=== PATIENT | male | born 1955 | race Caucasian/White ===

== ENCOUNTER 2017-11-01 09:32 | Observation (INO) | payer MEDICARE, MEDICAID, SELFPAY ==
[2017-11-01] VITALS (11 sets, daily range): BP systolic 112–143; BP diastolic 64–89; PULSE 58–68; RESP 14–24; TEMP 36.3–36.8; O2SAT 96–98; BMI 34.5; BMI 34.6; BMI 33.6
--- NOTE | 2017-11-01 09:45 | EKG12_ITS ---
Test Reason : ABD PAIN Blood Pressure : / mmHG Vent. Rate : 061 BPM Atrial Rate : 061 BPM P-R Int : 150 ms QRS Dur : 082 ms QT Int : 450 ms P-R-T Axes : 047 -11 126 degrees QTc Int : 453 ms Normal sinus rhythm with sinus arrhythmia Anterior infarct , age undetermined, cannot be excluded ST & T wave abnormality, consider lateral ischemia Abnormal ECG Confirmed by DELILAH ANAYA, BRITTNI ([id number]), editorial specialist RAQUEL LERMA ([id number] on 11/02/2017 9:53:27 AM Referred By: YAMILE Confirmed By:BRITTNI MAZARIEGOS MD
--- NOTE | 2017-11-01 09:45 | CT_ITS ---
STUDY: CT ABDOMEN AND PELVIS WITHOUT CONTRAST REASON FOR EXAM: Male, 62 years old. Mid and lower back pain and left lower quadrant pain with rebound tenderness. RADIATION DOSAGE (If Supplied By Facility): CTDIvol = ( 16.14 ) mGy, DLP = ( 862.88 ) mGycm TECHNIQUE: Transaxial images were obtained from the dome of the diaphragm to the symphysis pubis with oral contrast, and without intravenous contrast. Sagittal and coronal images were reconstructed. Individualized dose optimization techniques were used for this CT. COMPARISON: None. FINDINGS: Small right pleural effusion. Bibasilar atelectasis and/or infiltrate slightly worse on the right side. Coronary artery calcification. Normal liver. Normal gallbladder and extrahepatic biliary system. Normal spleen. Normal pancreas. Normal bilateral adrenal glands. Normal right kidney. Normal left kidney. Mild degree of nonspecific perinephric stranding. There is a small hiatal hernia. Normal small intestine. There are multiple colonic diverticula consistent with diverticulosis. The appendix is visualized and appears normal. There is diffuse atherosclerotic calcification of the abdominal aorta and its major visceral branches, without a demonstrated aneurysm. Normal inferior vena cava. There is borderline retroperitoneal lymphadenopathy with enlarged nodes no greater than 10mm in the short axis diameter. Normal urinary bladder. There is a small umbilical hernia containing fat. Small bilateral inguinal hernias containing fat. Small benign-appearing bilateral inguinal lymph nodes. There are degenerative changes of the visualized lumbar spine. CT/Abdomen/Pel W ORAL Cont Only IMPRESSION: Extensive atherosclerosis. Nonspecific bilateral perinephric stranding. Small right pleural effusion with underlying bibasilar atelectasis worse on the right side. Electronically Signed: Alli Dias MD at 12:39 EST Tel [phone], Service support ,
[2017-11-01] MEDS: Ondansetron 4 MG/2 ML Vial IV (10:18)
[2017-11-01 10:19] LABS: Absolute Lymphocyte Count 1.43 X10^3/ul (0.83-4.51); Absolute Neutrophil Count 5.8 X10^3/uL (2.0-7.7); Basophil# 0.02 X10^3/uL; Basophil% 0.2 % (0-1); Eosinophil# 0.13 X10^3/uL; Eosinophils% 1.6 % (0-5); Hematocrit 27.8 % (40-54); Lymphocyte # 1.43 X10^3/ul (4.0); Lymphocyte % 17.8 % (19-41); Mean Corp Hgb Conc 32.4 g/gl (32-36); Mean Corpuscular Hgb 25.8 pg (27.0-32.0); Mean Corpuscular Volume 79.7 fL (80-94); Mean Platelet Vol. 9.6 fl (6.2-12.0); Monocyte# 0.62 X10^3/uL; Monocyte% 7.7 % (0-10); Neutrophil # 5.83 X10^3/uL (2.7-7.7); Neutrophil % 72.5 % (47-70); Platelet Count 201 K/mm3 (150-450); RBC Distribution Width CV 14.1 % (11.6-14.6); RBC Distribution Width SD 40.4 fl (35.1-43.9); Red Blood Count 3.49 M/mm3 (4.6-6.2); White Blood Count 8.1 K/mm3 (4.4-11.0)
[2017-11-01 10:21] LABS: POSITIVE COUNT NO; POSITIVE DIFFERENTIAL NO; POSITIVE MORPHOLOGY NO
[2017-11-01] MEDS: 0.9% Normal Saline 1,000 ML 250 ML IV (10:22)
--- NOTE | 2017-11-01 10:26 | ED.VISSUMM ---
- ER Visit Summary Date of Service: 11/01/17 Chief Complaint: Left flank pain that started 1 week ago now complains of left lower quadrant abdominal pain History of Present Illness: The patient is a 62 M who is not a good informant presents because of increasing left lower quadrant abdominal pain. He states he initially had left lower back pain that he thought was secondary to activity. He denies history of renal ureterolithiasis. He denies dysuria, frequency, urgency or hematuria. He is uncertain whether he has history of diverticulosis. He states he has been scoped by Dr. Eliel Renteria and had 5 polyps removed. He was admitted in August for anasarca. He denies any fever, chills night sweats. He does report increased shortness of breath and increased swelling of his lower extremities. He denies cough. He denies increased orthopnea and denies PND. There is no history of CHF. He does have history obstructive sleep apnea and has a BMI greater than 40. He is on Xarelto for PE/DVT. Past medical history COPD, hypertension, hypercholesterolemia, obstructive sleep apnea, PE/DVT. PCP is Dr. Lorenzo and tread cutter Dr. Martinez. Physical Examination: Does not appear well. Question of central cyanosis. He is tachypnic. HEENT exam is remarkable for discoloration of lips concerning for central cyanosis. Lungs revealed decreased breath sounds with end inspiratory rales. Heart is regular without murmur, gallop or rub abdomen is distended firm peritoneal findings and maximal tenderness left lower quadrant. He does have left lower back/flank pain to palpation as well. There is no rash to suggest herpes varicella-zoster. There is 1-2+ pitting edema lower extremity. Neuro exam is nonfocal. Test Results: EG sinus rhythm rate of 61 with decreased anterior force and ischemic ST-T wave changes laterally. Need old for comparison. These EKG changes are new since August 2017. CT of the abdomen and pelvis reveals significant atherosclerotic disease with a right pleural effusion and bilateral perinephric stranding. H&H 9.0 27.8. MCV is 79.7. BMP is marked for glucose 168, BUN and creatinine are 39 and 3.07 respectively. Urine reveals proteinuria and hematuria consistent with end-stage renal disease. Troponins less than 0.02. Lactate is 1.0. Emergency Department Course and Treatment: IV was established and he received a fluid bolus. He was treated with 4.5 g of Zosyn IV piggyback since concern for diverticulitis with peritonitis. Appropriate blood work was obtained. EKG was obtained because he appeared ill and reveals a sinus rhythm rate of 61 with decreased anterior force and ST-T wave changes in the lateral leads. Will need old EKG for comparison. Treatment Plan: Was medicated with Zofran 4 mg IV push, morphine sulfate 4 mg IV push. He states his back pain is resolved. In light of the fact that he was dyspneic tachypnic and concern for central cyanosis when he walked and this may represent his anginal equivalent since these EKG changes are new since September 22, 2017. He states he has not had a cardiac cath rotation stress test in greater than 3 years. Disposition: 23 observation versus full admission PCU Impression: 1. Dyspnea on exertion suspect anginal equivalent 2. Abnormal EKG with ischemic lateral changes, new 3. Anemia 4. End-stage renal disease, stage IV chronic 5. Hyperglycemia and type II diabetic 6. Pleural effusion, history of CHF This note was generated with [employer] dictation software. It may contain incorrect words, spelling, and punctuation that were not noted in review of the chart prior to signing ED Disposition - Plan for ED Patient: Chief Complaint: Abd Pain Referrals: Chris Woodward MD [Primary Care Provider] -
[2017-11-01 10:28] LABS: Anion Gap 9 (5-15); BUN 39 mg/dL (7-18); BUN/Creat Ratio 12.7 RATIO (10-20); Calcium,Total 8.1 mg/dL (8.5-10.1); Chloride 110 mmol/L (98-107); Creatinine, Serum 3.07 mg/dL (0.70-1.30); EST Glomerular Filtration Rate 22 mL/min (>60); Est Glom Filt Rate - Afr Amer 27 mL/min (>60); Estimated Creatinine Clearance 23.33 ml/min; Glucose 168 mg/dL (74-106); Potassium 5.1 mmol/L (3.5-5.1); Sodium Level 140 mmol/L (136-145)
--- NOTE | 2017-11-01 10:30 | ED.DCSUM_ITS ---
- ER Visit Summary Date of Service: 11/01/17 Chief Complaint: Left flank pain that started 1 week ago now complains of left lower quadrant abdominal pain History of Present Illness: The patient is a 62 M who is not a good informant presents because of increasing left lower quadrant abdominal pain. He states he initially had left lower back pain that he thought was secondary to activity. He denies history of renal ureterolithiasis. He denies dysuria, frequency, urgency or hematuria. He is uncertain whether he has history of diverticulosis. He states he has been scoped by Dr. Eliel Renteria and had 5 polyps removed. He was admitted in August for anasarca. He denies any fever , chills night sweats. He does report increased shortness of breath and increased swelling of his lower extremities. He denies cough. He denies increased orthopnea and denies PND. There is no history of CHF. He does have history obstructive sleep apnea and has a BMI greater than 40. He is on Xarelto for PE/DVT. Past medical history COPD, hypertension, hypercholesterolemia, obstructive sleep apnea, PE/DVT. PCP is Dr. Lorenzo and counselor supervisor Dr. Martinez. Physical Examination: Does not appear well. Question of central cyanosis. He is tachypnic. HEENT exam is remarkable for discoloration of lips concerning for central cyanosis. Lungs revealed decreased breath sounds with end inspiratory rales. Heart is regular without murmur, gallop or rub abdomen is distended firm peritoneal findings and maximal tenderness left lower quadrant. He does have left lower back/flank pain to palpation as well. There is no rash to suggest herpes varicella-zoster. There is 1-2+ pitting edema lower extremity. Neuro exam is nonfocal. Test Results: EG sinus rhythm rate of 61 with decreased anterior force and ischemic ST-T wave changes laterally. Need old for comparison. These EKG changes are new since August 2017. CT of the abdomen and pelvis reveals significant atherosclerotic disease with a right pleural effusion and bilateral perinephric stranding. H&H 9.0 27.8. MCV is 79.7. BMP is marked for glucose 168, BUN and creatinine are 39 and 3.07 respectively. Urine reveals proteinuria and hematuria consistent with end-stage renal disease. Troponins less than 0.02. Lactate is 1.0. Emergency Department Course and Treatment: IV was established and he received a fluid bolus. He was treated with 4.5 g of Zosyn IV piggyback since concern for diverticulitis with peritonitis. Appropriate blood work was obtained. EKG was obtained because he appeared ill and reveals a sinus rhythm rate of 61 with decreased anterior force and ST-T wave changes in the lateral leads. Will need old EKG for comparison. Treatment Plan: Was medicated with Zofran 4 mg IV push, morphine sulfate 4 mg IV push. He states his back pain is resolved. In light of the fact that he was dyspneic tachypnic and concern for central cyanosis when he walked and this may represent his anginal equivalent since these EKG changes are new since September 22, 2017. He states he has not had a cardiac cath rotation stress test in greater than 3 years. Disposition: 23 observation versus full admission PCU Impression: 1. Dyspnea on exertion suspect anginal equivalent 2. Abnormal EKG with ischemic lateral changes, new 3. Anemia 4. End-stage renal disease, stage IV chronic 5. Hyperglycemia and type II diabetic 6. Pleural effusion, history of CHF This note was generated with [employer] dictation software. It may contain incorrect words, spelling, and punctuation that were not noted in review of the chart prior to signing ED Disposition - Plan for ED Patient: Chief Complaint: Abd Pain Referrals: Chris Woodward MD [Primary Care Provider] -
[2017-11-01 10:41] LABS: Bacteria 0 SEEN /hpf (None Seen); Mucous, Urine 0 SEEN /hpf (<or=2+); White Blood Cells 0 SEEN /hpf (0-5)
[2017-11-01 10:44] LABS: Color, Urine Yellow (Yellow); Glucose, Dipstick 100 mg/dl (Normal); Ketone-Dipstick Negative (Negative); Leukocyte Esterase-Dipstick Negative /ul (Negative); Nitrite-Dipstick Negative (Negative); Occult Blood-Urine 25 /ul (Negative); Protein-Dipstick 500 mg/dl (Negative); Specific Gravity, Urine 1.015 (1.002-1.030); Urine Bilirubin Dipstick Negative (Negative); Urine Clarity Sl. Cloudy (Clear); Urine Urobilinogen Normal (Normal)
[2017-11-01 11:04] LABS: Hyaline Cast 0-5 SEEN /lpf (0-5); Red Blood Cells-Urine 0-5 SEEN /hpf (0-5); Squamous Epithelial Cells - UA 0-5 SEEN /hpf (0-5)
[2017-11-01] MEDS: Aspirin 81 MG TAB.CHEW 324 MG PO (16:12)
--- NOTE | 2017-11-01 17:27 | CON.PCM_ITS ---
Reason for Consult Date of Consultation: 11/01/17 Reason for Consultation: Abnormal EKG History of Present Illness: The patient is a 62 year old M with a previous cardiac history significant for hypertension diabetes mellitus as well as coronary artery bypass surgery. He was previously been followed through the [facility] system. He had presented to the hospital in August 2017 with shortness of breath was noted to have an elevated natruretic peptide level and underwent an echocardiographic evaluation which demonstrated preserved ejection fraction. His EKG at that time did not demonstrate any significant changes. This time he presented with lower abdominal discomfort as well as lower back discomfort. He specifically denies any chest pain he does have mild chronic shortness of breath no palpitations no paroxysmal nocturnal dyspnea and minimal pedal edema. He has had no dizziness or diaphoresis no near syncope or syncope. Vision to his blood work being done an electrocardiogram was done which demonstrated changes noted in the beats and one in aVL and V5 and V6 consistent with lateral ischemia compared to the electrocardiogram done in August 2017. Cardiology was called to see him due to the EKG abnormalities. [] Past Medical History Allergies/Adverse Reactions: Allergies No Known Allergies Allergy (Verified 11/01/17 09:34) Home Medications: Ambulatory Orders Medication Instructions Recorded Amlodipine [Norvasc] 10 mg PO QHS 08/10/17 Aspirin 325 mg PO DAILY@0800 08/10/17 Atorvastatin Calcium 10 mg PO QHS 08/10/17 Carvedilol 25 mg PO BID 08/10/17 Folic Acid 800 mcg PO DAILY@0800 08/10/17 Doxazosin Mesylate [Cardura] 4 mg PO BID 08/30/17 Omeprazole 40 mg PO DAILY 08/30/17 Calcitriol [Rocaltrol] 0.25 mcg PO DAILY 11/01/17 Ergocalciferol [Vitamin D] 50,000 unit PO QMONTH 11/01/17 Furosemide [Lasix] 40 mg PO QHS 11/01/17 Furosemide [Lasix] 80 mg PO DAILY 11/01/17 Glimepiride [Amaryl] 0.5 mg PO DAILY 11/01/17 Vitamin E (Dl,Tocopheryl Acet) 400 unit PO DAILY 11/01/17 [Vitamin E] Past Medical History (Chronic Problems): Chronic Problems CKD (chronic kidney disease) (Chronic) DM2 (diabetes mellitus, type 2) (Chronic) Essential (primary) hypertension (Chronic) Surgical History: coronary bypass surgery - 10/2014 - *Family History Maternal History Items: Heart Disease, Hypertension Paternal History Items: Diabetes, Heart Disease, Hypertension Sibling History Items: Diabetes, Heart Disease, Hypertension Lives: Spouse/ Significant Other Smoking Status: Former smoker Alcohol: None Drugs: None Review of Systems - Review of Systems General: Denies: Fever, Night Sweats, Fatigue Cardiovascular: Reports: Peripheral Edema. Denies: Chest Discomfort, Shortness of Breath, Orthopnea, PND, Palpitations, Lightheadedness, Dizziness, Near Syncope, Syncope Respiratory: Denies: Cough, Sputum Production, Hemoptysis Gastrointestinal: Reports: Abdominal Discomfort. Denies: Hematemesis, Hematochezia, Melena Genitourinary: Denies: Dysuria, Hematuria Skin: Denies: Rash Neurological: Denies: Dizziness Subjectve: Pleasant gentleman in no apparent distress at this time Objective: Vital Signs Temp Pulse Resp BP Pulse Ox 98.3 F 65 17 112/72 98 11/01/17 17:10 11/01/17 17:10 11/01/17 17:10 11/01/17 17:10 11/01/17 17:10 Oxygen Delivery Method Room Air Weight: 215 lb Body Mass Index (BMI) 33.6 General: Awake, Alert, Oriented x 3 HEENT: PERRL, EOMI, Sclera Non Icteric Neck: Supple, Good ROM, No Lymph Node Enlargement Lungs: Diminished Ben Bases Cardiovascular: Regular Rhythm, Normal S1, Normal S2, No Murmurs, No Rubs, No Gallops Vascular: No Carotid Bruits, Normal Femoral Pulses, Normal Radial Pulses, Normal Dorsalis Pedal Pulse, Normal Posterior Tibial Pulses Abdomen: Bowel Sounds Present, Soft, Non Tender, No HSM, No Organomegaly Extremities: No Cyanosis, No Clubbing, Trace RLE Edema, Trace LLE Edema Skin: No Rashes Neurological: No Focal Motor or Sensory Deficit Psych/Mental Status: Appropriate Rhythm: EKG: Normal sinus rhythm rate of 61 bpm and lateral EKG changes. Assessment/Plan 1. EKG changes The patient presents with asymptomatic EKG changes. The above could be suggestive of ischemia pressure in comparison to his EKG from August 2017. Since of chest discomfort, even though he may be a diabetic I may suggest that we proceed with a noninvasive assessment especially as he has other concomitant issues such as anemia and significant renal insufficiency with a baseline creatinine of 2.8-3.3. If a significant amount of ischemia is detected then we may consider invasive therapy for the above. In addition he does not have any troponin elevation at this particular time. I would recommend a pharmacologic myocardial perfusion stress test in the morning as well as an echocardiogram to reassess his left ventricular function and compared with his preserved ejection fraction of 65% which was noted in August 2017. 2. Hypertension His blood pressure is under good control on the current medical therapy and I would not necessarily suggest any changes. 3. Chronic renal insufficiency with anemia He does have evidence of chronic renal insufficiency and will be followed up with the medical service regarding the above. 4. Status post coronary bypass surgery Patient is status post remote coronary bypass surgery placement. He has not had a recent noninvasive workup of the above, and therefore with the present EKG changes I would recommend that he undergo a workup and further recommendations made based on those results. 5. Diastolic heart failure He does have a history of diastolic heart failure and his diuretics should be tapered and adjusted as appropriate. Thank you for allowing me to participate in the care of your patient. Please don't hesitate to call if any issues arise
--- NOTE | 2017-11-01 17:32 | ECHOD_ITS ---
Reason For Study: S/P CABG, EKG changes Procedure This was a 2D Doppler, Color Flow transthoracic echocardiogram. Exam performed portable in patient room. Left Ventricle Normal LV size. Left ventricular systolic function is normal. The estimated ejection fraction is 65 %. No regional wall motion abnormalities noted. Right Ventricle Normal size and thickness. Normal systolic function. Atria The left atrium is mildly enlarged. Normal right atrium. Mitral Valve Normal mitral valve. Mild (1+) eccentric mitral valve insufficiency. Tricuspid Valve Normal tricuspid valve. Mild to moderate (1-2+) tricuspid valve insufficiency. Pulmonary artery systolic pressure is 45 mmHg. Mild pulmonary hypertension. Aortic Valve Normal aortic valve. Trisinus/trileaflet aortic valve. Pulmonic Valve Normal pulmonic valve. Great Vessels Normal aortic root. The pulmonary artery is normal size. Normal inferior vena cava. Pericardium/Pleural No pericardial effusion. MMode/2D Measurements & Calculations LVIDd: 5.3 cm IVSd: 1.1 cm Ao root diam: 3.0 cm LVIDs: 3.6 cm LVPWd: 1.2 cm LA dimension: 4.8 cm RVDd: 3.4 cm FS: 30.8 % LAV(MOD-bp): 92.3 ml LA A4 area: 25.3 cm2 RA A4 area: 17.2 cm2 LAV(MOD-bp) Indexed: 44.2 ml/m2 LAV(MOD-sp2): 85.5 ml LAV(MOD-sp4): 88.6 ml Doppler Measurements & Calculations MV E max jose manuel: 154.3 cm/sec Lat Peak E' Jose Manuel: 13.0 cm/sec Med Peak E' Jose Manuel: 8.3 cm/sec MV A max jose manuel: 129.4 cm/sec E/E' lat: 11.8 E/E' med: 18.5 MV E/A: 1.2 Ao V2 max: 158.5 cm/sec LV V1 max: 116.0 cm/sec PA V2 max: 133.7 cm/sec Ao max P.1 mmHg LV V1 max P.4 mmHg TR max jose manuel: 316.7 cm/sec TR max P.8 mmHg Interpretation Summary Normal LV size. Left ventricular systolic function is normal. The estimated ejection fraction is 65 %. Mild (1+) eccentric mitral valve insufficiency. Pulmonary artery systolic pressure is 45 mmHg. Mild pulmonary hypertension. Ordering Physician: Travon Fox Referring Physician: Chris Woodward M.D. Performed By: Ila Stuart RDCS, RVT
[2017-11-01] MEDS: Furosemide 40 MG Tablet PO (21:35)
[2017-11-01] MEDS: Carvedilol 25 MG Tablet PO (21:35)
[2017-11-01] MEDS: Atorvastatin Calcium 10 MG Tablet PO (21:35)
[2017-11-01] MEDS: Heparin Injection 5,000 UNITS/ML Syringe 5000 UNITS SC (21:35)
[2017-11-01] MEDS: amLODIPine 10 MG Tablet PO (21:35)
[2017-11-01] MEDS: Doxazosin 4 MG Tablet PO (21:35)
[2017-11-01 21:46] LABS: Bedside Glucose 130 mg/dL (70-110)
--- NOTE | 2017-11-01 21:52 | PCM.HP.STD ---
Problem List (1) Abnormal EKG Status: Acute (2) Lower abdominal pain Status: Acute History of Present Illness Date of Admission: 11/01/17 Chief Complaint: Abnormal EKG, lower abdominal pain The patient is a 62 year old M seen in the emergency room it was [facility] with chief complaint of lower abdominal pain and lower back pain ?1 week, patient denied any radiation of pain into his legs. Patient denied any diarrhea, hematochezia, nausea, or vomiting. Workup in the emergency room included labs which showed a white blood cell count of 8.1, hemoglobin was 9, BUN was 39, creatinine was 3.7. Glucose was 165. Patient had a chest x-ray performed which showed small right pleural effusion and possible atelectasis, patient has CT of the abdomen and pelvis which showed perinephric stranding but no acute process. EKG was performed which showed normal sinus rhythm, it was noted that there were ST depressions in the lateral wall leads on EKG which was change from previous EKG done in 2017. In talking with the patient further, he complained of shortness of breath at times but stated that his Lasix dosage had been decreased recently and then increased a few days ago. Patient states that he also had an episode of chest pain which was stabbing in nature across the top of his chest, this episode was approximately 6 months ago. Patient has a history of coronary artery disease with two-vessel bypass in the past, he states his last stress test was in 2014 before he had his bypass surgery. Patient has chronic kidney disease and is being seen by nephrology, patient does not know the exact etiology of his chronic kidney disease but feels it may be due to his diabetes. Patient will be placed in observation status for abnormal EKG, his left lower quadrant abdominal pain has all but disappeared at the time of my examination, not sure the etiology of this abdominal pain. Patient will be seen in consultation by cardiology, he will have an echocardiogram performed, most likely he will undergo stress test due to his elevated creatinine. Cardiac enzymes will be cycled Past Medical History Past Medical History (Chronic Problems): Chronic Problems CKD (chronic kidney disease) (Chronic) DM2 (diabetes mellitus, type 2) (Chronic) Essential (primary) hypertension (Chronic) Allergies No Known Allergies Allergy (Verified 11/01/17 09:34) Home Medications: Ambulatory Orders Medication Instructions Recorded Amlodipine [Norvasc] 10 mg PO QHS 08/10/17 Aspirin 325 mg PO DAILY@0800 08/10/17 Atorvastatin Calcium 10 mg PO QHS 08/10/17 Carvedilol 25 mg PO BID 08/10/17 Folic Acid 800 mcg PO DAILY@0800 08/10/17 Doxazosin Mesylate [Cardura] 4 mg PO BID 08/30/17 Omeprazole 40 mg PO DAILY 08/30/17 Calcitriol [Rocaltrol] 0.25 mcg PO DAILY 11/01/17 Ergocalciferol [Vitamin D] 50,000 unit PO QMONTH 11/01/17 Furosemide [Lasix] 40 mg PO QHS 11/01/17 Furosemide [Lasix] 80 mg PO DAILY 11/01/17 Glimepiride [Amaryl] 0.5 mg PO DAILY 11/01/17 Vitamin E (Dl,Tocopheryl Acet) 400 unit PO DAILY 11/01/17 [Vitamin E] Surgical History: appendectomy, coronary bypass surgery - 10/2014 Psychiatric History: No pertinent psych hx Lives: Spouse/ Significant Other Smoking Status: Former smoker Tobacco Use: Non-smoker Alcohol: None Drugs: None - *Family History Maternal History Items: Heart Disease, Hypertension Paternal History Items: Diabetes, Heart Disease, Hypertension Sibling History Items: Diabetes, Heart Disease, Hypertension Review of Systems Constitutional: Denies: Anorexia, Chills, Fever, Night Sweats, Malaise, Weakness, Weight Change, Fatigue Eyes: Denies: Blurred vision, Cataracts, Conjunctivae Inflammation, Double vision, Drainage HEENT: Denies: Difficulty Hearing, Difficulty Swallowing, Dysphasia, Ear Pain, Eye Pain, Hearing Changes, Nasal bleeding, Nasal Congestion, Post Nasal Drip Cardiovascular: Reports: Chest Pain - 6 months ago patient states he had an episode of stabbing chest pain across his upper chest. Denies: Claudication, Chest Pressure, Chest Tightness, Edema, Heaviness, Orthopnea, Palpitations, Paroxysmal Noc. Dyspnea, Syncope Respiratory: Reports: Shortness of Breath, Shortness of breath upon exertion. Denies: Cough, Hemoptysis, Pleuritic Pain, Shortness of breath at rest, Sputum production, Wheezing Gastrointestinal: Reports: Abdominal Pain - Left lower quadrant abdominal pain ?1 week. Denies: Constipation, Diarrhea, Hematemesis, Hematochezia, Nausea, Melena, Vomiting Genitourinary: Denies: Dysuria, Frequency, Hematuria, Hesitancy, Urgency Musculoskeletal: Denies: Joint Pain, Joint stiffness, Joint swelling Skin: Denies: Dryness, Pruritis, Rash Neurological: Denies: Blurred vision, Double vision, Slurred speech, Difficulty swallowing, Focal weakness, Headaches, Incoordination, Numbness, Tingling Psychiatric: Denies: Anxiety, Depression, Homicidal Ideations, Suicidal Ideations Endocrine: Denies: Change in Body Habitus, Heat/ Cold Intolerance, Polydipsia, Polyuria Hematologic/ Lymphatic: Denies: Adenopathy, Anemia, Easy Bruising, Easy Bleeding, Petechiae, Purpura VTE Information - Inpt Only VTE Present on Admission: No VTE Mechan Device Prophylaxis: None VTE Pharm Prophylaxis ordered?: Yes Patient Problems: Active and Suspected Problems Abnormal EKG (Acute) Lower abdominal pain (Acute) - Physical Exam General: Alert, Oriented x3, Cooperative, No apparent distress, Well developed, Well nourished HEENT: Atraumatic, PERRLA, EOMI, Normocephalic Oral: Moist Mucosa Neck: Supple, No JVD, Negative Carotid Bruits, No Nuchal Rigidity, Trachea Midline, Thyroid Normal Size and Texture Lungs: Clear to auscultation, Normal air movement, No rhonchi, No wheeze, No rales Cardiovascular: Regular rate, Regular Rhythm, Normal S1, Normal S2, No murmurs, No Ectopic Activity, PMI Normal, No rub noted, No Gallop Abdomen: Bowel Sounds Present, Soft, Non Tender, Non-Distended, No hernias noted Extremities: No clubbing, No cyanosis, No edema, Capillary Refill Less than 3 Seconds Skin: No rashes, No breakdown Musculoskeletal: No Tenderness to Palpation of Joints or Extremities Neurological: Cranial nerves II-XII grossly intact, Neuro grossly intact, Muscle tone normal, Sensory exam intact to light touch and pain, Coordination normal Psych/Mental Status: Normal Affect, Appropriate, Alert and oriented to time, place, person, mood and affect Vital Signs Temp Pulse Resp BP Pulse Ox 98.0 F 62 18 124/64 H 96 11/01/17 21:24 11/01/17 21:24 11/01/17 21:24 11/01/17 21:24 11/01/17 21:24 Oxygen Delivery Method Room Air Weight: 97.522 kg Body Mass Index (BMI) 33.6 Intake and Output for Last 24 Hours 10/30/17 10/31/17 11/01/17 23:59 23:59 23:59 Intake Total 120 / 120 Output Total 350 / 350 Balance -230 / -230 Laboratory Tests Past 24 Hrs 11/01/17 18:42 Troponin I < 0.02 POC Glucose 11/01/17 21:31 POC Glucose 130 H Assessment/Plan Active and Suspected Problems Abnormal EKG (Acute) Lower abdominal pain (Acute) #1 abnormal EKG showing T-wave depressions in the lateral wall leads-patient will be placed in observation status on PCU, cardiac enzymes will be cycled, echocardiogram will be obtained, patient will be seen in consultation by cardiology, patient most probably will have a stress test performed if his enzymes remain negative. #2 left lower quadrant abdominal pain-etiology unclear, continue to observe for return of the abdominal pain #3 chronic kidney disease stage IV secondary to type 2 diabetes #4 type 2 diabetes #5 coronary artery disease #6 anemia-probably secondary to chronic kidney disease, I will order serum iron Code Visit OBSV E&M: 35747 Initial observation care L3
[2017-11-01] MEDS: Acetaminophen 325 MG Tablet 650 MG PO (23:25)
[2017-11-02] VITALS (7 sets, daily range): BP systolic 103–112; BP diastolic 51–71; PULSE 60–74; RESP 16–18; TEMP 36.4–36.9; O2SAT 95–98
[2017-11-02 00:06] LABS: Iron 40 ug/dL (65-175); Iron Binding Capacity,Total 194 ug/dL (250-450); PERCENT IRON SATURATION 20.6 % (15.0-55.0)
[2017-11-02 05:12] LABS: Anion Gap 10 (5-15); BUN 36 mg/dL (7-18); BUN/Creat Ratio 12.6 RATIO (10-20); Calcium,Total 7.4 mg/dL (8.5-10.1); Chloride 109 mmol/L (98-107); Creatinine, Serum 2.85 mg/dL (0.70-1.30); EST Glomerular Filtration Rate 24 mL/min (>60); Est Glom Filt Rate - Afr Amer 29 mL/min (>60); Estimated Creatinine Clearance 25.13 ml/min; Glucose 118 mg/dL (74-106); Potassium 4.6 mmol/L (3.5-5.1); Sodium Level 138 mmol/L (136-145)
[2017-11-02] MEDS: Aspirin 325 MG Tablet PO (05:16)
--- NOTE | 2017-11-02 05:55 | EKG12_ITS ---
Test Reason : AM EKG Blood Pressure : / mmHG Vent. Rate : 065 BPM Atrial Rate : 065 BPM P-R Int : 156 ms QRS Dur : 086 ms QT Int : 418 ms P-R-T Axes : 058 -07 121 degrees QTc Int : 434 ms Normal sinus rhythm Septal infarct , age undetermined T wave abnormality, consider lateral ischemia Abnormal ECG Confirmed by DELILAH ANAYA, BRITTNI ([id number]), photography editor RAQUEL LERMA ([id number]) on 11/03/2017 2:57:16 PM Referred By: ANJANA Confirmed By:BRITTNI MAZARIEGOS MD
[2017-11-02 06:51] LABS: Bedside Glucose 112 mg/dL (70-110)
[2017-11-02] MEDS: Acetaminophen 325 MG Tablet 650 MG PO (08:51)
[2017-11-02] MEDS: Carvedilol 25 MG Tablet PO (08:57)
[2017-11-02] MEDS: Doxazosin 4 MG Tablet PO (08:57)
--- NOTE | 2017-11-02 11:11 | PN.CARD_ITS ---
Subjectve: Patient seen and evaluated complaining of abdominal pain but no chest pain Objective: Vital Signs Temp Pulse Resp BP Pulse Ox 98.4 F 74 16 103/71 98 11/02/17 08:12 11/02/17 08:12 11/02/17 08:12 11/02/17 08:12 11/02/17 08:12 Oxygen Delivery Method Room Air Weight: 215 lb Body Mass Index (BMI) 33.6 Intake and Output for Last 24 Hours 10/31/17 11/01/17 11/02/17 23:59 23:59 23:59 Intake Total 360 / 360 100 / 100 Output Total 600 / 600 375 / 375 Balance -240 / -240 -275 / -275 General: Awake, Alert, Oriented x 3 HEENT: PERRL, EOMI, Sclera Non Icteric Neck: Supple, Good ROM, No Lymph Node Enlargement Lungs: Clear to auscultation Cardiovascular: Regular Rhythm, Normal S1, Normal S2, No Murmurs, No Rubs, No Gallops Vascular: No Carotid Bruits, Normal Femoral Pulses, Normal Radial Pulses, Normal Dorsalis Pedal Pulse, Normal Posterior Tibial Pulses Abdomen: Bowel Sounds Present, Soft, Non Tender, No HSM, No Organomegaly Extremities: No Cyanosis, No Clubbing, No edema Neurological: No Focal Motor or Sensory Deficit 11/01/17 18:42: Troponin I < 0.02 11/01/17 23:03: Troponin I < 0.02 11/01/17 23:03: Iron 40 L, TIBC 194 L, Iron Saturation 20.6 11/02/17 04:20: Sodium 138, Potassium 4.6, Chloride 109 H, Carbon Dioxide 19.0 L , Anion Gap 10, BUN 36 H, Creatinine 2.85 H, Est GFR (MDRD) Af Amer 29 L, Est GFR (MDRD) Non-Af 24 L, BUN/Creatinine Ratio 12.6, Glucose 118 H, Calcium 7.4 L 11/02/17 04:20: Troponin I < 0.02 Assessment/Plan 1. EKG changes The patient presents with asymptomatic EKG changes. The above could be suggestive of ischemia pressure in comparison to his EKG from August 2017. Since of chest discomfort, even though he may be a diabetic I may suggest that we proceed with a noninvasive assessment especially as he has other concomitant issues such as anemia and significant renal insufficiency with a baseline creatinine of 2.8-3.3. If a significant amount of ischemia is detected then we may consider invasive therapy for the above. In addition he does not have any troponin elevation at this particular time. I would recommend a pharmacologic myocardial perfusion stress test in the morning . His echocardiogram continues to demonstrate preserved left ventricular ejection fraction estimated at 60-65% with no wall motion abnormalities present. 2. Hypertension His blood pressure is under good control on the current medical therapy and I would not necessarily suggest any changes. 3. Chronic renal insufficiency with anemia He does have evidence of chronic renal insufficiency and will be followed up with the medical service regarding the above. 4. Status post coronary bypass surgery Patient is status post remote coronary bypass surgery placement. He has not had a recent noninvasive workup of the above, and therefore with the present EKG changes I would recommend that he undergo a workup and further recommendations made based on those results. 5. Diastolic heart failure He does have a history of diastolic heart failure and his diuretics should be tapered and adjusted as appropriate. Thank you for allowing me to participate in the care of your patient. Please don't hesitate to call if any issues arise
[2017-11-02 11:55] LABS: Bedside Glucose 179 mg/dL (70-110)
[2017-11-02] MEDS: Glimepiride 1 MG Tablet 0.5 MG PO (12:31)
--- NOTE | 2017-11-02 12:31 | DCINST_ITS ---
- Discharge Diagnoses Current Active Problems: Current Active and Chronic Problems Abnormal EKG (Acute) Lower abdominal pain (Acute) You will use the following diet at home:: Calorie/Carbohydrate Controlled ( specify 1200, 1400, etc), Cardiac Discharge Activity: Return to Normal Activity Call your doctor if you observe: Fever of 101 or Higher, Dizziness, Fainting spells, Swelling in the ankles, Chest pain, Increased palpitations (irregular heartbeat) Allergies/Adverse Reactions: Allergies No Known Allergies Allergy (Verified 11/01/17 09:34) Medications to take at Discharge Amlodipine [Norvasc] 10 mg PO QHS 08/10/17 Aspirin 325 mg PO DAILY@0800 08/10/17 Atorvastatin Calcium 10 mg PO QHS 08/10/17 Carvedilol 25 mg PO BID 08/10/17 Folic Acid 800 mcg PO DAILY@0800 08/10/17 Doxazosin Mesylate [Cardura] 4 mg PO BID 08/30/17 Omeprazole 40 mg PO DAILY 08/30/17 Calcitriol [Rocaltrol] 0.25 mcg PO DAILY 11/01/17 Ergocalciferol [Vitamin D] 50,000 unit PO QMONTH 11/01/17 Furosemide [Lasix] 40 mg PO QHS 11/01/17 Furosemide [Lasix] 80 mg PO DAILY 11/01/17 Glimepiride [Amaryl] 0.5 mg PO DAILY 11/01/17 Vitamin E (Dl,Tocopheryl Acet) [Vitamin E] 400 unit PO DAILY 11/01/17 Oxycodone [Oxyir] 5 mg PO Q8H PRN PRN #10 tablet 11/02/17 The following prescriptions were given: Oxycodone [Oxyir] 5 mg PO Q8H PRN PRN #10 tablet PRN Reason: Pain Primary Care Physician: Chris Woodward MD [Primary Care Provider] - Please follow up with your Primary Care Physician in: 1 Week Please Follow Up With: Mana Granados DO When: As scheduled Proposed Discharge Date: 11/02/17
[2017-11-02] MEDS: Furosemide 80 MG Tablet PO (12:32)
[2017-11-02] MEDS: Pantoprazole Sodium 40 MG Tablet PO (12:32)
--- NOTE | 2017-11-02 12:37 | DS.PCM_ITS ---
<Lora Velázquez - Last Filed: 11/02/17 14:56> Discharge Date and Diagnosis Date of Admission: 11/01/17 Date of Discharge: 11/02/17 - Primary Discharge Diagnosis Active and Suspected Problems Abnormal EKG (Acute)- ACS ruled out Lower abdominal pain (Acute) - Secondary Discharge Diagnosis Chronic Problems CKD (chronic kidney disease) (Chronic) DM2 (diabetes mellitus, type 2) (Chronic) Essential (primary) hypertension (Chronic) Hospital Course and Treatment Imaging Results: Diagnostic Data Abdomen CT 11/01/17 09:45 IMPRESSION: Extensive atherosclerosis. Nonspecific bilateral perinephric stranding. Small right pleural effusion with underlying bibasilar atelectasis worse on the right side. Electronically Signed: Alli Dias MD at 12:39 EST Tel [phone], Service support , Dr. Fox- Cardiology Operations: None Procedures: 2-D Echocardiogram, Stress test Summary of Care Provided: Patient is a 62-year-old male admitted 11/01/17 due to abnormal EKG, left lower abdominal pain/left lower back pain ?1 week. Chest x-ray showed small right pleural effusion and possible atelectasis. CT of the abdomen showed perinephric stranding but no acute process. EKG showed sinus rhythm, possible ST depressions. He has a past medical history of chronic diastolic CHF, chronic kidney disease stage IV, type 2 diabetes mellitus, hypertension, history of CAD status post CABG, anemia of chronic disease. Patient follows with Dr. Granados for kidney disease. Cardiology was consulted. Troponin negative. Stress test negative for ischemia. Echocardiogram with preserved ejection fraction of 60-65% with no wall motion abnormalities. Patient's chronic medical conditions are stable at this time. Suspect pain is musculoskeletal in nature. Patient will be discharged with a short-term pain medication. He can follow-up with primary care physician and nephrology as outpatient. Patient was seen and examined prior to discharge. Heart rate regular rate and rhythm, no murmur. Lungs clear. Abdomen soft, nontender. Neuro grossly intact. Vital signs stable. Patient denies significant pain at discharge. Patient is stable for discharge home with recommendations as noted above. This patient was seen by LAVON Diaz under the supervision of Dr. Flores. Discharge Diet: Low fat/ Low Cholesterol, Carb Control Diet Discharge Activity: Return to Normal Activity Call your doctor if you observe: Fever of 101 or Higher, Dizziness, Fainting spells, Swelling in the ankles, Chest pain, Increased palpitations (irregular heartbeat) Home Medications: Medications to take at Discharge Amlodipine [Norvasc] 10 mg PO QHS 08/10/17 Aspirin 325 mg PO DAILY@0800 08/10/17 Atorvastatin Calcium 10 mg PO QHS 08/10/17 Carvedilol 25 mg PO BID 08/10/17 Folic Acid 800 mcg PO DAILY@0800 08/10/17 Doxazosin Mesylate [Cardura] 4 mg PO BID 08/30/17 Omeprazole 40 mg PO DAILY 08/30/17 Calcitriol [Rocaltrol] 0.25 mcg PO DAILY 11/01/17 Ergocalciferol [Vitamin D] 50,000 unit PO QMONTH 11/01/17 Furosemide [Lasix] 40 mg PO QHS 11/01/17 Furosemide [Lasix] 80 mg PO DAILY 11/01/17 Glimepiride [Amaryl] 0.5 mg PO DAILY 11/01/17 Vitamin E (Dl,Tocopheryl Acet) [Vitamin E] 400 unit PO DAILY 11/01/17 Oxycodone [Oxyir] 5 mg PO Q8H PRN PRN #10 tablet 11/02/17 Following Prescrptions Were Given to Patient: Oxycodone [Oxyir] 5 mg PO Q8H PRN PRN #10 tablet PRN Reason: Pain Primary Care Physician: Chris Woodward MD [Primary Care Provider] - Please follow up with your Primary Care Physician in: 1 Week Please Follow Up With: Mana Granados DO When: As scheduled Disposition: Home Minutes spent on discharge:: 35 Patient Condition:: Stable Meaningful Use Info Meaningful Use Diagnoses (Choose all that apply): None applicable <Ester Flores E - Last Filed: 11/03/17 11:37> Discharge Date and Diagnosis - Secondary Discharge Diagnosis Chronic Problems CKD (chronic kidney disease) (Chronic) DM2 (diabetes mellitus, type 2) (Chronic) Essential (primary) hypertension (Chronic) Hospital Course and Treatment Summary of Care Provided: Hospitalist note: Discharge summary above reviewed as well as physical examination and I agree with above discharge plan. Patient was admitted because of left lower quadrant abdominal pain, found to have abnormal EKG. Regarding the abnormal EKG, EKG revealed normal sinus rhythm with ST segment depression. His cardiac enzymes were negative ?3. He underwent nuclear stress test that revealed no evidence of acute stress-induced myocardial ischemia, ACS ruled out. 2D echocardiogram revealed ejection fraction of 65% and mild pulmonary hypertension. Patient complained of left lower quadrant abdominal pain of unclear etiology. CT scan abdomen revealed nonspecific bilateral perinephric stranding but there was no evidence of acute pyelonephritis. His urinalysis revealed no evidence of acute cystitis. Patient was afebrile and he has no leukocytosis. Patient denied any symptoms of dysuria, frequency or hematuria. Blood work was remarkable for chronic anemia and chronically elevated creatinine because of chronic kidney disease. - Physical Exam General: Alert, Oriented x3, Cooperative, No apparent distress. HEENT: Atraumatic, PERRLA, EOMI. Neck: Supple, No JVD, Negative Carotid Bruits, Trachea Midline, Thyroid Normal. Lungs: Sounds bilateral, otherwise clear , No rhonchi, No wheeze, No rales. Cardiovascular: Regular rate, Regular Rhythm, Normal S1, Normal S2, PMI Normal. Abdomen: Bowel Sounds Present, Soft, Non Tender, no CVA tenderness, Non- Distended, No Hepato-splenomegaly. Extremities: No clubbing, No cyanosis, No edema Skin: No rashes, No breakdown Neurological: Neuro grossly intact Vital Signs are stable. Patient discharged home in a stable medical condition, discharged on oxycodone as needed for pain, continued on his other chronic home medication without any changes, ACS ruled out, acute pyelonephritis ruled out recommended follow-up with PCP in 1 week., Minutes spent on discharge:: 26 Code Visit OBSV E&M: 29642 Observation care discharge
--- NOTE | 2017-11-02 13:00 | STRESSREP ---
Stress Test Report Date: 11/02/2017 Procedure: Pharmacologic stress nuclear imaging study Indications: Chest pain; CAD: Status post CABG Consent: Per the patient Procedure: The patient underwent pharmacologic (Regadenoson) evaluation with a peak heart rate of 70 bpm (44% predicted maximal heart rate) with a peak blood pressure 130/82 mmHg. The baseline ECG demonstrated underlying normal sinus rhythm with anterior PA pattern of indeterminate age and nonspecific T-wave abnormality. The peak pharmacologic ECG demonstrated no obvious ECG changes. There were no cardiac dysrhythmias pretest, during pharmacologic infusion, or recovery. There was no report of chest discomfort during pharmacologic infusion or recovery. The examination was discontinued secondary to completion of protocol. Impression: 1. Pharmacologic (Regadenoson) evaluation 2. Peak pharmacologic ECG with no obvious ECG changes 3. Nuclear images pending Myocardial perfusion imaging study: Technique: The patient was injected with 11.2 mCi of technetium 99m Cardiolite and subsequently rest SPECT Cardiolite nuclear imaging was obtained in the horizontal long, vertical long, and short axis views. The patient underwent pharmacologic (Regadenoson) evaluation with a peak heart rate of 70 bpm (44% predicted maximal heart rate) with a peak blood pressure 130/82 mmHg the patient was injected with 33.6 mCi of technetium 99m Cardiolite and subsequently stress SPECT Cardiolite nuclear imaging was obtained in the horizontal long, vertical long, and short axis views. A gated Cardiolite study at peak stress was obtained. Interpretation: Rest and stress SPECT cardiac nuclear imaging status post realignment, normalization, and attenuation correction, demonstrates the appearance of diminished tracer uptake in the apical regions without significant change between rest and stress. There are similar type findings on the resting and stress polar map images. There is notation of diminished end systolic thickening and brightening in the aforementioned areas and diminished myocardial thickening and inward wall motion in the aforementioned areas. The reported LVEF is 56%. Impression: 1. Rest and stress SPECT Cardiolite nuclear imaging demonstrate myocardial perfusion changes appearing compatible with an area of previous apical myocardial injury/infarction with no myocardial perfusion changes consider diagnostic for associated stress-induced myocardial ischemia. 2. The gated Cardiolite study reports an LVEF of 56%. This note was generated with [employer] software. It may contain incorrect words, spelling, and punctuation that were not noted in checking the note before signing.
--- NOTE | 2017-11-02 13:08 | STRESSREP_ITS ---
Stress Test Report Date: 11/02/2017 Procedure: Pharmacologic stress nuclear imaging study Indications: Chest pain; CAD: Status post CABG Consent: Per the patient Procedure: The patient underwent pharmacologic (Regadenoson) evaluation with a peak heart rate of 70 bpm (44% predicted maximal heart rate) with a peak blood pressure 130 /82 mmHg. The baseline ECG demonstrated underlying normal sinus rhythm with anterior SD pattern of indeterminate age and nonspecific T-wave abnormality. The peak pharmacologic ECG demonstrated no obvious ECG changes. There were no cardiac dysrhythmias pretest, during pharmacologic infusion, or recovery. There was no report of chest discomfort during pharmacologic infusion or recovery. The examination was discontinued secondary to completion of protocol. Impression: 1. Pharmacologic (Regadenoson) evaluation 2. Peak pharmacologic ECG with no obvious ECG changes 3. Nuclear images pending Myocardial perfusion imaging study: Technique: The patient was injected with 11.2 mCi of technetium 99m Cardiolite and subsequently rest SPECT Cardiolite nuclear imaging was obtained in the horizontal long, vertical long, and short axis views. The patient underwent pharmacologic (Regadenoson) evaluation with a peak heart rate of 70 bpm (44% predicted maximal heart rate) with a peak blood pressure 130/82 mmHg the patient was injected with 33.6 mCi of technetium 99m Cardiolite and subsequently stress SPECT Cardiolite nuclear imaging was obtained in the horizontal long, vertical long, and short axis views. A gated Cardiolite study at peak stress was obtained. Interpretation: Rest and stress SPECT cardiac nuclear imaging status post realignment, normalization, and attenuation correction, demonstrates the appearance of diminished tracer uptake in the apical regions without significant change between rest and stress. There are similar type findings on the resting and stress polar map images. There is notation of diminished end systolic thickening and brightening in the aforementioned areas and diminished myocardial thickening and inward wall motion in the aforementioned areas. The reported LVEF is 56%. Impression: 1. Rest and stress SPECT Cardiolite nuclear imaging demonstrate myocardial perfusion changes appearing compatible with an area of previous apical myocardial injury/infarction with no myocardial perfusion changes consider diagnostic for associated stress-induced myocardial ischemia. 2. The gated Cardiolite study reports an LVEF of 56%. This note was generated with [employer] software. It may contain incorrect words, spelling, and punctuation that were not noted in checking the note before signing.
[2017-11-02] MEDS: Calcitriol 0.25 MCG Capsule PO (13:53)
== END 2017-11-02 15:20 | disposition home or self-care (01) ==
LOC: ED 09:56 → PCU 16:51
PROVIDERS: Admitting Provider Internal Medicine; Emergency Provider Emergency Medicine; Family Provider Internal Medicine; PCP Internal Medicine; Visit Provider Hospitalist
DX: R10.32 Left lower quadrant pain (principal); R94.31 Abnormal electrocardiogram [ECG] [EKG]; E11.22 Type 2 diabetes mellitus with diabetic chronic kidney disease; I13.0 Hypertensive heart and chronic kidney disease with heart failure and stage 1 through stage 4 chronic kidney disease, or unspecified chronic kidney disease; N18.4 Chronic kidney disease, stage 4 (severe); I50.32 Chronic diastolic (congestive) heart failure; M54.5 Low back pain; I25.10 Atherosclerotic heart disease of native coronary artery without angina pectoris; D63.8 Anemia in other chronic diseases classified elsewhere; G47.33 Obstructive sleep apnea (adult) (pediatric); J44.9 Chronic obstructive pulmonary disease, unspecified; E11.65 Type 2 diabetes mellitus with hyperglycemia; Z95.1 Presence of aortocoronary bypass graft; Z79.899 Other long term (current) drug therapy; Z79.82 Long term (current) use of aspirin; Z87.891 Personal history of nicotine dependence
CPT/HCPCS: 36415; 74176; 78452; 80048; 81001; 82962; 83540; 83550; 83605; 84484; 85025; 87040; 93005; 93017; 93306; 96361; 96365; 96372; 96375; 99218; 99285; A9500; J7030; A4216; G0378; J2405; J2785

== ENCOUNTER → 2017-11-15 10:29 | Outpatient (CLI) | payer MEDICARE, MEDICAID, SELFPAY ==
[2017-11-15 11:53] LABS: Hematocrit 29.5 % (40-54); Hemoglobin 9.6 g/dl (13.0-16.5); Mean Corp Hgb Conc 32.5 g/gl (32-36); Mean Corpuscular Hgb 26.4 pg (27.0-32.0); Mean Platelet Vol. 9.6 fl (6.2-12.0); Platelet Count 229 K/mm3 (150-450); RBC Distribution Width CV 14.6 % (11.6-14.6); RBC Distribution Width SD 41.6 fl (35.1-43.9); Red Blood Count 3.64 M/mm3 (4.6-6.2); Scan Indicated on CBC? Y/N NO; White Blood Count 6.3 K/mm3 (4.4-11.0)
[2017-11-15 12:25] LABS: Albumin, Serum 2.5 g/dL (3.2-5.0); BUN 43 mg/dL (7-18); BUN/Creat Ratio 12.6 RATIO (10-20); Calcium,Total 8.1 mg/dL (8.5-10.1); Chloride 109 mmol/L (98-107); Creatinine, Serum 3.42 mg/dL (0.70-1.30); EST Glomerular Filtration Rate 19 mL/min (>60); Est Glom Filt Rate - Afr Amer 24 mL/min (>60); Glucose 68 mg/dL (74-106); Phosphorus 4.7 mg/dL (2.5-4.9); Potassium 4.6 mmol/L (3.5-5.1); Sodium Level 141 mmol/L (136-145)
[2017-11-15 12:46] LABS: PTHIN 239.4 pg/mL (18.4-80.1); Vitamin D,25 Hydroxy 14.4 ng/mL (19.95-100.01)
== END ==
PROVIDERS: Family Provider Internal Medicine; PCP Internal Medicine; Visit Provider Internal Medicine Nephrology
DX: N17.9 Acute kidney failure, unspecified (principal); N25.81 Secondary hyperparathyroidism of renal origin; D63.8 Anemia in other chronic diseases classified elsewhere; E55.9 Vitamin D deficiency, unspecified
CPT/HCPCS: 36415; 80069; 82306; 83970; 85027

== ENCOUNTER → 2018-01-17 10:18 | Outpatient (CLI) | payer MEDICARE, MEDICAID, SELFPAY ==
[2018-01-17 11:11] LABS: Hematocrit 27.3 % (40-54); Hemoglobin 8.7 g/dl (13.0-16.5); Mean Corp Hgb Conc 31.9 g/gl (32-36); Mean Corpuscular Hgb 26.4 pg (27.0-32.0); Mean Platelet Vol. 9.7 fl (6.2-12.0); Platelet Count 196 K/mm3 (150-450); RBC Distribution Width CV 16.1 % (11.6-14.6); RBC Distribution Width SD 47.5 fl (35.1-43.9); Red Blood Count 3.29 M/mm3 (4.6-6.2); White Blood Count 5.7 K/mm3 (4.4-11.0)
[2018-01-17 11:12] LABS: Scan Indicated on CBC? Y/N NO
[2018-01-17 11:31] LABS: Albumin, Serum 2.6 g/dL (3.2-5.0); BUN 49 mg/dL (7-18); BUN/Creat Ratio 14.7 RATIO (10-20); Calcium,Total 8.3 mg/dL (8.5-10.1); Chloride 111 mmol/L (98-107); Creatinine, Serum 3.33 mg/dL (0.70-1.30); EST Glomerular Filtration Rate 20 mL/min (>60); Est Glom Filt Rate - Afr Amer 24 mL/min (>60); Glucose 80 mg/dL (74-106); Phosphorus 5.3 mg/dL (2.5-4.9); Potassium 4.7 mmol/L (3.5-5.1); Sodium Level 141 mmol/L (136-145)
[2018-01-17 11:38] LABS: PTHIN 126.8 pg/mL (18.4-80.1)
== END ==
PROVIDERS: Family Provider Internal Medicine; PCP Internal Medicine; Visit Provider Internal Medicine Nephrology
DX: N18.4 Chronic kidney disease, stage 4 (severe) (principal); N25.81 Secondary hyperparathyroidism of renal origin
CPT/HCPCS: 36415; 80069; 83970; 85027

== ENCOUNTER → 2018-03-16 10:14 | Outpatient (CLI) | payer MEDICARE, MEDICAID, SELFPAY ==
[2018-03-16 11:49] LABS: Hematocrit 30.5 % (40-54); Hemoglobin 9.9 g/dl (13.0-16.5); Mean Corp Hgb Conc 32.5 g/gl (32-36); Mean Corpuscular Hgb 26.1 pg (27.0-32.0); Mean Corpuscular Volume 80.3 fL (80-94); Mean Platelet Vol. 9.1 fl (6.2-12.0); Platelet Count 238 K/mm3 (150-450); RBC Distribution Width CV 14.4 % (11.6-14.6); RBC Distribution Width SD 42.1 fl (35.1-43.9); White Blood Count 7.5 K/mm3 (4.4-11.0)
[2018-03-16 11:50] LABS: Scan Indicated on CBC? Y/N NO
[2018-03-16 12:04] LABS: Protein, Urine (Random) 1218.1 mg/dL (<11.9); Protein:Creat Ratio 8230 mg/g CRE (0-200)
[2018-03-16 12:25] LABS: Albumin, Serum 2.5 g/dL (3.2-5.0); BUN 40 mg/dL (7-18); BUN/Creat Ratio 10.6 RATIO (10-20); Calcium,Total 9.3 mg/dL (8.5-10.1); Chloride 109 mmol/L (98-107); Creatinine, Serum 3.76 mg/dL (0.70-1.30); EST Glomerular Filtration Rate 17 mL/min (>60); Est Glom Filt Rate - Afr Amer 21 mL/min (>60); Glucose 110 mg/dL (74-106); Phosphorus 4.4 mg/dL (2.5-4.9); Potassium 4.1 mmol/L (3.5-5.1); Sodium Level 143 mmol/L (136-145)
== END ==
PROVIDERS: Family Provider Internal Medicine; PCP Internal Medicine; Visit Provider Internal Medicine Nephrology
DX: E11.21 Type 2 diabetes mellitus with diabetic nephropathy (principal); E11.22 Type 2 diabetes mellitus with diabetic chronic kidney disease; N18.4 Chronic kidney disease, stage 4 (severe); D63.1 Anemia in chronic kidney disease; N25.81 Secondary hyperparathyroidism of renal origin
CPT/HCPCS: 36415; 80069; 82570; 83970; 84156; 85027

== ENCOUNTER 2018-05-12 01:52 | Inpatient (IN) | payer MEDICARE, MEDICAID, SELFPAY ==
[2018-05-12] VITALS (16 sets, daily range): BP systolic 97–126; BP diastolic 45–74; PULSE 63–83; RESP 16–40; TEMP 36.6–37.1; O2SAT 97–99; BMI 34.2; BMI 33.3
--- NOTE | 2018-05-12 02:19 | ED.VISSUMM ---
- ER Visit Summary Date of Service: 05/12/18 Chief Complaint: [] Patient presents with shortness of breath History of Present Illness: The patient is a 63 M [] shortness of breath for last 2 days worse today. It was intermittent yesterday but is more continuous tonight. He is also had some upper chest tightness intermittently throughout that time. Current severity is mild. He thinks is up 10 pounds. He does have history of CHF. He has had some fluid retention in his legs. He is on Lasix 80 mg in the morning and 40 at night. He has had a two-vessel bypass 3 years ago. He had a negative workup in October here. He had negative stress test and enzymes. He had echo that showed EF of 60-65%. At that time his EKG shows some ST depressions 1 aVL and laterally. These are unchanged today. Physical Examination: [] Vital signs reviewed General: Well-nourished well-developed Head: Normocephalic atraumatic Eyes: Pupils equal round and reactive to light extraocular movements intact ENT: TMs clear no hemotympanum no trauma Neck: Nontender full range of motion Cardiovascular: Regular rate rhythm no murmurs normal S1-S2 Respiratory: No distress with mild tachypnea clear to auscultation bilaterally chest nontender Abdomen: Soft nontender nondistended normal bowel sounds no masses Back: Nontender no CVA tenderness Extremities: Nontender active range of motion ?4 extremities no trauma Skin: Normal color no trauma Neuro alert oriented cranial nerves II through XII intact normal strength sensation reflexes Test Results: [] Emergency Department Course and Treatment: [] EKG shows sinus rhythm at a rate 84. Mild ST depression 1 aVL V5 V6 with T-wave inversion noted. This is unchanged from prior EKG in October of this year. No STEMI pattern noted. Chest x-ray and lab work obtained. Patient given IV Lasix. Given aspirin. Lab work shows a hemoglobin 8.8 which is chronically low for the patient. Creatinine is 4.3 up from 3.7. BUN 49. Calcium 7.5. Troponin I 0.08. BNP is 657. Discuss results with cardiology. Chest x-ray shows small bilateral pleural effusions. Discussed the hospitalist and Dr. Foster. . At this time the patient is having a non-STEMI. Started on a heparin bolus and drip. Will be admitted for further evaluation and treatment. Reevaluation at 3 AM shows the patient is pain-free. Resting comfortably without any significant shortness of breath on nasal cannula oxygen. Treatment Plan: [] Disposition: [] Impression: [] Non-STEMI Chronic anemia Chronic kidney disease Acute on chronic CHF Critical care time 74 minutes This note was generated with [employer] dictation software. It may contain incorrect words, spelling, and punctuation that were not noted in review of the chart prior to signing ED Disposition - Plan for ED Patient: Chief Complaint: Chest Pain Referrals: Chris Woodward MD [Primary Care Provider] -
[2018-05-12] MEDS: Furosemide 40 MG/4 ML Vial IV ×3 (02:28→18:51)
[2018-05-12 02:33] LABS: Absolute Lymphocyte Count 1.13 X10^3/ul (0.83-4.51); Absolute Neutrophil Count 8.3 X10^3/uL (2.0-7.7); Basophil# 0.02 X10^3/uL; Basophil% 0.2 % (0-1); Differential Indicated SCAN CRITERIA MET; Eosinophil# 0.09 X10^3/uL; Eosinophils% 0.8 % (0-5); Hematocrit 27.2 % (40-54); Hemoglobin 8.8 g/dl (13.0-16.5); Lymphocyte # 1.13 X10^3/ul (4.0); Lymphocyte % 10.5 % (19-41); Mean Corp Hgb Conc 32.4 g/gl (32-36); Mean Corpuscular Hgb 26.5 pg (27.0-32.0); Mean Corpuscular Volume 81.9 fL (80-94); Mean Platelet Vol. 9.7 fl (6.2-12.0); Monocyte# 1.17 X10^3/uL; Monocyte% 10.9 % (0-10); Neutrophil % 77.4 % (47-70); POSITIVE COUNT NO; POSITIVE DIFFERENTIAL NO; POSITIVE MORPHOLOGY YES; Platelet Count 201 K/mm3 (150-450); RBC Distribution Width CV 15.5 % (11.6-14.6); RBC Distribution Width SD 46.6 fl (35.1-43.9); Red Blood Count 3.32 M/mm3 (4.6-6.2); White Blood Count 10.7 K/mm3 (4.4-11.0)
[2018-05-12 02:57] LABS: Anion Gap 12 (5-15); BNP,B-Type NATRIURETIC PEPTIDE 657.3 pg/mL (0-100); BUN 49 mg/dL (7-18); BUN/Creat Ratio 11.3 RATIO (10-20); Calcium,Total 7.5 mg/dL (8.5-10.1); Chloride 107 mmol/L (98-107); Creatinine, Serum 4.33 mg/dL (0.70-1.30); EST Glomerular Filtration Rate 15 mL/min (>60); Est Glom Filt Rate - Afr Amer 18 mL/min (>60); Estimated Creatinine Clearance 16.89 ml/min; Glucose 199 mg/dL (74-106); Potassium 4.4 mmol/L (3.5-5.1); Sodium Level 139 mmol/L (136-145)
--- NOTE | 2018-05-12 03:14 | ED.RN ---
lab called with critical lab results. troponin level 1.080. Dr. Solis made aware. paged cardiology at this time
[2018-05-12] MEDS: Aspirin 325 MG Tablet PO ×2 (03:35→10:41)
[2018-05-12] MEDS: Heparin Injection (Vial) 5,000 UNIT/ML VIAL 7500 UNIT IV (03:50)
[2018-05-12 03:51] LABS: Partial Thromboplast Time 40.8 Seconds (24.1-36.2)
[2018-05-12] MEDS: HEPARIN/D5w 25,000 UNITS 25,000 UNITS/250 ML IV.SOLN. 14 UNITS IV ×2 (03:51→22:23)
--- NOTE | 2018-05-12 03:56 | PCM.HP.STD ---
Problem List (1) Non-ST elevation IN (NSTEMI) Status: Acute (2) CHF (congestive heart failure) Status: Acute (3) CKD (chronic kidney disease) Status: Chronic Qualifiers: Chronic kidney disease stage: stage 3 (moderate) Qualified Code(s): N18.3 - Chronic kidney disease, stage 3 (moderate) (4) DM2 (diabetes mellitus, type 2) Status: Chronic Qualifiers: Diabetes mellitus senior living insulin use: without senior living use Diabetes mellitus complication status: with kidney complications Chronic kidney disease stage: stage 3 (moderate) (5) Essential (primary) hypertension Status: Chronic (6) Hx of CABG Status: Acute History of Present Illness Date of Admission: 05/12/18 Chief Complaint: Chest pain ?3 days. The patient is a 63 year old M with a significant history of polycythemia vera, CAD status post double vessel CABG 3 years ago; PAD; venous insufficiency of both lower extremities; hypertension; pulmonary hypertension; history of dyslipidemia; CKD stage IV; anemia of chronic renal failure; bilateral carotid artery disease; obesity; chronic diastolic congestive heart failure and GERD who presents with a progressively worsening chest pain ?3 days. His chest pain improves with rest and it is aggravated with exertion. Her chest pain is nonradiating. He denies any nausea vomiting or abdirashid diaphoresis. He has been clammy. Associated with this chest pain is shortness of breath; and increased orthopnea. He denies paroxysmal nocturnal dyspnea. He reports a weight gain of about 10-12 pounds in the last 1 week. He follows up with a retail solar advisor Dr. Raheem Foster; and grain oilseed or pasture farm manager Dr. Granados. At emergency department patient's troponin was elevated at 1.08. His BNP was 6657.3. And his chest x-ray showed ST depressions and T-wave inversions in leads I, aVL, V5 and V6. At emergency department his retail solar advisor was called and a heparin bolus and drip was started. Past Medical History Past Medical History (Chronic Problems): Chronic Problems CKD (chronic kidney disease) (Chronic) DM2 (diabetes mellitus, type 2) (Chronic) Essential (primary) hypertension (Chronic) Allergies No Known Allergies Allergy (Verified 05/12/18 01:54) Home Medications: Ambulatory Orders Medication Instructions Recorded Amlodipine [Norvasc] 10 mg PO QHS 08/10/17 Aspirin 325 mg PO DAILY@0800 08/10/17 Atorvastatin Calcium 20 mg PO QHS 08/10/17 Carvedilol 25 mg PO BID 08/10/17 Folic Acid 1 mg PO DAILY@0800 08/10/17 Doxazosin Mesylate [Cardura] 4 mg PO DAILY 08/30/17 Omeprazole 40 mg PO DAILY 08/30/17 Calcitriol [Rocaltrol] 0.25 mcg PO DAILY 11/01/17 Ergocalciferol [Vitamin D] 50,000 unit PO QMONTH 11/01/17 Furosemide [Lasix] 40 mg PO QHS 11/01/17 Furosemide [Lasix] 80 mg PO DAILY 11/01/17 Glimepiride [Amaryl] 0.5 mg PO DAILY 11/01/17 Vitamin E (Dl,Tocopheryl Acet) 400 unit PO DAILY 11/01/17 [Vitamin E] Doxazosin Mesylate [Cardura] 8 mg PO QHS 05/12/18 Surgical History: appendectomy, coronary bypass surgery - 10/2014 Psychiatric History: No pertinent psych hx Lives: Spouse/ Significant Other Smoking Status: Former smoker Tobacco Use: Non-smoker Alcohol: Rare Drugs: None - *Family History Maternal History Items: Heart Disease, Hypertension Paternal History Items: Diabetes, Heart Disease, Hypertension Sibling History Items: Diabetes, Heart Disease, Hypertension Review of Systems Constitutional: Denies: Chills, Fever, Weight Change HEENT: Denies: Head Aches, Sinus Congestion, Sinus Drainage Cardiovascular: Reports: Chest Pain Respiratory: Reports: Shortness of Breath, - - Noisy breathing Gastrointestinal: Denies: Abdominal Pain, Nausea, Vomiting Genitourinary: Reports: Dysuria Musculoskeletal: Denies: Joint Pain, Joint Tenderness Skin: Denies: Rash, Wounds Neurological: Denies: Numbness, Tingling, Focal weakness Psychiatric: Denies: Anxiety, Depression, Homicidal Ideations, Suicidal Ideations Hematologic/ Lymphatic: Denies: Easy Bruising, Easy Bleeding VTE Information - Inpt Only VTE Present on Admission: No VTE Mechan Device Prophylaxis: None VTE Pharm Prophylaxis ordered?: No Reason prophylaxis not ordered:: Treatment Not Indicated - On therapeutic anticoagulation with heparin. Patient Problems: Active and Suspected Problems Non-ST elevation IN (NSTEMI) (Acute) - Physical Exam General: Alert, Oriented x3, Cooperative HEENT: Atraumatic, PERRLA, EOMI, Normocephalic Neck: Supple, No JVD, Negative Carotid Bruits Lungs: Diminished, - - Noisy breathing. Cardiovascular: Regular rate, No murmurs Abdomen: Bowel Sounds Present, Soft, Non Tender Extremities: No edema, Capillary Refill Less than 3 Seconds Skin: No rashes, No breakdown Musculoskeletal: No Tenderness to Palpation of Joints or Extremities Neurological: Cranial nerves II-XII grossly intact Psych/Mental Status: Anxious Vital Signs Temp Pulse Resp BP Pulse Ox 97.8 F 74 33 H 100/45 L 98 05/12/18 01:53 05/12/18 03:15 05/12/18 03:15 05/12/18 03:15 05/12/18 03:15 Assessment/Plan All Active Problems Non-ST elevation IN (NSTEMI) (Acute) Abnormal EKG (Acute) Lower abdominal pain (Acute) Diastolic CHF, acute (Acute) CKD (chronic kidney disease), stage IV (Acute) Nephrotic syndrome (Acute) CHF (congestive heart failure) (Acute) Anasarca (Acute) Hx of CABG (Acute) The patient is a 63 year old M with a significant history of polycythemia vera, CAD status post double vessel CABG 3 years ago; PAD; venous insufficiency of both lower extremities; hypertension; pulmonary hypertension; dyslipidemia; CKD stage IV; anemia of chronic renal failure; bilateral carotid artery disease; obesity; chronic diastolic congestive heart failure and GERD who presents with a progressively worsening chest pain and found to have non-ST elevation IN which likely is causing exacerbation of his underlying diastolic heart failure. Non-ST elevation IN Patient has chest pain and elevated troponin. Abnormal EKG as stated in HPI. Received heparin bolus. Heparin drip is ongoing. Received aspirin 325 mg the emergency department. Home aspirin 325 mg continued. Patient took his Lipitor 20 mg night before admission. An additional Lipitor 20 mg ?1 ordered. Patient to continue on Lipitor 40 mg nightly Nitroglycerin sublingual and morphine IV as needed for chest pain. N.p.o. except meds. Serial troponin ordered Carvedilol continued Cardiology consult. Exacerbation of diastolic heart failure. At Home he takes Lasix 80 mg po in a.m. and 40 mg po p.m. Patient received 40 mg IV Lasix at emergency department. Likely patient has been thrown in to heart failure because of the ST elevation IN. Lasix 40 mg IV twice daily ordered. Hypertension Amlodipine and Coreg continued Cardura continued Diabetes mellitus We will hold Amaryl falls n.p.o. and institute every 6 hours Accu-Cheks with correction scale insulin. Hyperlipidemia Lipitor as above CKD Calcitrol and ergocalciferol continued. DVT prophylaxis Not indicated Received heparin bolus; heparin drip ongoing. Code Visit Inpatient E&M: 85852 Init Hosp L3
[2018-05-12 04:48] LABS: International Normalized Ratio 1.1; Prothrombin Time (Protime)PT. 13.9 SECONDS (11.7-14.9)
--- NOTE | 2018-05-12 04:56 | NURSING ---
Patient refused all teaching material. Refused new CP booklet despite explaining the helpful uses.
[2018-05-12] MEDS: Atorvastatin Calcium 20 MG Tablet PO (05:34)
[2018-05-12 05:41] LABS: Bedside Glucose 148 mg/dL (70-110)
--- NOTE | 2018-05-12 08:19 | PCM.CONS.C ---
Reason for Consult Date of Consultation: 05/12/18 Reason for Consultation: Chest discomfort and abnormal cardiac troponin History of Present Illness: The patient is a 63 year old M a previous cardiac history significant for hypertension, diabetes mellitus as well as coronary artery bypass surgery. He was previously been followed through the [facility]. He had presented to the hospital in August 2017 with shortness of breath was noted to have an elevated natruretic peptide level and underwent an echocardiographic evaluation which demonstrated preserved ejection fraction. His EKG at that time did not demonstrate any significant changes. He presented in October of this year with abdominal and lower back discomfort and had EKG changes with T-wave inversions noted in lead I, aVL, V5 and V6 consistent with lateral ischemia. He was evaluated by cardiology at that time an echocardiogram demonstrated preserved ejection fraction and he underwent stress testing which did not demonstrate any obvious ischemia. His creatinine at that time was noted to be approximately 3. Medical therapy was recommended. He presents once again with chest discomfort now which appears to be sharp as well as abnormal cardiac enzyme patent consistent with a non-ST elevation myocardial infarction. His EKG is unchanged. His renal function appears to be much worse at this time and he has a fistula placed in his left arm. Past Medical History Allergies/Adverse Reactions: Allergies No Known Allergies Allergy (Verified 05/12/18 01:54) Home Medications: Ambulatory Orders Medication Instructions Recorded Amlodipine [Norvasc] 10 mg PO QHS 08/10/17 Aspirin 325 mg PO DAILY@0800 08/10/17 Atorvastatin Calcium 20 mg PO QHS 08/10/17 Carvedilol 25 mg PO BID 08/10/17 Folic Acid 1 mg PO DAILY@0800 08/10/17 Doxazosin Mesylate [Cardura] 4 mg PO DAILY 08/30/17 Omeprazole 40 mg PO DAILY 08/30/17 Calcitriol [Rocaltrol] 0.25 mcg PO DAILY 11/01/17 Ergocalciferol [Vitamin D] 50,000 unit PO QWEEK 11/01/17 Furosemide [Lasix] 40 mg PO QHS 11/01/17 Furosemide [Lasix] 80 mg PO DAILY 11/01/17 Glimepiride [Amaryl] 0.5 mg PO DAILY 11/01/17 Vitamin E (Dl,Tocopheryl Acet) 400 unit PO DAILY 11/01/17 [Vitamin E] Doxazosin Mesylate [Cardura] 8 mg PO QHS 05/12/18 Past Medical History (Chronic Problems): Chronic Problems CKD (chronic kidney disease) (Chronic) DM2 (diabetes mellitus, type 2) (Chronic) Essential (primary) hypertension (Chronic) Surgical History: appendectomy, coronary bypass surgery - 10/2014 Psychiatric History: No pertinent psych hx - *Family History Maternal History Items: Heart Disease, Hypertension Paternal History Items: Diabetes, Heart Disease, Hypertension Sibling History Items: Diabetes, Heart Disease, Hypertension Lives: Spouse/ Significant Other Smoking Status: Former smoker Tobacco Use: Non-smoker Alcohol: Rare Drugs: None Review of Systems - Review of Systems General: Reports: Fatigue. Denies: Fever, Night Sweats Cardiovascular: Reports: Chest Discomfort at Rest. Denies: Chest Discomfort, Shortness of Breath, Orthopnea, PND, Peripheral Edema, Palpitations, Lightheadedness, Dizziness, Near Syncope, Syncope Respiratory: Denies: Cough, Sputum Production, Hemoptysis Gastrointestinal: Denies: Hematemesis, Hematochezia, Melena Genitourinary: Denies: Dysuria, Hematuria Skin: Denies: Rash Subjectve: Pleasant gentleman in no apparent distress Objective: Vital Signs Temp Pulse Resp BP Pulse Ox 98.7 F 77 16 103/48 L 98 05/12/18 04:22 05/12/18 04:22 05/12/18 04:22 05/12/18 04:22 05/12/18 04:22 Oxygen Flow Rate (L/min) 2 Oxygen Delivery Method Nasal Cannula Weight: 218 lb 14.704 oz Body Mass Index (BMI) 33.3 Intake and Output for Last 24 Hours 05/10/18 05/11/18 05/12/18 23:59 23:59 23:59 Intake Total 63 / 63 Output Total 200 / 200 Balance -137 / -137 General: Awake, Alert, Oriented x 3 HEENT: PERRL, EOMI, Sclera Non Icteric Neck: Supple, Good ROM, No Lymph Node Enlargement Lungs: Clear to auscultation Cardiovascular: Regular Rhythm, Normal S1, Normal S2, No Murmurs, No Rubs, No Gallops Vascular: No Carotid Bruits, Normal Femoral Pulses, Normal Radial Pulses, Normal Dorsalis Pedal Pulse, Normal Posterior Tibial Pulses Abdomen: Bowel Sounds Present, Soft, Non Tender, No HSM, No Organomegaly Extremities: No Cyanosis, No Clubbing, No edema Neurological: No Focal Motor or Sensory Deficit 05/12/18 04:55: Troponin I 1.100 H* Rhythm: EKG: ECHO: Stress Test: Cardiac Cath: PCI: CT Surgery: Holter monitor: EPS: PPM: CXR: Chest CT Scan: Assessment/Plan 1. NSTEMI Patient presents with chest discomfort and has a non-ST elevation myocardial infarction. There is a set no no significant rise and fall of the troponin and therefore it is not clear to me whether this is demand ischemia or whether this is active plaque rupture. He does have significant renal dysfunction and would almost most certainly need dialysis after a dye related procedure. We will therefore need to talk further about the risk benefits before proceeding if need be. His most recent stress test was reassuring. It may be helpful to repeat his echocardiogram and if there are no wall motion abnormalities then we continue with medical therapy only. Will discuss further with the patient's primary balance wheel arm burnisher. 2. Hypertension Patient has a known history of hypertension. The plan will be to continue with her current medical therapy without making any major changes. 3. Diastolic heart failure Patient has a history of diastolic heart failure. Will continue with current diuretics but may need to increase to 80 mg twice a day. 4. Severe renal dysfunction Patient is being followed with a head mechanic as well regarding the above. Will coordinate care with them. Thank you for allowing me to participate in the care of your patient. Please don't hesitate to call if any issues arise
--- NOTE | 2018-05-12 08:22 | CON.PCM_ITS ---
Reason for Consult Date of Consultation: 05/12/18 Reason for Consultation: Chest discomfort and abnormal cardiac troponin History of Present Illness: The patient is a 63 year old M a previous cardiac history significant for hypertension, diabetes mellitus as well as coronary artery bypass surgery. He was previously been followed through the [facility] system. He had presented to the hospital in August 2017 with shortness of breath was noted to have an elevated natruretic peptide level and underwent an echocardiographic evaluation which demonstrated preserved ejection fraction. His EKG at that time did not demonstrate any significant changes. He presented in October of this year with abdominal and lower back discomfort and had EKG changes with T-wave inversions noted in lead I, aVL, V5 and V6 consistent with lateral ischemia. He was evaluated by cardiology at that time an echocardiogram demonstrated preserved ejection fraction and he underwent stress testing which did not demonstrate any obvious ischemia. His creatinine at that time was noted to be approximately 3. Medical therapy was recommended. He presents once again with chest discomfort now which appears to be sharp as well as abnormal cardiac enzyme patent consistent with a non-ST elevation myocardial infarction. His EKG is unchanged. His renal function appears to be much worse at this time and he has a fistula placed in his left arm. Past Medical History Allergies/Adverse Reactions: Allergies No Known Allergies Allergy (Verified 05/12/18 01:54) Home Medications: Ambulatory Orders Medication Instructions Recorded Amlodipine [Norvasc] 10 mg PO QHS 08/10/17 Aspirin 325 mg PO DAILY@0800 08/10/17 Atorvastatin Calcium 20 mg PO QHS 08/10/17 Carvedilol 25 mg PO BID 08/10/17 Folic Acid 1 mg PO DAILY@0800 08/10/17 Doxazosin Mesylate [Cardura] 4 mg PO DAILY 08/30/17 Omeprazole 40 mg PO DAILY 08/30/17 Calcitriol [Rocaltrol] 0.25 mcg PO DAILY 11/01/17 Ergocalciferol [Vitamin D] 50,000 unit PO QWEEK 11/01/17 Furosemide [Lasix] 40 mg PO QHS 11/01/17 Furosemide [Lasix] 80 mg PO DAILY 11/01/17 Glimepiride [Amaryl] 0.5 mg PO DAILY 11/01/17 Vitamin E (Dl,Tocopheryl Acet) 400 unit PO DAILY 11/01/17 [Vitamin E] Doxazosin Mesylate [Cardura] 8 mg PO QHS 05/12/18 Past Medical History (Chronic Problems): Chronic Problems CKD (chronic kidney disease) (Chronic) DM2 (diabetes mellitus, type 2) (Chronic) Essential (primary) hypertension (Chronic) Surgical History: appendectomy, coronary bypass surgery - 10/2014 Psychiatric History: No pertinent psych hx - *Family History Maternal History Items: Heart Disease, Hypertension Paternal History Items: Diabetes, Heart Disease, Hypertension Sibling History Items: Diabetes, Heart Disease, Hypertension Lives: Spouse/ Significant Other Smoking Status: Former smoker Tobacco Use: Non-smoker Alcohol: Rare Drugs: None Review of Systems - Review of Systems General: Reports: Fatigue. Denies: Fever, Night Sweats Cardiovascular: Reports: Chest Discomfort at Rest. Denies: Chest Discomfort, Shortness of Breath, Orthopnea, PND, Peripheral Edema, Palpitations, Lightheadedness, Dizziness, Near Syncope, Syncope Respiratory: Denies: Cough, Sputum Production, Hemoptysis Gastrointestinal: Denies: Hematemesis, Hematochezia, Melena Genitourinary: Denies: Dysuria, Hematuria Skin: Denies: Rash Subjectve: Pleasant gentleman in no apparent distress Objective: Vital Signs Temp Pulse Resp BP Pulse Ox 98.7 F 77 16 103/48 L 98 05/12/18 04:22 05/12/18 04:22 05/12/18 04:22 05/12/18 04:22 05/12/18 04:22 Oxygen Flow Rate (L/min) 2 Oxygen Delivery Method Nasal Cannula Weight: 218 lb 14.704 oz Body Mass Index (BMI) 33.3 Intake and Output for Last 24 Hours 05/10/18 05/11/18 05/12/18 23:59 23:59 23:59 Intake Total 63 / 63 Output Total 200 / 200 Balance -137 / -137 General: Awake, Alert, Oriented x 3 HEENT: PERRL, EOMI, Sclera Non Icteric Neck: Supple, Good ROM, No Lymph Node Enlargement Lungs: Clear to auscultation Cardiovascular: Regular Rhythm, Normal S1, Normal S2, No Murmurs, No Rubs, No Gallops Vascular: No Carotid Bruits, Normal Femoral Pulses, Normal Radial Pulses, Normal Dorsalis Pedal Pulse, Normal Posterior Tibial Pulses Abdomen: Bowel Sounds Present, Soft, Non Tender, No HSM, No Organomegaly Extremities: No Cyanosis, No Clubbing, No edema Neurological: No Focal Motor or Sensory Deficit 05/12/18 04:55: Troponin I 1.100 H* Rhythm: EKG: ECHO: Stress Test: Cardiac Cath: PCI: CT Surgery: Holter monitor: EPS: PPM: CXR: Chest CT Scan: Assessment/Plan 1. NSTEMI Patient presents with chest discomfort and has a non-ST elevation myocardial infarction. There is a set no no significant rise and fall of the troponin and therefore it is not clear to me whether this is demand ischemia or whether this is active plaque rupture. He does have significant renal dysfunction and would almost most certainly need dialysis after a dye related procedure. We will therefore need to talk further about the risk benefits before proceeding if need be. His most recent stress test was reassuring. It may be helpful to repeat his echocardiogram and if there are no wall motion abnormalities then we continue with medical therapy only. * Will discuss further with the patient's primary kaiawhina koh[place] reo. * 2. Hypertension * Patient has a known history of hypertension. The plan will be to continue with her current medical therapy without making any major changes. * 3. Diastolic heart failure * Patient has a history of diastolic heart failure. * Will continue with current diuretics but may need to increase to 80 mg twice a day. * 4. Severe renal dysfunction * Patient is being followed with a supervisor spinning as well regarding the above. * Will coordinate care with them. * Thank you for allowing me to participate in the care of your patient. Please don't hesitate to call if any issues arise
[2018-05-12] MEDS: Pantoprazole Sodium 40 MG Tablet PO (10:41)
[2018-05-12] MEDS: Folic Acid 1 MG Tablet PO (10:41)
[2018-05-12] MEDS: Doxazosin 4 MG Tablet PO (10:41)
[2018-05-12] MEDS: Carvedilol 25 MG Tablet PO ×2 (10:41→22:23)
[2018-05-12] MEDS: Vitamin E 400 UNITS Capsule PO (10:42)
[2018-05-12] MEDS: Calcitriol 0.25 MCG Capsule PO (10:42)
[2018-05-12 11:07] LABS: Partial Thromboplast Time 203.1 Seconds (24.1-36.2)
[2018-05-12 11:40] LABS: Bedside Glucose 106 mg/dL (70-110)
--- NOTE | 2018-05-12 12:27 | PCM.PROGNOTE ---
<Lora Velázquez - Last Filed: 05/12/18 14:09> Patient Problems: Active and Suspected Problems Non-ST elevation AR (NSTEMI) (Acute) Subjective: Patient seen and examined. Denies further chest pain overnight. Denies shortness of breath, dizziness, lightheadedness. No other current complaints. - Physical Exam General: Alert, Oriented x3, Cooperative, No apparent distress HEENT: Atraumatic, PERRLA, EOMI, Normocephalic Neck: Supple, No JVD, Negative Carotid Bruits Lungs: Clear to auscultation, Normal air movement Cardiovascular: Regular rate, Regular Rhythm, Normal S1, Normal S2, No murmurs Abdomen: Bowel Sounds Present, Soft, Non Tender, Non-Distended, Obese Extremities: No clubbing, No cyanosis, No edema, Capillary Refill Less than 3 Seconds Skin: No rashes, No breakdown Musculoskeletal: No Tenderness to Palpation of Joints or Extremities Neurological: Cranial nerves II-XII grossly intact, Neuro grossly intact Psych/Mental Status: Normal Affect, Appropriate Vital Signs Temp Pulse Resp BP Pulse Ox 98.7 F 74 18 106/59 L 98 05/12/18 10:22 05/12/18 11:10 05/12/18 10:22 05/12/18 10:22 05/12/18 12:04 Oxygen Flow Rate (L/min) 1 Oxygen Delivery Method Nasal Cannula Weight: 218 lb 14.704 oz Body Mass Index (BMI) 33.3 Intake and Output for Last 24 Hours 05/10/18 05/11/18 05/12/18 23:59 23:59 23:59 Intake Total 113 / 113 Output Total 650 / 650 Balance -537 / -537 Laboratory Tests Past 24 Hrs 05/12/18 05/12/18 05/12/18 04:55 08:10 10:30 APTT 203.1 H* Troponin I 1.100 H* 1.310 H* POC Glucose 05/12/18 05/12/18 11:19 05:35 POC Glucose 106 148 H Medical Necessity - Tobacco Use Smoking Status: Former smoker Tobacco Use: Non-smoker Assessment/Plan All Active Problems Non-ST elevation AR (NSTEMI) (Acute) Abnormal EKG (Acute) Lower abdominal pain (Acute) Diastolic CHF, acute (Acute) CKD (chronic kidney disease), stage IV (Acute) Nephrotic syndrome (Acute) CHF (congestive heart failure) (Acute) Anasarca (Acute) Hx of CABG (Acute) 1. NSTEMI-unclear etiology. Cardiology following. Hesitant to proceed with cardiac catheterization given severe renal dysfunction. Dr. Fox to discuss with patient's primary management trainee program stores. Repeat echocardiogram demonstrates EF of 50%, mild segmental systolic dysfunction, moderate pulmonary hypertension, pulmonary artery systolic pressure 50 mmHg. No changes noted compared to prior study. Patient had a normal stress test in October 2017. Continue aspirin, statin, carvedilol. Continue heparin drip. Repeat stress test ordered for a.m. 2. Acute on chronic diastolic CHF with associated acute hypoxia-chest x-ray on admission with small bilateral pleural effusion. BNP 657. Continue IV Lasix. Strict I&O. Daily weight. Wean supplemental oxygen as tolerated to maintain O2 at or above 90%. 3. CAD status post two-vessel bypass approximately 3 years ago-continue aspirin, statin, carvedilol. 4. Hypertension- stable, continue home regimen. 5. Type 2 Diabetes [id number] before meals at bedtime with sliding scale insulin. Hemoglobin A1c 7.1%. Recommend increasing home oral regimen at discharge. 6. Hyperlipidemia-continue statin. 7. Acute kidney injury on chronic kidney disease stage IV-baseline creatinine 3.3-3.7. Creatinine admission 4.3. Trend BMP. Consult Dr. Granados. 8. Anemia of chronic disease-stable, trend CBC. DVT prophylaxis-heparin drip This patient was seen by LAVON Diaz under the supervision of Dr. Verde. <Louie Verde - Last Filed: 05/12/18 14:41> - Physical Exam Vital Signs Temp Pulse Resp BP Pulse Ox 98.7 F 74 18 106/59 L 98 05/12/18 10:22 05/12/18 11:10 05/12/18 10:22 05/12/18 10:22 05/12/18 12:04 Oxygen Flow Rate (L/min) 1 Oxygen Delivery Method Nasal Cannula Weight: 99.3 kg Body Mass Index (BMI) 33.3 Intake and Output for Last 24 Hours 05/10/18 05/11/18 05/12/18 23:59 23:59 23:59 Intake Total 113 / 113 Output Total 650 / 650 Balance -537 / -537 Laboratory Tests Past 24 Hrs 05/12/18 05/12/18 05/12/18 04:55 04:55 08:10 APTT Hemoglobin A1c 7.1 H Troponin I 1.100 H* 1.310 H* 05/12/18 10:30 APTT 203.1 H* Hemoglobin A1c Troponin I POC Glucose 05/12/18 05/12/18 11:19 05:35 POC Glucose 106 148 H Assessment/Plan This patient was seen in conjunction with LAVON Diaz. I have independently interviewed and examined the patient and reviewed pertinent historical, laboratory, and other data. Please refer to LAVON Diaz note for details of this patient's presentation, findings, and recommendations. I have reviewed LAVON Diaz note and concur with documented findings. In brief, patient 63-year-old with multiple comorbidities admitted with chest pain cardiac enzymes came back consistent with acute non-ST AR admitted to a monitored bed and managed per protocol Physical Examination: GENERAL: cooperative HEENT: Clear conjunctiva, NECK; supple, normal thyroid, CHEST: Diminished to auscultation HEART: Regular S1 S2, ABDOMEN: soft, normoactive bowel sounds, RECTAL: deferred EXTREMITIES: No , no cyanosis. DEVELOPMENTAL BEHAVIORAL PHYSICIAN: Awake; no lateralizing signs. Assessment: 1. Acute Non-STEMI 2. Aute on chronic systolic heart failure 3. CAD with previous bypass 4. Diabetes mellitus type 2 5. Dyslipidemia 6. Chronic kidney disease stage IV 7. Acute kidney injury 8. Essential hypertension 9. Anemia secondary to anemia of chronic disorder Recommendations: 1. I have discussed the results of my overview and impressions with the patient 2. Options for management were reviewed Code Visit Inpatient E&M: 25190 Subs Hosp L3
[2018-05-12 13:10] LABS: Hemoglobin A1c 7.1 % (4.2-6.3)
--- NOTE | 2018-05-12 13:53 | CASEMGMT ---
RNCM Note- attempted to complete RN CM Assessment. Pt unavailable, will try again later or [place] am. Lorenzo BSN RN ACM
--- NOTE | 2018-05-12 15:12 | CASEMGMT ---
See RN CM assessment Link. DC PLAN: HOME -pt states he was independent prior to admission. No DME use. Plan is to return home on dc. Lorenzo ULLOA RN ACM
[2018-05-12 16:26] LABS: Bedside Glucose 127 mg/dL (70-110)
[2018-05-12 18:32] LABS: Partial Thromboplast Time 53.1 Seconds (24.1-36.2)
[2018-05-12] MEDS: Heparin Injection (Vial) 5,000 UNIT/ML VIAL IV (18:51)
[2018-05-12] MEDS: amLODIPine 10 MG Tablet PO (22:23)
[2018-05-12] MEDS: Doxazosin 4 MG Tablet 8 MG PO (22:23)
[2018-05-12] MEDS: Atorvastatin Calcium 40 MG Tablet PO (22:23)
[2018-05-12] MEDS: Insulin Lispro 100 UNIT/ML INSULN.PEN SQ (22:27)
[2018-05-12 22:40] LABS: Bedside Glucose 155 mg/dL (70-110)
[2018-05-13] VITALS (16 sets, daily range): BP systolic 104–128; BP diastolic 47–71; PULSE 61–84; RESP 16–20; TEMP 36.2–36.7; O2SAT 93–100
[2018-05-13 01:27] LABS: Partial Thromboplast Time 65.3 Seconds (24.1-36.2)
[2018-05-13 05:35] LABS: Hemoglobin 8.2 g/dl (13.0-16.5); Mean Corp Hgb Conc 32.8 g/gl (32-36); Mean Corpuscular Hgb 27.4 pg (27.0-32.0); Mean Corpuscular Volume 83.6 fL (80-94); Mean Platelet Vol. 9.9 fl (6.2-12.0); Platelet Count 197 K/mm3 (150-450); RBC Distribution Width SD 44.9 fl (35.1-43.9); Red Blood Count 2.99 M/mm3 (4.6-6.2); White Blood Count 8.9 K/mm3 (4.4-11.0)
[2018-05-13 05:36] LABS: Scan Indicated on CBC? Y/N NO
[2018-05-13 05:38] LABS: International Normalized Ratio 1.2; Prothrombin Time (Protime)PT. 14.7 SECONDS (11.7-14.9)
[2018-05-13 05:40] LABS: Partial Thromboplast Time 77.8 Seconds (24.1-36.2)
[2018-05-13] MEDS: Aspirin 325 MG Tablet PO (05:46)
[2018-05-13] MEDS: Doxazosin 4 MG Tablet PO (05:56)
[2018-05-13] MEDS: Carvedilol 25 MG Tablet PO ×2 (05:56→22:12)
[2018-05-13 06:01] LABS: Anion Gap 11 (5-15); BUN 54 mg/dL (7-18); BUN/Creat Ratio 11.9 RATIO (10-20); Calcium,Total 7.6 mg/dL (8.5-10.1); Chloride 107 mmol/L (98-107); Creatinine, Serum 4.52 mg/dL (0.70-1.30); EST Glomerular Filtration Rate 14 mL/min (>60); Est Glom Filt Rate - Afr Amer 17 mL/min (>60); Estimated Creatinine Clearance 16.18 ml/min; Glucose 160 mg/dL (74-106); Potassium 4.2 mmol/L (3.5-5.1); Sodium Level 140 mmol/L (136-145)
[2018-05-13 06:06] LABS: Bedside Glucose 153 mg/dL (70-110)
[2018-05-13] MEDS: Albuterol 2.5 MG/3 ML VIAL.NEB. INHALATION (07:25)
--- NOTE | 2018-05-13 10:38 | PCM.CONS.R ---
Consultation - Renal 05/13/18 PCP/ Referring MD: Requesting physician: [] Primary care physician: Chris Woodward Reason for Consultation:: acute on CKD stage 4 - History of Present Illness History of Present Illness: The patient is a 63 year old M well known to me with CKD stage 4 due to diabetes, arterionephrosclerosis with nephrotic proteinuria, CAD s/p CABG 3, PAD; venous insufficiency of both lower extremities; hypertension; pulmonary hypertension, dyslipidemia, bilateral carotid artery disease, obesity, chronic diastolic congestive heart failure, tobacco use quit 3 years ago, alcohoil use, admitted for NSTEMI with abnormal troponin levels. He developed chest tightness while mulching Wednesday. His chest pain improved with rest and it is aggravated with exertion. He denied radiation. He admitted to wheezing, cough with SOB. He refused to come in earlier this week until his forced him to for persistent SOB. He denied pain with walking the halls. His leg edema improved with iv lasix. He takes lasix 80mg in am, 40mg in pm at home. He denies any nausea or vomiting or abdirashid diaphoresis. He reports a weight gain of about 10-12 pounds in the last 1 week. Creatinine on admit was 4.3 to 4.5 on iv lasix. Baseline Cr mid 3's with GFR 20-24cc/min. 24h urine from 08/2017 showed CRCL 39cc/min, TP 8.7g likley overcollection. He has a history of hyperkalemia. He has a poorly maturing AVF left forearm placed by Dr Hollins at [facility] in Oct 2017, requiring multiple angioplasty by Dr Jackson in [place] who scheduled another angioplasty and ligation procedure on 05/23/18. In ER, roponin was elevated at 1.08, BNP was 657.3. Chest x-ray showed ST depressions and T-wave inversions in leads I, aVL, V5 and V6. Cardiology consulted. Stress test pending. - Allergies Allergies: Allergies No Known Allergies Allergy (Verified 05/12/18 01:54) - Current Medications Current Medications: Current Medications Amlodipine Besylate (Norvasc) 10 mg PO QHS [facility] Last Admin: 05/12/18 22:23 Dose: 10 mg Aspirin (Aspirin) 325 mg PO DAILY@0800 [facility] Last Admin: 08/17/18 05:46 Dose: 325 mg Atorvastatin Calcium (Lipitor) 40 mg PO QHS [facility] Last Admin: 05/12/18 22:23 Dose: 40 mg Bisacodyl (Dulcolax) 5 mg PO DAILY PRN PRN PRN Reason: Constipation Calcitriol (Rocaltrol) 0.25 mcg PO DAILY [facility] Last Admin: 05/12/18 10:42 Dose: 0.25 mcg Carvedilol (Coreg) 25 mg PO BID [facility] Last Admin: 05/13/18 05:56 Dose: 25 mg Dextrose (D50w Syringe) 0 gm IV X1 PRN; Protocol PRN Reason: Hypoglycemia Doxazosin Mesylate (Cardura) 8 mg PO QHS [facility] Last Admin: 05/12/18 22:23 Dose: 8 mg Doxazosin Mesylate (Cardura) 4 mg PO DAILY [facility] Last Admin: 05/13/18 05:56 Dose: 4 mg Ergocalciferol (Vitamin D) 50,000 unit PO [facility] Folic Acid (Folic Acid) 1 mg PO DAILY@0800 [facility] Last Admin: 05/12/18 10:41 Dose: 1 mg Furosemide (Lasix) 40 mg IV BIDLX [facility] Last Admin: 05/12/18 18:51 Dose: 40 mg Glucagon () 1 mg IM .X1 PRN PRN Reason: Hypoglycemia Heparin Sodium (Porcine) (Heparin Na) 0 unit IV UD PRN PRN Reason: Protocol Last Admin: 05/12/18 18:51 Dose: 1,000 unit Heparin Sodium/Dextrose () 25,000 units in 250 mls @ 14 mls/hr IV .[id number] [facility]; As Directed PRN Reason: Protocol Last Admin: 05/12/18 22:23 Dose: 14 mls/hr Insulin Human Lispro (Humalog Kwikpen (Bkc)) 0 unit SQ ACHS [facility] PRN Reason: Protocol Last Admin: 05/12/18 22:27 Dose: 2 units Magnesium Hydroxide (Milk Of Magnesia) 30 ml PO DAILY PRN PRN Reason: Constipation Morphine Sulfate () 1 - 2 mg IV Q3H PRN PRN PRN Reason: SEVERE PAIN (6-10/10) Nitroglycerin (Nitrostat) 0.4 mg SUBLINGUAL Q5M PRN PRN Reason: CHEST PAIN Ondansetron HCl (Zofran) 4 mg IV Q8H PRN PRN PRN Reason: NAUSEA Pantoprazole Sodium (Protonix) 40 mg PO DAILY [facility] Last Admin: 05/12/18 10:41 Dose: 40 mg Sodium Chloride () 5 - 30 ml IV UD PRN PRN Reason: SALINE FLUSH Vitamin E (Vitamin E) 400 units PO DAILY [facility] Last Admin: 05/12/18 10:42 Dose: 400 units - Past Medical History Past Medical History (Chronic Problems): Chronic Problems CKD (chronic kidney disease) (Chronic) DM2 (diabetes mellitus, type 2) (Chronic) Essential (primary) hypertension (Chronic) - Past Surgical History Surgical History: appendectomy, coronary bypass surgery - 10/2014 - Social History Marital Status: Smoking Status: Former smoker Alcohol: Rare Drugs: None - Family History Maternal History Items: Heart Disease, Hypertension Paternal History Items: Diabetes, Heart Disease, Hypertension Sibling History Items: Diabetes, Heart Disease, Hypertension Review of Systems Constitutional: Reports: Fatigue. Denies: Anorexia, Chills, Fever Eyes: Denies: Vision Change HEENT: Denies: Head Aches Cardiovascular: Reports: Chest Pain, Chest Tightness - with exertion, mulching over weekend, Edema. Denies: Syncope Respiratory: Reports: Cough, Shortness of breath upon exertion, Wheezing Gastrointestinal: Denies: Abdominal Pain, Nausea, Vomiting Genitourinary: Reports: - - no change in urine volume. Denies: Dysuria Musculoskeletal: Reports: - - edema Skin: Denies: Rash Neurological: Denies: Balance problems, Tremor Psychiatric: Denies: Anxiety Hematologic/ Lymphatic: Reports: Anemia Patient Problems: Active and Suspected Problems Non-ST elevation VT (NSTEMI) (Acute) - Physical Exam General: Alert, Oriented x3, Cooperative, No apparent distress, Well developed, Well nourished, - - fatigue HEENT: Atraumatic, PERRLA, EOMI Neck: Supple, No JVD Lungs: Clear to auscultation, No wheeze, Diminished Cardiovascular: Regular rate, Murmur Abdomen: Bowel Sounds Present, Non Tender, Distended, Obese Extremities: Edema - mild Skin: No rashes Musculoskeletal: No Muscle Wasting, Arthritic Changes Lymphatic: Cervical Adenopathy Neurological: Cranial nerves II-XII grossly intact Psych/Mental Status: Normal Affect, Appropriate, Alert and oriented to time, place, person, mood and affect Vital Signs Temp Pulse Resp BP Pulse Ox 98.1 F 67 18 104/47 L 100 05/13/18 08:47 05/13/18 08:53 05/13/18 08:49 05/13/18 08:47 05/13/18 08:49 Oxygen Flow Rate (L/min) 4 Oxygen Delivery Method Nasal Cannula Weight: 100.6 kg Body Mass Index (BMI) 33.3 Intake and Output for Last 24 Hours 05/11/18 05/12/18 05/13/18 23:59 23:59 23:59 Intake Total 353 / 353 247.6 / 247.6 Output Total 1100 / 1100 295 / 295 Balance -747 / -747 -47.4 / -47.4 Laboratory Tests Past 24 Hrs 05/12/18 05/12/18 05/12/18 04:55 10:30 17:15 WBC RBC Hgb Hct MCV MCH MCHC RDW RDW Differential Plt Count MPV PT INR APTT 203.1 H* 53.1 H Sodium Potassium Chloride Carbon Dioxide Anion Gap BUN Creatinine Estim Creat Clear Calc Est GFR (MDRD) Af Amer Est GFR (MDRD) Non-Af BUN/Creatinine Ratio Glucose Hemoglobin A1c 7.1 H Calcium 05/13/18 05/13/18 05/13/18 01:03 05:15 05:15 WBC 8.9 RBC 2.99 L Hgb 8.2 L Hct 25.0 L MCV 83.6 MCH 27.4 MCHC 32.8 RDW 15.0 H RDW Differential 44.9 H Plt Count 197 MPV 9.9 PT INR APTT 65.3 H Sodium 140 Potassium 4.2 Chloride 107 Carbon Dioxide 22.0 Anion Gap 11 BUN 54 H Creatinine 4.52 H Estim Creat Clear Calc 16.18 Est GFR (MDRD) Af Amer 17 L Est GFR (MDRD) Non-Af 14 L BUN/Creatinine Ratio 11.9 Glucose 160 H Hemoglobin A1c Calcium 7.6 L 05/13/18 05:15 WBC RBC Hgb Hct MCV MCH MCHC RDW RDW Differential Plt Count MPV PT 14.7 INR 1.2 APTT 77.8 H Sodium Potassium Chloride Carbon Dioxide Anion Gap BUN Creatinine Estim Creat Clear Calc Est GFR (MDRD) Af Amer Est GFR (MDRD) Non-Af BUN/Creatinine Ratio Glucose Hemoglobin A1c Calcium POC Glucose 05/13/18 05/12/18 05/12/18 05:49 22:26 16:04 POC Glucose 153 H 155 H 127 H 05/12/18 11:19 POC Glucose 106 Assessment/Plan All Active Problems Non-ST elevation VT (NSTEMI) (Acute) Abnormal EKG (Acute) Lower abdominal pain (Acute) Diastolic CHF, acute (Acute) CKD (chronic kidney disease), stage IV (Acute) Nephrotic syndrome (Acute) CHF (congestive heart failure) (Acute) Anasarca (Acute) Hx of CABG (Acute) 1. Acute on CKD stage 4 likely due to hemodynaamic shifts from diuretics, NSTEMI. Cr 4.5 with baseline mid 3's from Underlying diabetic nephropathy, arterionephrosclerosis. Has poorly maturing AVF placed Oct 2017 requiring multiple intervention. Check 24h urine CRCL. Currently without uremic symptoms. No urgency to initiate dialysis. Sugeest to change lasix to oral due to rise in creatinine. BNP 657 2. acute myocardial ischemia, NSTEMI cardio following 3. DM2 stable 4. HTN BP low. Adjust meds as needed 5. SHPT stop calcitriol for PTH 18 in February. Recheck
--- NOTE | 2018-05-13 13:37 | PCM.PROGNOTE ---
<Lora Velázquez - Last Filed: 05/13/18 13:46> Patient Problems: Active and Suspected Problems Non-ST elevation PR (NSTEMI) (Acute) Subjective: Patient seen and examined. Continues to have mild shortness of breath, worse with exertion. Denies chest pain overnight. Denies other current complaints. - Physical Exam General: Alert, Oriented x3, Cooperative HEENT: Atraumatic, PERRLA, EOMI, Normocephalic Neck: Supple, No JVD, Negative Carotid Bruits Lungs: Diminished, Wheezes Cardiovascular: Regular rate, Regular Rhythm, Normal S1, Normal S2, No murmurs Abdomen: Bowel Sounds Present, Soft, Non Tender, Non-Distended, Obese Extremities: No clubbing, No cyanosis, No edema, Capillary Refill Less than 3 Seconds Skin: No rashes, No breakdown Musculoskeletal: No Tenderness to Palpation of Joints or Extremities Neurological: Cranial nerves II-XII grossly intact, Neuro grossly intact Psych/Mental Status: Normal Affect, Appropriate Vital Signs Temp Pulse Resp BP Pulse Ox 98.1 F 67 18 104/47 L 100 05/13/18 08:47 05/13/18 08:53 05/13/18 08:49 05/13/18 08:47 05/13/18 08:49 Oxygen Flow Rate (L/min) 4 Oxygen Delivery Method Nasal Cannula Weight: 221 lb 12.56 oz Body Mass Index (BMI) 33.3 Intake and Output for Last 24 Hours 05/11/18 05/12/18 05/13/18 23:59 23:59 23:59 Intake Total 353 / 353 247.6 / 247.6 Output Total 1100 / 1100 295 / 295 Balance -747 / -747 -47.4 / -47.4 Laboratory Tests Past 24 Hrs 05/12/18 05/13/18 05/13/18 17:15 01:03 05:15 WBC 8.9 RBC 2.99 L Hgb 8.2 L Hct 25.0 L MCV 83.6 MCH 27.4 MCHC 32.8 RDW 15.0 H RDW Differential 44.9 H Plt Count 197 MPV 9.9 PT INR APTT 53.1 H 65.3 H Sodium Potassium Chloride Carbon Dioxide Anion Gap BUN Creatinine Estim Creat Clear Calc Est GFR (MDRD) Af Amer Est GFR (MDRD) Non-Af BUN/Creatinine Ratio Glucose Calcium 08/17/18 08/17/18 05:15 05:15 WBC RBC Hgb Hct MCV MCH MCHC RDW RDW Differential Plt Count MPV PT 14.7 INR 1.2 APTT 77.8 H Sodium 140 Potassium 4.2 Chloride 107 Carbon Dioxide 22.0 Anion Gap 11 BUN 54 H Creatinine 4.52 H Estim Creat Clear Calc 16.18 Est GFR (MDRD) Af Amer 17 L Est GFR (MDRD) Non-Af 14 L BUN/Creatinine Ratio 11.9 Glucose 160 H Calcium 7.6 L POC Glucose 05/13/18 05/12/18 05/12/18 05:49 22:26 16:04 POC Glucose 153 H 155 H 127 H Medical Necessity - Tobacco Use Smoking Status: Former smoker Tobacco Use: Non-smoker Assessment/Plan All Active Problems Non-ST elevation PR (NSTEMI) (Acute) Abnormal EKG (Acute) Lower abdominal pain (Acute) Diastolic CHF, acute (Acute) CKD (chronic kidney disease), stage IV (Acute) Nephrotic syndrome (Acute) CHF (congestive heart failure) (Acute) Anasarca (Acute) Hx of CABG (Acute) 1. NSTEMI-unclear etiology. Cardiology following. Hesitant to proceed with cardiac catheterization given severe renal dysfunction. Dr. Fox to discuss with patient's primary senior cisco network engineer. Repeat echocardiogram demonstrates EF of 50%, mild segmental systolic dysfunction, moderate pulmonary hypertension, pulmonary artery systolic pressure 50 mmHg. No changes noted compared to prior study. Patient had a normal stress test in October 2017. Continue aspirin, statin, carvedilol. Continue heparin drip. Stress test completed this morning, results pending. 2. Acute on chronic diastolic CHF with associated acute hypoxia-chest x-ray on admission with small bilateral pleural effusion. BNP 657. Transition to oral Lasix. Strict I&O. Daily weight. Wean supplemental oxygen as tolerated to maintain O2 at or above 90%. 3. Suspected exacerbation of COPD-patient with extensive smoking history. Has never had workup for COPD. Patient with wheezing on assessment. Continues to require supplemental oxygen. Begin IV Solu-Medrol, albuterol, DuoNeb aerosols. Recommend follow-up with pulmonary medicine as outpatient for pulmonary function testing. 4. CAD status post two-vessel bypass approximately 3 years ago-continue aspirin, statin, carvedilol. 5. Hypertension- stable, continue home regimen. 6. Type 2 Diabetes [place]-Lq[place]-Yhk[place] before meals at bedtime with sliding scale insulin. Hemoglobin A1c 7.1%. Recommend increasing home oral regimen at discharge. 7. Hyperlipidemia-continue statin. 8. Acute kidney injury on chronic kidney disease stage IV-baseline creatinine 3.3-3.7. Creatinine admission 4.3. Trend BMP. Dr. Granados consulted. 24-hour urine creatinine clearance pending. Patient has poorly maturing AV fistula which was placed in October 2017, not ready for dialysis. No dialysis needed at this time. Transition Lasix to oral regimen. 9. Anemia of chronic disease-stable, trend CBC. DVT prophylaxis-heparin drip This patient was seen by LAVON Diaz under the supervision of Dr. Verde. <Louie Verde - Last Filed: 05/13/18 16:16> - Physical Exam Vital Signs Temp Pulse Resp BP Pulse Ox 98.1 F 67 18 104/47 L 100 05/13/18 08:47 05/13/18 08:53 05/13/18 08:49 05/13/18 08:47 05/13/18 08:49 Oxygen Flow Rate (L/min) 4 Oxygen Delivery Method Nasal Cannula Weight: 100.6 kg Body Mass Index (BMI) 33.3 Intake and Output for Last 24 Hours 05/11/18 05/12/18 05/13/18 23:59 23:59 23:59 Intake Total 353 / 353 247.6 / 247.6 Output Total 1100 / 1100 295 / 295 Balance -747 / -747 -47.4 / -47.4 Laboratory Tests Past 24 Hrs 05/12/18 05/13/18 05/13/18 17:15 01:03 05:15 WBC 8.9 RBC 2.99 L Hgb 8.2 L Hct 25.0 L MCV 83.6 MCH 27.4 MCHC 32.8 RDW 15.0 H RDW Differential 44.9 H Plt Count 197 MPV 9.9 PT INR APTT 53.1 H 65.3 H Sodium Potassium Chloride Carbon Dioxide Anion Gap BUN Creatinine Estim Creat Clear Calc Est GFR (MDRD) Af Amer Est GFR (MDRD) Non-Af BUN/Creatinine Ratio Glucose Calcium 05/13/18 05/13/18 05:15 05:15 WBC RBC Hgb Hct MCV MCH MCHC RDW RDW Differential Plt Count MPV PT 14.7 INR 1.2 APTT 77.8 H Sodium 140 Potassium 4.2 Chloride 107 Carbon Dioxide 22.0 Anion Gap 11 BUN 54 H Creatinine 4.52 H Estim Creat Clear Calc 16.18 Est GFR (MDRD) Af Amer 17 L Est GFR (MDRD) Non-Af 14 L BUN/Creatinine Ratio 11.9 Glucose 160 H Calcium 7.6 L POC Glucose 05/13/18 05/13/18 05/12/18 14:32 05:49 22:26 POC Glucose 102 153 H 155 H 05/12/18 16:04 POC Glucose 127 H Assessment/Plan This patient was seen in conjunction with LAVON Diaz. I have independently interviewed and examined the patient and reviewed pertinent historical, laboratory, and other data. Please refer to LAVON Diaz note for details of this patient's presentation, findings, and recommendations. I have reviewed LAVON Diaz note and concur with documented findings. In brief, patient 63-year-old with multiple comorbidities admitted with chest pain cardiac enzymes came back consistent with acute non-ST PR admitted to a monitored bed and managed per protocol 05/13/2018: Patient still complains of shortness of breath no improvement in kidney function consult was placed to cardiology Physical Examination: GENERAL: cooperative HEENT: Clear conjunctiva, NECK; supple, normal thyroid, CHEST: Diminished to auscultation HEART: Regular S1 S2, ABDOMEN: soft, normoactive bowel sounds, RECTAL: deferred EXTREMITIES: No , no cyanosis. GRAVEL HAULER: Awake; no lateralizing signs. Assessment: 1. Acute Non-STEMI 2. Aute on chronic systolic heart failure 3. CAD with previous bypass 4. Diabetes mellitus type 2 5. Dyslipidemia 6. Chronic kidney disease stage IV 7. Acute kidney injury 8. Essential hypertension 9. Anemia secondary to anemia of chronic disorder Recommendations: 1. I have discussed the results of my overview and impressions with the patient 2. Options for management were reviewed Code Visit Inpatient E&M: 70302 Subs Hosp L3
[2018-05-13] MEDS: Folic Acid 1 MG Tablet PO (14:40)
[2018-05-13] MEDS: Pantoprazole Sodium 40 MG Tablet PO (14:41)
[2018-05-13] MEDS: Vitamin E 400 UNITS Capsule PO (14:42)
[2018-05-13 15:06] LABS: Bedside Glucose 102 mg/dL (70-110)
[2018-05-13] MEDS: HEPARIN/D5w 25,000 UNITS 25,000 UNITS/250 ML IV.SOLN. 14 UNITS IV (16:27)
[2018-05-13] MEDS: Furosemide 40 MG Tablet PO (16:31)
[2018-05-13 17:15] LABS: Bedside Glucose 73 mg/dL (70-110)
--- NOTE | 2018-05-13 17:54 | STRESSREP ---
Stress Test Report Pharmacologic myocardial perfusion stress test. 63-year-old man with a history of coronary artery disease non-ST elevation myocardial infarction. Stress protocol: Resting EKG demonstrates normal sinus rhythm with a rate of 71 bpm. T-wave inversions noted in leads II and aVL. 0.4 mg of regadenoson was infused per usual protocol followed by rapid intravenous saline flush injection continuous EKG monitoring was performed. The patient maintained sinus rhythm throughout the recording with nonspecific ST-T wave changes noted. The maximum heart rate was 90 bpm which was 57% of the maximum predicted heart rate. The maximum workload was 1 metabolic equivalent. The patient was noted to experienced wheezing during the infusion. Post infusion the patient needed albuterol nebulizer for treatment. Resting blood pressure is 110/52 and remained the same post test. Myocardial perfusion protocol. 14.8 mCi of technetium 99m sestamibi was injected at rest. 0.4 mg of regadenoson was infused per usual protocol peak infusion 44.7 mCi of technetium 99m sestamibi was injected stress images were obtained stress and rest images were reconstructed and compared in the short axis vertical long and horizontal long axis. Gated images were also obtained. Perfusion SPECT analysis: Review of the stress images demonstrate a normal cardiac silhouette size. The inferior apical wall the septum anterior wall and the anterolateral wall appear to be well perfused. There is a large perfusion defect noted involving the basal and mid inferior wall extending to the inferolateral segment. The stress and resting images appear to demonstrate a similar patent with no significant improvement to suggest reversible ischemia. Gated SPECT analysis: The gated ejection fraction is noted to be 42% with severe hypokinesis of the basal inferior wall posterior wall and inferolateral wall. Conclusion: Pharmacologic myocardial perfusion stress test with extensive basal and mid inferior and inferolateral infarct. No ischemia noted. Cardiomyopathy present.
--- NOTE | 2018-05-13 17:59 | PCM.PN.CARD ---
Subjectve: Patient seen and evaluated Objective: Vital Signs Temp Pulse Resp BP Pulse Ox 97.2 F L 61 16 105/58 L 100 05/13/18 16:43 05/13/18 16:43 05/13/18 16:43 05/13/18 16:43 05/13/18 16:43 Oxygen Flow Rate (L/min) 2 Oxygen Delivery Method Nasal Cannula Weight: 221 lb 12.56 oz Body Mass Index (BMI) 33.3 Intake and Output for Last 24 Hours 05/11/18 05/12/18 05/13/18 23:59 23:59 23:59 Intake Total 353 / 353 555.6 / 555.6 Output Total 1100 / 1100 595 / 595 Balance -747 / -747 -39.4 / -39.4 General: Awake, Alert, Oriented x 3 HEENT: PERRL, EOMI, Sclera Non Icteric Neck: Supple, Good ROM, No Lymph Node Enlargement Lungs: Clear to auscultation Cardiovascular: Regular Rhythm, Normal S1, Normal S2, No Murmurs, No Rubs, No Gallops Vascular: No Carotid Bruits, Normal Femoral Pulses, Normal Radial Pulses, Normal Dorsalis Pedal Pulse, Normal Posterior Tibial Pulses Abdomen: Bowel Sounds Present, Soft, Non Tender, No HSM, No Organomegaly Extremities: No Cyanosis, No Clubbing, No edema Neurological: No Focal Motor or Sensory Deficit 05/12/18 17:15: APTT 53.1 H 05/13/18 01:03: APTT 65.3 H 05/13/18 05:15: WBC 8.9, RBC 2.99 L, Hgb 8.2 L, Hct 25.0 L, MCV 83.6, MCH 27.4, MCHC 32.8, RDW 15.0 H, RDW Differential 44.9 H, Plt Count 197, MPV 9.9 05/13/18 05:15: Sodium 140, Potassium 4.2, Chloride 107, Carbon Dioxide 22.0, Anion Gap 11, BUN 54 H, Creatinine 4.52 H, Est GFR (MDRD) Af Amer 17 L, Est GFR (MDRD) Non-Af 14 L, BUN/Creatinine Ratio 11.9, Glucose 160 H, Calcium 7.6 L 05/13/18 05:15: PT 14.7, INR 1.2, APTT 77.8 H Rhythm: EKG: ECHO: Stress Test: Cardiac Cath: PCI: CT Surgery: Holter monitor: EPS: PPM: CXR: Chest CT Scan: Medical Necessity - Tobacco Use Smoking Status: Former smoker Tobacco Use: Non-smoker Assessment/Plan 1. NSTEMI Patient presents with chest discomfort and has a non-ST elevation myocardial infarction. Stress test today demonstrates large perfusion defect in the basal inferolateral wall and mid inferior wall with no ischemia. In the absence of any ischemia I would recommend that we continue to treat him medically especially with his underlying renal dysfunction. Is estimated ejection fraction is noted to be approximately 40%. 2. Hypertension Patient has a known history of hypertension. The plan will be to continue with her current medical therapy without making any major changes. 3. Diastolic heart failure Patient has a history of diastolic heart failure. Will continue with current diuretics but may need to increase to 80 mg twice a day. 4. Severe renal dysfunction Patient is being followed with a hydrology professor as well regarding the above. Will coordinate care with them. Thank you for allowing me to participate in the care of your patient. Please don't hesitate to call if any issues arise
[2018-05-13] MEDS: Ipratropium/Albuterol Sulfate 3 ML AMPUL.NEB INHALATION ×2 (19:36→23:34)
[2018-05-13] MEDS: Insulin Lispro 100 UNIT/ML INSULN.PEN SQ (22:11)
[2018-05-13] MEDS: amLODIPine 10 MG Tablet PO (22:12)
[2018-05-13] MEDS: Atorvastatin Calcium 40 MG Tablet PO (22:12)
[2018-05-13] MEDS: Enoxaparin 30 MG/0.3 ML Syringe SC (22:19)
[2018-05-13] MEDS: 0.9% NaCl Peripheral Flush Adult/Peds IV (22:40)
[2018-05-13] MEDS: Doxazosin 4 MG Tablet 8 MG PO (22:54)
[2018-05-13 22:55] LABS: Bedside Glucose 202 mg/dL (70-110)
[2018-05-14] VITALS (7 sets, daily range): BP systolic 116–120; BP diastolic 63–68; PULSE 63–71; RESP 14–20; TEMP 36.4–36.7; O2SAT 94–98
[2018-05-14] MEDS: Ipratropium/Albuterol Sulfate 3 ML AMPUL.NEB INHALATION ×2 (03:34→07:10)
[2018-05-14 05:57] LABS: Hematocrit 26.3 % (40-54); Hemoglobin 8.8 g/dl (13.0-16.5); Mean Corp Hgb Conc 33.5 g/gl (32-36); Mean Corpuscular Hgb 27.6 pg (27.0-32.0); Mean Corpuscular Volume 82.4 fL (80-94); Mean Platelet Vol. 9.7 fl (6.2-12.0); Platelet Count 228 K/mm3 (150-450); RBC Distribution Width CV 14.9 % (11.6-14.6); RBC Distribution Width SD 43.2 fl (35.1-43.9); Red Blood Count 3.19 M/mm3 (4.6-6.2); White Blood Count 8.4 K/mm3 (4.4-11.0)
[2018-05-14 06:05] LABS: Partial Thromboplast Time 45.4 Seconds (24.1-36.2)
[2018-05-14 06:07] LABS: Scan Indicated on CBC? Y/N NO
[2018-05-14 06:27] LABS: Albumin, Serum 2.2 g/dL (3.2-5.0); BUN 61 mg/dL (7-18); BUN/Creat Ratio 13.5 RATIO (10-20); Calcium,Total 8.1 mg/dL (8.5-10.1); Chloride 105 mmol/L (98-107); Creatinine, Serum 4.52 mg/dL (0.70-1.30); EST Glomerular Filtration Rate 14 mL/min (>60); Est Glom Filt Rate - Afr Amer 17 mL/min (>60); Estimated Creatinine Clearance 16.18 ml/min; Glucose 227 mg/dL (74-106); Phosphorus 4.9 mg/dL (2.5-4.9); Potassium 4.5 mmol/L (3.5-5.1); Sodium Level 138 mmol/L (136-145)
[2018-05-14] MEDS: 0.9% NaCl Peripheral Flush Adult/Peds IV (06:32)
[2018-05-14 07:11] LABS: Bedside Glucose 215 mg/dL (70-110)
--- NOTE | 2018-05-14 08:39 | PCM.PN.CARD ---
Subjectve: Patient seen and evaluated. Appears to be doing much better this morning. Objective: Vital Signs Temp Pulse Resp BP Pulse Ox 97.5 F L 66 18 120/68 95 05/14/18 02:30 05/14/18 07:10 05/14/18 07:10 05/14/18 02:30 05/14/18 07:10 Oxygen Flow Rate (L/min) 2 Oxygen Delivery Method Room Air Weight: 218 lb 4.122 oz Body Mass Index (BMI) 33.3 Intake and Output for Last 24 Hours 05/12/18 05/13/18 05/14/18 23:59 23:59 23:59 Intake Total 353 / 353 1113.6 / 1113.6 100 / 100 Output Total 1100 / 1100 895 / 895 Balance -747 / -747 218.6 / 218.6 100 / 100 General: Awake, Alert, Oriented x 3 HEENT: PERRL, EOMI, Sclera Non Icteric Neck: Supple, Good ROM, No Lymph Node Enlargement Lungs: Clear to auscultation Cardiovascular: Regular Rhythm, Normal S1, Normal S2, No Murmurs, No Rubs, No Gallops Vascular: No Carotid Bruits, Normal Femoral Pulses, Normal Radial Pulses, Normal Dorsalis Pedal Pulse, Normal Posterior Tibial Pulses Abdomen: Bowel Sounds Present, Soft, Non Tender, No HSM, No Organomegaly Extremities: No Cyanosis, No Clubbing, No edema Neurological: No Focal Motor or Sensory Deficit 05/14/18 05:40: Sodium 138, Potassium 4.5, Chloride 105, Carbon Dioxide 20.0 L, BUN 61 H, Creatinine 4.52 H, Est GFR (MDRD) Af Amer 17 L, Est GFR (MDRD) Non-Af 14 L, BUN/Creatinine Ratio 13.5, Glucose 227 H, Calcium 8.1 L, Phosphorus 4.9 05/14/18 05:40: APTT 45.4 H 05/14/18 05:40: WBC 8.4, RBC 3.19 L, Hgb 8.8 L, Hct 26.3 L, MCV 82.4, MCH 27.6, MCHC 33.5, RDW 14.9 H, RDW Differential 43.2, Plt Count 228, MPV 9.7 Rhythm: EKG: ECHO: Stress Test: Cardiac Cath: PCI: CT Surgery: Holter monitor: EPS: PPM: CXR: Chest CT Scan: Medical Necessity - Tobacco Use Smoking Status: Former smoker Tobacco Use: Non-smoker Assessment/Plan 1. NSTEMI Patient presents with chest discomfort and has a non-ST elevation myocardial infarction. Stress test demonstrates large perfusion defect in the basal inferolateral wall and mid inferior wall with no ischemia. In the absence of any ischemia I would recommend that we continue to treat him medically especially with his underlying renal dysfunction. Is estimated ejection fraction is noted to be approximately 40%. 2. Hypertension Patient has a known history of hypertension. The plan will be to continue with her current medical therapy without making any major changes. 3. Diastolic heart failure Patient has a history of diastolic heart failure. Will continue with current diuretics but may need to increase to 80 mg twice a day. 4. Severe renal dysfunction Patient is being followed with a bradley linebacker crewmember as well regarding the above. Will coordinate care with them. Did discuss with the patient that in view of the fact that there is no ischemia as well as his symptoms have resolved to the plan will be to continue aggressive medical therapy. This has also been discussed with his primary tractor trailer driver Dr. Soy Loya with whom he will follow in the next 1-2 weeks. Thank you for allowing me to participate in the care of your patient. Please don't hesitate to call if any issues arise
[2018-05-14] MEDS: Insulin Lispro 100 UNIT/ML INSULN.PEN SQ (08:42)
[2018-05-14] MEDS: Folic Acid 1 MG Tablet PO (08:43)
[2018-05-14] MEDS: Pantoprazole Sodium 40 MG Tablet PO (08:43)
[2018-05-14] MEDS: Furosemide 40 MG Tablet PO (08:43)
[2018-05-14] MEDS: Clopidogrel Bisulfate 75 MG Tablet PO (08:43)
[2018-05-14] MEDS: Carvedilol 25 MG Tablet PO (08:43)
[2018-05-14] MEDS: Aspirin 325 MG Tablet PO (08:43)
[2018-05-14] MEDS: Enoxaparin 30 MG/0.3 ML Syringe SC (08:44)
[2018-05-14] MEDS: Vitamin E 400 UNITS Capsule PO (08:44)
--- NOTE | 2018-05-14 10:28 | PCM.DC ---
- Discharge Diagnoses Current Active Problems: Current Active and Chronic Problems Non-ST elevation HI (NSTEMI) (Acute) You will use the following diet at home:: Cardiac Discharge Activity: Return to Normal Activity Call your doctor if you observe: Shortness of breath, Dizziness, Fainting spells, Chest pain Allergies/Adverse Reactions: Allergies No Known Allergies Allergy (Verified 05/12/18 01:54) Medications to take at Discharge Amlodipine [Norvasc] 10 mg PO QHS 08/10/17 Aspirin 325 mg PO DAILY@0800 08/10/17 Atorvastatin Calcium 20 mg PO QHS 08/10/17 Carvedilol 25 mg PO BID 08/10/17 Folic Acid 1 mg PO DAILY@0808/10/17 Doxazosin Mesylate [Cardura] 4 mg PO DAILY 08/30/17 Omeprazole 40 mg PO DAILY 08/30/17 Calcitriol [Rocaltrol] 0.25 mcg PO DAILY 11/01/17 Ergocalciferol [Vitamin D] 50,000 unit PO QWEEK 11/01/17 Furosemide [Lasix] 40 mg PO QHS 11/01/17 Furosemide [Lasix] 80 mg PO DAILY 11/01/17 Glimepiride [Amaryl] 0.5 mg PO DAILY 11/01/17 Vitamin E (Dl,Tocopheryl Acet) [Vitamin E] 400 unit PO DAILY 11/01/17 Doxazosin Mesylate [Cardura] 8 mg PO QHS 05/12/18 Albuterol Aerosols [Ventolin Aerosols] 2.5 mg INHALATION Q2H PRN PRN #90 vial.neb. 05/14/18 Clopidogrel Bisulfate [Plavix] 75 mg PO DAILY #30 tab 05/14/18 Prednisone See Taper PO DAILY #30 tab 05/14/18 The following prescriptions were given: Albuterol Aerosols [Ventolin Aerosols] 2.5 mg INHALATION Q2H PRN PRN #90 vial.neb. PRN Reason: SHORTNESS OF BREATH Clopidogrel Bisulfate [Plavix] 75 mg PO DAILY #30 tab Prednisone See Taper PO DAILY #30 tab Primary Care Physician: Chris Woodward MD [Primary Care Provider] - Please follow up with your Primary Care Physician in: 1 Week Test Results: Test results from this visit will be discussed in further detail at your follow-up appointment, if applicable. Please Follow Up With: Mana Granados DO When: Next week, call for appt. Please Follow Up With: Raheem Foster MD When: As scheduled, 05/20/18 Please Follow Up With: Rene Queen DO - Pulmonary Medicine [facility] When: Call to schedule appointment for evaluation of COPD, Proposed Discharge Date: 05/14/18
--- NOTE | 2018-05-14 10:33 | PCM.DC.SUM ---
<Lora Velázquez - Last Filed: 05/14/18 10:49> Discharge Date and Diagnosis Date of Admission: 05/12/18 Date of Discharge: 05/14/18 - Primary Discharge Diagnosis Active and Suspected Problems 1. NSTEMI 2. Acute on chronic diastolic CHF with associated acute hypoxia 3. Suspected exacerbation of COPD 4. Acute kidney injury on chronic kidney disease stage IV - Secondary Discharge Diagnosis Chronic Problems CKD (chronic kidney disease) (Chronic) DM2 (diabetes mellitus, type 2) (Chronic) Essential (primary) hypertension (Chronic) Anemia of chronic disease Hyperlipidemia Hypertension CAD status post two-vessel bypass Chronic diastolic CHF Hospital Course and Treatment Imaging Results: Diagnostic Data Chest X-Ray 05/12/18 02:18 IMPRESSION: Small bilateral pleural effusions. Electronically Signed: Alejandra Arevalo MD at 3:00 EDT Tel , Service support , Dr. Fox- Cardiology Dr. Granados- Nephrology Operations: None Procedures: 2-D Echocardiogram, Stress test Summary of Care Provided: The patient is a 63 year old M admitted 05/12/2018 due to chest pain. 1. NSTEMI-Echocardiogram demonstrates EF of 50%, mild segmental systolic dysfunction, moderate pulmonary hypertension, pulmonary artery systolic pressure 50 mmHg. No changes noted compared to prior study. Patient had a normal stress test in October 2017. Repeat stress test this admission demonstrated large perfusion defect in the basal inferolateral wall and mid inferior wall with no ischemia. Patient will continue medical management. Continue aspirin, statin, Plavix, carvedilol. Patient will follow up with primary spectacle truer, Dr. Vincenzo TERESA cardiology. He has an appointment 05/16/2014. He denies further chest pain. 2. Acute on chronic diastolic CHF with associated acute hypoxia-chest x-ray on admission with small bilateral pleural effusion. BNP 657. Patient was treated with IV Lasix during admission. Continue home Lasix regimen given kidney function. Patient may require increase of Lasix regimen to 80 mg twice daily. Patient will continue to follow with primary spectacle truer, Dr. Vincenzo TERESA. 3. Suspected exacerbation of COPD-patient with extensive smoking history. Has never had workup for COPD. Patient with wheezing during admission. Required supplemental oxygen. Improved with IV Solu-Medrol. Discharge on prednisone taper. Albuterol aerosol as needed for shortness of breath. Referred to pulmonary medicine for evaluation for COPD. Oxygen stable on room air at discharge. Walking pulse oximeter completed prior to discharge and patient did not require supplemental home oxygen. 4. CAD status post two-vessel bypass approximately 3 years ago-continue aspirin, statin, Plavix, carvedilol. 5. Hypertension- stable, continue home regimen. 6. Type 2 Diabetes Sbnpbdue-Enmg-Swhbt before meals at bedtime with sliding scale insulin. Hemoglobin A1c 7.1%. Recommend increasing home oral regimen per primary care physician. 7. Hyperlipidemia-continue statin. 8. Acute kidney injury on chronic kidney disease stage IV-baseline creatinine 3.3-3.7. Creatinine admission 4.3. Follows with Dr. Granados, consulted. 24-hour urine creatinine clearance pending. Patient has poorly maturing AV fistula which was placed in October 2017, not ready for dialysis. No dialysis needed at this time. Continue outpatient follow-up with nephrology as scheduled. 9. Anemia of chronic disease-stable. General: Alert, Oriented x3, Cooperative HEENT: Atraumatic, PERRLA, EOMI, Normocephalic Neck: Supple, No JVD, Negative Carotid Bruits Lungs: Diminished, Wheezes Cardiovascular: Regular rate, Regular Rhythm, Normal S1, Normal S2, No murmurs Abdomen: Bowel Sounds Present, Soft, Non Tender, Non-Distended, Obese Extremities: No clubbing, No cyanosis, No edema, Capillary Refill Less than 3 Seconds Skin: No rashes, No breakdown Musculoskeletal: No Tenderness to Palpation of Joints or Extremities Neurological: Cranial nerves II-XII grossly intact, Neuro grossly intact Psych/Mental Status: Normal Affect, Appropriate Patient seen exam prior to discharge. Physical assessment as noted above. Patient stable for discharge home with the follow-up her conditions as noted above. This patient was seen by LAVON Diaz under the supervision of Dr. Verde. Discharge Diet: Low fat/ Low Cholesterol, Carb Control Diet Discharge Activity: Return to Normal Activity Call your doctor if you observe: Shortness of breath, Dizziness, Fainting spells, Chest pain Home Medications: Medications to take at Discharge Amlodipine [Norvasc] 10 mg PO QHS 08/10/17 Aspirin 325 mg PO DAILY@0800 08/10/17 Atorvastatin Calcium 20 mg PO QHS 08/10/17 Carvedilol 25 mg PO BID 08/10/17 Folic Acid 1 mg PO DAILY@0800 08/10/17 Doxazosin Mesylate [Cardura] 4 mg PO DAILY 08/30/17 Omeprazole 40 mg PO DAILY 08/30/17 Calcitriol [Rocaltrol] 0.25 mcg PO DAILY 11/01/17 Ergocalciferol [Vitamin D] 50,000 unit PO QWEEK 11/01/17 Furosemide [Lasix] 40 mg PO QHS 11/01/17 Furosemide [Lasix] 80 mg PO DAILY 11/01/17 Glimepiride [Amaryl] 0.5 mg PO DAILY 11/01/17 Vitamin E (Dl,Tocopheryl Acet) [Vitamin E] 400 unit PO DAILY 11/01/17 Doxazosin Mesylate [Cardura] 8 mg PO QHS 05/12/18 Albuterol Aerosols [Ventolin Aerosols] 2.5 mg INHALATION Q2H PRN PRN #90 vial.neb. 05/14/18 Clopidogrel Bisulfate [Plavix] 75 mg PO DAILY #30 tab 05/14/18 Prednisone See Taper PO DAILY #30 tab 05/14/18 Following Prescrptions Were Given to Patient: Albuterol Aerosols [Ventolin Aerosols] 2.5 mg INHALATION Q2H PRN PRN #90 vial.neb. PRN Reason: SHORTNESS OF BREATH Clopidogrel Bisulfate [Plavix] 75 mg PO DAILY #30 tab Prednisone See Taper PO DAILY #30 tab Primary Care Physician: Chris Woodward MD [Primary Care Provider] - Please follow up with your Primary Care Physician in: 1 Week Please Follow Up With: Mana Granados DO When: Next week, call for appt. Please Follow Up With: Raheem Foster MD When: As scheduled, 05/20/18 Please Follow Up With: Rene Queen DO - Pulmonary Medicine [facility] When: Call to schedule appointment for evaluation of COPD, Disposition: Home Minutes spent on discharge:: 35 Patient Condition:: Stable Medical Necessity - Tobacco Use Smoking Status: Former smoker Tobacco Use: Non-smoker Meaningful Use Info Meaningful Use Diagnoses (Choose all that apply): AMI - AMI Aspirin given w/in 24hrs of arrival?: Yes ASA at discharge?: Yes Statins at discharge?: Yes Jeff/ARB at discharge?: Yes Beta Ro at discharge?: Yes Done w/ Acute [place] measure.: Yes <Louie Verde - Last Filed: 05/14/18 12:02> Discharge Date and Diagnosis - Secondary Discharge Diagnosis Chronic Problems CKD (chronic kidney disease) (Chronic) DM2 (diabetes mellitus, type 2) (Chronic) Essential (primary) hypertension (Chronic) Hospital Course and Treatment Summary of Care Provided: This patient was seen in conjunction with LAVON Diaz. I have independently interviewed and examined the patient and reviewed pertinent historical, laboratory, and other data. Please refer to LAVON Diaz note for details of this patient's presentation, findings, and recommendations. I have reviewed LAVON Diaz note and concur with documented findings. In brief, patient 63-year-old with multiple comorbidities admitted with chest pain cardiac enzymes came back consistent with acute non-ST [place] admitted to a monitored bed and managed per protocol. Patient was seen in consultation by Dr. Fox with cardiology who recommended for patient to undergo a nuclear stress test. Patient stress test showed large area of previous infarct but no ischemia. Patient was therefore discharged home with optimization of medical therapy Protocols: As elicited by Lora Baker Total time spent on discharge process 35 minutes Code Visit Inpatient E&M: 77099 Disch Hosp
[2018-05-14 11:31] LABS: 24HR. UA Prot. Total Volume 1250 mL
[2018-05-14 11:33] LABS: Creat.Clear Total Volume 1250 mL; Creatinine Clearance 23 ml/min (100-200); Creatinine Serum Creat 4.5 mg/dL (0.8-1.3); EST Glomerular Filtration Rate 14 mL/min (>60); Est Glom Filt Rate - Afr Amer 17 mL/min (>60)
[2018-05-14 13:19] LABS: 24 Hour Urine Protein 5916.3 mg/24HR (<150 MG/24HR)
[2018-05-14 13:20] LABS: Urine Protein (24 Hour) 473.3 mg/dL (<11.9)
--- NOTE | 2018-05-16 14:20 | CASEMGMT ---
RN NICOLA SKINNER phone call. DC Date: 05/14/18 ANGELA 3 Intro role of CM to patient's . Pt was not available to speak. states pt does not have any questions re: prescriptions, dc instructions/fu. No further questions per . Lorenzo JOHNSONN RN ACM
== END 2018-05-14 11:06 | disposition home or self-care (01) | DRG 280 ==
LOC: ED 02:19 → PCU 03:55
PROVIDERS: Internal Medicine Nephrology; Nurse Practitioner Family; Admitting Provider Hospitalist; Emergency Provider Emergency Medicine; Family Provider Internal Medicine; PCP Internal Medicine; Visit Provider Internal Medicine
DX: I21.4 Non-ST elevation (NSTEMI) myocardial infarction (principal); I50.33 Acute on chronic diastolic (congestive) heart failure; I13.0 Hypertensive heart and chronic kidney disease with heart failure and stage 1 through stage 4 chronic kidney disease, or unspecified chronic kidney disease; N17.9 Acute kidney failure, unspecified; N18.4 Chronic kidney disease, stage 4 (severe); J44.1 Chronic obstructive pulmonary disease with (acute) exacerbation; I25.10 Atherosclerotic heart disease of native coronary artery without angina pectoris; D63.1 Anemia in chronic kidney disease; E11.22 Type 2 diabetes mellitus with diabetic chronic kidney disease; Z79.84 Long term (current) use of oral hypoglycemic drugs; Z87.891 Personal history of nicotine dependence; Z95.1 Presence of aortocoronary bypass graft; E78.5 Hyperlipidemia, unspecified; R09.02 Hypoxemia
CPT/HCPCS: 36415; 71046; 78452; 80048; 80069; 82575; 82962; 83036; 83880; 84156; 84484; 85025; 85027; 85610; 85730; 93005; 93017; 93308; 94640; 97110; 97116; 97162; 97166; 99251; 99285; A9500; A4216; G0463; J1940; J2785

== ENCOUNTER 2018-06-01 05:56 | Inpatient (IN) | payer MEDICARE, MEDICAID, SELFPAY ==
[2018-06-01] VITALS (40 sets, daily range): BP systolic 92–144; BP diastolic 44–129; PULSE 63–81; RESP 12–38; TEMP 36.9–37.2; O2SAT 87–100; BMI 34.1; BMI 33.4; BMI 33.3
--- NOTE | 2018-06-01 05:58 | ED.RN ---
PT PLACED ON O2 4L/MIN VIA NC
--- NOTE | 2018-06-01 06:03 | EKG12_ITS ---
Test Reason : SOB Blood Pressure : / mmHG Vent. Rate : 079 BPM Atrial Rate : 079 BPM P-R Int : 126 ms QRS Dur : 080 ms QT Int : 394 ms P-R-T Axes : 061 042 187 degrees QTc Int : 451 ms Normal sinus rhythm Possible Inferior infarct , age undetermined ST & T wave abnormality, consider lateral ischemia Abnormal ECG Confirmed by JENNA MADRID ([id number]), film editor RAQUEL LERMA ([id number] on 06/07/2018 2:01:10 PM Referred By: RACHELLE Confirmed By:JENNA MADRID
--- NOTE | 2018-06-01 06:09 | ED.VISSUMM ---
- ER Visit Summary Date of Service: 06/01/18 Chief Complaint: Dyspnea History of Present Illness: The patient is a 63 M who presents for severe shortness of breath. Symptoms began a few hours prior to presentation while at rest. Patient denies any associated symptoms. He recently had a fistula placed in the left upper extremity and anticipation of dialysis. Patient has history of coronary artery disease status post stents, CHF, COPD, new diagnosis, end-stage renal disease, diabetes, hypertension. He is on multiple medications for these conditions, including albuterol, Plavix, and diuretics. Physical Examination: Vital signs: afebrile, hemodynamically stable, hypoxic on room air, 96% on nasal cannula General: well nourished, well developed, in moderate distress Skin: warm, dry, ashen, no pallor HEENT: normocephalic and atraumatic; PERRL, EOMI, dry mucous membranes Cardiovascular: regular rate and rhythm without murmurs, no peripheral edema, 2+ pulses all distal extremities Respiratory: Tachypnea with increased work of breathing, lungs are globally diminished with poor air exchange, wheezes noted all robbins, using abdominal muscles for breathing, speaking in short sentences Abdominal: Abdomen is soft, nontender with normoactive bowel sounds, no guarding or rebound, no masses MSK: Moves all extremities, no deformities, normal strength Neuro: Awake and alert, oriented ?4. No facial droop, sensation and motor function intact and symmetric Test Results: Abnormal Lab Results 06/01/18 06/01/18 06/01/18 06:05 06:05 06:05 WBC 9.8 RBC 2.83 L Hgb 7.8 L Hct 24.3 L MCV 85.9 MCH 27.6 MCHC 32.1 RDW 16.4 H RDW Differential 50.8 H Plt Count 149 L MPV 10.5 Immature Gran % (Auto) 0.100 Neut % (Auto) 86.9 H Lymph % (Auto) 5.8 L Fountain % (Auto) 4.1 Eos % (Auto) 3.0 Baso % (Auto) 0.1 Absolute Neuts (auto) 8.5 H Absolute Lymphs (auto) 0.57 L Total Counted Not Reportable Differential Comment SCANNED PT 15.3 H INR 1.2 APTT 37.6 H Sodium 140 Potassium 4.2 Chloride 106 Carbon Dioxide 19.0 L Anion Gap 15 BUN 75 H Creatinine 4.87 H Estim Creat Clear Calc 15.02 Est GFR (MDRD) Af Amer 16 L Est GFR (MDRD) Non-Af 13 L BUN/Creatinine Ratio 15.4 Glucose 166 H Calcium 8.0 L Troponin I 0.046 H Clinical Impression(s) from Imaging Studies Chest X-Ray 06/01/18 06:15 IMPRESSION: No acute pulmonary findings. Electronically Signed: Jose Oconnor MD at 7:11 EDT Tel , Service support , Medications Given Discontinued Medications Albuterol Sulfate (Ventolin Aerosols) 2.5 mg INHALATION Q20M BUFFY Stop: 06/01/18 06:56 Last Admin: 06/01/18 06:15 Dose: 2.5 mg Admin: 06/01/18 06:15 Dose: 2.5 mg Admin: 06/01/18 06:15 Dose: 2.5 mg Albuterol/Ipratropium (Duoneb) 3 ml INHALATION X1 ONE Stop: 06/01/18 06:04 Last Admin: 06/01/18 06:15 Dose: 3 ml Aspirin (Aspirin, Baby) 324 mg PO X1 ONE Stop: 06/01/18 07:09 Nitroglycerin (Nitrobid) 1 inch TRANSDERM. X1 ONE Stop: 06/01/18 06:40 Last Admin: 06/01/18 06:50 Dose: 1 inch Emergency Department Course and Treatment: Patient presents in respiratory distress, with multiple possibilities on the differential including COPD exacerbation, volume overload secondary to end-stage renal disease, acute CHF exacerbation, acute PR and pneumonia, PE among the possibilities. EKG showed ST depressions in the anterolateral leads, which are unchanged from patient's prior EKG of May 13. Patient received oxygen therapy and was given breathing treatments out any improvement in his respiratory effort. He did have improvement in his O2 saturation on the oxygen. Because patient was still tachypneic, with increased respiratory effort, he was placed on noninvasive. Topical Nitropaste was placed. Patient had great improvement in his subjective respiratory effort with the noninvasive. Chest x-ray showed no signs of pulmonary edema, infiltrates, or other acute process to explain his shortness of breath. Labs showed anemia with hemoglobin of 7.8, with patient's last being 8.8. Troponin was elevated at 0.046. Comparison to patient's labs from 3 weeks ago shows his troponin to be greater than 1. Patient had elevated creatinine of 4.8 consistent with his end-stage renal disease. No definitive doses for patient's acute respiratory failure was made at this time. ABG was attempted but unsuccessful after multiple sticks. Patient was discussed with Dr. Agudelo for admission to the ICU for further management of acute respiratory failure in a patient with multiple comorbidities. Patient will be admitted for further management. Critical care time of 36 minutes for acute assessment and management of patient's severe respiratory distress, coordination of care, consultation with specialists and hospitalist, frequent re-evaluations. Treatment Plan: [] Disposition: [] Impression: Acute respiratory failure, chronic EKG changes, chronic anemia, history of PR, COPD, CHF and end-stage renal disease This note was generated with [employer] dictation software. It may contain incorrect words, spelling, and punctuation that were not noted in review of the chart prior to signing ED Disposition - Plan for ED Patient: Chief Complaint: Shortness of Breath Referrals: Chris Woodward MD [Primary Care Provider] -
[2018-06-01] MEDS: Albuterol 2.5 MG/3 ML VIAL.NEB. INHALATION ×3 (06:15)
[2018-06-01] MEDS: Ipratropium/Albuterol Sulfate 3 ML AMPUL.NEB INHALATION ×4 (06:15→20:05)
[2018-06-01 06:16] LABS: Absolute Lymphocyte Count 0.57 X10^3/ul (0.83-4.51); Absolute Neutrophil Count 8.5 X10^3/uL (2.0-7.7); Basophil# 0.01 X10^3/uL; Basophil% 0.1 % (0-1); Eosinophil# 0.29 X10^3/uL; Hematocrit 24.3 % (40-54); Hemoglobin 7.8 g/dl (13.0-16.5); Lymphocyte # 0.57 X10^3/ul (4.0); Lymphocyte % 5.8 % (19-41); Mean Corp Hgb Conc 32.1 g/gl (32-36); Mean Corpuscular Hgb 27.6 pg (27.0-32.0); Mean Corpuscular Volume 85.9 fL (80-94); Mean Platelet Vol. 10.5 fl (6.2-12.0); Monocyte% 4.1 % (0-10); Neutrophil # 8.49 X10^3/uL (2.7-7.7); Neutrophil % 86.9 % (47-70); Platelet Count 149 K/mm3 (150-450); RBC Distribution Width CV 16.4 % (11.6-14.6); RBC Distribution Width SD 50.8 fl (35.1-43.9); Red Blood Count 2.83 M/mm3 (4.6-6.2); White Blood Count 9.8 K/mm3 (4.4-11.0)
--- NOTE | 2018-06-01 06:17 | ED.DCSUM_ITS ---
- ER Visit Summary Date of Service: 06/01/18 Chief Complaint: Dyspnea History of Present Illness: The patient is a 63 M who presents for severe shortness of breath. Symptoms began a few hours prior to presentation while at rest. Patient denies any associated symptoms. He recently had a fistula placed in the left upper extremity and anticipation of dialysis. Patient has history of coronary artery disease status post stents, CHF, COPD, new diagnosis , end-stage renal disease, diabetes, hypertension. He is on multiple medications for these conditions, including albuterol, Plavix, and diuretics. Physical Examination: Vital signs: afebrile, hemodynamically stable, hypoxic on room air, 96% on nasal cannula General: well nourished, well developed, in moderate distress Skin: warm, dry, ashen, no pallor HEENT: normocephalic and atraumatic; PERRL, EOMI, dry mucous membranes Cardiovascular: regular rate and rhythm without murmurs, no peripheral edema, 2 + pulses all distal extremities Respiratory: Tachypnea with increased work of breathing, lungs are globally diminished with poor air exchange, wheezes noted all robbins, using abdominal muscles for breathing, speaking in short sentences Abdominal: Abdomen is soft, nontender with normoactive bowel sounds, no guarding or rebound, no masses MSK: Moves all extremities, no deformities, normal strength Neuro: Awake and alert, oriented ?4. No facial droop, sensation and motor function intact and symmetric Test Results: Abnormal Lab Results 06/01/18 06/01/18 06/01/18 06:05 06:05 06:05 WBC 9.8 RBC 2.83 L Hgb 7.8 L Hct 24.3 L MCV 85.9 MCH 27.6 MCHC 32.1 RDW 16.4 H RDW Differential 50.8 H Plt Count 149 L MPV 10.5 Immature Gran % (Auto) 0.100 Neut % (Auto) 86.9 H Lymph % (Auto) 5.8 L Robertson % (Auto) 4.1 Eos % (Auto) 3.0 Baso % (Auto) 0.1 Absolute Neuts (auto) 8.5 H Absolute Lymphs (auto) 0.57 L Total Counted Not Reportable Differential Comment SCANNED PT 15.3 H INR 1.2 APTT 37.6 H Sodium 140 Potassium 4.2 Chloride 106 Carbon Dioxide 19.0 L Anion Gap 15 BUN 75 H Creatinine 4.87 H Estim Creat Clear Calc 15.02 Est GFR (MDRD) Af Amer 16 L Est GFR (MDRD) Non-Af 13 L BUN/Creatinine Ratio 15.4 Glucose 166 H Calcium 8.0 L Troponin I 0.046 H Clinical Impression(s) from Imaging Studies Chest X-Ray 06/01/18 06:15 IMPRESSION: No acute pulmonary findings. Electronically Signed: Jose Oconnor MD at 7:11 EDT Tel , Service support , Medications Given Discontinued Medications Albuterol Sulfate (Ventolin Aerosols) 2.5 mg INHALATION Q20M BUFFY Stop: 06/01/18 06:56 Last Admin: 06/01/18 06:15 Dose: 2.5 mg Admin: 06/01/18 06:15 Dose: 2.5 mg Admin: 06/01/18 06:15 Dose: 2.5 mg Albuterol/Ipratropium (Duoneb) 3 ml INHALATION X1 ONE Stop: 06/01/18 06:04 Last Admin: 06/01/18 06:15 Dose: 3 ml Aspirin (Aspirin, Baby) 324 mg PO X1 ONE Stop: 06/01/18 07:09 Nitroglycerin (Nitrobid) 1 inch TRANSDERM. X1 ONE Stop: 06/01/18 06:40 Last Admin: 06/01/18 06:50 Dose: 1 inch Emergency Department Course and Treatment: Patient presents in respiratory distress, with multiple possibilities on the differential including COPD exacerbation, volume overload secondary to end-stage renal disease, acute CHF exacerbation, acute RI and pneumonia, PE among the possibilities. EKG showed ST depressions in the anterolateral leads, which are unchanged from patient's prior EKG of May 13. Patient received oxygen therapy and was given breathing treatments out any improvement in his respiratory effort. He did have improvement in his O2 saturation on the oxygen. Because patient was still tachypneic, with increased respiratory effort, he was placed on noninvasive. Topical Nitropaste was placed. Patient had great improvement in his subjective respiratory effort with the noninvasive. Chest x-ray showed no signs of pulmonary edema, infiltrates, or other acute process to explain his shortness of breath. Labs showed anemia with hemoglobin of 7.8, with patient's last being 8.8. Troponin was elevated at 0.046. Comparison to patient's labs from 3 weeks ago shows his troponin to be greater than 1. Patient had elevated creatinine of 4.8 consistent with his end-stage renal disease. No definitive doses for patient's acute respiratory failure was made at this time. ABG was attempted but unsuccessful after multiple sticks. Patient was discussed with Dr. Agudelo for admission to the ICU for further management of acute respiratory failure in a patient with multiple comorbidities. Patient will be admitted for further management. Critical care time of 36 minutes for acute assessment and management of patient' s severe respiratory distress, coordination of care, consultation with specialists and hospitalist, frequent re-evaluations. Treatment Plan: [] Disposition: [] Impression: Acute respiratory failure, chronic EKG changes, chronic anemia, history of RI, COPD, CHF and end-stage renal disease This note was generated with [employer] dictation software. It may contain incorrect words, spelling, and punctuation that were not noted in review of the chart prior to signing ED Disposition - Plan for ED Patient: Chief Complaint: Shortness of Breath Referrals: Chris Woodward MD [Primary Care Provider] -
[2018-06-01 06:20] LABS: Differential Indicated SCAN CRITERIA MET; POSITIVE COUNT NO; POSITIVE DIFFERENTIAL YES; POSITIVE MORPHOLOGY NO
[2018-06-01 06:32] LABS: Anion Gap 15 (5-15); BUN 75 mg/dL (7-18); BUN/Creat Ratio 15.4 RATIO (10-20); Chloride 106 mmol/L (98-107); Creatinine, Serum 4.87 mg/dL (0.70-1.30); EST Glomerular Filtration Rate 13 mL/min (>60); Est Glom Filt Rate - Afr Amer 16 mL/min (>60); Estimated Creatinine Clearance 15.02 ml/min; Glucose 166 mg/dL (74-106); Potassium 4.2 mmol/L (3.5-5.1); Sodium Level 140 mmol/L (136-145)
[2018-06-01 06:35] LABS: Differential Comment SCANNED
[2018-06-01 06:43] LABS: International Normalized Ratio 1.2; Prothrombin Time (Protime)PT. 15.3 SECONDS (11.7-14.9)
[2018-06-01 06:44] LABS: Partial Thromboplast Time 37.6 Seconds (24.1-36.2)
[2018-06-01] MEDS: Nitroglycerin Oint 1 INCH PACKET TRANSDERM. (06:50)
--- NOTE | 2018-06-01 07:24 | NURSING ---
PCU ACUTE DIARRHEA, PNA, HYPOKALEMIA, HYPONATREMIA PAINTSIL
--- NOTE | 2018-06-01 07:25 | NURSING ---
DR BONILLA FOR DR BUSH
--- NOTE | 2018-06-01 07:30 | EKG12_ITS ---
Test Reason : SOB Blood Pressure : / mmHG Vent. Rate : 074 BPM Atrial Rate : 074 BPM P-R Int : 128 ms QRS Dur : 076 ms QT Int : 386 ms P-R-T Axes : 065 042 206 degrees QTc Int : 428 ms Sinus rhythm with occasional Premature ventricular complexes Possible Left atrial enlargement ST & T wave abnormality, consider lateral ischemia Abnormal ECG Confirmed by JENNA MADRID ([id number]), editor in chief newspaper RAQUEL LERMA ([id number] on 06/07/2018 2:01:37 PM Referred By: RACHELLE Confirmed By:JENNA MADRID
--- NOTE | 2018-06-01 07:32 | NURSING ---
ICU ACUTE ON CHR RESP FAILURE IRENE
--- NOTE | 2018-06-01 07:37 | NURSING ---
ICU 4
[2018-06-01 07:40] LABS: BNP,B-Type NATRIURETIC PEPTIDE 1356.1 pg/mL (0-100)
--- NOTE | 2018-06-01 07:45 | NURSING ---
DR BONILLA IN WITH PATIENT
[2018-06-01] MEDS: Aspirin 81 MG TAB.CHEW 324 MG PO (07:55)
--- NOTE | 2018-06-01 07:56 | ED.RN ---
NOTIFIED THIS NURSE THAT SHE REMOVED THE NITRO PASTE FROM THE PATIENT D/T BP OF 85/62. SHE ALSO STATES THAT SHE CHANGED THE BIPAP SETTINGS TO EPAP OF 8 AND RATE OF 14.
--- NOTE | 2018-06-01 08:02 | PCM.HP.STD ---
Problem List (1) Acute and chronic respiratory failure with hypoxia Status: Acute (2) Non-ST elevation [place] (NSTEMI) Status: Acute (3) Abnormal EKG Status: Acute (4) Lower abdominal pain Status: Acute (5) Diastolic CHF, acute Status: Acute (6) CKD (chronic kidney disease), stage IV Status: Acute (7) Nephrotic syndrome Status: Acute (8) CHF (congestive heart failure) Status: Acute (9) Anasarca Status: Acute (10) CKD (chronic kidney disease) Status: Chronic Qualifiers: Chronic kidney disease stage: stage 3 (moderate) Qualified Code(s): N18.3 - Chronic kidney disease, stage 3 (moderate) (11) DM2 (diabetes mellitus, type 2) Status: Chronic Qualifiers: 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 use: without long-term use Diabetes mellitus complication status: with kidney complications Chronic kidney disease stage: stage 3 (moderate) (12) Essential (primary) hypertension Status: Chronic (13) Hx of CABG Status: Acute (14) 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 Patient denies chest heaviness, chest pain/pressure. He denies fever, chills but has chronic cough secondary to COPD. He also had AV fistula surgery done in left forearm but it is not functioning. He went to [facility] for angioplasty of fistula but got upset and wasn't done. Chest x-ray shows chronic changes but no acute pulmonary finding. Both lower extremities are edematous but has been like that since his previous admission even though he is on high-dose of Lasix 80 mg twice daily. In ED, patient was put on BiPAP. Initially, his blood pressure was 144/129 but dropped while he was on nitro ointment that ER physician ordered for shortness of breath in anticipation of possible angina equivalent. EKG shows T inversion in lateral leads but it is chronic since last admission. The patient is further admitted in ICU. [] Past Medical History Past Medical History (Chronic Problems): Chronic Problems CKD (chronic kidney disease) (Chronic) DM2 (diabetes mellitus, type 2) (Chronic) Essential (primary) hypertension (Chronic) Allergies No Known Allergies Allergy (Verified 05/12/18 01:54) Home Medications: Ambulatory Orders Medication Instructions Recorded Amlodipine [Norvasc] 10 mg PO QHS 08/10/17 Aspirin 325 mg PO DAILY@0800 08/10/17 Atorvastatin Calcium 20 mg PO QHS 08/10/17 Carvedilol 25 mg PO BID 08/10/17 Folic Acid 1 mg PO DAILY@0800 08/10/17 Doxazosin Mesylate [Cardura] 4 mg PO DAILY 08/30/17 Omeprazole 40 mg PO DAILY 08/30/17 Calcitriol [Rocaltrol] 0.25 mcg PO DAILY 11/01/17 Ergocalciferol [Vitamin D] 50,000 unit PO QWEEK 11/01/17 Furosemide [Lasix] 80 mg PO BID 11/01/17 Glimepiride [Amaryl] 0.5 mg PO DAILY 11/01/17 Vitamin E (Dl,Tocopheryl Acet) 400 unit PO DAILY 11/01/17 [Vitamin E] Doxazosin Mesylate [Cardura] 8 mg PO QHS 05/12/18 Albuterol Aerosols [Ventolin 2.5 mg INHALATION Q2H PRN PRN #90 05/14/18 Aerosols] vial.neb. Albuterol Inhaler [Ventolin Hfa] 1 - 2 puff INHALATION Q4H PRN PRN 05/14/18 #1 inhaler Clopidogrel Bisulfate [Plavix] 75 mg PO DAILY #30 tab 05/14/18 Isosorbide Mononitrate [Isosorbide 30 mg PO DAILY 06/01/18 Mononitrate ER] Umeclidinium Brm/Vilanterol Tr 1 puff IH DAILY 06/01/18 [Anoro Ellipta 62.5-25 Mcg INH] Surgical History: appendectomy, coronary bypass surgery - 10/2014 Smoking Status: Former smoker - *Family History Maternal History Items: Heart Disease, Hypertension Paternal History Items: Diabetes, Heart Disease, Hypertension Sibling History Items: Diabetes, Heart Disease, Hypertension Review of Systems Constitutional: Reports: Chills, Weakness, Fatigue HEENT: Denies: Head Aches, Sinus Congestion, Sinus Drainage Cardiovascular: Reports: Edema. Denies: Chest Pain, Chest Pressure, Palpitations Respiratory: Reports: Cough, Shortness of breath at rest, Shortness of breath upon exertion. Denies: Hemoptysis, Sputum production Gastrointestinal: Denies: Abdominal Pain, Hematemesis, Hematochezia, Nausea, Vomiting Genitourinary: Reports: - - Decreased urine output. Denies: Dysuria, Frequency Musculoskeletal: Reports: Joint Pain. 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) (Acute) - Physical Exam General: Alert, Oriented x3, Cooperative HEENT: Atraumatic, PERRLA, EOMI, Normocephalic Oral: - - On BiPAP Neck: Supple, No JVD, Negative Carotid Bruits Lungs: Diminished, Rhonchi, Short of Breath, Tachypneic, Using Accessory Muscles, Wheezes Cardiovascular: Regular rate, Regular Rhythm, Normal S1, Normal S2, No murmurs Abdomen: Bowel Sounds Present, Soft, Non Tender, Non-Distended Extremities: Capillary Refill Less than 3 Seconds, Edema Skin: No rashes, No breakdown Musculoskeletal: No Tenderness to Palpation of Joints or Extremities, Arthritic Changes Neurological: Cranial nerves II-XII grossly intact, Neuro grossly intact Psych/Mental Status: Normal Affect, Appropriate Vital Signs Temp Pulse Resp BP Pulse Ox 98.5 F 81 30 H 92/64 97 06/01/18 05:57 06/01/18 08:00 06/01/18 08:00 06/01/18 08:00 06/01/18 08:00 Oxygen Delivery Method Bi-pap Assessment/Plan All Active Problems Acute and chronic respiratory failure with hypoxia (Acute) 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 Patient denies chest heaviness, chest pain/pressure. He denies fever, chills but has chronic cough secondary to COPD. He also had AV fistula surgery done in left forearm but it is not functioning. He went to [facility] for angioplasty of fistula but got upset and wasn't done. Chest x-ray shows chronic changes but no acute pulmonary finding. Both lower extremities are edematous but has been like that since his previous admission even though he is on high-dose of Lasix 80 mg twice daily. In ED, patient was put on BiPAP. Initially, his blood pressure was 144/129 but dropped while he was on nitro ointment that ER physician ordered for shortness of breath in anticipation of possible angina equivalent. EKG shows T inversion in lateral leads but it is chronic since last admission. 1. Acute on chronic hypoxic respiratory failure; multiple etiologies but most probably heart failure exacerbation, COPD exacerbation: Patient is being admitted in ICU. Patient is on BiPAP, to keep pulse ox about 90%. [employer] consult. 2. Acute on chronic combined heart failure: Patient had echo last month and reported as EF 50% with segmental systolic dysfunction; hypokinetic septal and posterior wall. Normal RV size, systolic function. 1-2+ TR with RVSP 50 mmHg consistent with moderate pulmonary hypertension. Currently blood pressure dropped on nitro ointment. Patient needs diuresis, Lasix 40 mg IV twice daily when blood pressure permits. Cycle cardiac enzymes. On Imdur, aspirin, statin and beta-olivia. 3. Acute on chronic CKD stage IV: His creatinine was 3.5 in February 2018 and about 4.5 in April [address] Granados consulted. Probably needs dialysis and is not able to diurese in view of worsening kidney function. Left forearm AV fistula not functioning. 4. COPD exacerbation: On IV Solu-Medrol, bronchodilator, BiPAP support incentive spirometry.. Sputum culture, MRSA nasal screen and influenza test ordered. 5. Recent discharge non-STEMI, coronary artery disease status post two-vessel bypass, hypertension: Continue his home medications including aspirin, Plavix, statin and carvedilol. He had a stress test in April 2015 which did not show acute ischemia but large previous infarct in basal inferolateral wall. He follows Dr. Loya. 6. Diabetes mellitus type 2: Hemoglobin A1c 7.1%. On Accu-Chek before meals and at bedtime and cover with NovoLog sliding scale. Other chronic comorbidities include dyslipidemia, hypertension, anemia of chronic disease: Multiple comorbidities complicates the present care and expect difficult and delay recovery DVT prophylaxis: On heparin 5000 units subcutaneous twice daily and bilateral SCDs. Advanced directive: Discussed with the patient and his about the different options including full code, DNR CC arrest and DNR CC. I explained meaning of different options. Patient chose full code including intubation, ventilator, vasopressors and CPR. Total time spent in [id number] encounter discussion with advanced directive: 17 minutes Clinical Impression(s) from Imaging Studies Chest X-Ray 06/01/18 06:15 IMPRESSION: No acute pulmonary findings. Electronically Signed: Jose Oconnor MD at 7:11 EDT Tel , Service support , Laboratory Results 06/01/18 06:05: WBC 9.8, RBC 2.83 L, Hgb 7.8 L, Hct 24.3 L, MCV 85.9, MCH 27.6, MCHC 32.1, RDW 16.4 H, RDW Differential 50.8 H, Plt Count 149 L, MPV 10.5, Immature Gran % (Auto) 0.100, Neut % (Auto) 86.9 H, Lymph % (Auto) 5.8 L, Curry % (Auto) 4.1, Eos % (Auto) 3.0, Baso % (Auto) 0.1, Absolute Neuts (auto) 8.5 H, Absolute Lymphs (auto) 0.57 L, Total Counted Not Reportable, Differential Comment SCANNED 06/01/18 06:05: Sodium 140, Potassium 4.2, Chloride 106, Carbon Dioxide 19.0 L, Anion Gap 15, BUN 75 H, Creatinine 4.87 H, Estim Creat Clear Calc 15.02, Est GFR (MDRD) Af Amer 16 L, Est GFR (MDRD) Non-Af 13 L, BUN/Creatinine Ratio 15.4, Glucose 166 H, Calcium 8.0 L, Troponin I 0.046 H 06/01/18 06:05: B-Natriuretic Peptide 1356.1 H 06/01/18 06:05: PT 15.3 H, INR 1.2, APTT 37.6 H Code Visit Inpatient E&M: 63409 Init Hosp L3
[2018-06-01] MEDS: Ondansetron 4 MG/2 ML Vial IV (08:16)
[2018-06-01 09:40] LABS: Magnesium 1.6 mg/dL (1.6-2.6)
--- NOTE | 2018-06-01 10:07 | PCM.CON.CC ---
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) Status: Acute (3) CKD (chronic kidney disease), stage IV Status: Chronic (4) Hx of CABG Status: Chronic (5) Nephrotic syndrome Status: Chronic (6) Non-ST elevation RI (NSTEMI) Status: Resolved (7) DM2 (diabetes mellitus, type 2) Status: Chronic Qualifiers: Diabetes mellitus half-way insulin use: without half-way use Diabetes mellitus complication status: with kidney complications Diabetes mellitus complication detail: with chronic kidney disease Chronic kidney disease stage: stage 4 (severe) Qualified Code(s): E11.22 - Type 2 diabetes mellitus with diabetic chronic kidney disease; N18.4 - Chronic kidney disease, stage 4 (severe) (8) Essential (primary) hypertension Status: Chronic Reason for Consult Date of Consultation: 06/01/18 Reason for Consultation: Acute hypoxic respiratory failure History of Present Illness: The patient is a 63 year old M, with past medical history listed below, who presented to [facility] on 06/01/2018 secondary to acute onset of shortness of breath. Patient reports waking up at approximately 2 AM with acute shortness of breath. Patient states that he was of his usual health yesterday. On presentation to the emergency room, patient was noted to be hypoxic on room air. Patient did have some dry mucous membranes in tachypnea with wheezing noted in all robbins. Initial laboratory workup showed no significant leukocytosis, anemia (hemoglobin 7.8) and elevated creatinine of 4.87 and a BUN of 75. Reports a very similar presentation 2 weeks ago when he came in for a non-ST elevation RI, but without the chest pain. Patient denies any recent fever, chills, nausea or vomiting. Patient does have a chronic cough at baseline and states his sputum is unchanged. Patient was initiated on BiPAP therapy and then admitted to the intensive care unit for further monitoring. Upon arriving to the intensive care unit, patient's respiratory effort was much improved. Patient reported subjective improvement in overall condition. Patient did require AVAPS support and denies any chest pain at this time. Patient did have transient hypotension after the addition of Nitropaste, but this has resolved. Patient has noted some lower extremity edema over the last 2-3 weeks. Patient reports he has been compliant with his home medications. Patient has noted some increased shortness of breath associated with high humidity. Patient does have advanced kidney disease and sees Dr. Granados at baseline. Patient reportedly went for intervention of his fistula that was not successful at [facility] recently. Patient has been seen by Dr. Colon and recently had pulmonary function test. Patient is unaware of the results, but does use Anoro and albuterol on a regular basis. Review of systems otherwise negative ?10 systems. Past Medical History Past Medical History (Chronic Problems): Chronic Problems CKD (chronic kidney disease), stage IV (Chronic) Nephrotic syndrome (Chronic) CKD (chronic kidney disease) (Chronic) DM2 (diabetes mellitus, type 2) (Chronic) Essential (primary) hypertension (Chronic) Hx of CABG (Chronic) Allergies No Known Allergies Allergy (Verified 05/12/18 01:54) Home Medications: Ambulatory Orders Medication Instructions Recorded Amlodipine [Norvasc] 10 mg PO QHS 08/10/17 Aspirin 325 mg PO DAILY@0800 08/10/17 Atorvastatin Calcium 20 mg PO QHS 08/10/17 Carvedilol 25 mg PO BID 08/10/17 Folic Acid 1 mg PO DAILY@0800 08/10/17 Doxazosin Mesylate [Cardura] 4 mg PO DAILY 08/30/17 Omeprazole 40 mg PO DAILY 08/30/17 Ergocalciferol [Vitamin D] 50,000 unit PO QWEEK 11/01/17 Furosemide [Lasix] 80 mg PO BID 11/01/17 Glimepiride [Amaryl] 0.5 mg PO DAILY 11/01/17 Vitamin E (Dl,Tocopheryl Acet) 400 unit PO DAILY 11/01/17 [Vitamin E] Doxazosin Mesylate [Cardura] 8 mg PO QHS 05/12/18 Albuterol Inhaler [Ventolin Hfa] 1 - 2 puff INHALATION Q4H PRN PRN 05/14/18 #1 inhaler Clopidogrel Bisulfate [Plavix] 75 mg PO DAILY #30 tab 05/14/18 Isosorbide Mononitrate [Isosorbide 30 mg PO DAILY 06/01/18 Mononitrate ER] Umeclidinium Brm/Vilanterol Tr 1 puff IH DAILY 06/01/18 [Anoro Ellipta 62.5-25 Mcg INH] Surgical History: appendectomy, coronary bypass surgery - 10/2014 Smoking Status: Former smoker - *Family History Maternal History Items: Heart Disease, Hypertension Paternal History Items: Diabetes, Heart Disease, Hypertension Sibling History Items: Diabetes, Heart Disease, Hypertension Review of Systems Comment: See HPI 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 There is some cephalization and pronounced vince noted. - Physical Exam General: Alert, Oriented x3, Cooperative, No apparent distress, - - Good BiPAP synchrony. Obese. HEENT: Atraumatic, PERRLA, EOMI, Normocephalic, - - Has henry, but leak is well controlled. Fair dentition. Oral: Moist Mucosa, No Gingival or Mucosal Lesions/ Ulcerations Neck: Supple, No JVD, No Nodes, Trachea Midline Lungs: No rhonchi, Diminished, Rales - Bilateral bases, Wheezes Cardiovascular: Regular rate, Regular Rhythm, Normal S1, Normal S2, No murmurs, No rub noted, No Gallop Abdomen: Bowel Sounds Present, Soft, Non Tender, Non-Distended, Obese Extremities: No clubbing, No cyanosis, Capillary Refill Less than 3 Seconds, Edema Skin: No rashes, No breakdown Musculoskeletal: No Tenderness to Palpation of Joints or Extremities Lymphatic: No Cervical, Supraclavicular, or Inguinal Adenopathy Neurological: Cranial nerves II-XII grossly intact, Neuro grossly intact, Motor Exam 5/5 strength throughout Psych/Mental Status: Alert and oriented to time, place, person, mood and affect Vital Signs Temp Pulse Resp BP Pulse Ox 37.2 C 74 26 H 99/45 L 98 06/01/18 08:45 06/01/18 09:34 06/01/18 09:34 06/01/18 09:15 06/01/18 09:34 Oxygen Delivery Method Bi-pap Weight: 99.5 kg Body Mass Index (BMI) 33.3 Laboratory Tests 06/01/18 06/01/18 06/01/18 06:05 06:05 06:05 WBC 9.8 RBC 2.83 L Hgb 7.8 L Hct 24.3 L MCV 85.9 MCH 27.6 MCHC 32.1 RDW 16.4 H RDW Differential 50.8 H Plt Count 149 L MPV 10.5 Immature Gran % (Auto) 0.100 Neut % (Auto) 86.9 H Lymph % (Auto) 5.8 L Bailey % (Auto) 4.1 Eos % (Auto) 3.0 Baso % (Auto) 0.1 Absolute Neuts (auto) 8.5 H Absolute Lymphs (auto) 0.57 L Total Counted Not Reportable Differential Comment SCANNED PT INR APTT Sodium 140 Potassium 4.2 Chloride 106 Carbon Dioxide 19.0 L Anion Gap 15 BUN 75 H Creatinine 4.87 H Estim Creat Clear Calc 15.02 Est GFR (MDRD) Af Amer 16 L Est GFR (MDRD) Non-Af 13 L BUN/Creatinine Ratio 15.4 Glucose 166 H Calcium 8.0 L Magnesium Troponin I 0.046 H B-Natriuretic Peptide 1356.1 H 06/01/18 06/01/18 06:05 06:05 WBC RBC Hgb Hct MCV MCH MCHC RDW RDW Differential Plt Count MPV Immature Gran % (Auto) Neut % (Auto) Lymph % (Auto) Bailey % (Auto) Eos % (Auto) Baso % (Auto) Absolute Neuts (auto) Absolute Lymphs (auto) Total Counted Differential Comment PT 15.3 H INR 1.2 APTT 37.6 H Sodium Potassium Chloride Carbon Dioxide Anion Gap BUN Creatinine Estim Creat Clear Calc Est GFR (MDRD) Af Amer Est GFR (MDRD) Non-Af BUN/Creatinine Ratio Glucose Calcium Magnesium 1.6 Troponin I B-Natriuretic Peptide Clinical Impression(s) from Imaging Studies Chest X-Ray 06/01/18 06:15 IMPRESSION: No acute pulmonary findings. Electronically Signed: Jose Oconnor MD at 7:11 EDT Tel , Service support , Assessment/Plan Active and Suspected Problems Acute and chronic respiratory failure with hypoxia (Acute) Acute on chronic combined systolic and diastolic HF (heart failure) (Acute) RECOMMENDATIONS: 1. Continue with AVAPS at current settings 2. Consider consultation to general surgery for tunneled hemodialysis line placement 3. Consider consultation for end-stage renal disease with Dr. Granados 4. BiPAP breaks as tolerated 5. Likely discontinue antibiotics after 48 hours if culture negative 6. If patient improves following hemodialysis, steroids can be discontinued IMPRESSIONS: 1. Acute on chronic hypoxic respiratory failure Likely multiple possible contributing etiologies at this time. Patient does have probable advanced COPD, but clinical suspicion is for acute congestive heart failure secondary to uncontrolled sleep apnea. Patient should have an outpatient polysomnogram for confirmation. Patient currently is responding well to AVAPS. Will hold off on ABG for now. Can attempt breaks off of noninvasive therapy as tolerated. Clinical suspicion that this will need to be continued until hemodialysis is completed or patient has diuresis with Lasix therapy. 2. Acute on chronic combined congestive heart failure/recent NSTEMI Patient with a significantly elevated BNP and creatinine. Clinical suspicion for complications secondary to end-stage renal disease. Patient has reported compliance with medical management. Reasonable to cycle troponin, but mild increase is likely secondary to supply demand mismatch with hypoxemia on presentation. 3. Acute on chronic CKD stage IV Patient recently attempted opening of the fistula without success. Patient likely would benefit from hemodialysis. Recommend consultation with Dr. Granados. Will not place a temporary hemodialysis line as patient will likely require long-term bridging and a tunneled hemodialysis line may be more appropriate. This would require a surgical consultation. Hospitalist has been notified. 4. Probable advanced COPD/diabetes mellitus/hypertension Complicates care, management, recovery and prognosis. Low clinical suspicion for COPD exacerbation given acute onset. Patient is on IV steroids right now, but may be switched to DuoNeb therapy alone if improved following hemodialysis. TIME: 34 minutes critical care time spent addressing patient's acute on chronic hypoxic respiratory failure, congestive heart failure, kidney disease, COPD, review of all data and collaboration with care team (9 AM to 10:20 AM) Code Visit 9xxxx: [id number] Critical care first hour
--- NOTE | 2018-06-01 10:13 | CON.PCM_ITS ---
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) Status: Acute (3) CKD (chronic kidney disease), stage IV Status: Chronic (4) Hx of CABG Status: Chronic (5) Nephrotic syndrome Status: Chronic (6) Non-ST elevation [place] (NSTEMI) Status: Resolved (7) DM2 (diabetes mellitus, type 2) Status: Chronic Qualifiers: Diabetes mellitus jail insulin use: without jail use Diabetes mellitus complication status: with kidney complications Diabetes mellitus complication detail: with chronic kidney disease Chronic kidney disease stage : stage 4 (severe) Qualified Code(s): E11.22 - Type 2 diabetes mellitus with diabetic chronic kidney disease; N18.4 - Chronic kidney disease, stage 4 (severe ) (8) Essential (primary) hypertension Status: Chronic Reason for Consult Date of Consultation: 06/01/18 Reason for Consultation: Acute hypoxic respiratory failure History of Present Illness: The patient is a 63 year old M, with past medical history listed below, who presented to [facility] on 06/01/2018 secondary to acute onset of shortness of breath. Patient reports waking up at approximately 2 AM with acute shortness of breath. Patient states that he was of his usual health yesterday. On presentation to the emergency room, patient was noted to be hypoxic on room air. Patient did have some dry mucous membranes in tachypnea with wheezing noted in all robbins. Initial laboratory workup showed no significant leukocytosis, anemia (hemoglobin 7.8) and elevated creatinine of 4.87 and a BUN of 75. Reports a very similar presentation 2 weeks ago when he came in for a non-ST elevation IL, but without the chest pain. Patient denies any recent fever, chills, nausea or vomiting. Patient does have a chronic cough at baseline and states his sputum is unchanged. Patient was initiated on BiPAP therapy and then admitted to the intensive care unit for further monitoring. Upon arriving to the intensive care unit, patient's respiratory effort was much improved. Patient reported subjective improvement in overall condition. Patient did require AVAPS support and denies any chest pain at this time. Patient did have transient hypotension after the addition of Nitropaste, but this has resolved. Patient has noted some lower extremity edema over the last 2 -3 weeks. Patient reports he has been compliant with his home medications. Patient has noted some increased shortness of breath associated with high humidity. Patient does have advanced kidney disease and sees Dr. Granados at baseline. Patient reportedly went for intervention of his fistula that was not successful at [facility] recently. Patient has been seen by Dr. Colon and recently had pulmonary function test. Patient is unaware of the results, but does use Anoro and albuterol on a regular basis. Review of systems otherwise negative ?10 systems. Past Medical History Past Medical History (Chronic Problems): Chronic Problems CKD (chronic kidney disease), stage IV (Chronic) Nephrotic syndrome (Chronic) CKD (chronic kidney disease) (Chronic) DM2 (diabetes mellitus, type 2) (Chronic) Essential (primary) hypertension (Chronic) Hx of CABG (Chronic) Allergies No Known Allergies Allergy (Verified 05/12/18 01:54) Home Medications: Ambulatory Orders Medication Instructions Recorded Amlodipine [Norvasc] 10 mg PO QHS 08/10/17 Aspirin 325 mg PO DAILY@0800 08/10/17 Atorvastatin Calcium 20 mg PO QHS 08/10/17 Carvedilol 25 mg PO BID 08/10/17 Folic Acid 1 mg PO DAILY@0800 08/10/17 Doxazosin Mesylate [Cardura] 4 mg PO DAILY 08/30/17 Omeprazole 40 mg PO DAILY 08/30/17 Ergocalciferol [Vitamin D] 50,000 unit PO QWEEK 11/01/17 Furosemide [Lasix] 80 mg PO BID 11/01/17 Glimepiride [Amaryl] 0.5 mg PO DAILY 11/01/17 Vitamin E (Dl,Tocopheryl Acet) 400 unit PO DAILY 11/01/17 [Vitamin E] Doxazosin Mesylate [Cardura] 8 mg PO QHS 05/12/18 Albuterol Inhaler [Ventolin Hfa] 1 - 2 puff INHALATION Q4H PRN PRN 05/14/18 #1 inhaler Clopidogrel Bisulfate [Plavix] 75 mg PO DAILY #30 tab 05/14/18 Isosorbide Mononitrate [Isosorbide 30 mg PO DAILY 06/01/18 Mononitrate ER] Umeclidinium Brm/Vilanterol Tr 1 puff IH DAILY 06/01/18 [Anoro Ellipta 62.5-25 Mcg INH] Surgical History: appendectomy, coronary bypass surgery - 10/2014 Smoking Status: Former smoker - *Family History Maternal History Items: Heart Disease, Hypertension Paternal History Items: Diabetes, Heart Disease, Hypertension Sibling History Items: Diabetes, Heart Disease, Hypertension Review of Systems Comment: See HPI 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 There is some cephalization and pronounced vince noted. - Physical Exam General: Alert, Oriented x3, Cooperative, No apparent distress, - - Good BiPAP synchrony. Obese. HEENT: Atraumatic, PERRLA, EOMI, Normocephalic, - - Has henry, but leak is well controlled. Fair dentition. Oral: Moist Mucosa, No Gingival or Mucosal Lesions/ Ulcerations Neck: Supple, No JVD, No Nodes, Trachea Midline Lungs: No rhonchi, Diminished, Rales - Bilateral bases, Wheezes Cardiovascular: Regular rate, Regular Rhythm, Normal S1, Normal S2, No murmurs, No rub noted, No Gallop Abdomen: Bowel Sounds Present, Soft, Non Tender, Non-Distended, Obese Extremities: No clubbing, No cyanosis, Capillary Refill Less than 3 Seconds, Edema Skin: No rashes, No breakdown Musculoskeletal: No Tenderness to Palpation of Joints or Extremities Lymphatic: No Cervical, Supraclavicular, or Inguinal Adenopathy Neurological: Cranial nerves II-XII grossly intact, Neuro grossly intact, Motor Exam 5/5 strength throughout Psych/Mental Status: Alert and oriented to time, place, person, mood and affect Vital Signs Temp Pulse Resp BP Pulse Ox 37.2 C 74 26 H 99/45 L 98 06/01/18 08:45 06/01/18 09:34 06/01/18 09:34 06/01/18 09:15 06/01/18 09:34 Oxygen Delivery Method Bi-pap Weight: 99.5 kg Body Mass Index (BMI) 33.3 Laboratory Tests 06/01/18 06/01/18 06/01/18 06:05 06:05 06:05 WBC 9.8 RBC 2.83 L Hgb 7.8 L Hct 24.3 L MCV 85.9 MCH 27.6 MCHC 32.1 RDW 16.4 H RDW Differential 50.8 H Plt Count 149 L MPV 10.5 Immature Gran % (Auto) 0.100 Neut % (Auto) 86.9 H Lymph % (Auto) 5.8 L [place] % (Auto) 4.1 Eos % (Auto) 3.0 Baso % (Auto) 0.1 Absolute Neuts (auto) 8.5 H Absolute Lymphs (auto) 0.57 L Total Counted Not Reportable Differential Comment SCANNED PT INR APTT Sodium 140 Potassium 4.2 Chloride 106 Carbon Dioxide 19.0 L Anion Gap 15 BUN 75 H Creatinine 4.87 H Estim Creat Clear Calc 15.02 Est GFR (MDRD) Af Amer 16 L Est GFR (MDRD) Non-Af 13 L BUN/Creatinine Ratio 15.4 Glucose 166 H Calcium 8.0 L Magnesium Troponin I 0.046 H B-Natriuretic Peptide 1356.1 H 06/01/18 06/01/18 06:05 06:05 WBC RBC Hgb Hct MCV MCH MCHC RDW RDW Differential Plt Count MPV Immature Gran % (Auto) Neut % (Auto) Lymph % (Auto) [place] % (Auto) Eos % (Auto) Baso % (Auto) Absolute Neuts (auto) Absolute Lymphs (auto) Total Counted Differential Comment PT 15.3 H INR 1.2 APTT 37.6 H Sodium Potassium Chloride Carbon Dioxide Anion Gap BUN Creatinine Estim Creat Clear Calc Est GFR (MDRD) Af Amer Est GFR (MDRD) Non-Af BUN/Creatinine Ratio Glucose Calcium Magnesium 1.6 Troponin I B-Natriuretic Peptide Clinical Impression(s) from Imaging Studies Chest X-Ray 06/01/18 06:15 IMPRESSION: No acute pulmonary findings. Electronically Signed: Jose Oconnor MD at 7:11 EDT Tel , Service support , Assessment/Plan Active and Suspected Problems Acute and chronic respiratory failure with hypoxia (Acute) Acute on chronic combined systolic and diastolic HF (heart failure) (Acute) RECOMMENDATIONS: 1. Continue with AVAPS at current settings 2. Consider consultation to general surgery for tunneled hemodialysis line placement 3. Consider consultation for end-stage renal disease with Dr. Granados 4. BiPAP breaks as tolerated 5. Likely discontinue antibiotics after 48 hours if culture negative 6. If patient improves following hemodialysis, steroids can be discontinued IMPRESSIONS: 1. Acute on chronic hypoxic respiratory failure Likely multiple possible contributing etiologies at this time. Patient does have probable advanced COPD, but clinical suspicion is for acute congestive heart failure secondary to uncontrolled sleep apnea. Patient should have an outpatient polysomnogram for confirmation. Patient currently is responding well to AVAPS. Will hold off on ABG for now. Can attempt breaks off of noninvasive therapy as tolerated. Clinical suspicion that this will need to be continued until hemodialysis is completed or patient has diuresis with Lasix therapy. 2. Acute on chronic combined congestive heart failure/recent NSTEMI Patient with a significantly elevated BNP and creatinine. Clinical suspicion for complications secondary to end-stage renal disease. Patient has reported compliance with medical management. Reasonable to cycle troponin, but mild increase is likely secondary to supply demand mismatch with hypoxemia on presentation. 3. Acute on chronic CKD stage IV Patient recently attempted opening of the fistula without success. Patient likely would benefit from hemodialysis. Recommend consultation with Dr. Granados. Will not place a temporary hemodialysis line as patient will likely require long-term bridging and a tunneled hemodialysis line may be more appropriate. This would require a surgical consultation. Hospitalist has been notified. 4. Probable advanced COPD/diabetes mellitus/hypertension Complicates care, management, recovery and prognosis. Low clinical suspicion for COPD exacerbation given acute onset. Patient is on IV steroids right now, but may be switched to DuoNeb therapy alone if improved following hemodialysis. TIME: 34 minutes critical care time spent addressing patient's acute on chronic hypoxic respiratory failure, congestive heart failure, kidney disease, COPD, review of all data and collaboration with care team (9 AM to 10:20 AM) Code Visit 9xxxx: [id number] Critical care first hour
--- NOTE | 2018-06-01 10:15 | EKG12_ITS ---
Test Reason : REPEAT Blood Pressure : / mmHG Vent. Rate : 074 BPM Atrial Rate : 074 BPM P-R Int : 146 ms QRS Dur : 082 ms QT Int : 422 ms P-R-T Axes : 036 046 224 degrees QTc Int : 468 ms Normal sinus rhythm ST & T wave abnormality, consider inferolateral ischemia Prolonged QT Abnormal ECG When compared with ECG of 13-MAY-2018 04:23, T wave inversion now evident in Inferior leads Confirmed by JENNA MADRID ([id number]), editor in chief RAQUEL LERMA ([id number]) on 06/07/2018 3:11:53 PM Referred By: IRENE Confirmed By:JENNA MADRID
--- NOTE | 2018-06-01 11:42 | CASEMGMT ---
See assessment. SW reviewed chart, pt was here in April. SW spoke w/pt briefly, the information has not changed since April. Pt lives home w/, independent, uses no DME. Pt is NOT on home O2. Pt sees Dr. Darwin mccullough/nephrology. Pt is being assessed for fistula placement while here in the hospital. It is too soon to know what pt's discharge needs may be as pt was just admitted today, SW/CM will follow for discharge needs. RAISA Hawley, PLASTIC DESIGN APPLIER
[2018-06-01 11:48] LABS: M R Staph aureus DNA By PCR Negative (Negative); Probe Check PASS; Specimen Processing Control PASS
[2018-06-01] MEDS: guaiFENesin 1,200 MG Tablet 1200 MG PO ×2 (12:28→21:20)
[2018-06-01] MEDS: Furosemide 40 MG/4 ML Vial IV ×2 (12:28→18:45)
[2018-06-01] MEDS: Doxazosin 4 MG Tablet PO (12:29)
[2018-06-01] MEDS: Clopidogrel Bisulfate 75 MG Tablet PO (12:29)
[2018-06-01] MEDS: Pantoprazole Sodium 40 MG Tablet PO (12:29)
[2018-06-01] MEDS: Calcitriol 0.25 MCG Capsule PO (12:29)
--- NOTE | 2018-06-01 12:30 | CON.PCM_ITS ---
Problem List (1) CKD (chronic kidney disease), stage IV Status: Chronic Reason for Consult Date of Consultation: 06/01/18 Reason for Consultation: Acute on chronic renal failure. In need of dialysis. History of Present Illness: The patient is a 63 year old M who presents with worsening shortness of breath.Patient was recently hospitalized for NSTEMI in April. Patient denies current chest pain. 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 Foster. He is maintained on Plavix and aspirin at home. He has previously had bypass surgery x 2 in 2014. He has a history of CHF, renal failure. He notes being hospitalized multiple times for CHF. Patient follows with Dr. Granados for nephrology. Patient had a right forearm arteriovenous fistula creation in January [address] Hollins. Patient had two fistulograms without success. Patient notes he was to follow-up with Dr. Hollins to discuss further intervention or new fistula creation. Patient denies having dialysis previously. He denies having previous dialysis catheters placed. Past Medical History Past Medical History (Chronic Problems): Chronic Problems CKD (chronic kidney disease), stage IV (Chronic) Nephrotic syndrome (Chronic) CKD (chronic kidney disease) (Chronic) DM2 (diabetes mellitus, type 2) (Chronic) Essential (primary) hypertension (Chronic) Hx of CABG (Chronic) Allergies No Known Allergies Allergy (Verified 05/12/18 01:54) Home Medications: Ambulatory Orders Medication Instructions Recorded Amlodipine [Norvasc] 10 mg PO QHS 08/10/17 Aspirin 325 mg PO DAILY@0800 08/10/17 Atorvastatin Calcium 20 mg PO QHS 08/10/17 Carvedilol 25 mg PO BID 08/10/17 Folic Acid 1 mg PO DAILY@0800 08/10/17 Doxazosin Mesylate [Cardura] 4 mg PO DAILY 08/30/17 Omeprazole 40 mg PO DAILY 08/30/17 Ergocalciferol [Vitamin D] 50,000 unit PO QWEEK 11/01/17 Furosemide [Lasix] 80 mg PO BID 11/01/17 Glimepiride [Amaryl] 0.5 mg PO DAILY 11/01/17 Vitamin E (Dl,Tocopheryl Acet) 400 unit PO DAILY 11/01/17 [Vitamin E] Doxazosin Mesylate [Cardura] 8 mg PO QHS 05/12/18 Albuterol Inhaler [Ventolin Hfa] 1 - 2 puff INHALATION Q4H PRN PRN 05/14/18 #1 inhaler Clopidogrel Bisulfate [Plavix] 75 mg PO DAILY #30 tab 05/14/18 Isosorbide Mononitrate [Isosorbide 30 mg PO DAILY 06/01/18 Mononitrate ER] Umeclidinium Brm/Vilanterol Tr 1 puff IH DAILY 06/01/18 [Anoro Ellipta 62.5-25 Mcg INH] Surgical History: appendectomy, coronary bypass surgery - 10/2014, - - Right forearm AV fistula creation January 2018 Smoking Status: Former smoker - *Family History Maternal History Items: Heart Disease, Hypertension Paternal History Items: Diabetes, Heart Disease, Hypertension Sibling History Items: Diabetes, Heart Disease, Hypertension Review of Systems Constitutional: Denies: Chills, Fever, Weight Change HEENT: Denies: Head Aches, Sinus Congestion, Sinus Drainage Cardiovascular: Denies: Chest Pain, Palpitations Respiratory: Reports: Shortness of Breath, Shortness of breath at rest Gastrointestinal: Denies: Abdominal Pain, Nausea, Vomiting Genitourinary: Reports: Dysuria, Retention Musculoskeletal: Denies: Joint Pain, Joint Tenderness Skin: Denies: Rash, Wounds Neurological: Denies: Numbness, Tingling, Focal weakness Psychiatric: Denies: Anxiety, Depression, Homicidal Ideations, Suicidal Ideations Hematologic/ Lymphatic: Reports: Anemia, Easy Bruising, Easy Bleeding 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) (Acute) Chronic kidney disease, stage V (Acute) - Physical Exam General: Alert, Oriented x3, Cooperative HEENT: Atraumatic, PERRLA, EOMI, Normocephalic Neck: Supple, No JVD, Negative Carotid Bruits Lungs: Clear to auscultation, Normal air movement, Tachypneic Cardiovascular: Regular rate, No murmurs Abdomen: Bowel Sounds Present, Non Tender, Distended, Obese Extremities: Capillary Refill Less than 3 Seconds, Edema - 3+ Skin: No rashes, No breakdown Musculoskeletal: No Tenderness to Palpation of Joints or Extremities Neurological: Neuro grossly intact Psych/Mental Status: Normal Affect, Appropriate Vital Signs Temp Pulse Resp BP Pulse Ox 98.9 F 73 28 H 99/45 L 100 06/01/18 08:45 06/01/18 10:58 06/01/18 10:58 06/01/18 09:15 06/01/18 10:58 Oxygen Delivery Method Bi-pap Weight: 219 lb 5.759 oz Body Mass Index (BMI) 33.3 Microbiology Past 72 Hours 06/01/18 09:30 Influenza Types A,B Direct FA (TAMAR) - Final Mucosa - Nose Laboratory Tests Past 24 Hrs 06/01/18 06/01/18 09:30 10:15 Troponin I 0.078 H MRSA (PCR) Negative Assessment/Plan All Active Problems Acute and chronic respiratory failure with hypoxia (Acute) Acute on chronic combined systolic and diastolic HF (heart failure) (Acute) Chronic kidney disease, stage V (Acute) Non-ST elevation [place] (NSTEMI) (Resolved) Abnormal EKG (Acute) Lower abdominal pain (Acute) Diastolic CHF, acute (Acute) CHF (congestive heart failure) (Acute) Anasarca (Acute) I have been consulted in conjunction with Dr. Aparicio Impression: Acute on chronic renal failure. Congestive heart failure. Recent NSTEMI. Plan: Dr. Aparicio will also evaluate this patient. Dr. Aparicio will plan to perform a right chest tunneled dialysis catheter placement. Procedure details, risks and benefits have been explained to the patient. Patient has had the opportunity to ask and have questions answered. Patient verbally understands and agrees with the plan. We will hold his blood thinners today. NPO after midnight. Thanks you for allowing us to participate in this patient's care. Code Visit Office Visits / Consults: [id number] IP Consult L3
[2018-06-01 12:45] LABS: Bedside Glucose 236 mg/dL (70-110)
[2018-06-01] MEDS: Insulin Lispro 100 UNIT/ML INSULN.PEN SQ ×3 (12:53→21:19)
[2018-06-01] MEDS: Isosorbide Mononitrate 30 MG Tablet PO (13:09)
[2018-06-01] MEDS: Cefazolin 2 GM in 0.9% Normal Saline 100 ML IV (17:03)
[2018-06-01 17:11] LABS: Bedside Glucose 210 mg/dL (70-110)
--- NOTE | 2018-06-01 19:33 | NURSING ---
Pt requested the BiPap to be placed due to increased SOB at shift change. Pt has visual signs of distress, using accessory muscles. AVAP setting 30%. Pt comfortable at this time.
[2018-06-01] MEDS: Atorvastatin Calcium 20 MG Tablet PO (21:20)
[2018-06-01 21:26] LABS: Bedside Glucose 266 mg/dL (70-110)
[2018-06-01] MEDS: CHLORHEXIDINE GLUC 2% CLOTH 1 EACH TOWELETTE TOPICAL (23:30)
[2018-06-02] VITALS (43 sets, daily range): BP systolic 82–111; BP diastolic 46–75; PULSE 61–80; RESP 14–29; TEMP 35.9–37.1; O2SAT 92–100; BMI 33.3
[2018-06-02] MEDS: Ipratropium/Albuterol Sulfate 3 ML AMPUL.NEB INHALATION ×6 (00:27→20:52)
[2018-06-02] MEDS: 0.9% NaCl Peripheral Flush Adult/Peds IV ×3 (04:02→21:46)
[2018-06-02 04:17] LABS: Hematocrit 22.7 % (40-54); Hemoglobin 7.3 g/dl (13.0-16.5); Mean Corp Hgb Conc 32.2 g/gl (32-36); Mean Corpuscular Hgb 27.3 pg (27.0-32.0); Mean Platelet Vol. 10.4 fl (6.2-12.0); Platelet Count 142 K/mm3 (150-450); RBC Distribution Width CV 16.2 % (11.6-14.6); RBC Distribution Width SD 49.1 fl (35.1-43.9); Red Blood Count 2.67 M/mm3 (4.6-6.2); White Blood Count 7.2 K/mm3 (4.4-11.0)
[2018-06-02 04:20] LABS: Scan Indicated on CBC? Y/N NO
[2018-06-02 04:35] LABS: Anion Gap 14 (5-15); BUN 85 mg/dL (7-18); BUN/Creat Ratio 15.7 RATIO (10-20); Calcium,Total 7.9 mg/dL (8.5-10.1); Chloride 104 mmol/L (98-107); Cholesterol 102 mg/dL (200); Creatinine, Serum 5.41 mg/dL (0.70-1.30); EST Glomerular Filtration Rate 11 mL/min (>60); Est Glom Filt Rate - Afr Amer 14 mL/min (>60); Estimated Creatinine Clearance 13.52 ml/min; Glucose 286 mg/dL (74-106); High Density Lipoprotein 27 mg/dL; Potassium 4.5 mmol/L (3.5-5.1); Sodium Level 138 mmol/L (136-145); Triglycerides 131 mg/dL; Very Low Density Lipoprotein 26 mg/dL (5-40)
[2018-06-02] MEDS: CHLORHEXIDINE GLUC 2% CLOTH 1 EACH TOWELETTE TOPICAL (05:28)
[2018-06-02 07:15] LABS: Bedside Glucose 285 mg/dL (70-110)
[2018-06-02] MEDS: Insulin Lispro 100 UNIT/ML INSULN.PEN SQ ×4 (07:55→21:25)
--- NOTE | 2018-06-02 09:13 | NURSING ---
Leaving floor for surgery w/ OR staff. present
[2018-06-02] MEDS: Bupivacaine Mpf 0.5% 30 ML VIAL (09:40)
[2018-06-02] MEDS: Heparin 10,000 UNITS/10 ML Vial 10000 UNITS (09:50)
--- NOTE | 2018-06-02 10:02 | PCM.OPRPT ---
Problem List (1) CKD (chronic kidney disease), stage IV Status: Chronic Report of Operation Date of Procedure: 06/02/18 Pre-Operative Diagnosis: Chronic kidney disease stage IV Post-Operative Diagnosis: Same Surgery/Procedure Performed:: Right IJ tunneled hemodialysis catheter Type of Anesthesia:: MAC Anesthesiologist: Tristin Hall Description of Procedure: Patient was brought into the operating room. Placed in the supine position. Neck was ultrasound internal jugular vein was identified. The neck and chest were then sterilely prepped and draped in usual fashion. Local was injected into the neck Seldinger's technique was used to gain access to the internal jugular vein and a guidewire was placed over the needle the needle was removed fluoroscopy was used to confirm proper placement of the wire. I injected local in the chest made a skin incision injected local up to the neck area I tunneled the palindrome dialysis catheter from the chest up into the neck. I sequentially dilated the internal jugular vein finally placing the dilator and sheath over the guidewire into the neck I remove the guidewire and dilator and then placed the dialysis catheter into the sheath removing the sheath. Fluoroscopy was used to identify a nice natural curve to the catheter. It flushed and irrigated well. Neck incision was closed with an interrupted suture of 4-0 Vicryl. Catheter insertion site was closed with a deep dermal stitch of 4-0 Vicryl and a 3-0 nylon on the skin the catheter and was then sutured to the skin with 3-0 nylon. Sterile dressings were applied and the patient tolerated the procedure well. - Admit VTE Documentation VTE Present on Admission: No VTE Mechan Device Prophylaxis: SCD's VTE Pharm Prophylaxis ordered?: No Reason prophylaxis not ordered:: Treatment Not Indicated
--- NOTE | 2018-06-02 11:03 | PN_ITS ---
Subjective: Patient did okay overnight. Patient was able to come off of noninvasive therapy yesterday afternoon, but used it overnight. Patient did have his tunneled hemodialysis line placed without complication this morning. Patient denies any current issues outside of some mild discomfort at the surgical site. General: Alert, Oriented x3, Cooperative, No apparent distress, - - Speaking in full sentences off of noninvasive therapy at this time HEENT: Atraumatic, PERRLA, EOMI, Normocephalic Oral: Moist Mucosa, No Gingival or Mucosal Lesions/ Ulcerations Neck: Supple, No JVD, No Nodes, Trachea Midline Lungs: No rhonchi, No wheeze, Diminished, Rales Cardiovascular: Regular rate, Regular Rhythm, Normal S1, Normal S2, No murmurs, No rub noted, No Gallop Abdomen: Bowel Sounds Present, Soft, Non Tender, Non-Distended, Obese Extremities: No clubbing, No cyanosis, Capillary Refill Less than 3 Seconds, Edema Skin: - - No change from previous Musculoskeletal: No Tenderness to Palpation of Joints or Extremities Lymphatic: No Cervical, Supraclavicular, or Inguinal Adenopathy Neurological: Cranial nerves II-XII grossly intact, Neuro grossly intact, Motor Exam 5/5 strength throughout Psych/Mental Status: Alert and oriented to time, place, person, mood and affect Vital Signs Temp Pulse Resp BP Pulse Ox 36.0 C L 65 15 85/54 L 97 06/02/18 10:46 06/02/18 10:46 06/02/18 10:46 06/02/18 10:46 06/02/18 10:46 Oxygen Flow Rate (L/min) 4 Oxygen Delivery Method Nasal Cannula Weight: 99.5 kg Body Mass Index (BMI) 33.3 Intake and Output for Last 24 Hours 05/31/18 06/01/18 06/02/18 23:59 23:59 23:59 Intake Total 1232 / 1232 77.6 / 77.6 Output Total 350 / 350 200 / 200 Balance 882 / 882 -122.4 / -122.4 Labs (Last 48 Hours) 06/01/18 06/01/18 06/01/18 09:30 10:15 12:41 WBC RBC Hgb Hct MCV MCH MCHC RDW RDW Differential Plt Count MPV Sodium Potassium Chloride Carbon Dioxide Anion Gap BUN Creatinine Estim Creat Clear Calc Est GFR (MDRD) Af Amer Est GFR (MDRD) Non-Af BUN/Creatinine Ratio Glucose Calcium Troponin I 0.078 H Triglycerides Cholesterol LDL Cholesterol VLDL Cholesterol HDL Cholesterol TSH MRSA (PCR) Negative POC Glucose 236 H 06/01/18 06/01/18 06/01/18 15:43 17:01 21:17 WBC RBC Hgb Hct MCV MCH MCHC RDW RDW Differential Plt Count MPV Sodium Potassium Chloride Carbon Dioxide Anion Gap BUN Creatinine Estim Creat Clear Calc Est GFR (MDRD) Af Amer Est GFR (MDRD) Non-Af BUN/Creatinine Ratio Glucose Calcium Troponin I 0.365 H Triglycerides Cholesterol LDL Cholesterol VLDL Cholesterol HDL Cholesterol TSH MRSA (PCR) POC Glucose 210 H 266 H 06/02/18 06/02/18 06/02/18 04:00 04:00 07:11 WBC 7.2 RBC 2.67 L Hgb 7.3 L Hct 22.7 L MCV 85.0 MCH 27.3 MCHC 32.2 RDW 16.2 H RDW Differential 49.1 H Plt Count 142 L MPV 10.4 Sodium 138 Potassium 4.5 Chloride 104 Carbon Dioxide 20.0 L Anion Gap 14 BUN 85 H Creatinine 5.41 H Estim Creat Clear Calc 13.52 Est GFR (MDRD) Af Amer 14 L Est GFR (MDRD) Non-Af 11 L BUN/Creatinine Ratio 15.7 Glucose 286 H Calcium 7.9 L Troponin I Triglycerides 131 Cholesterol 102 LDL Cholesterol 49 VLDL Cholesterol 26 HDL Cholesterol 27 L TSH 0.50 MRSA (PCR) POC Glucose 285 H Microbiology 06/01/18 09:30 Mucosa - Nose Influenza Types A,B Direct FA (TAMAR) - Final Medical Necessity - Tobacco Use Smoking Status: Former smoker Assessment/Plan All Active Problems Acute and chronic respiratory failure with hypoxia (Acute) 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 Continue with AVAPS at current settings with breaks as tolerated 2. Patient should continue with noninvasive therapy with sleep until volume is removed 3. Consider consultation for end-stage renal disease with Dr. Granados 4. BiPAP breaks as tolerated 5. Likely discontinue antibiotics after 48 hours if culture negative 6. If patient improves following hemodialysis, steroids can be discontinued IMPRESSIONS: 1. Acute on chronic hypoxic respiratory failure Likely multiple possible contributing etiologies at this time. Patient does have probable advanced COPD, but clinical suspicion is for acute congestive heart failure secondary to uncontrolled sleep apnea. Patient should have an outpatient polysomnogram for confirmation. Patient currently is responding well to AVAPS. Patient can have breaks as tolerated. Wound cultures negative at 48 hours, antibiotics can be discontinued. Defer to renal on volume removal using diuretics versus hemodialysis. 2. Acute on chronic combined congestive heart failure/recent NSTEMI Patient with a significantly elevated BNP and creatinine. Clinical suspicion for complications secondary to end-stage renal disease. Patient has reported compliance with medical management. Mild increase is likely secondary to supply demand mismatch with hypoxemia on presentation. Defer to renal on plan for volume removal. 3. Acute on chronic CKD stage IV Patient recently attempted opening of the fistula without success. Patient likely would benefit from hemodialysis. Dr. Granados consulted. Will not place a temporary hemodialysis line as patient will likely require long-term bridging and a tunneled hemodialysis line may be more appropriate. This would require a surgical consultation. Hospitalist has been notified. 4. Probable advanced COPD/diabetes mellitus/hypertension Complicates care, management, recovery and prognosis. Low clinical suspicion for COPD exacerbation given acute onset. Patient is on IV steroids right now, but may be switched to DuoNeb therapy alone if improved following volume removal. Code Visit Inpatient E&M: [id number] [place] [id number]
[2018-06-02] MEDS: Calcitriol 0.25 MCG Capsule PO (11:07)
[2018-06-02] MEDS: Pantoprazole Sodium 40 MG Tablet PO (11:07)
[2018-06-02] MEDS: guaiFENesin 1,200 MG Tablet 1200 MG PO ×2 (11:07→21:26)
[2018-06-02 11:16] LABS: Bedside Glucose 269 mg/dL (70-110)
[2018-06-02 12:40] LABS: Ferritin 341 ng/mL (26-388); Iron 21 ug/dL (65-175)
--- NOTE | 2018-06-02 13:53 | CASEMGMT ---
SW spoke w/pt in room in regard to POA/LW forms. Pt states he started the forms and they are at home. He plans to follow up and complete the forms at home. SW also asked about discharge plan. Pt plans to return home, he anticipates he will be able to manage at home when discharged. SW remains available should any SW needs arise. RAISA Hawley, [employer]
--- NOTE | 2018-06-02 14:51 | PCM.CONS.R ---
Consultation - Renal 06/02/18 PCP/ Referring MD: Requesting physician: [] Primary care physician: Chris Woodward Reason for Consultation:: CKD stage V - History of Present Illness History of Present Illness: The patient is a 63 year old M well known to me with CKD stage IV due to diabetic nephropathy nephrotic range proteinuria last seen in the office in April. He he has a baseline creatinine of 4.5 with a 24 urine creatinine clearance of 23 cc/min total protein 6 g on May 13, 2018. He presents with increased shortness of breath for the past 4 days with lower extremity edema decreased urinary output. He denies any cough but have some chills without fever. He denied wheezing. He has a history of COPD diastolic heart failure with preserved LVEF. He was recently hospitalized in April for a non-STEMI. Currently has progressive weakness, fatigue with decreased appetite. His creatinine is elevated at 5.4. He denied any chest pain. He was placed on BiPAP for his shortness of breath in the ER. He was admitted to intensive care unit for further management. He underwent right IJ tunneled dialysis catheter placement this morning ordered by hospitalist and intensive care team in preparation for urgent hemodialysis for CHF symptoms. He had an AV fistula placed in October 2017 with poor maturation. He recently underwent fistulogram with Dr. Eben rodriguez in [place]. This did not help with maturation of his AV fistula. We discussed pursuing hemodialysis with his first treatment this afternoon. He is aware that he will end up on dialysis permanently due to his advanced kidney disease. He lives in [place] and is considering placement for outpatient dialysis at [place]. He is referred to [facility] for transplant evaluation. He has diffuse vascular disease and is a poor candidate for transplant. - Allergies Allergies: Allergies No Known Allergies Allergy (Verified 05/12/18 01:54) - Current Medications Current Medications: Current Medications Acetaminophen (Tylenol) 650 mg PO Q6H PRN PRN PRN Reason: Mild Pain (scale 0-3)/T>100.7 Al Hydroxide/Mg Hydroxide (Mylanta Ii) 30 ml PO Q6H PRN PRN PRN Reason: Gastric burning Albuterol Sulfate (Ventolin Aerosols) 2.5 mg INHALATION Q2H PRN PRN PRN Reason: SHORTNESS OF BREATH Albuterol/Ipratropium (Duoneb) 3 ml INHALATION Q4H.RT BUFFY Last Admin: 06/02/18 11:38 Dose: 3 ml Aspirin (Aspirin) 325 mg PO DAILY@0800 [facility] Atorvastatin Calcium (Lipitor) 20 mg PO QHS [facility] Last Admin: 06/01/18 21:20 Dose: 20 mg Calcitriol (Rocaltrol) 0.25 mcg PO DAILY [facility] Last Admin: 06/02/18 11:07 Dose: 0.25 mcg Carvedilol (Coreg) 25 mg PO BID [facility] Last Admin: 06/02/18 12:23 Dose: Not Given Chlorhexidine Gluconate () 1 each TOPICAL DAILY [facility] Last Admin: 06/02/18 05:28 Dose: 1 each Clopidogrel Bisulfate (Plavix) 75 mg PO DAILY [facility] Last Admin: 06/01/18 12:29 Dose: 75 mg Dextrose (D50w Syringe) 0 gm IV X1 PRN; Protocol PRN Reason: Hypoglycemia Doxazosin Mesylate (Cardura) 8 mg PO QHS [facility] Last Admin: 06/01/18 21:10 Dose: Not Given Doxazosin Mesylate (Cardura) 4 mg PO DAILY [facility] Last Admin: 06/02/18 12:23 Dose: Not Given Ergocalciferol (Vitamin D) 50,000 unit PO Gannon@1000 [facility] Folic Acid (Folic Acid) 1 mg PO DAILY@0800 [facility] Last Admin: 06/02/18 07:41 Dose: Not Given Furosemide (Lasix) 40 mg IV BIDLX [facility] Last Admin: 06/02/18 11:19 Dose: Not Given Glucagon () 1 mg IM .X1 PRN PRN Reason: Hypoglycemia Guaifenesin (Mucinex) 1,200 mg PO BID [facility] Last Admin: 06/02/18 11:07 Dose: 1,200 mg Heparin Sodium (Porcine) (Heparin Na) 5,000 unit SC Q12 [facility] Azithromycin 500 mg/ Dextrose 255 mls @ 250 mls/hr IV Q24 [facility] Stop: 06/03/18 11:02 Last Admin: 06/02/18 11:07 Dose: 250 mls/hr Sodium Chloride () 250 mls @ 15 mls/hr IV .[id number] PRN PRN Reason: SALINE FLUSH Sodium Chloride () 250 mls @ 15 mls/hr IV .[id number] PRN PRN Reason: SALINE FLUSH Insulin Human Lispro (Humalog Kwikpen (Bkc)) 0 unit SQ ACHS [facility] PRN Reason: Protocol Last Admin: 06/02/18 11:07 Dose: 6 units Isosorbide Mononitrate (Imdur) 30 mg PO DAILY [facility] Last Admin: 06/02/18 12:24 Dose: Not Given Magnesium Hydroxide (Milk Of Magnesia) 30 ml PO DAILY PRN PRN PRN Reason: Constipation Methylprednisolone (Solu-Medrol) 40 mg IV Q8 [facility] Last Admin: 06/02/18 14:11 Dose: 40 mg Morphine Sulfate () 1 - 2 mg IV Q4H PRN PRN PRN Reason: SEVERE PAIN (6-10/10) Ondansetron HCl (Zofran) 4 mg IV Q6H PRN PRN PRN Reason: NAUSEA Oxycodone HCl (Oxyir) 5 mg PO Q4H PRN PRN PRN Reason: Moderate Pain (pain scale 4-5) Pantoprazole Sodium (Protonix) 40 mg PO DAILY [facility] Last Admin: 06/02/18 11:07 Dose: 40 mg Polyethylene Glycol (Miralax) 17 gm PO DAILY [facility] Last Admin: 06/02/18 11:03 Dose: Not Given Promethazine HCl (Phenergan) 12.5 mg IV Q6H PRN PRN PRN Reason: NAUSEA/VOMITING Sodium Chloride () 5 - 30 ml IV UD PRN PRN Reason: SALINE FLUSH Last Admin: 06/02/18 14:11 Dose: 10 ml - Past Medical History Past Medical History (Chronic Problems): Chronic Problems CKD (chronic kidney disease), stage IV (Chronic) Nephrotic syndrome (Chronic) CKD (chronic kidney disease) (Chronic) DM2 (diabetes mellitus, type 2) (Chronic) Essential (primary) hypertension (Chronic) Hx of CABG (Chronic) - Past Surgical History Surgical History: appendectomy, coronary bypass surgery - 10/2014, - - Right forearm AV fistula creation January 2018 - Social History Smoking Status: Former smoker - Family History Maternal History Items: Heart Disease, Hypertension Paternal History Items: Diabetes, Heart Disease, Hypertension Sibling History Items: Diabetes, Heart Disease, Hypertension Review of Systems Constitutional: Reports: Anorexia, Weakness, Fatigue. Denies: Chills, Fever Eyes: Denies: Vision Change HEENT: Denies: Head Aches Cardiovascular: Reports: Edema. Denies: Chest Pain, Syncope Respiratory: Reports: Shortness of Breath, Shortness of breath at rest. Denies: Cough, Wheezing Gastrointestinal: Denies: Abdominal Pain, Constipation, Diarrhea, Nausea, Vomiting Genitourinary: Reports: - - Decreased urinary output. Denies: Dysuria Musculoskeletal: Reports: Joint Tenderness Skin: Denies: Rash Neurological: Reports: Balance problems, - - Weakness denies falls. 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) (Acute) Chronic kidney disease, stage V (Acute) - Physical Exam General: Alert, Oriented x3, Cooperative, - - Generalized weakness, mild shortness of breath Oral: Dry Mucosa Neck: Supple Lungs: Clear to auscultation, Diminished Cardiovascular: Regular rate Abdomen: Bowel Sounds Present, Soft, Non Tender, Non-Distended, Obese Extremities: Edema - Mild pretibial edema Musculoskeletal: No Muscle Wasting Neurological: - - Generalized weakness Psych/Mental Status: Normal Affect, Appropriate, Alert and oriented to time, place, person, mood and affect Vital Signs Temp Pulse Resp BP Pulse Ox 97.0 F L 64 19 H 102/62 95 06/02/18 12:00 06/02/18 12:00 06/02/18 12:00 06/02/18 12:00 06/02/18 12:00 Oxygen Flow Rate (L/min) 2 Oxygen Delivery Method Nasal Cannula Weight: 99.5 kg Body Mass Index (BMI) 33.3 Intake and Output for Last 24 Hours 05/31/18 06/01/18 06/02/18 23:59 23:59 23:59 Intake Total 1232 / 1232 301.6 / 301.6 Output Total 350 / 350 500 / 500 Balance 882 / 882 -198.4 / -198.4 Microbiology Past 72 Hours 06/01/18 09:30 Influenza Types A,B Direct FA (TAMAR) - Final Mucosa - Nose Laboratory Tests Past 24 Hrs 06/01/18 06/02/18 06/02/18 15:43 04:00 04:00 WBC 7.2 RBC 2.67 L Hgb 7.3 L Hct 22.7 L MCV 85.0 MCH 27.3 MCHC 32.2 RDW 16.2 H RDW Differential 49.1 H Plt Count 142 L MPV 10.4 Sodium 138 Potassium 4.5 Chloride 104 Carbon Dioxide 20.0 L Anion Gap 14 BUN 85 H Creatinine 5.41 H Estim Creat Clear Calc 13.52 Est GFR (MDRD) Af Amer 14 L Est GFR (MDRD) Non-Af 11 L BUN/Creatinine Ratio 15.7 Glucose 286 H Calcium 7.9 L Iron Ferritin Troponin I 0.365 H Triglycerides 131 Cholesterol 102 LDL Cholesterol 49 VLDL Cholesterol 26 HDL Cholesterol 27 L TSH 0.50 06/02/18 12:17 WBC RBC Hgb Hct MCV MCH MCHC RDW RDW Differential Plt Count MPV Sodium Potassium Chloride Carbon Dioxide Anion Gap BUN Creatinine Estim Creat Clear Calc Est GFR (MDRD) Af Amer Est GFR (MDRD) Non-Af BUN/Creatinine Ratio Glucose Calcium Iron 21 L Ferritin 341 Troponin I Triglycerides Cholesterol LDL Cholesterol VLDL Cholesterol HDL Cholesterol TSH POC Glucose 06/02/18 06/02/18 06/01/18 11:06 07:11 21:17 POC Glucose 269 H 285 H 266 H 06/01/18 17:01 POC Glucose 210 H Clinical Impression(s) from Imaging Studies Chest X-Ray 06/01/18 06:15 IMPRESSION: No acute pulmonary findings. Electronically Signed: Jose Oconnor MD at 7:11 EDT Tel , Service support , Chest X-Ray 06/02/18 10:05 IMPRESSION: The tip of the malleolus catheter is at the junction of the superior vena cava and right atrium. Cardiomegaly and CHF. 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 CKD stage V due to diabetic nephropathy with progressive renal failure. Will initiate hemodialysis today with right IJ tunneled dialysis catheter. Poor maturation of his left upper arm AV fistula. He likely has end-stage kidney disease will need outpatient dialysis arranged prior to discharge. 2. Shortness of breath fluid removal as tolerated on dialysis. Currently oliguric. 3. Diabetes mellitus type 2 primary care management 4. Hypertension currently blood pressure low stop amlodipine 5. Anemia start erythropoietin therapy and iron on dialysis. 6. Generalized weakness. 7. Secondary hyperparathyroidism due to renal failure. Hold calcitriol check PTH 8. Vitamin D deficiency on supplements. addendum seen on dialysis
--- NOTE | 2018-06-02 14:52 | PCM.PN.HOSP ---
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) (Acute) Chronic kidney disease, stage V (Acute) Subjective: Patient is on BiPAP and intermittent oxygen through nasal cannula. Patient has permacath placed the morning today. Discussed with Dr. Aparicio and Dr. Granados. No fever. Vitals/I&O's: Vital Signs Temp Pulse Resp BP Pulse Ox 97.0 F L 64 19 H 102/62 95 06/02/18 12:00 06/02/18 12:00 06/02/18 12:00 06/02/18 12:00 06/02/18 12:00 Oxygen Flow Rate (L/min) 2 Oxygen Delivery Method Nasal Cannula Weight: 219 lb 5.759 oz Body Mass Index (BMI) 33.3 Intake and Output for Last 24 Hours 05/31/18 06/01/18 06/02/18 23:59 23:59 23:59 Intake Total 1232 / 1232 301.6 / 301.6 Output Total 350 / 350 500 / 500 Balance 882 / 882 -198.4 / -198.4 General: Alert, Oriented x3, Cooperative HEENT: Atraumatic, PERRLA, EOMI, Normocephalic Neck: Supple, No JVD, Negative Carotid Bruits Lungs: Diminished, Rhonchi, Short of Breath Cardiovascular: Regular rate, Regular Rhythm, Normal S1, Normal S2, No murmurs Abdomen: Bowel Sounds Present, Soft, Non Tender Extremities: Capillary Refill Less than 3 Seconds, Edema Skin: No rashes, No breakdown Musculoskeletal: No Tenderness to Palpation of Joints or Extremities, Arthritic Changes Neurological: Cranial nerves II-XII grossly intact Psych/Mental Status: Normal Affect, Appropriate Microbiology Past 72 Hours 06/01/18 09:30 Mucosa - Nose Influenza Types A,B Direct FA (TAMAR) - Final Laboratory Results 06/01/18 15:43: Troponin I 0.365 H 06/01/18 17:01: POC Glucose 210 H 06/01/18 21:17: POC Glucose 266 H 06/02/18 04:00: WBC 7.2, RBC 2.67 L, Hgb 7.3 L, Hct 22.7 L, MCV 85.0, MCH 27.3, MCHC 32.2, RDW 16.2 H, RDW Differential 49.1 H, Plt Count 142 L, MPV 10.4 06/02/18 04:00: Sodium 138, Potassium 4.5, Chloride 104, Carbon Dioxide 20.0 L, Anion Gap 14, BUN 85 H, Creatinine 5.41 H, Estim Creat Clear Calc 13.52, Est GFR (MDRD) Af Amer 14 L, Est GFR (MDRD) Non-Af 11 L, BUN/Creatinine Ratio 15.7, Glucose 286 H, Calcium 7.9 L, Triglycerides 131, Cholesterol 102, LDL Cholesterol 49, VLDL Cholesterol 26, HDL Cholesterol 27 L, TSH 0.50 06/02/18 07:11: POC Glucose 285 H 06/02/18 11:06: POC Glucose 269 H 06/02/18 12:17: Iron 21 L, Ferritin 341 Current Medications Acetaminophen (Tylenol) 650 mg PO Q6H PRN PRN PRN Reason: Mild Pain (scale 0-3)/T>100.7 Al Hydroxide/Mg Hydroxide (Mylanta Ii) 30 ml PO Q6H PRN PRN PRN Reason: Gastric burning Albuterol Sulfate (Ventolin Aerosols) 2.5 mg INHALATION Q2H PRN PRN PRN Reason: SHORTNESS OF BREATH Albuterol/Ipratropium (Duoneb) 3 ml INHALATION Q4H.RT [facility] Last Admin: 06/02/18 11:38 Dose: 3 ml Aspirin (Aspirin) 325 mg PO DAILY@0800 [facility] Atorvastatin Calcium (Lipitor) 20 mg PO QHS [facility] Last Admin: 06/01/18 21:20 Dose: 20 mg Calcitriol (Rocaltrol) 0.25 mcg PO DAILY [facility] Last Admin: 06/02/18 11:07 Dose: 0.25 mcg Carvedilol (Coreg) 25 mg PO BID [facility] Last Admin: 06/02/18 12:23 Dose: Not Given Chlorhexidine Gluconate () 1 each TOPICAL DAILY [facility] Last Admin: 06/02/18 05:28 Dose: 1 each Clopidogrel Bisulfate (Plavix) 75 mg PO DAILY [facility] Last Admin: 06/01/18 12:29 Dose: 75 mg Dextrose (D50w Syringe) 0 gm IV X1 PRN; Protocol PRN Reason: Hypoglycemia Doxazosin Mesylate (Cardura) 8 mg PO QHS [facility] Last Admin: 06/01/18 21:10 Dose: Not Given Doxazosin Mesylate (Cardura) 4 mg PO DAILY [facility] Last Admin: 06/02/18 12:23 Dose: Not Given Ergocalciferol (Vitamin D) 50,000 unit PO Gannon@1000 [facility] Folic Acid (Folic Acid) 1 mg PO DAILY@0800 [facility] Last Admin: 06/02/18 07:41 Dose: Not Given Furosemide (Lasix) 40 mg IV BIDLX [facility] Last Admin: 06/02/18 11:19 Dose: Not Given Glucagon () 1 mg IM .X1 PRN PRN Reason: Hypoglycemia Guaifenesin (Mucinex) 1,200 mg PO BID [facility] Last Admin: 06/02/18 11:07 Dose: 1,200 mg Heparin Sodium (Porcine) (Heparin Na) 5,000 unit SC Q12 [facility] Azithromycin 500 mg/ Dextrose 255 mls @ 250 mls/hr IV Q24 [facility] Stop: 06/03/18 11:02 Last Admin: 06/02/18 11:07 Dose: 250 mls/hr Sodium Chloride () 250 mls @ 15 mls/hr IV .[id number] PRN PRN Reason: SALINE FLUSH Sodium Chloride () 250 mls @ 15 mls/hr IV .[id number] PRN PRN Reason: SALINE FLUSH Insulin Human Lispro (Humalog Kwikpen (Bkc)) 0 unit SQ ACHS [facility] PRN Reason: Protocol Last Admin: 06/02/18 11:07 Dose: 6 units Isosorbide Mononitrate (Imdur) 30 mg PO DAILY [facility] Last Admin: 06/02/18 12:24 Dose: Not Given Magnesium Hydroxide (Milk Of Magnesia) 30 ml PO DAILY PRN PRN PRN Reason: Constipation Methylprednisolone (Solu-Medrol) 40 mg IV Q8 [facility] Last Admin: 06/02/18 14:11 Dose: 40 mg Morphine Sulfate () 1 - 2 mg IV Q4H PRN PRN PRN Reason: SEVERE PAIN (6-10/10) Ondansetron HCl (Zofran) 4 mg IV Q6H PRN PRN PRN Reason: NAUSEA Oxycodone HCl (Oxyir) 5 mg PO Q4H PRN PRN PRN Reason: Moderate Pain (pain scale 4-5) Pantoprazole Sodium (Protonix) 40 mg PO DAILY [facility] Last Admin: 06/02/18 11:07 Dose: 40 mg Polyethylene Glycol (Miralax) 17 gm PO DAILY [facility] Last Admin: 06/02/18 11:03 Dose: Not Given Promethazine HCl (Phenergan) 12.5 mg IV Q6H PRN PRN PRN Reason: NAUSEA/VOMITING Sodium Chloride () 5 - 30 ml IV UD PRN PRN Reason: SALINE FLUSH Last Admin: 06/02/18 14:11 Dose: 10 ml Medical Necessity - Tobacco Use Smoking Status: Former smoker Assessment/Plan All Active Problems Acute and chronic respiratory failure with hypoxia (Acute) 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 Patient denies chest heaviness, chest pain/pressure. He denies fever, chills but has chronic cough secondary to COPD. He also had AV fistula surgery done in left forearm but it is not functioning. He went to [facility] for angioplasty of fistula but got upset and wasn't done. Chest x-ray shows chronic changes but no acute pulmonary finding. Both lower extremities are edematous but has been like that since his previous admission even though he is on high-dose of Lasix 80 mg twice daily. In ED, patient was put on BiPAP. Initially, his blood pressure was 144/129 but dropped while he was on nitro ointment that ER physician ordered for shortness of breath in anticipation of possible angina equivalent. EKG shows T inversion in lateral leads but it is chronic since last admission. 1. Acute on chronic hypoxic respiratory failure; multiple etiologies but most probably heart failure exacerbation, COPD exacerbation: Patient is being admitted in ICU. Patient is on BiPAP, to keep pulse ox about 90%. Discussed with Dr. Reagan. He needs urgent dialysis for improved ventilation. 2. Acute on chronic combined heart failure: Patient had echo last month and reported as EF 50% with segmental systolic dysfunction; hypokinetic septal and posterior wall. Normal RV size, systolic function. 1-2+ TR with RVSP 50 mmHg consistent with moderate pulmonary hypertension. Currently blood pressure dropped on nitro ointment. Patient has end-stage kidney failure and diuretics are resistant. Need dialysis for hypovolemia. On Imdur, aspirin, statin and beta-olivia. Troponins are mildly elevated at 0.078, 0.365 most probably secondary to increased left ventricular volume overload. BNP elevated 3. Acute on chronic CKD stage IV: His creatinine was 3.5 in February 2018 and about 4.5 in April [address] Granados consulted. Left forearm AV fistula not functioning. Discussed with Dr. Granados 4. COPD exacerbation: On IV Solu-Medrol, bronchodilator, BiPAP support incentive spirometry.. MRSA nasal and influenza test are negative. 5. Recent discharge non-STEMI, coronary artery disease status post two-vessel bypass, hypertension: Continue his home medications including aspirin, Plavix, statin and carvedilol. He had a stress test in April 2015 which did not show acute ischemia but large previous infarct in basal inferolateral wall. He follows Dr. Loya. 6. Diabetes mellitus type 2: Hemoglobin A1c 7.1%. On Accu-Chek before meals and at bedtime and cover with NovoLog sliding scale. Blood sugar is elevated. Lantus 10 mg subcu twice daily added Other chronic comorbidities include dyslipidemia, hypertension, anemia of chronic disease: Multiple comorbidities complicates the present care and expect difficult and delay recovery DVT prophylaxis: On heparin 5000 units subcutaneous twice daily and bilateral SCDs. Advanced directive: Discussed with the patient and his about the different options including full code, DNR CC arrest and DNR CC. I explained meaning of different options. Patient chose full code including intubation, ventilator, vasopressors and CPR. Total time spent in [id number] encounter discussion with advanced directive: 17 minutes Clinical Impression(s) from Imaging Studies Chest X-Ray 06/01/18 06:15 IMPRESSION: No acute pulmonary findings. Chest X-Ray 06/02/18 10:05 IMPRESSION: The tip of the malleolus catheter is at the junction of the superior vena cava and right atrium. Cardiomegaly and CHF. Microbiology Past 72 Hours 06/01/18 09:30 Mucosa - Nose Influenza Types A,B Direct FA (TAMAR) - Final Laboratory Results 06/01/18 15:43: Troponin I 0.365 H 06/01/18 17:01: POC Glucose 210 H 06/01/18 21:17: POC Glucose 266 H 06/02/18 04:00: WBC 7.2, RBC 2.67 L, Hgb 7.3 L, Hct 22.7 L, MCV 85.0, MCH 27.3, MCHC 32.2, RDW 16.2 H, RDW Differential 49.1 H, Plt Count 142 L, MPV 10.4 06/02/18 04:00: Sodium 138, Potassium 4.5, Chloride 104, Carbon Dioxide 20.0 L, Anion Gap 14, BUN 85 H, Creatinine 5.41 H, Estim Creat Clear Calc 13.52, Est GFR (MDRD) Af Amer 14 L, Est GFR (MDRD) Non-Af 11 L, BUN/Creatinine Ratio 15.7, Glucose 286 H, Calcium 7.9 L, Triglycerides 131, Cholesterol 102, LDL Cholesterol 49, VLDL Cholesterol 26, HDL Cholesterol 27 L, TSH 0.50 06/02/18 07:11: POC Glucose 285 H 06/02/18 11:06: POC Glucose 269 H 06/02/18 12:17: Iron 21 L, Ferritin 341 Code Visit Inpatient E&M: 25339 Subs Hosp L3
--- NOTE | 2018-06-02 14:57 | CON.PCM_ITS ---
Consultation - Renal 06/02/18 PCP/ Referring MD: Requesting physician: [] Primary care physician: Chris Woodward Reason for Consultation:: CKD stage V - History of Present Illness History of Present Illness: The patient is a 63 year old M well known to me with CKD stage IV due to diabetic nephropathy nephrotic range proteinuria last seen in the office in April. He he has a baseline creatinine of 4.5 with a 24 urine creatinine clearance of 23 cc/min total protein 6 g on May 13, 2018. He presents with increased shortness of breath for the past 4 days with lower extremity edema decreased urinary output. He denies any cough but have some chills without fever. He denied wheezing. He has a history of COPD diastolic heart failure with preserved LVEF. He was recently hospitalized in April for a non-STEMI. Currently has progressive weakness, fatigue with decreased appetite. His creatinine is elevated at 5.4. He denied any chest pain. He was placed on BiPAP for his shortness of breath in the ER. He was admitted to intensive care unit for further management. He underwent right IJ tunneled dialysis catheter placement this morning ordered by hospitalist and intensive care team in preparation for urgent hemodialysis for CHF symptoms. He had an AV fistula placed in October 2017 with poor maturation. He recently underwent fistulogram with Dr. Eben rodriguez in [place]. This did not help with maturation of his AV fistula. We discussed pursuing hemodialysis with his first treatment this afternoon. He is aware that he will end up on dialysis permanently due to his advanced kidney disease. He lives in [place] and is considering placement for outpatient dialysis at [place]. He is referred to [facility] for transplant evaluation. He has diffuse vascular disease and is a poor candidate for transplant. - Allergies Allergies: Allergies No Known Allergies Allergy (Verified 05/12/18 01:54) - Current Medications Current Medications: Current Medications Acetaminophen (Tylenol) 650 mg PO Q6H PRN PRN PRN Reason: Mild Pain (scale 0-3)/T>100.7 Al Hydroxide/Mg Hydroxide (Mylanta Ii) 30 ml PO Q6H PRN PRN PRN Reason: Gastric burning Albuterol Sulfate (Ventolin Aerosols) 2.5 mg INHALATION Q2H PRN PRN PRN Reason: SHORTNESS OF BREATH Albuterol/Ipratropium (Duoneb) 3 ml INHALATION Q4H.RT [facility] Last Admin: 06/02/18 11:38 Dose: 3 ml Aspirin (Aspirin) 325 mg PO DAILY@0800 [facility] Atorvastatin Calcium (Lipitor) 20 mg PO QHS [facility] Last Admin: 06/01/18 21:20 Dose: 20 mg Calcitriol (Rocaltrol) 0.25 mcg PO DAILY [facility] Last Admin: 06/02/18 11:07 Dose: 0.25 mcg Carvedilol (Coreg) 25 mg PO BID [facility] Last Admin: 06/02/18 12:23 Dose: Not Given Chlorhexidine Gluconate () 1 each TOPICAL DAILY [facility] Last Admin: 06/02/18 05:28 Dose: 1 each Clopidogrel Bisulfate (Plavix) 75 mg PO DAILY [facility] Last Admin: 06/01/18 12:29 Dose: 75 mg Dextrose (D50w Syringe) 0 gm IV X1 PRN; Protocol PRN Reason: Hypoglycemia Doxazosin Mesylate (Cardura) 8 mg PO QHS [facility] Last Admin: 06/01/18 21:10 Dose: Not Given Doxazosin Mesylate (Cardura) 4 mg PO DAILY [facility] Last Admin: 06/02/18 12:23 Dose: Not Given Ergocalciferol (Vitamin D) 50,000 unit PO Gannon@1000 [facility] Folic Acid (Folic Acid) 1 mg PO DAILY@0800 [facility] Last Admin: 06/02/18 07:41 Dose: Not Given Furosemide (Lasix) 40 mg IV BIDLX [facility] Last Admin: 06/02/18 11:19 Dose: Not Given Glucagon () 1 mg IM .X1 PRN PRN Reason: Hypoglycemia Guaifenesin (Mucinex) 1,200 mg PO BID [facility] Last Admin: 06/02/18 11:07 Dose: 1,200 mg Heparin Sodium (Porcine) (Heparin Na) 5,000 unit SC Q12 [facility] Azithromycin 500 mg/ Dextrose 255 mls @ 250 mls/hr IV Q24 [facility] Stop: 06/03/18 11:02 Last Admin: 06/02/18 11:07 Dose: 250 mls/hr Sodium Chloride () 250 mls @ 15 mls/hr IV .[id number] PRN PRN Reason: SALINE FLUSH Sodium Chloride () 250 mls @ 15 mls/hr IV .[id number] PRN PRN Reason: SALINE FLUSH Insulin Human Lispro (Humalog Kwikpen (Bkc)) 0 unit SQ ACHS [facility] PRN Reason: Protocol Last Admin: 06/02/18 11:07 Dose: 6 units Isosorbide Mononitrate (Imdur) 30 mg PO DAILY [facility] Last Admin: 06/02/18 12:24 Dose: Not Given Magnesium Hydroxide (Milk Of Magnesia) 30 ml PO DAILY PRN PRN PRN Reason: Constipation Methylprednisolone (Solu-Medrol) 40 mg IV Q8 [facility] Last Admin: 06/02/18 14:11 Dose: 40 mg Morphine Sulfate () 1 - 2 mg IV Q4H PRN PRN PRN Reason: SEVERE PAIN (6-10/10) Ondansetron HCl (Zofran) 4 mg IV Q6H PRN PRN PRN Reason: NAUSEA Oxycodone HCl (Oxyir) 5 mg PO Q4H PRN PRN PRN Reason: Moderate Pain (pain scale 4-5) Pantoprazole Sodium (Protonix) 40 mg PO DAILY [facility] Last Admin: 06/02/18 11:07 Dose: 40 mg Polyethylene Glycol (Miralax) 17 gm PO DAILY [facility] Last Admin: 06/02/18 11:03 Dose: Not Given Promethazine HCl (Phenergan) 12.5 mg IV Q6H PRN PRN PRN Reason: NAUSEA/VOMITING Sodium Chloride () 5 - 30 ml IV UD PRN PRN Reason: SALINE FLUSH Last Admin: 06/02/18 14:11 Dose: 10 ml - Past Medical History Past Medical History (Chronic Problems): Chronic Problems CKD (chronic kidney disease), stage IV (Chronic) Nephrotic syndrome (Chronic) CKD (chronic kidney disease) (Chronic) DM2 (diabetes mellitus, type 2) (Chronic) Essential (primary) hypertension (Chronic) Hx of CABG (Chronic) - Past Surgical History Surgical History: appendectomy, coronary bypass surgery - 10/2014, - - Right forearm AV fistula creation January 2018 - Social History Smoking Status: Former smoker - Family History Maternal History Items: Heart Disease, Hypertension Paternal History Items: Diabetes, Heart Disease, Hypertension Sibling History Items: Diabetes, Heart Disease, Hypertension Review of Systems Constitutional: Reports: Anorexia, Weakness, Fatigue. Denies: Chills, Fever Eyes: Denies: Vision Change HEENT: Denies: Head Aches Cardiovascular: Reports: Edema. Denies: Chest Pain, Syncope Respiratory: Reports: Shortness of Breath, Shortness of breath at rest. Denies : Cough, Wheezing Gastrointestinal: Denies: Abdominal Pain, Constipation, Diarrhea, Nausea, Vomiting Genitourinary: Reports: - - Decreased urinary output. Denies: Dysuria Musculoskeletal: Reports: Joint Tenderness Skin: Denies: Rash Neurological: Reports: Balance problems, - - Weakness denies falls. 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) (Acute) Chronic kidney disease, stage V (Acute) - Physical Exam General: Alert, Oriented x3, Cooperative, - - Generalized weakness, mild shortness of breath Oral: Dry Mucosa Neck: Supple Lungs: Clear to auscultation, Diminished Cardiovascular: Regular rate Abdomen: Bowel Sounds Present, Soft, Non Tender, Non-Distended, Obese Extremities: Edema - Mild pretibial edema Musculoskeletal: No Muscle Wasting Neurological: - - Generalized weakness Psych/Mental Status: Normal Affect, Appropriate, Alert and oriented to time, place, person, mood and affect Vital Signs Temp Pulse Resp BP Pulse Ox 97.0 F L 64 19 H 102/62 95 06/02/18 12:00 06/02/18 12:00 06/02/18 12:00 06/02/18 12:00 06/02/18 12:00 Oxygen Flow Rate (L/min) 2 Oxygen Delivery Method Nasal Cannula Weight: 99.5 kg Body Mass Index (BMI) 33.3 Intake and Output for Last 24 Hours 05/31/18 06/01/18 06/02/18 23:59 23:59 23:59 Intake Total 1232 / 1232 301.6 / 301.6 Output Total 350 / 350 500 / 500 Balance 882 / 882 -198.4 / -198.4 Microbiology Past 72 Hours 06/01/18 09:30 Influenza Types A,B Direct FA ([facility]) - Final Mucosa - Nose Laboratory Tests Past 24 Hrs 06/01/18 06/02/18 06/02/18 15:43 04:00 04:00 WBC 7.2 RBC 2.67 L Hgb 7.3 L Hct 22.7 L MCV 85.0 MCH 27.3 MCHC 32.2 RDW 16.2 H RDW Differential 49.1 H Plt Count 142 L MPV 10.4 Sodium 138 Potassium 4.5 Chloride 104 Carbon Dioxide 20.0 L Anion Gap 14 BUN 85 H Creatinine 5.41 H Estim Creat Clear Calc 13.52 Est GFR (MDRD) Af Amer 14 L Est GFR (MDRD) Non-Af 11 L BUN/Creatinine Ratio 15.7 Glucose 286 H Calcium 7.9 L Iron Ferritin Troponin I 0.365 H Triglycerides 131 Cholesterol 102 LDL Cholesterol 49 VLDL Cholesterol 26 HDL Cholesterol 27 L TSH 0.50 06/02/18 12:17 WBC RBC Hgb Hct MCV MCH MCHC RDW RDW Differential Plt Count MPV Sodium Potassium Chloride Carbon Dioxide Anion Gap BUN Creatinine Estim Creat Clear Calc Est GFR (MDRD) Af Amer Est GFR (MDRD) Non-Af BUN/Creatinine Ratio Glucose Calcium Iron 21 L Ferritin 341 Troponin I Triglycerides Cholesterol LDL Cholesterol VLDL Cholesterol HDL Cholesterol TSH POC Glucose 06/02/18 06/02/18 06/01/18 11:06 07:11 21:17 POC Glucose 269 H 285 H 266 H 06/01/18 17:01 POC Glucose 210 H Clinical Impression(s) from Imaging Studies Chest X-Ray 06/01/18 06:15 IMPRESSION: No acute pulmonary findings. Electronically Signed: Jose Oconnor MD at 7:11 EDT Tel , Service support , Chest X-Ray 06/02/18 10:05 IMPRESSION: The tip of the malleolus catheter is at the junction of the superior vena cava and right atrium. Cardiomegaly and CHF. Electronically Signed: Alli Dias MD at 13:41 EDT Tel [phone], Service support , Assessment/Plan All Active Problems Acute and chronic respiratory failure with hypoxia (Acute) Acute on chronic combined systolic and diastolic HF (heart failure) (Acute) Chronic kidney disease, stage V (Acute) Non-ST elevation HI (NSTEMI) (Resolved) Abnormal EKG (Acute) Lower abdominal pain (Acute) Diastolic CHF, acute (Acute) CHF (congestive heart failure) (Acute) Anasarca (Acute) 1. CKD stage V due to diabetic nephropathy with progressive renal failure. Will initiate hemodialysis today with right IJ tunneled dialysis catheter. Poor maturation of his left upper arm AV fistula. He likely has end-stage kidney disease will need outpatient dialysis arranged prior to discharge. 2. Shortness of breath fluid removal as tolerated on dialysis. Currently oliguric. 3. Diabetes mellitus type 2 primary care management 4. Hypertension currently blood pressure low stop amlodipine 5. Anemia start erythropoietin therapy and iron on dialysis. 6. Generalized weakness. 7. Secondary hyperparathyroidism due to renal failure. Hold calcitriol check PTH 8. Vitamin D deficiency on supplements. addendum seen on dialysis
--- NOTE | 2018-06-02 15:05 | CASEMGMT ---
RN CM NOTE: intro role of CM to patient and his in room. Discussed outpt dialysis needs. They live in [place] and closest Dialysis center is [facility] in [place]. Pt and would like to discuss location ([place]/[facility] vs [place]/[facility]). CANELO PETERSEN will meet with them Wednesday am to discuss and then fax referral to location of choice. Pt has [facility] coverage, can go to either facility. -Dr. Granados update on above. Lorenoz JOHNSONN RN ACM
[2018-06-02 16:26] LABS: Bedside Glucose 237 mg/dL (70-110)
--- NOTE | 2018-06-02 19:11 | DIALYSIS ---
Pt tolerated 3hr HD tx well. Good flow from RIJ CVC. Net UF -2000ml. see flow record for tx data.
[2018-06-02] MEDS: Atorvastatin Calcium 20 MG Tablet PO (21:27)
[2018-06-02] MEDS: Morphine 2 MG/ML Syringe IV (21:46)
[2018-06-02] MEDS: Carvedilol 12.5 MG Tablet PO (21:48)
[2018-06-02 21:50] LABS: Bedside Glucose 359 mg/dL (70-110)
[2018-06-03] VITALS (25 sets, daily range): BP systolic 95–118; BP diastolic 52–83; PULSE 64–89; RESP 12–26; TEMP 36.6–37.1; O2SAT 91–100
[2018-06-03] MEDS: Ipratropium/Albuterol Sulfate 3 ML AMPUL.NEB INHALATION ×6 (00:33→19:01)
[2018-06-03 04:39] LABS: Absolute Lymphocyte Count 0.51 X10^3/ul (0.83-4.51); Absolute Neutrophil Count 10.8 X10^3/uL (2.0-7.7); Basophil# 0.01 X10^3/uL; Basophil% 0.1 % (0-1); Hematocrit 23.9 % (40-54); Hemoglobin 7.8 g/dl (13.0-16.5); Lymphocyte # 0.51 X10^3/ul (4.0); Lymphocyte % 4.3 % (19-41); Mean Corp Hgb Conc 32.6 g/gl (32-36); Mean Corpuscular Hgb 27.4 pg (27.0-32.0); Mean Corpuscular Volume 83.9 fL (80-94); Mean Platelet Vol. 10.5 fl (6.2-12.0); Monocyte# 0.46 X10^3/uL; Monocyte% 3.9 % (0-10); Neutrophil # 10.77 X10^3/uL (2.7-7.7); Neutrophil % 91.4 % (47-70); Platelet Count 182 K/mm3 (150-450); RBC Distribution Width CV 16.3 % (11.6-14.6); RBC Distribution Width SD 48.1 fl (35.1-43.9); Red Blood Count 2.85 M/mm3 (4.6-6.2); White Blood Count 11.8 K/mm3 (4.4-11.0)
[2018-06-03 04:40] LABS: Differential Indicated SCAN CRITERIA MET; POSITIVE COUNT NO; POSITIVE DIFFERENTIAL YES; POSITIVE MORPHOLOGY NO
[2018-06-03 04:51] LABS: Anion Gap 13 (5-15); BUN 59 mg/dL (7-18); BUN/Creat Ratio 12.6 RATIO (10-20); Chloride 98 mmol/L (98-107); Creatinine, Serum 4.68 mg/dL (0.70-1.30); EST Glomerular Filtration Rate 14 mL/min (>60); Est Glom Filt Rate - Afr Amer 16 mL/min (>60); Estimated Creatinine Clearance 15.63 ml/min; Glucose 280 mg/dL (74-106); Potassium 4.3 mmol/L (3.5-5.1); Sodium Level 135 mmol/L (136-145)
[2018-06-03 05:18] LABS: Differential Comment SCANNED
[2018-06-03] MEDS: CHLORHEXIDINE GLUC 2% CLOTH 1 EACH TOWELETTE TOPICAL (06:37)
[2018-06-03] MEDS: Insulin Lispro 100 UNIT/ML INSULN.PEN SQ ×4 (06:37→21:35)
[2018-06-03 06:45] LABS: Bedside Glucose 316 mg/dL (70-110)
--- NOTE | 2018-06-03 07:45 | PCM.PN.INT ---
Subjective: Patient did well overnight. Patient did have hemodialysis yesterday with 2 L fluid removal and reports significant subjective improvement in overall condition. Patient denies any coughing. Patient's blood sugars have been elevated overnight. Patient did report chest pain, but serial troponins were unremarkable. No EKG changes were appreciated. General: Alert, Oriented x3, Cooperative, No apparent distress, Well developed, Well nourished, - - Speaking in full sentences. HEENT: Atraumatic, PERRLA, EOMI, Normocephalic, - - No scleral icterus or injection noted. Oral: Moist Mucosa, No Gingival or Mucosal Lesions/ Ulcerations Neck: Supple, No JVD, No Nodes, Trachea Midline, Thyroid Normal Size and Texture Lungs: No rhonchi, No wheeze, No rales, Diminished, - - Symmetric expansion. No dullness to percussion. Cardiovascular: Regular rate, Regular Rhythm, Normal S1, Normal S2, No murmurs, No rub noted, No Gallop, - - HD catheter is clean, dry and intact Abdomen: Bowel Sounds Present, Soft, Non Tender, Non-Distended Extremities: No clubbing, No cyanosis, Capillary Refill Less than 3 Seconds, Edema Skin: No rashes, No breakdown, Incision - Clean, dry and intact Musculoskeletal: No Tenderness to Palpation of Joints or Extremities, No Muscle Wasting Lymphatic: No Cervical, Supraclavicular, or Inguinal Adenopathy Neurological: Cranial nerves II-XII grossly intact, Neuro grossly intact, Motor Exam 5/5 strength throughout Psych/Mental Status: Alert and oriented to time, place, person, mood and affect Vital Signs Temp Pulse Resp BP Pulse Ox 36.8 C 71 12 98/66 97 06/03/18 02:00 06/03/18 06:56 06/03/18 06:56 06/03/18 06:00 06/03/18 06:56 Oxygen Flow Rate (L/min) 2 Oxygen Delivery Method Nasal Cannula Weight: 99 kg Body Mass Index (BMI) 33.3 Intake and Output for Last 24 Hours 06/01/18 06/02/18 06/03/18 23:59 23:59 23:59 Intake Total 1232 / 1232 599.6 / 599.6 170 / 170 Output Total 350 / 350 2500 / 2500 350 / 350 Balance 882 / 882 -1900.4 / -1900.4 -180 / -180 Labs (Last 48 Hours) 06/01/18 06/01/18 06/01/18 09:30 10:15 12:41 WBC RBC Hgb Hct MCV MCH MCHC RDW RDW Differential Plt Count MPV Immature Gran % (Auto) Neut % (Auto) Lymph % (Auto) [place] % (Auto) Eos % (Auto) Baso % (Auto) Absolute Neuts (auto) Absolute Lymphs (auto) Total Counted Differential Comment Sodium Potassium Chloride Carbon Dioxide Anion Gap BUN Creatinine Estim Creat Clear Calc Est GFR (MDRD) Af Amer Est GFR (MDRD) Non-Af BUN/Creatinine Ratio Glucose Calcium Iron Ferritin Troponin I 0.078 H Triglycerides Cholesterol LDL Cholesterol VLDL Cholesterol HDL Cholesterol TSH PTH Intact Hep Bs Antigen Hep Bs Antibody Hep B Core Total Ab MRSA (PCR) Negative POC Glucose 236 H 06/01/18 06/01/18 06/01/18 15:43 17:01 21:17 WBC RBC Hgb Hct MCV MCH MCHC RDW RDW Differential Plt Count MPV Immature Gran % (Auto) Neut % (Auto) Lymph % (Auto) [place] % (Auto) Eos % (Auto) Baso % (Auto) Absolute Neuts (auto) Absolute Lymphs (auto) Total Counted Differential Comment Sodium Potassium Chloride Carbon Dioxide Anion Gap BUN Creatinine Estim Creat Clear Calc Est GFR (MDRD) Af Amer Est GFR (MDRD) Non-Af BUN/Creatinine Ratio Glucose Calcium Iron Ferritin Troponin I 0.365 H Triglycerides Cholesterol LDL Cholesterol VLDL Cholesterol HDL Cholesterol TSH PTH Intact Hep Bs Antigen Hep Bs Antibody Hep B Core Total Ab MRSA (PCR) POC Glucose 210 H 266 H 06/02/18 06/02/18 06/02/18 04:00 04:00 07:11 WBC 7.2 RBC 2.67 L Hgb 7.3 L Hct 22.7 L MCV 85.0 MCH 27.3 MCHC 32.2 RDW 16.2 H RDW Differential 49.1 H Plt Count 142 L MPV 10.4 Immature Gran % (Auto) Neut % (Auto) Lymph % (Auto) [place] % (Auto) Eos % (Auto) Baso % (Auto) Absolute Neuts (auto) Absolute Lymphs (auto) Total Counted Differential Comment Sodium 138 Potassium 4.5 Chloride 104 Carbon Dioxide 20.0 L Anion Gap 14 BUN 85 H Creatinine 5.41 H Estim Creat Clear Calc 13.52 Est GFR (MDRD) Af Amer 14 L Est GFR (MDRD) Non-Af 11 L BUN/Creatinine Ratio 15.7 Glucose 286 H Calcium 7.9 L Iron Ferritin Troponin I Triglycerides 131 Cholesterol 102 LDL Cholesterol 49 VLDL Cholesterol 26 HDL Cholesterol 27 L TSH 0.50 PTH Intact Hep Bs Antigen Hep Bs Antibody Hep B Core Total Ab MRSA (PCR) POC Glucose 285 H 06/02/18 06/02/18 06/02/18 11:06 12:17 16:15 WBC RBC Hgb Hct MCV MCH MCHC RDW RDW Differential Plt Count MPV Immature Gran % (Auto) Neut % (Auto) Lymph % (Auto) [place] % (Auto) Eos % (Auto) Baso % (Auto) Absolute Neuts (auto) Absolute Lymphs (auto) Total Counted Differential Comment Sodium Potassium Chloride Carbon Dioxide Anion Gap BUN Creatinine Estim Creat Clear Calc Est GFR (MDRD) Af Amer Est GFR (MDRD) Non-Af BUN/Creatinine Ratio Glucose Calcium Iron 21 L Ferritin 341 Troponin I Triglycerides Cholesterol LDL Cholesterol VLDL Cholesterol HDL Cholesterol TSH PTH Intact Hep Bs Antigen Pending Hep Bs Antibody Pending Hep B Core Total Ab Pending MRSA (PCR) POC Glucose 269 H 06/02/18 06/02/18 06/02/18 16:17 21:21 22:00 WBC RBC Hgb Hct MCV MCH MCHC RDW RDW Differential Plt Count MPV Immature Gran % (Auto) Neut % (Auto) Lymph % (Auto) [place] % (Auto) Eos % (Auto) Baso % (Auto) Absolute Neuts (auto) Absolute Lymphs (auto) Total Counted Differential Comment Sodium Potassium Chloride Carbon Dioxide Anion Gap BUN Creatinine Estim Creat Clear Calc Est GFR (MDRD) Af Amer Est GFR (MDRD) Non-Af BUN/Creatinine Ratio Glucose Calcium Iron Ferritin Troponin I 0.259 H Triglycerides Cholesterol LDL Cholesterol VLDL Cholesterol HDL Cholesterol TSH PTH Intact Hep Bs Antigen Hep Bs Antibody Hep B Core Total Ab MRSA (PCR) POC Glucose 237 H 359 H 06/03/18 06/03/18 06/03/18 01:30 04:25 04:25 WBC RBC Hgb Hct MCV MCH MCHC RDW RDW Differential Plt Count MPV Immature Gran % (Auto) Neut % (Auto) Lymph % (Auto) [place] % (Auto) Eos % (Auto) Baso % (Auto) Absolute Neuts (auto) Absolute Lymphs (auto) Total Counted Differential Comment Sodium 135 L Potassium 4.3 Chloride 98 Carbon Dioxide 24.0 Anion Gap 13 BUN 59 H Creatinine 4.68 H Estim Creat Clear Calc 15.63 Est GFR (MDRD) Af Amer 16 L Est GFR (MDRD) Non-Af 14 L BUN/Creatinine Ratio 12.6 Glucose 280 H Calcium 8.0 L Iron Ferritin Troponin I 0.241 H Triglycerides Cholesterol LDL Cholesterol VLDL Cholesterol HDL Cholesterol TSH PTH Intact Pending Hep Bs Antigen Hep Bs Antibody Hep B Core Total Ab MRSA (PCR) POC Glucose 06/03/18 06/03/18 06/03/18 04:25 04:25 06:35 WBC 11.8 H RBC 2.85 L Hgb 7.8 L Hct 23.9 L MCV 83.9 MCH 27.4 MCHC 32.6 RDW 16.3 H RDW Differential 48.1 H Plt Count 182 MPV 10.5 Immature Gran % (Auto) 0.300 Neut % (Auto) 91.4 H Lymph % (Auto) 4.3 L [place] % (Auto) 3.9 Eos % (Auto) 0.0 Baso % (Auto) 0.1 Absolute Neuts (auto) 10.8 H Absolute Lymphs (auto) 0.51 L Total Counted Not Reportable Differential Comment SCANNED Sodium Potassium Chloride Carbon Dioxide Anion Gap BUN Creatinine Estim Creat Clear Calc Est GFR (MDRD) Af Amer Est GFR (MDRD) Non-Af BUN/Creatinine Ratio Glucose Calcium Iron Ferritin Troponin I 0.247 H Triglycerides Cholesterol LDL Cholesterol VLDL Cholesterol HDL Cholesterol TSH PTH Intact Hep Bs Antigen Hep Bs Antibody Hep B Core Total Ab MRSA (PCR) POC Glucose 316 H Microbiology 06/01/18 09:30 Mucosa - Nose Influenza Types A,B Direct FA ([facility]) - Final Clinical Impression(s) from Imaging Studies Chest X-Ray 06/02/18 10:05 IMPRESSION: The tip of the malleolus catheter is at the junction of the superior vena cava and right atrium. Cardiomegaly and CHF. Electronically Signed: Alli Dias MD at 13:41 EDT Tel [phone], Service support , Medical Necessity - Tobacco Use Smoking Status: Former smoker Assessment/Plan All Active Problems Acute and chronic respiratory failure with hypoxia (Acute) Acute on chronic combined systolic and diastolic HF (heart failure) (Acute) Chronic kidney disease, stage V (Acute) Non-ST elevation [place] (NSTEMI) (Resolved) Abnormal EKG (Acute) Lower abdominal pain (Acute) Diastolic CHF, acute (Acute) CHF (congestive heart failure) (Acute) Anasarca (Acute) RECOMMENDATIONS: 1. Continue with AVAPS only as needed 2. Defer to nephrology on timing of hemodialysis 3. Discontinue IV steroids and antibiotics 4. Okay to leave the intensive care unit 5. Walking oximetry prior to discharge IMPRESSIONS: 1. Acute on chronic hypoxic respiratory failure Likely multiple possible contributing etiologies at this time. Patient does have probable advanced COPD, but clinical suspicion is for acute congestive heart failure secondary to uncontrolled sleep apnea. Patient responded very well to fluid removal with significant improvement in oxygenation. Patient can likely use AVAPS only as needed at this point. Do believe an outpatient polysomnogram would be appropriate. Patient will need a walking oximetry prior to discharge to ensure supplemental oxygen is not required with ambulation. Continue with incentive spirometer. 2. Acute on chronic combined congestive heart failure/recent NSTEMI Patient with a significantly elevated BNP and creatinine. Clinical suspicion for complications secondary to end-stage renal disease. Patient has reported compliance with medical management. Mild increase is likely secondary to supply demand mismatch with hypoxemia on presentation. Defer to renal on plan for volume removal. 3. Acute on chronic CKD stage IV Patient recently attempted opening of the fistula without success. Dr. Granados is consulted and patient did receive hemodialysis with 2 L removal yesterday. Patient is reporting significant improvement in overall condition. This favors fluid overload as an etiology of patient's presenting respiratory failure. Defer to nephrology on timing of further hemodialysis. 4. Probable advanced COPD/diabetes mellitus/hypertension Complicates care, management, recovery and prognosis. Low clinical suspicion for COPD exacerbation given acute onset. Will discontinue antibiotics and steroids. This should help patient's elevated blood sugar. Code Visit Inpatient E&M: 60308 [facility] Hosp L3
--- NOTE | 2018-06-03 08:23 | PCM.PN.HOSP ---
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) (Acute) Chronic kidney disease, stage V (Acute) Subjective: The patient had dialysis yesterday through right subclavian permacath. Had 2 L of fluid removed. Patient feels much better with improvement in breathing, leg edema and overall facial swelling. No fever. Hemoglobin lower side 7.8 stable Objective: General: Alert, Oriented x3, Cooperative HEENT: Atraumatic, PERRLA, EOMI, Normocephalic Neck: Supple, No JVD, Negative Carotid Bruits. Chest: Right-sided subclavian permacatheter. Small clotted blood stain present Lungs: Diminished, subtle expiratory rhonchi, shortness of breath resolved. Cardiovascular: Regular rate, Regular Rhythm, Normal S1, Normal S2, No murmurs Abdomen: Bowel Sounds Present, Soft, Non Tender Extremities: Capillary Refill Less than 3 Seconds, Edema Skin: No rashes, No breakdown Musculoskeletal: No Tenderness to Palpation of Joints or Extremities, Arthritic Changes Neurological: Cranial nerves II-XII grossly intact Psych/Mental Status: Normal Affect, Appropriate Vitals/I&O's: Vital Signs Temp Pulse Resp BP Pulse Ox 97.8 F 70 20 H 112/69 91 06/03/18 07:00 06/03/18 08:00 06/03/18 07:00 06/03/18 07:00 06/03/18 07:00 Oxygen Flow Rate (L/min) 2 Oxygen Delivery Method Room Air Weight: 218 lb 4.122 oz Body Mass Index (BMI) 33.3 Intake and Output for Last 24 Hours 06/01/18 06/02/18 06/03/18 23:59 23:59 23:59 Intake Total 1232 / 1232 599.6 / 599.6 170 / 170 Output Total 350 / 350 2500 / 2500 350 / 350 Balance 882 / 882 -1900.4 / -1900.4 -180 / -180 Microbiology Past 72 Hours 06/01/18 09:30 Mucosa - Nose Influenza Types A,B Direct FA ([facility]) - Final Laboratory Results 06/02/18 11:06: POC Glucose 269 H 06/02/18 12:17: Iron 21 L, Ferritin 341 06/02/18 16:15: Hep Bs Antigen Pending, Hep Bs Antibody Pending, Hep B Core Total Ab Pending 06/02/18 16:17: POC Glucose 237 H 06/02/18 21:21: POC Glucose 359 H 06/02/18 22:00: Troponin I 0.259 H 06/03/18 01:30: Troponin I 0.241 H 06/03/18 04:25: Sodium 135 L, Potassium 4.3, Chloride 98, Carbon Dioxide 24.0, Anion Gap 13, BUN 59 H, Creatinine 4.68 H, Estim Creat Clear Calc 15.63, Est GFR (MDRD) Af Amer 16 L, Est GFR (MDRD) Non-Af 14 L, BUN/Creatinine Ratio 12.6, Glucose 280 H, Calcium 8.0 L 06/03/18 04:25: PTH Intact Pending 06/03/18 04:25: WBC 11.8 H, RBC 2.85 L, Hgb 7.8 L, Hct 23.9 L, MCV 83.9, MCH 27.4, MCHC 32.6, RDW 16.3 H, RDW Differential 48.1 H, Plt Count 182, MPV 10.5, Immature Gran % (Auto) 0.300, Neut % (Auto) 91.4 H, Lymph % (Auto) 4.3 L, [place] % (Auto) 3.9, Eos % (Auto) 0.0, Baso % (Auto) 0.1, Absolute Neuts (auto) 10.8 H, Absolute Lymphs (auto) 0.51 L, Total Counted Not Reportable, Differential Comment SCANNED 06/03/18 04:25: Troponin I 0.247 H 06/03/18 06:35: POC Glucose 316 H Current Medications Acetaminophen (Tylenol) 650 mg PO Q6H PRN PRN PRN Reason: Mild Pain (scale 0-3)/T>100.7 Al Hydroxide/Mg Hydroxide (Mylanta Ii) 30 ml PO Q6H PRN PRN PRN Reason: Gastric burning Albuterol Sulfate (Ventolin Aerosols) 2.5 mg INHALATION Q2H PRN PRN PRN Reason: SHORTNESS OF BREATH Albuterol/Ipratropium (Duoneb) 3 ml INHALATION Q4H.RT BUFFY Last Admin: 06/03/18 06:55 Dose: 3 ml Aspirin (Aspirin) 325 mg PO DAILY@0800 [facility] Atorvastatin Calcium (Lipitor) 20 mg PO QHS [facility] Last Admin: 06/02/18 21:27 Dose: 20 mg Carvedilol (Coreg) 12.5 mg PO BID [facility] Last Admin: 06/02/18 21:48 Dose: 12.5 mg Chlorhexidine Gluconate () 1 each TOPICAL DAILY [facility] Last Admin: 06/03/18 06:37 Dose: 1 each Clopidogrel Bisulfate (Plavix) 75 mg PO DAILY [facility] Last Admin: 06/01/18 12:29 Dose: 75 mg Dextrose (D50w Syringe) 0 gm IV X1 PRN; Protocol PRN Reason: Hypoglycemia Doxazosin Mesylate (Cardura) 8 mg PO QHS [facility] Last Admin: 06/02/18 21:02 Dose: Not Given Ergocalciferol (Vitamin D) 50,000 unit PO Gannon@1000 [facility] Glucagon () 1 mg IM .X1 PRN PRN Reason: Hypoglycemia Guaifenesin (Mucinex) 1,200 mg PO BID [facility] Last Admin: 06/02/18 21:26 Dose: 1,200 mg Heparin Sodium (Porcine) (Heparin Na) 5,000 unit SC Q12 [facility] Sodium Chloride () 250 mls @ 15 mls/hr IV .[id number] PRN PRN Reason: SALINE FLUSH Sodium Chloride () 250 mls @ 15 mls/hr IV .[id number] PRN PRN Reason: SALINE FLUSH Insulin Glargine (Lantus (Bkc)) 10 units SC BID [facility] Last Admin: 06/02/18 21:26 Dose: 10 units Insulin Human Lispro (Humalog Kwikpen (Bk)) 0 unit SQ ACHS [facility] PRN Reason: Protocol Last Admin: 06/03/18 06:37 Dose: 6 units Isosorbide Mononitrate (Imdur) 30 mg PO DAILY [facility] Last Admin: 06/02/18 12:24 Dose: Not Given Magnesium Hydroxide (Milk Of Magnesia) 30 ml PO DAILY PRN PRN PRN Reason: Constipation Morphine Sulfate () 1 - 2 mg IV Q4H PRN PRN PRN Reason: SEVERE PAIN (6-10/10) Last Admin: 06/02/18 21:46 Dose: 2 mg Multivit/Ca Carb/B Cmplx/FA/Prenat (Nephrocaps, Renaphro) 1 capsule PO DAILY [facility] Ondansetron HCl (Zofran) 4 mg IV Q6H PRN PRN PRN Reason: NAUSEA Oxycodone HCl (Oxyir) 5 mg PO Q4H PRN PRN PRN Reason: Moderate Pain (pain scale 4-5) Pantoprazole Sodium (Protonix) 40 mg PO DAILY [facility] Last Admin: 06/02/18 11:07 Dose: 40 mg Polyethylene Glycol (Miralax) 17 gm PO DAILY [facility] Last Admin: 06/02/18 11:03 Dose: Not Given Promethazine HCl (Phenergan) 12.5 mg IV Q6H PRN PRN PRN Reason: NAUSEA/VOMITING Sodium Chloride () 5 - 30 ml IV UD PRN PRN Reason: SALINE FLUSH Last Admin: 06/02/18 21:46 Dose: 20 ml Medical Necessity - Tobacco Use Smoking Status: Former smoker Assessment/Plan All Active Problems Acute and chronic respiratory failure with hypoxia (Acute) Acute on chronic combined systolic and diastolic HF (heart failure) (Acute) Chronic kidney disease, stage V (Acute) Non-ST elevation [place] (NSTEMI) (Resolved) Abnormal EKG (Acute) Lower abdominal pain (Acute) Diastolic CHF, acute (Acute) CHF (congestive heart failure) (Acute) Anasarca (Acute) The patient is a 63 year old M with multiple comorbidities including COPD, heart failure with preserved EF, CKD stage IV was recently discharged in April 2018 after management of non-STEMI came to ER with severe shortness of breath for last 4 days. Patient denies chest heaviness, chest pain/pressure. He denies fever, chills but has chronic cough secondary to COPD. He also had AV fistula surgery done in left forearm but it is not functioning. He went to [facility] for angioplasty of fistula but got upset and wasn't done. Chest x-ray shows chronic changes but no acute pulmonary finding. Both lower extremities are edematous but has been like that since his previous admission even though he is on high-dose of Lasix 80 mg twice daily. In ED, patient was put on BiPAP. Initially, his blood pressure was 144/129 but dropped while he was on nitro ointment that ER physician ordered for shortness of breath in anticipation of possible angina equivalent. EKG shows T inversion in lateral leads but it is chronic since last admission. 1. Acute on chronic hypoxic respiratory failure; multiple etiologies but most probably heart failure exacerbation, COPD exacerbation; resolved after hemodialysis: Patient is being admitted in ICU. Patient is on BiPAP, to keep pulse ox about 90%. Discussed with Dr. Reagan. Breathing has improved after hemodialysis. Currently pulse ox 97% on room air 2. Acute on chronic combined heart failure: Patient had echo last month and reported as EF 50% with segmental systolic dysfunction; hypokinetic septal and posterior wall. Normal RV size, systolic function. 1-2+ TR with RVSP 50 mmHg consistent with moderate pulmonary hypertension. Currently blood pressure dropped on nitro ointment. Patient has end-stage kidney failure and diuretics are resistant. Need dialysis for hypovolemia. On Imdur, aspirin, statin and beta-olivia. Troponins are mildly elevated at 0.078, 0.365, 0.259, 0.241 stable most probably secondary to increased left ventricular volume overload. BNP elevated 3. CKD stage V due to diabetic nephropathy progressive renal failure: His creatinine was 3.5 in February 2018 and about 4.5 in April 2018 but currently 4.87. Left forearm AV fistula not functioning. Discussed with Dr. Granados. The patient was dialyzed yesterday and 2 L of fluid was removed. Patient is for dialysis today with 2 L of fluid removal. Currently oliguric. 4. COPD exacerbation: On IV Solu-Medrol, bronchodilator, BiPAP support incentive spirometry.. MRSA nasal and influenza test are negative. 5. Recent discharge non-STEMI, coronary artery disease status post two-vessel bypass, hypertension: Continue his home medications including aspirin, Plavix, statin and carvedilol. He had a stress test in April 2015 which did not show acute ischemia but large previous infarct in basal inferolateral wall. He follows Dr. Loya. 6. Diabetes mellitus type 2: Hemoglobin A1c 7.1%. On Accu-Chek before meals and at bedtime and cover with NovoLog sliding scale. Blood sugar is elevated. Lantus 10 mg subcu twice daily added Chronic anemia probably anemia of chronic disease or iron deficiency anemia: Iron workup, B12 and folic acid ordered. Hemoglobin stable between 7-8 g percent. Stool for occult blood ordered. Other chronic comorbidities include dyslipidemia, hypertension, anemia of chronic disease: Multiple comorbidities complicates the present care and expect difficult and delay recovery DVT prophylaxis: On heparin 5000 units subcutaneous twice daily and bilateral SCDs. Heparin to be resumed from tonight. Clinical Impression(s) from Imaging Studies Chest X-Ray 06/01/18 06:15 IMPRESSION: No acute pulmonary findings. Chest X-Ray 06/02/18 10:05 IMPRESSION: The tip of the malleolus catheter is at the junction of the superior vena cava and right atrium. Cardiomegaly and CHF. Microbiology Past 72 Hours 06/01/18 09:30 Mucosa - Nose Influenza Types A,B Direct FA ([facility]) - Final Laboratory Results 06/01/18 15:43: Troponin I 0.365 H 06/01/18 17:01: POC Glucose 210 H 06/01/18 21:17: POC Glucose 266 H 06/02/18 04:00: WBC 7.2, RBC 2.67 L, Hgb 7.3 L, Hct 22.7 L, MCV 85.0, MCH 27.3, MCHC 32.2, RDW 16.2 H, RDW Differential 49.1 H, Plt Count 142 L, MPV 10.4 06/02/18 04:00: Sodium 138, Potassium 4.5, Chloride 104, Carbon Dioxide 20.0 L, Anion Gap 14, BUN 85 H, Creatinine 5.41 H, Estim Creat Clear Calc 13.52, Est GFR (MDRD) Af Amer 14 L, Est GFR (MDRD) Non-Af 11 L, BUN/Creatinine Ratio 15.7, Glucose 286 H, Calcium 7.9 L, Triglycerides 131, Cholesterol 102, LDL Cholesterol 49, VLDL Cholesterol 26, HDL Cholesterol 27 L, TSH 0.50 06/02/18 07:11: POC Glucose 285 H 06/02/18 11:06: POC Glucose 269 H 06/02/18 12:17: Iron 21 L, Ferritin 341 Code Visit Inpatient E&M: 55552 Subs Hosp L3
--- NOTE | 2018-06-03 10:11 | CASEMGMT ---
Addendum entered by Capo Casillas 06/03/18 10:39: Message received from [facility] admissions with tentative chair time of 11:20 MWF pending insurance approval and dialysis Center review of referral. Call back for [facility] Rep: [id number] Original Note: CANELO PETERSEN Note: In depth discussion re:outpt dialysis with pt and his in room. Their choice is [facility] in [place]. Referral packet faxed- AL for successful fax received. [facility] Admissions PH: FX:
--- NOTE | 2018-06-03 10:46 | DIALYSIS ---
Hep B sag (pending) drawn 06/02/2018 Report from primary RN, Jacklyn Access: right chest permacath. site benign, small amount of blood around incision site, old blood cleaned from site, dressing changed using aseptic technique. Connections secure, saline line double clamped, hemosafe applied x 2.
[2018-06-03 12:13] LABS: PTHIN 240.5 pg/mL (18.4-80.1)
[2018-06-03 12:37] LABS: Bedside Glucose 223 mg/dL (70-110)
--- NOTE | 2018-06-03 12:57 | PN.RENAL_ITS ---
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 Treatment #2 today tolerating fluid removal for 2 L today. Breathing improved. Patient feeling better overall. Edema improved. Tolerated 2 L fluid removal on hemodialysis yesterday - Physical Exam General: Alert, Oriented x3, Cooperative Lungs: Clear to auscultation Cardiovascular: Regular rate Abdomen: Bowel Sounds Present, Soft, Non Tender, Non-Distended, Obese Extremities: No edema Vital Signs Temp Pulse Resp BP Pulse Ox 98.5 F 70 23 H 102/57 L 95 06/03/18 11:00 06/03/18 11:31 06/03/18 11:00 06/03/18 11:00 06/03/18 11:00 Oxygen Flow Rate (L/min) 2 Oxygen Delivery Method Room Air Weight: 99 kg Body Mass Index (BMI) 33.3 Intake and Output for Last 24 Hours 06/01/18 06/02/18 06/03/18 23:59 23:59 23:59 Intake Total 1232 / 1232 599.6 / 599.6 650 / 650 Output Total 350 / 350 2500 / 2500 350 / 350 Balance 882 / 882 -1900.4 / -1900.4 300 / 300 Microbiology Past 72 Hours 06/01/18 09:30 Influenza Types A,B Direct FA (TAMAR) - Final Mucosa - Nose Laboratory Tests Past 24 Hrs 06/02/18 06/02/18 06/03/18 16:15 22:00 01:30 WBC RBC Hgb Hct MCV MCH MCHC RDW RDW Differential Plt Count MPV Immature Gran % (Auto) Neut % (Auto) Lymph % (Auto) [place] % (Auto) Eos % (Auto) Baso % (Auto) Absolute Neuts (auto) Absolute Lymphs (auto) Total Counted Differential Comment Sodium Potassium Chloride Carbon Dioxide Anion Gap BUN Creatinine Estim Creat Clear Calc Est GFR (MDRD) Af Amer Est GFR (MDRD) Non-Af BUN/Creatinine Ratio Glucose Calcium Troponin I 0.259 H 0.241 H PTH Intact Hep Bs Antigen Pending Hep Bs Antibody Pending Hep B Core Total Ab Pending 06/03/18 06/03/18 06/03/18 04:25 04:25 04:25 WBC 11.8 H RBC 2.85 L Hgb 7.8 L Hct 23.9 L MCV 83.9 MCH 27.4 MCHC 32.6 RDW 16.3 H RDW Differential 48.1 H Plt Count 182 MPV 10.5 Immature Gran % (Auto) 0.300 Neut % (Auto) 91.4 H Lymph % (Auto) 4.3 L [place] % (Auto) 3.9 Eos % (Auto) 0.0 Baso % (Auto) 0.1 Absolute Neuts (auto) 10.8 H Absolute Lymphs (auto) 0.51 L Total Counted Not Reportable Differential Comment SCANNED Sodium 135 L Potassium 4.3 Chloride 98 Carbon Dioxide 24.0 Anion Gap 13 BUN 59 H Creatinine 4.68 H Estim Creat Clear Calc 15.63 Est GFR (MDRD) Af Amer 16 L Est GFR (MDRD) Non-Af 14 L BUN/Creatinine Ratio 12.6 Glucose 280 H Calcium 8.0 L Troponin I PTH Intact 240.5 H Hep Bs Antigen Hep Bs Antibody Hep B Core Total Ab 06/03/18 04:25 WBC RBC Hgb Hct MCV MCH MCHC RDW RDW Differential Plt Count MPV Immature Gran % (Auto) Neut % (Auto) Lymph % (Auto) [place] % (Auto) Eos % (Auto) Baso % (Auto) Absolute Neuts (auto) Absolute Lymphs (auto) Total Counted Differential Comment Sodium Potassium Chloride Carbon Dioxide Anion Gap BUN Creatinine Estim Creat Clear Calc Est GFR (MDRD) Af Amer Est GFR (MDRD) Non-Af BUN/Creatinine Ratio Glucose Calcium Troponin I 0.247 H PTH Intact Hep Bs Antigen Hep Bs Antibody Hep B Core Total Ab POC Glucose 06/03/18 06/03/18 06/02/18 12:29 06:35 21:21 POC Glucose 223 H 316 H 359 H 06/02/18 16:17 POC Glucose 237 H Medical Necessity - Tobacco Use Smoking Status: Former smoker Assessment/Plan All Active Problems Acute and chronic respiratory failure with hypoxia (Acute) 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 CKD stage V due to diabetic nephropathy with progressive renal failure. hemodialysis day 2 today with right IJ tunneled dialysis catheter. Poor maturation of his left upper arm AV fistula. Will evaluate for dialysis tomorrow. Will check to see if his renal function recovers on repeat blood work on Wednesday. If not he will need dialysis arranged at [facility]. 2. Shortness of breath fluid removal as tolerated on dialysis. Currently oliguric. 3. Diabetes mellitus type 2 primary care management 4. Hypertension stable BP 5. Anemia start erythropoietin therapy and iron on dialysis. 6. Generalized weakness. 7. Secondary hyperparathyroidism due to renal failure. Hold calcitriol check PTH 8. Vitamin D deficiency on supplements.
[2018-06-03] MEDS: Pantoprazole Sodium 40 MG Tablet PO (13:44)
[2018-06-03] MEDS: Heparin 10,000 UNITS/10 ML Vial 3200 UNITS IV (13:44)
[2018-06-03] MEDS: Carvedilol 12.5 MG Tablet PO (13:44)
[2018-06-03] MEDS: guaiFENesin 1,200 MG Tablet 1200 MG PO ×2 (13:45→21:35)
[2018-06-03] MEDS: Polyethylene Glycol 3350 17 GM PACKET PO (13:46)
[2018-06-03] MEDS: Isosorbide Mononitrate 30 MG Tablet PO (13:46)
[2018-06-03] MEDS: Aspirin 325 MG Tablet PO (13:46)
[2018-06-03] MEDS: Folic Acid/Vitamin B Comp W-C 1 Capsule 1 CAP PO (13:48)
--- NOTE | 2018-06-03 13:55 | CASEMGMT ---
RN CM Note: call to [facility], spoke with Ila. Case has not been approved yet. and will require the Hepatitis panel results. When available, fax to [facility] @ . Pt will need to stay over weekend and receive needed hemodialysis treatments until outpt dialysis @ [facility] in [place] is finalized. -Spoke with pt and updated that referral is in progress, however is not finalized. Gail JOHNSONN RN ACM
--- NOTE | 2018-06-03 14:01 | DIALYSIS ---
Hemodialysis complete. 3.25 hour run, 3k bath. Net fluid removed = 2000 ml. Patient tolerated HD tx well. Right chest CVC: site has small amount of blood leaking from suture, dressing dry and intact, lumen flushed with NS, filled to volume with Heparin, capped and clamped. Report given to primary RNJacklyn
--- NOTE | 2018-06-03 14:11 | CASEMGMT ---
RN CM Assessment completed, see Link.
--- NOTE | 2018-06-03 16:11 | PCA ---
LIZZETTE/RN IN WITH PT
[2018-06-03 17:10] LABS: Bedside Glucose 289 mg/dL (70-110)
[2018-06-03 21:31] LABS: Bedside Glucose 305 mg/dL (70-110)
[2018-06-03] MEDS: Atorvastatin Calcium 20 MG Tablet PO (21:35)
[2018-06-03] MEDS: Heparin Injection (Vial) 5,000 UNIT/ML VIAL 5000 UNIT SC (21:35)
[2018-06-04] VITALS (17 sets, daily range): BP systolic 96–123; BP diastolic 52–81; PULSE 68–96; RESP 16–24; TEMP 36.3–36.9; O2SAT 88–97
[2018-06-04] MEDS: Ipratropium/Albuterol Sulfate 3 ML AMPUL.NEB INHALATION ×7 (03:42→23:36)
[2018-06-04] MEDS: Insulin Lispro 100 UNIT/ML INSULN.PEN SQ ×3 (07:01→22:01)
[2018-06-04 07:06] LABS: Bedside Glucose 275 mg/dL (70-110)
--- NOTE | 2018-06-04 07:26 | PCM.PN.INT ---
Subjective: Patient transferred out of the intensive care unit yesterday. Patient feels he is approaching his baseline at this time. Patient has been on 2 L nasal cannula overnight, but I am not sure if I need it. Patient's blood sugars have been elevated requiring sliding scale insulin. General: Alert, Oriented x3, Cooperative, No apparent distress, - - Appears older than stated age. Speaking in full sentences. HEENT: Atraumatic, PERRLA, EOMI, Normocephalic, - - No scleral icterus or injection noted. Oral: Moist Mucosa, No Gingival or Mucosal Lesions/ Ulcerations Neck: Supple, No JVD, No Nodes, Trachea Midline Lungs: No rhonchi, No rales, Diminished, Wheezes - Sporadic at end exhalation Cardiovascular: Regular rate, Regular Rhythm, Normal S1, Normal S2, No murmurs, No rub noted, No Gallop, - - HD cath is clean, dry and intact. Abdomen: Bowel Sounds Present, Soft, Non Tender, Non-Distended, Obese Extremities: No clubbing, No cyanosis, No edema, Capillary Refill Less than 3 Seconds Skin: No rashes, No breakdown Musculoskeletal: No Tenderness to Palpation of Joints or Extremities Lymphatic: No Cervical, Supraclavicular, or Inguinal Adenopathy Neurological: Cranial nerves II-XII grossly intact, Neuro grossly intact, Motor Exam 5/5 strength throughout Psych/Mental Status: Alert and oriented to time, place, person, mood and affect Vital Signs Temp Pulse Resp BP Pulse Ox 36.8 C 72 18 101/60 94 06/04/18 03:00 06/04/18 06:57 06/04/18 06:57 06/04/18 03:00 06/04/18 06:57 Oxygen Flow Rate (L/min) 2 Oxygen Delivery Method Bi-pap Weight: 97.8 kg Body Mass Index (BMI) 33.3 Intake and Output for Last 24 Hours 06/02/18 06/03/18 06/04/18 23:59 23:59 23:59 Intake Total 599.6 / 599.6 1210 / 1210 Output Total 2500 / 2500 2500 / 2500 200 / 200 Balance -1900.4 / -1900.4 -1290 / -1290 -200 / -200 Laboratory Results - last 24 hr 06/02/18 06/03/18 06/03/18 16:15 04:25 12:29 WBC RBC Hgb Hct MCV MCH MCHC RDW RDW Differential Plt Count MPV Immature Gran % (Auto) Neut % (Auto) Lymph % (Auto) [place] % (Auto) Eos % (Auto) Baso % (Auto) Absolute Neuts (auto) Absolute Lymphs (auto) Total Counted Sodium Potassium Chloride Carbon Dioxide Anion Gap BUN Creatinine Estim Creat Clear Calc Est GFR (MDRD) Af Amer Est GFR (MDRD) Non-Af BUN/Creatinine Ratio Glucose Calcium Iron TIBC Iron Saturation Ferritin Folate PTH Intact 240.5 H Hep Bs Antigen Negative Hep Bs Antibody Non Reactive Hep B Core Total Ab Negative POC Glucose 223 H 06/03/18 06/03/18 06/04/18 17:04 21:27 06:59 WBC RBC Hgb Hct MCV MCH MCHC RDW RDW Differential Plt Count MPV Immature Gran % (Auto) Neut % (Auto) Lymph % (Auto) [place] % (Auto) Eos % (Auto) Baso % (Auto) Absolute Neuts (auto) Absolute Lymphs (auto) Total Counted Sodium Potassium Chloride Carbon Dioxide Anion Gap BUN Creatinine Estim Creat Clear Calc Est GFR (MDRD) Af Amer Est GFR (MDRD) Non-Af BUN/Creatinine Ratio Glucose Calcium Iron TIBC Iron Saturation Ferritin Folate PTH Intact Hep Bs Antigen Hep Bs Antibody Hep B Core Total Ab POC Glucose 289 H 305 H 275 H 06/04/18 06/04/18 07:55 07:55 WBC 10.9 RBC 2.91 L Hgb 7.7 L Hct 24.1 L MCV 82.8 MCH 26.5 L MCHC 32.0 RDW 16.3 H RDW Differential 50.0 H Plt Count 218 MPV 10.0 Immature Gran % (Auto) 0.700 Neut % (Auto) 80.4 H Lymph % (Auto) 10.3 L [place] % (Auto) 8.2 Eos % (Auto) 0.3 Baso % (Auto) 0.1 Absolute Neuts (auto) 8.8 H Absolute Lymphs (auto) 1.13 Total Counted Not Reportable Sodium 133 L Potassium 4.0 Chloride 96 L Carbon Dioxide 26.0 Anion Gap 11 BUN 54 H Creatinine 4.07 H Estim Creat Clear Calc 17.97 Est GFR (MDRD) Af Amer 19 L Est GFR (MDRD) Non-Af 16 L BUN/Creatinine Ratio 13.3 Glucose 242 H Calcium 7.6 L Iron 50 L TIBC 186 L Iron Saturation 26.9 Ferritin 389 H Folate 22.50 PTH Intact Hep Bs Antigen Hep Bs Antibody Hep B Core Total Ab POC Glucose Medical Necessity - Tobacco Use Smoking Status: Former smoker Assessment/Plan All Active Problems Acute and chronic respiratory failure with hypoxia (Acute) 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 Continue with AVAPS only as needed 2. Defer to nephrology on timing of hemodialysis 3. Room air challenge 4. Hemodynamically stable on minimal nasal cannula oxygen, will sign off from a critical care/pulmonary perspective 5. Walking oximetry prior to discharge 6. Patient has follow-up with [facility] pulmonology in the near future. IMPRESSIONS: 1. Acute on chronic hypoxic respiratory failure Likely multiple possible contributing etiologies at this time. Patient does have probable advanced COPD, but clinical suspicion is for acute congestive heart failure secondary to uncontrolled sleep apnea. Patient responded very well to fluid removal with significant improvement in oxygenation. Patient can likely use AVAPS only as needed at this point. Do believe an outpatient polysomnogram would be appropriate. Patient will need a walking oximetry prior to discharge to ensure supplemental oxygen is not required with ambulation. Continue with incentive spirometer. Patient can be discharged on supplemental oxygen with follow up with [facility] if necessary. Anticipate this will be relatively short-term as patient's fluid status improves with hemodialysis. 2. Acute on chronic combined congestive heart failure/recent NSTEMI Patient with a significantly elevated BNP and creatinine. Clinical suspicion for complications secondary to end-stage renal disease. Patient has reported compliance with medical management. Mild increase is likely secondary to supply demand mismatch with hypoxemia on presentation. Defer to renal on plan for volume removal. 3. Acute on chronic CKD stage IV Patient recently attempted opening of the fistula without success. Dr. Granados is consulted and patient did receive hemodialysis with 2 L removal yesterday. Patient is reporting significant improvement in overall condition. This favors fluid overload as an etiology of patient's presenting respiratory failure. Defer to nephrology on timing of further hemodialysis. 4. Probable advanced COPD/diabetes mellitus/hypertension Complicates care, management, recovery and prognosis. Low clinical suspicion for COPD exacerbation given acute onset. Discontinued antibiotics and steroids yesterday. This should help patient's elevated blood sugar. Code Visit Inpatient E&M: 62087 Subs Hosp L2
[2018-06-04 08:10] LABS: HEPATITIS B SURFACE AG Negative (Negative)
[2018-06-04 08:13] LABS: Absolute Lymphocyte Count 1.13 X10^3/ul (0.83-4.51); Absolute Neutrophil Count 8.8 X10^3/uL (2.0-7.7); Basophil# 0.01 X10^3/uL; Basophil% 0.1 % (0-1); Eosinophil# 0.03 X10^3/uL; Eosinophils% 0.3 % (0-5); Hematocrit 24.1 % (40-54); Hemoglobin 7.7 g/dl (13.0-16.5); Lymphocyte # 1.13 X10^3/ul (4.0); Lymphocyte % 10.3 % (19-41); Mean Corpuscular Hgb 26.5 pg (27.0-32.0); Mean Corpuscular Volume 82.8 fL (80-94); Monocyte# 0.89 X10^3/uL; Monocyte% 8.2 % (0-10); Neutrophil # 8.78 X10^3/uL (2.7-7.7); Neutrophil % 80.4 % (47-70); Platelet Count 218 K/mm3 (150-450); RBC Distribution Width CV 16.3 % (11.6-14.6); Red Blood Count 2.91 M/mm3 (4.6-6.2); White Blood Count 10.9 K/mm3 (4.4-11.0)
[2018-06-04 08:14] LABS: POSITIVE COUNT NO; POSITIVE DIFFERENTIAL NO; POSITIVE MORPHOLOGY NO
[2018-06-04] MEDS: Carvedilol 12.5 MG Tablet PO (08:27)
[2018-06-04] MEDS: Aspirin 325 MG Tablet PO (08:27)
[2018-06-04] MEDS: Heparin Injection (Vial) 5,000 UNIT/ML VIAL 5000 UNIT SC ×2 (08:28→21:52)
[2018-06-04] MEDS: Polyethylene Glycol 3350 17 GM PACKET PO (08:28)
[2018-06-04] MEDS: guaiFENesin 1,200 MG Tablet 1200 MG PO ×2 (08:28→21:52)
[2018-06-04] MEDS: Folic Acid/Vitamin B Comp W-C 1 Capsule 1 CAP PO (08:29)
[2018-06-04] MEDS: Isosorbide Mononitrate 30 MG Tablet PO (08:29)
[2018-06-04] MEDS: Pantoprazole Sodium 40 MG Tablet PO (08:29)
[2018-06-04] MEDS: Clopidogrel Bisulfate 75 MG Tablet PO (08:30)
[2018-06-04 09:28] LABS: Hep B Surface Antibodies Non Reactive (.); Hepatitis B Core Ab Total Negative (Negative)
[2018-06-04 09:36] LABS: Anion Gap 11 (5-15); BUN 54 mg/dL (7-18); BUN/Creat Ratio 13.3 RATIO (10-20); Calcium,Total 7.6 mg/dL (8.5-10.1); Chloride 96 mmol/L (98-107); Creatinine, Serum 4.07 mg/dL (0.70-1.30); EST Glomerular Filtration Rate 16 mL/min (>60); Est Glom Filt Rate - Afr Amer 19 mL/min (>60); Estimated Creatinine Clearance 17.97 ml/min; Ferritin 389 ng/mL (26-388); Glucose 242 mg/dL (74-106); Iron 50 ug/dL (65-175); Iron Binding Capacity,Total 186 ug/dL (250-450); PERCENT IRON SATURATION 26.9 % (15.0-55.0); Sodium Level 133 mmol/L (136-145)
[2018-06-04 12:06] LABS: Bedside Glucose 283 mg/dL (70-110)
--- NOTE | 2018-06-04 14:08 | PCM.PN.HOSP ---
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 Sitting in the chair. No shortness of breath at rest. Leg edema, facial edema has much improved. Vitals/I&O's: Vital Signs Temp Pulse Resp BP Pulse Ox 97.8 F 68 18 123/59 H 88 06/04/18 08:21 06/04/18 11:04 06/04/18 11:04 06/04/18 08:21 06/04/18 08:22 Oxygen Flow Rate (L/min) 2 Oxygen Delivery Method Room Air Weight: 215 lb 9.793 oz Body Mass Index (BMI) 33.3 Intake and Output for Last 24 Hours 06/02/18 06/03/18 06/04/18 23:59 23:59 23:59 Intake Total 599.6 / 599.6 1210 / 1210 240 / 240 Output Total 2500 / 2500 2500 / 2500 400 / 400 Balance -1900.4 / -1900.4 -1290 / -1290 -160 / -160 General: Alert, Oriented x3, Cooperative HEENT: Atraumatic, PERRLA, EOMI, Normocephalic Neck: Supple, No JVD, Negative Carotid Bruits Lungs: Clear to auscultation, No wheeze, No rales, Diminished, Rhonchi Cardiovascular: Regular rate, Normal S1, Normal S2, No murmurs Abdomen: Bowel Sounds Present, Soft, Non Tender, Non-Distended Extremities: Capillary Refill Less than 3 Seconds, Edema - mild edema Skin: No rashes, No breakdown Musculoskeletal: No Tenderness to Palpation of Joints or Extremities Neurological: Cranial nerves II-XII grossly intact Psych/Mental Status: Normal Affect, Appropriate Microbiology Past 72 Hours 06/01/18 09:30 Mucosa - Nose Influenza Types A,B Direct FA (TAMAR) - Final Laboratory Results 06/02/18 16:15: Hep Bs Antigen Negative, Hep Bs Antibody Non Reactive, Hep B Core Total Ab Negative 06/03/18 17:04: POC Glucose 289 H 06/03/18 21:27: POC Glucose 305 H 06/04/18 06:59: POC Glucose 275 H 06/04/18 07:55: Sodium 133 L, Potassium 4.0, Chloride 96 L, Carbon Dioxide 26.0, Anion Gap 11, BUN 54 H, Creatinine 4.07 H, Estim Creat Clear Calc 17.97, Est GFR (MDRD) Af Amer 19 L, Est GFR (MDRD) Non-Af 16 L, BUN/Creatinine Ratio 13.3, Glucose 242 H, Calcium 7.6 L, Iron 50 L, TIBC 186 L, Iron Saturation 26.9, Ferritin 389 H, Folate 22.50 06/04/18 07:55: WBC 10.9, RBC 2.91 L, Hgb 7.7 L, Hct 24.1 L, MCV 82.8, MCH 26.5 L, MCHC 32.0, RDW 16.3 H, RDW Differential 50.0 H, Plt Count 218, MPV 10.0, Immature Gran % (Auto) 0.700, Neut % (Auto) 80.4 H, Lymph % (Auto) 10.3 L, [place] % (Auto) 8.2, Eos % (Auto) 0.3, Baso % (Auto) 0.1, Absolute Neuts (auto) 8.8 H, Absolute Lymphs (auto) 1.13, Total Counted Not Reportable 06/04/18 07:55: Vitamin B12 Pending 06/04/18 12:00: POC Glucose 283 H Current Medications Acetaminophen (Tylenol) 650 mg PO Q6H PRN PRN PRN Reason: Mild Pain (scale 0-3)/T>100.7 Al Hydroxide/Mg Hydroxide (Mylanta Ii) 30 ml PO Q6H PRN PRN PRN Reason: Gastric burning Albuterol Sulfate (Ventolin Aerosols) 2.5 mg INHALATION Q2H PRN PRN PRN Reason: SHORTNESS OF BREATH Albuterol/Ipratropium (Duoneb) 3 ml INHALATION Q4H.RT [facility] Last Admin: 06/04/18 11:03 Dose: 3 ml Aspirin (Aspirin) 325 mg PO DAILY@0800 [facility] Last Admin: 06/04/18 08:27 Dose: 325 mg Atorvastatin Calcium (Lipitor) 20 mg PO QHS [facility] Last Admin: 06/03/18 21:35 Dose: 20 mg Carvedilol (Coreg) 12.5 mg PO BID [facility] Last Admin: 06/04/18 08:27 Dose: 12.5 mg Clopidogrel Bisulfate (Plavix) 75 mg PO DAILY [facility] Last Admin: 06/04/18 08:30 Dose: 75 mg Dextrose (D50w Syringe) 0 gm IV X1 PRN; Protocol PRN Reason: Hypoglycemia Doxazosin Mesylate (Cardura) 8 mg PO QHS [facility] Last Admin: 06/03/18 22:36 Dose: Not Given Ergocalciferol (Vitamin D) 50,000 unit PO Gannon@1000 [facility] Glucagon () 1 mg IM .X1 PRN PRN Reason: Hypoglycemia Guaifenesin (Mucinex) 1,200 mg PO BID [facility] Last Admin: 06/04/18 08:28 Dose: 1,200 mg Heparin Sodium (Porcine) (Heparin Na) 5,000 unit SC BID [facility] Last Admin: 06/04/18 08:28 Dose: 5,000 unit Sodium Chloride () 250 mls @ 15 mls/hr IV .[id number] PRN PRN Reason: SALINE FLUSH Sodium Chloride () 250 mls @ 15 mls/hr IV .[id number] PRN PRN Reason: SALINE FLUSH Insulin Glargine (Lantus (Bkc)) 10 units SC 11,22 [facility] Last Admin: 06/04/18 12:02 Dose: 10 units Insulin Human Lispro (Humalog Kwikpen ([facility])) 0 unit SQ ACHS [facility] PRN Reason: Protocol Last Admin: 06/04/18 12:01 Dose: 6 units Isosorbide Mononitrate (Imdur) 30 mg PO DAILY [facility] Last Admin: 06/04/18 08:29 Dose: 30 mg Magnesium Hydroxide (Milk Of Magnesia) 30 ml PO DAILY PRN PRN PRN Reason: Constipation Multivit/Ca Carb/B Cmplx/FA/Prenat (Nephrocaps, Renaphro) 1 capsule PO DAILY [facility] Last Admin: 06/04/18 08:29 Dose: 1 capsule Ondansetron HCl (Zofran) 4 mg IV Q6H PRN PRN PRN Reason: NAUSEA Oxycodone HCl (Oxyir) 5 mg PO Q4H PRN PRN PRN Reason: PAIN Pantoprazole Sodium (Protonix) 40 mg PO DAILY [facility] Last Admin: 06/04/18 08:29 Dose: 40 mg Polyethylene Glycol (Miralax) 17 gm PO DAILY [facility] Last Admin: 06/04/18 08:28 Dose: 17 gm Promethazine HCl (Phenergan) 12.5 mg IV Q6H PRN PRN PRN Reason: NAUSEA/VOMITING Sodium Chloride () 5 - 30 ml IV UD PRN PRN Reason: SALINE FLUSH Last Admin: 06/02/18 21:46 Dose: 20 ml Medical Necessity - Tobacco Use Smoking Status: Former smoker Assessment/Plan All Active Problems Acute and chronic respiratory failure with hypoxia (Acute) Acute on chronic combined systolic and diastolic HF (heart failure) (Acute) Chronic kidney disease, stage V (Acute) Non-ST elevation [place] (NSTEMI) (Resolved) Abnormal EKG (Acute) Lower abdominal pain (Acute) Diastolic CHF, acute (Acute) CHF (congestive heart failure) (Acute) Anasarca (Acute) The patient is a 63 year old M with multiple comorbidities including COPD, heart failure with preserved EF, CKD stage IV was recently discharged in April 2018 after management of non-STEMI came to ER with severe shortness of breath for last 4 days. Patient denies chest heaviness, chest pain/pressure. He denies fever, chills but has chronic cough secondary to COPD. He also had AV fistula surgery done in left forearm but it is not functioning. He went to [facility] for angioplasty of fistula but got upset and wasn't done. Chest x-ray shows chronic changes but no acute pulmonary finding. Both lower extremities are edematous but has been like that since his previous admission even though he is on high-dose of Lasix 80 mg twice daily. In ED, patient was put on BiPAP. Initially, his blood pressure was 144/129 but dropped while he was on nitro ointment that ER physician ordered for shortness of breath in anticipation of possible angina equivalent. EKG shows T inversion in lateral leads but it is chronic since last admission. 1. Acute on chronic hypoxic respiratory failure; multiple etiologies but most probably heart failure exacerbation, COPD exacerbation; resolved after hemodialysis: Patient is being admitted in ICU. Patient is on BiPAP, to keep pulse ox about 90%. Discussed with Dr. Reagan. Breathing has improved after hemodialysis. Currently pulse ox 97% on room air 2. Acute on chronic combined heart failure: Patient had echo last month and reported as EF 50% with segmental systolic dysfunction; hypokinetic septal and posterior wall. Normal RV size, systolic function. 1-2+ TR with RVSP 50 mmHg consistent with moderate pulmonary hypertension. Initially, blood pressure dropped on nitro ointment. Patient has end-stage kidney failure and diuretics are resistant. On Imdur, aspirin, statin and beta-olivia. Troponins are mildly elevated at 0.078, 0.365, 0.259, 0.241 stable most probably secondary to increased left ventricular volume overload. BNP elevated 3. CKD stage V due to diabetic nephropathy progressive renal failure: His creatinine was 3.5 in February 2018 and about 4.5 in April 2018 but currently 4.87. Left forearm AV fistula not functioning. Discussed with Dr. Granados. The patient was dialyzed for consecutive 2 days and 2 L of fluids removed on each dialysis. Currently oliguric. storage manager to work on setting up outpatient dialysis as patient started dialysis first time. 4. COPD exacerbation: On IV Solu-Medrol, bronchodilator, BiPAP support incentive spirometry.. MRSA nasal and influenza test are negative. 5. Recent discharge non-STEMI, coronary artery disease status post two-vessel bypass, hypertension: Continue his home medications including aspirin, Plavix, statin and carvedilol. He had a stress test in April 2015 which did not show acute ischemia but large previous infarct in basal inferolateral wall. He follows Dr. Loya. 6. Diabetes mellitus type 2: Hemoglobin A1c 7.1%. On Accu-Chek before meals and at bedtime and cover with NovoLog sliding scale. Blood sugar is elevated. Lantus 10 mg subcu twice daily added Chronic anemia probably anemia of chronic disease or iron deficiency anemia: Iron workup, B12 and folic acid ordered. Hemoglobin stable between 7-8 g percent. Stool for occult blood ordered. Other chronic comorbidities include dyslipidemia, hypertension, anemia of chronic disease: Multiple comorbidities complicates the present care and expect difficult and delay recovery DVT prophylaxis: On heparin 5000 units subcutaneous twice daily and bilateral SCDs. Heparin to be resumed from tonight. Clinical Impression(s) from Imaging Studies Chest X-Ray 06/01/18 06:15 IMPRESSION: No acute pulmonary findings. Chest X-Ray 06/02/18 10:05 IMPRESSION: The tip of the malleolus catheter is at the junction of the superior vena cava and right atrium. Cardiomegaly and CHF. Laboratory Results 06/02/18 16:15: Hep Bs Antigen Negative, Hep Bs Antibody Non Reactive, Hep B Core Total Ab Negative 06/03/18 17:04: POC Glucose 289 H 06/03/18 21:27: POC Glucose 305 H 06/04/18 06:59: POC Glucose 275 H 06/04/18 07:55: Sodium 133 L, Potassium 4.0, Chloride 96 L, Carbon Dioxide 26.0, Anion Gap 11, BUN 54 H, Creatinine 4.07 H, Estim Creat Clear Calc 17.97, Est GFR (MDRD) Af Amer 19 L, Est GFR (MDRD) Non-Af 16 L, BUN/Creatinine Ratio 13.3, Glucose 242 H, Calcium 7.6 L, Iron 50 L, TIBC 186 L, Iron Saturation 26.9, Ferritin 389 H, Folate 22.50 06/04/18 07:55: WBC 10.9, RBC 2.91 L, Hgb 7.7 L, Hct 24.1 L, MCV 82.8, MCH 26.5 L, MCHC 32.0, RDW 16.3 H, RDW Differential 50.0 H, Plt Count 218, MPV 10.0, Immature Gran % (Auto) 0.700, Neut % (Auto) 80.4 H, Lymph % (Auto) 10.3 L, [place] % (Auto) 8.2, Eos % (Auto) 0.3, Baso % (Auto) 0.1, Absolute Neuts (auto) 8.8 H, Absolute Lymphs (auto) 1.13, Total Counted Not Reportable 06/04/18 07:55: Vitamin B12 Pending 06/04/18 12:00: POC Glucose 283 H Code Visit Inpatient E&M: 92314 Subs Hosp L3
--- NOTE | 2018-06-04 16:21 | PCM.PN.REN ---
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) (Acute) Chronic kidney disease, stage V (Acute) - Physical Exam General: Alert, Oriented x3, Cooperative, - - Appears fatigued HEENT: PERRLA, EOMI Oral: Dry Mucosa Lungs: Clear to auscultation - Right base, Rales - Left base Cardiovascular: Regular rate Abdomen: Bowel Sounds Present, Soft, Non Tender, Non-Distended, Obese Extremities: No edema Musculoskeletal: No Muscle Wasting, - - Generalized weakness Neurological: - - No tremor Psych/Mental Status: Normal Affect, Appropriate, Alert and oriented to time, place, person, mood and affect Vital Signs Temp Pulse Resp BP Pulse Ox 97.4 F L 71 18 120/67 97 06/04/18 14:17 06/04/18 14:17 06/04/18 14:17 06/04/18 14:17 06/04/18 14:17 Oxygen Flow Rate (L/min) 2 Oxygen Delivery Method Room Air Weight: 97.8 kg Body Mass Index (BMI) 33.3 Intake and Output for Last 24 Hours 06/02/18 06/03/18 06/04/18 23:59 23:59 23:59 Intake Total 599.6 / 599.6 1210 / 1210 240 / 240 Output Total 2500 / 2500 2500 / 2500 400 / 400 Balance -1900.4 / -1900.4 -1290 / -1290 -160 / -160 Laboratory Tests Past 24 Hrs 06/02/18 06/04/18 06/04/18 16:15 07:55 07:55 WBC 10.9 RBC 2.91 L Hgb 7.7 L Hct 24.1 L MCV 82.8 MCH 26.5 L MCHC 32.0 RDW 16.3 H RDW Differential 50.0 H Plt Count 218 MPV 10.0 Immature Gran % (Auto) 0.700 Neut % (Auto) 80.4 H Lymph % (Auto) 10.3 L [place] % (Auto) 8.2 Eos % (Auto) 0.3 Baso % (Auto) 0.1 Absolute Neuts (auto) 8.8 H Absolute Lymphs (auto) 1.13 Total Counted Not Reportable Sodium 133 L Potassium 4.0 Chloride 96 L Carbon Dioxide 26.0 Anion Gap 11 BUN 54 H Creatinine 4.07 H Estim Creat Clear Calc 17.97 Est GFR (MDRD) Af Amer 19 L Est GFR (MDRD) Non-Af 16 L BUN/Creatinine Ratio 13.3 Glucose 242 H Calcium 7.6 L Iron 50 L TIBC 186 L Iron Saturation 26.9 Ferritin 389 H Vitamin B12 Folate 22.50 Hep Bs Antigen Negative Hep Bs Antibody Non Reactive Hep B Core Total Ab Negative 06/04/18 07:55 WBC RBC Hgb Hct MCV MCH MCHC RDW RDW Differential Plt Count MPV Immature Gran % (Auto) Neut % (Auto) Lymph % (Auto) [place] % (Auto) Eos % (Auto) Baso % (Auto) Absolute Neuts (auto) Absolute Lymphs (auto) Total Counted Sodium Potassium Chloride Carbon Dioxide Anion Gap BUN Creatinine Estim Creat Clear Calc Est GFR (MDRD) Af Amer Est GFR (MDRD) Non-Af BUN/Creatinine Ratio Glucose Calcium Iron TIBC Iron Saturation Ferritin Vitamin B12 Pending Folate Hep Bs Antigen Hep Bs Antibody Hep B Core Total Ab POC Glucose 06/04/18 06/04/18 06/03/18 12:00 06:59 21:27 POC Glucose 283 H 275 H 305 H 06/03/18 17:04 POC Glucose 289 H Medical Necessity - Tobacco Use Smoking Status: Former smoker Assessment/Plan All Active Problems Acute and chronic respiratory failure with hypoxia (Acute) 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 CKD stage V due to diabetic nephropathy with progressive renal failure. hemodialysis #3 today with right IJ tunneled dialysis catheter. Poor maturation of his left upper arm AV fistula. Follow-up with Dr. Hollins as outpatient. Patient has spot Viviane Aguirre at 11:30 AM every Wednesday, Wednesday, Wednesday 3. Diabetes mellitus type 2 primary care management 4. Hypertension stable BP 5. Anemia start erythropoietin therapy and iron on dialysis. 6. Generalized weakness. 7. Secondary hyperparathyroidism due to renal failure. Hold calcitriol check PTH 8. Vitamin D deficiency on supplements.
--- NOTE | 2018-06-04 21:38 | DIALYSIS ---
Hemodialysis x 3.5 hrs completed. -1000ml off. stable tx. CVC ran w/o difficulty/closed with Heparin to each lumen fill volume. Report to Maggy LEMOS
[2018-06-04] MEDS: Atorvastatin Calcium 20 MG Tablet PO (21:52)
[2018-06-04] MEDS: Magnesium Hydroxide 30 ML UDC PO (22:24)
[2018-06-04 23:01] LABS: Bedside Glucose 188 mg/dL (70-110)
[2018-06-05] VITALS (9 sets, daily range): BP systolic 110–135; BP diastolic 52–64; PULSE 71–82; RESP 16–18; TEMP 36.7–37.1; O2SAT 90–98
[2018-06-05 06:45] LABS: Anion Gap 10 (5-15); BUN 33 mg/dL (7-18); Calcium,Total 7.3 mg/dL (8.5-10.1); Chloride 98 mmol/L (98-107); Creatinine, Serum 2.74 mg/dL (0.70-1.30); EST Glomerular Filtration Rate 25 mL/min (>60); Est Glom Filt Rate - Afr Amer 30 mL/min (>60); Glucose 175 mg/dL (74-106); Potassium 3.9 mmol/L (3.5-5.1); Sodium Level 138 mmol/L (136-145)
[2018-06-05] MEDS: Insulin Lispro 100 UNIT/ML INSULN.PEN SQ ×3 (06:49→22:35)
[2018-06-05 06:55] LABS: Bedside Glucose 164 mg/dL (70-110)
[2018-06-05 06:59] LABS: Absolute Lymphocyte Count 1.16 X10^3/ul (0.83-4.51); Absolute Neutrophil Count 6.5 X10^3/uL (2.0-7.7); Basophil# 0.02 X10^3/uL; Basophil% 0.2 % (0-1); Eosinophil# 0.35 X10^3/uL; Hematocrit 23.6 % (40-54); Hemoglobin 7.5 g/dl (13.0-16.5); Lymphocyte # 1.16 X10^3/ul (4.0); Lymphocyte % 13.2 % (19-41); Mean Corp Hgb Conc 31.8 g/gl (32-36); Mean Corpuscular Hgb 27.3 pg (27.0-32.0); Mean Corpuscular Volume 85.8 fL (80-94); Mean Platelet Vol. 9.9 fl (6.2-12.0); Monocyte# 0.54 X10^3/uL; Monocyte% 6.1 % (0-10); Neutrophil # 6.52 X10^3/uL (2.7-7.7); Neutrophil % 74.1 % (47-70); POSITIVE COUNT YES; POSITIVE DIFFERENTIAL NO; POSITIVE MORPHOLOGY YES; Platelet Count 236 K/mm3 (150-450); RBC Distribution Width CV 16.1 % (11.6-14.6); RBC Distribution Width SD 48.5 fl (35.1-43.9); Red Blood Count 2.75 M/mm3 (4.6-6.2); White Blood Count 8.8 K/mm3 (4.4-11.0)
[2018-06-05] MEDS: Ipratropium/Albuterol Sulfate 3 ML AMPUL.NEB INHALATION ×2 (07:28→11:12)
[2018-06-05] MEDS: Folic Acid/Vitamin B Comp W-C 1 Capsule 1 CAP PO (08:12)
[2018-06-05] MEDS: Carvedilol 12.5 MG Tablet PO ×2 (08:13→22:28)
[2018-06-05] MEDS: Pantoprazole Sodium 40 MG Tablet PO (08:13)
[2018-06-05] MEDS: Clopidogrel Bisulfate 75 MG Tablet PO (08:13)
[2018-06-05] MEDS: Aspirin 325 MG Tablet PO (08:13)
[2018-06-05] MEDS: Heparin Injection (Vial) 5,000 UNIT/ML VIAL 5000 UNIT SC ×2 (08:13→22:28)
[2018-06-05] MEDS: guaiFENesin 1,200 MG Tablet 1200 MG PO ×2 (08:14→22:27)
[2018-06-05] MEDS: Polyethylene Glycol 3350 17 GM PACKET PO (08:14)
[2018-06-05] MEDS: Isosorbide Mononitrate 30 MG Tablet PO (08:14)
[2018-06-05 12:01] LABS: Bedside Glucose 290 mg/dL (70-110)
--- NOTE | 2018-06-05 13:36 | PCM.PN.HOSP ---
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 No shortness of breath at rest. Waiting for establishment of new dialysis center after discharge. associate manager consult. Vitals/I&O's: Vital Signs Temp Pulse Resp BP Pulse Ox 98.0 F 72 18 117/52 L 95 06/05/18 08:09 06/05/18 11:13 06/05/18 11:13 06/05/18 08:09 06/05/18 08:09 Oxygen Flow Rate (L/min) 0 Oxygen Delivery Method Room Air Weight: 214 lb 14.4 oz Body Mass Index (BMI) 33.3 Intake and Output for Last 24 Hours 06/03/18 06/04/18 06/05/18 23:59 23:59 23:59 Intake Total 1210 / 1210 580 / 580 700 / 700 Output Total 2500 / 2500 2860 / 2860 1150 / 1150 Balance -1290 / -1290 -2280 / -2280 -450 / -450 General: Alert, Oriented x3, Cooperative HEENT: Atraumatic, PERRLA, EOMI, Normocephalic Neck: Supple, No JVD, Negative Carotid Bruits Lungs: Clear to auscultation, No rhonchi, No wheeze, No rales, Diminished Cardiovascular: Regular rate, Regular Rhythm, Normal S1, Normal S2, No murmurs Abdomen: Bowel Sounds Present, Soft, Non Tender Extremities: Capillary Refill Less than 3 Seconds, Edema Skin: No rashes, No breakdown Musculoskeletal: No Tenderness to Palpation of Joints or Extremities Neurological: Cranial nerves II-XII grossly intact Psych/Mental Status: Normal Affect, Appropriate Microbiology Past 72 Hours 06/05/18 07:00 Stool Stool Occult Blood (TAMAR) - Final Laboratory Results 06/04/18 21:59: POC Glucose 188 H 06/05/18 05:20: Sodium 138, Potassium 3.9, Chloride 98, Carbon Dioxide 30.0, Anion Gap 10, BUN 33 H, Creatinine 2.74 H, Estim Creat Clear Calc 26.70, Est GFR (MDRD) Af Amer 30 L, Est GFR (MDRD) Non-Af 25 L, BUN/Creatinine Ratio 12.0, Glucose 175 H, Calcium 7.3 L 06/05/18 05:20: WBC 8.8, RBC 2.75 L, Hgb 7.5 L, Hct 23.6 L, MCV 85.8, MCH 27.3, MCHC 31.8 L, RDW 16.1 H, RDW Differential 48.5 H, Plt Count 236, MPV 9.9, Immature Gran % (Auto) 2.400 H, Neut % (Auto) 74.1 H, Lymph % (Auto) 13.2 L, [place] % (Auto) 6.1, Eos % (Auto) 4.0, Baso % (Auto) 0.2, Absolute Neuts (auto) 6.5, Absolute Lymphs (auto) 1.16, Total Counted Not Reportable, Diff Path Review January06/05/18 06:43: POC Glucose 164 H 06/05/18 11:51: POC Glucose 290 H Current Medications Acetaminophen (Tylenol) 650 mg PO Q6H PRN PRN PRN Reason: Mild Pain (scale 0-3)/T>100.7 Al Hydroxide/Mg Hydroxide (Mylanta Ii) 30 ml PO Q6H PRN PRN PRN Reason: Gastric burning Albuterol Sulfate (Ventolin Aerosols) 2.5 mg INHALATION Q2H PRN PRN PRN Reason: SHORTNESS OF BREATH Aspirin (Aspirin) 325 mg PO DAILY@0800 [facility] Last Admin: 06/05/18 08:13 Dose: 325 mg Atorvastatin Calcium (Lipitor) 20 mg PO QHS [facility] Last Admin: 06/04/18 21:52 Dose: 20 mg Carvedilol (Coreg) 12.5 mg PO BID [facility] Last Admin: 06/05/18 08:13 Dose: 12.5 mg Clopidogrel Bisulfate (Plavix) 75 mg PO DAILY [facility] Last Admin: 06/05/18 08:13 Dose: 75 mg Dextrose (D50w Syringe) 0 gm IV X1 PRN; Protocol PRN Reason: Hypoglycemia Ergocalciferol (Vitamin D) 50,000 unit PO Gannon@1000 [facility] Last Admin: 06/05/18 08:13 Dose: 50,000 unit Glucagon () 1 mg IM .X1 PRN PRN Reason: Hypoglycemia Guaifenesin (Mucinex) 1,200 mg PO BID [facility] Last Admin: 09/09/18 08:14 Dose: 1,200 mg Heparin Sodium (Porcine) (Heparin Na) 5,000 unit SC BID [facility] Last Admin: 06/05/18 08:13 Dose: 5,000 unit Sodium Chloride () 250 mls @ 15 mls/hr IV .[id number] PRN PRN Reason: SALINE FLUSH Sodium Chloride () 250 mls @ 15 mls/hr IV .[id number] PRN PRN Reason: SALINE FLUSH Insulin Glargine (Lantus ([facility])) 10 units SC 11,22 [facility] Last Admin: 06/05/18 11:52 Dose: 10 units Insulin Human Lispro (Humalog Kwikpen ([facility])) 0 unit SQ ACHS [facility] PRN Reason: Protocol Last Admin: 06/05/18 11:52 Dose: 6 units Isosorbide Mononitrate (Imdur) 30 mg PO DAILY [facility] Last Admin: 06/05/18 08:14 Dose: 30 mg Magnesium Hydroxide (Milk Of Magnesia) 30 ml PO DAILY PRN PRN PRN Reason: Constipation Last Admin: 06/04/18 22:24 Dose: 30 ml Multivit/Ca Carb/B Cmplx/FA/Prenat (Nephrocaps, Renaphro) 1 capsule PO DAILY [facility] Last Admin: 06/05/18 08:12 Dose: 1 capsule Ondansetron HCl (Zofran) 4 mg IV Q6H PRN PRN PRN Reason: NAUSEA Oxycodone HCl (Oxyir) 5 mg PO Q4H PRN PRN PRN Reason: PAIN Pantoprazole Sodium (Protonix) 40 mg PO DAILY [facility] Last Admin: 06/05/18 08:13 Dose: 40 mg Polyethylene Glycol (Miralax) 17 gm PO DAILY [facility] Last Admin: 06/05/18 08:14 Dose: 17 gm Promethazine HCl (Phenergan) 12.5 mg IV Q6H PRN PRN PRN Reason: NAUSEA/VOMITING Sodium Chloride () 5 - 30 ml IV UD PRN PRN Reason: SALINE FLUSH Last Admin: 06/02/18 21:46 Dose: 20 ml Medical Necessity - Tobacco Use Smoking Status: Former smoker Assessment/Plan All Active Problems Acute and chronic respiratory failure with hypoxia (Acute) 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 Patient denies chest heaviness, chest pain/pressure. He denies fever, chills but has chronic cough secondary to COPD. He also had AV fistula surgery done in left forearm but it is not functioning. He went to [facility] for angioplasty of fistula but got upset and wasn't done. Chest x-ray shows chronic changes but no acute pulmonary finding. Both lower extremities are edematous but has been like that since his previous admission even though he is on high-dose of Lasix 80 mg twice daily. In ED, patient was put on BiPAP. Initially, his blood pressure was 144/129 but dropped while he was on nitro ointment that ER physician ordered for shortness of breath in anticipation of possible angina equivalent. EKG shows T inversion in lateral leads but it is chronic since last admission. 1. Acute on chronic hypoxic respiratory failure; multiple etiologies but most probably heart failure exacerbation, COPD exacerbation; resolved after hemodialysis: Patient is being admitted in ICU. Patient is on BiPAP, to keep pulse ox about 90%. Discussed with Dr. Reagan. Breathing has improved after hemodialysis. Currently pulse ox 97% on room air 2. Acute on chronic combined heart failure: Patient had echo last month and reported as EF 50% with segmental systolic dysfunction; hypokinetic septal and posterior wall. Normal RV size, systolic function. 1-2+ TR with RVSP 50 mmHg consistent with moderate pulmonary hypertension. Initially, blood pressure dropped on nitro ointment. Patient has end-stage kidney failure and diuretics are resistant. On Imdur, aspirin, statin and beta-olivia. Troponins are mildly elevated at 0.078, 0.365, 0.259, 0.241 stable most probably secondary to increased left ventricular volume overload. BNP elevated 3. CKD stage V due to diabetic nephropathy progressive renal failure: His creatinine was 3.5 in February 2018 and about 4.5 in April 2018 but currently 4.87. Left forearm AV fistula not functioning. Discussed with Dr. Granados. The patient was dialyzed for consecutive 2 days and 2 L of fluids removed on each dialysis. Currently oliguric. 4. COPD exacerbation: On IV Solu-Medrol, bronchodilator, BiPAP support incentive spirometry.. MRSA nasal and influenza test are negative. 5. Recent discharge non-STEMI, coronary artery disease status post two-vessel bypass, hypertension: Continue his home medications including aspirin, Plavix, statin and carvedilol. He had a stress test in April 2015 which did not show acute ischemia but large previous infarct in basal inferolateral wall. He follows Dr. Loya. 6. Diabetes mellitus type 2: Hemoglobin A1c 7.1%. On Accu-Chek before meals and at bedtime and cover with NovoLog sliding scale. Blood sugar is elevated. Lantus 10 mg subcu twice daily added Chronic anemia secondary to end-stage renal disease CKD stage V. Hemoglobin stable between 7-8 g percent. Stool for occult blood ordered. Erythropoietin during dialysis. Iron studies shows an anemia of chronic disease with ferritin 309, serum iron 50 and TIBC low 136. B12 pending. Folate normal. Other chronic comorbidities include dyslipidemia, hypertension, anemia of chronic disease: Multiple comorbidities complicates the present care and expect difficult and delay recovery DVT prophylaxis: On heparin 5000 units subcutaneous twice daily and bilateral SCDs. Heparin to be resumed from tonight. Discharge plan: associate manager to work on setting up outpatient dialysis as patient started dialysis first time. Patient will be on dialysis schedule Wednesday and Wednesday. Clinical Impression(s) from Imaging Studies Chest X-Ray 06/01/18 06:15 IMPRESSION: No acute pulmonary findings. Chest X-Ray 06/02/18 10:05 IMPRESSION: The tip of the malleolus catheter is at the junction of the superior vena cava and right atrium. Cardiomegaly and CHF. Microbiology Past 72 Hours 06/05/18 07:00 Stool Stool Occult Blood (TAMAR) - Final Laboratory Results 06/04/18 21:59: POC Glucose 188 H 06/05/18 05:20: Sodium 138, Potassium 3.9, Chloride 98, Carbon Dioxide 30.0, Anion Gap 10, BUN 33 H, Creatinine 2.74 H, Estim Creat Clear Calc 26.70, Est GFR (MDRD) Af Amer 30 L, Est GFR (MDRD) Non-Af 25 L, BUN/Creatinine Ratio 12.0, Glucose 175 H, Calcium 7.3 L 06/05/18 05:20: WBC 8.8, RBC 2.75 L, Hgb 7.5 L, Hct 23.6 L, MCV 85.8, MCH 27.3, MCHC 31.8 L, RDW 16.1 H, RDW Differential 48.5 H, Plt Count 236, MPV 9.9, Immature Gran % (Auto) 2.400 H, Neut % (Auto) 74.1 H, Lymph % (Auto) 13.2 L, [place] % (Auto) 6.1, Eos % (Auto) 4.0, Baso % (Auto) 0.2, Absolute Neuts (auto) 6.5, Absolute Lymphs (auto) 1.16, Total Counted Not Reportable, Diff Path Review January06/05/18 06:43: POC Glucose 164 H 06/05/18 11:51: POC Glucose 290 H Code Visit Inpatient E&M: 38989 Subs Hosp L2
--- NOTE | 2018-06-05 13:40 | PN_ITS ---
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 No shortness of breath at rest. Waiting for establishment of new dialysis center after discharge. heavy equipment rental manager consult. Vitals/I&O's: Vital Signs Temp Pulse Resp BP Pulse Ox 98.0 F 72 18 117/52 L 95 06/05/18 08:09 06/05/18 11:13 06/05/18 11:13 06/05/18 08:09 06/05/18 08:09 Oxygen Flow Rate (L/min) 0 Oxygen Delivery Method Room Air Weight: 214 lb 14.4 oz Body Mass Index (BMI) 33.3 Intake and Output for Last 24 Hours 06/03/18 06/04/18 06/05/18 23:59 23:59 23:59 Intake Total 1210 / 1210 580 / 580 700 / 700 Output Total 2500 / 2500 2860 / 2860 1150 / 1150 Balance -1290 / -1290 -2280 / -2280 -450 / -450 General: Alert, Oriented x3, Cooperative HEENT: Atraumatic, PERRLA, EOMI, Normocephalic Neck: Supple, No JVD, Negative Carotid Bruits Lungs: Clear to auscultation, No rhonchi, No wheeze, No rales, Diminished Cardiovascular: Regular rate, Regular Rhythm, Normal S1, Normal S2, No murmurs Abdomen: Bowel Sounds Present, Soft, Non Tender Extremities: Capillary Refill Less than 3 Seconds, Edema Skin: No rashes, No breakdown Musculoskeletal: No Tenderness to Palpation of Joints or Extremities Neurological: Cranial nerves II-XII grossly intact Psych/Mental Status: Normal Affect, Appropriate Microbiology Past 72 Hours 06/05/18 07:00 Stool Stool Occult Blood (TAMAR) - Final Laboratory Results 06/04/18 21:59: POC Glucose 188 H 06/05/18 05:20: Sodium 138, Potassium 3.9, Chloride 98, Carbon Dioxide 30.0, Anion Gap 10, BUN 33 H, Creatinine 2.74 H, Estim Creat Clear Calc 26.70, Est GFR (MDRD) Af Amer 30 L, Est GFR (MDRD) Non-Af 25 L, BUN/Creatinine Ratio 12.0, Glucose 175 H, Calcium 7.3 L 06/05/18 05:20: WBC 8.8, RBC 2.75 L, Hgb 7.5 L, Hct 23.6 L, MCV 85.8, MCH 27.3, MCHC 31.8 L, RDW 16.1 H, RDW Differential 48.5 H, Plt Count 236, MPV 9.9, Immature Gran % (Auto) 2.400 H, Neut % (Auto) 74.1 H, Lymph % (Auto) 13.2 L, [place] % (Auto) 6.1, Eos % (Auto) 4.0, Baso % (Auto) 0.2, Absolute Neuts (auto) 6.5, Absolute Lymphs (auto) 1.16, Total Counted Not Reportable, Diff Path Review January06/05/18 06:43: POC Glucose 164 H 06/05/18 11:51: POC Glucose 290 H Current Medications Acetaminophen (Tylenol) 650 mg PO Q6H PRN PRN PRN Reason: Mild Pain (scale 0-3)/T>100.7 Al Hydroxide/Mg Hydroxide (Mylanta Ii) 30 ml PO Q6H PRN PRN PRN Reason: Gastric burning Albuterol Sulfate (Ventolin Aerosols) 2.5 mg INHALATION Q2H PRN PRN PRN Reason: SHORTNESS OF BREATH Aspirin (Aspirin) 325 mg PO DAILY@0800 [facility] Last Admin: 06/05/18 08:13 Dose: 325 mg Atorvastatin Calcium (Lipitor) 20 mg PO QHS [facility] Last Admin: 06/04/18 21:52 Dose: 20 mg Carvedilol (Coreg) 12.5 mg PO BID [facility] Last Admin: 06/05/18 08:13 Dose: 12.5 mg Clopidogrel Bisulfate (Plavix) 75 mg PO DAILY [facility] Last Admin: 06/05/18 08:13 Dose: 75 mg Dextrose (D50w Syringe) 0 gm IV X1 PRN; Protocol PRN Reason: Hypoglycemia Ergocalciferol (Vitamin D) 50,000 unit PO Gannon@1000 [facility] Last Admin: 06/05/18 08:13 Dose: 50,000 unit Glucagon () 1 mg IM .X1 PRN PRN Reason: Hypoglycemia Guaifenesin (Mucinex) 1,200 mg PO BID [facility] Last Admin: 09/09/18 08:14 Dose: 1,200 mg Heparin Sodium (Porcine) (Heparin Na) 5,000 unit SC BID [facility] Last Admin: 06/05/18 08:13 Dose: 5,000 unit Sodium Chloride () 250 mls @ 15 mls/hr IV .[id number] PRN PRN Reason: SALINE FLUSH Sodium Chloride () 250 mls @ 15 mls/hr IV .[id number] PRN PRN Reason: SALINE FLUSH Insulin Glargine (Lantus ([facility])) 10 units SC 11,22 [facility] Last Admin: 06/05/18 11:52 Dose: 10 units Insulin Human Lispro (Humalog Kwikpen ([facility])) 0 unit SQ ACHS [facility] PRN Reason: Protocol Last Admin: 06/05/18 11:52 Dose: 6 units Isosorbide Mononitrate (Imdur) 30 mg PO DAILY [facility] Last Admin: 06/05/18 08:14 Dose: 30 mg Magnesium Hydroxide (Milk Of Magnesia) 30 ml PO DAILY PRN PRN PRN Reason: Constipation Last Admin: 06/04/18 22:24 Dose: 30 ml Multivit/Ca Carb/B Cmplx/FA/Prenat (Nephrocaps, Renaphro) 1 capsule PO DAILY [facility] Last Admin: 06/05/18 08:12 Dose: 1 capsule Ondansetron HCl (Zofran) 4 mg IV Q6H PRN PRN PRN Reason: NAUSEA Oxycodone HCl (Oxyir) 5 mg PO Q4H PRN PRN PRN Reason: PAIN Pantoprazole Sodium (Protonix) 40 mg PO DAILY [facility] Last Admin: 06/05/18 08:13 Dose: 40 mg Polyethylene Glycol (Miralax) 17 gm PO DAILY [facility] Last Admin: 06/05/18 08:14 Dose: 17 gm Promethazine HCl (Phenergan) 12.5 mg IV Q6H PRN PRN PRN Reason: NAUSEA/VOMITING Sodium Chloride () 5 - 30 ml IV UD PRN PRN Reason: SALINE FLUSH Last Admin: 06/02/18 21:46 Dose: 20 ml Medical Necessity - Tobacco Use Smoking Status: Former smoker Assessment/Plan All Active Problems Acute and chronic respiratory failure with hypoxia (Acute) 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 Patient denies chest heaviness, chest pain/pressure. He denies fever, chills but has chronic cough secondary to COPD. He also had AV fistula surgery done in left forearm but it is not functioning. He went to [facility] for angioplasty of fistula but got upset and wasn't done. Chest x-ray shows chronic changes but no acute pulmonary finding. Both lower extremities are edematous but has been like that since his previous admission even though he is on high-dose of Lasix 80 mg twice daily. In ED, patient was put on BiPAP. Initially, his blood pressure was 144/129 but dropped while he was on nitro ointment that ER physician ordered for shortness of breath in anticipation of possible angina equivalent. EKG shows T inversion in lateral leads but it is chronic since last admission. 1. Acute on chronic hypoxic respiratory failure; multiple etiologies but most probably heart failure exacerbation, COPD exacerbation; resolved after hemodialysis: Patient is being admitted in ICU. Patient is on BiPAP, to keep pulse ox about 90%. Discussed with Dr. Reagan. Breathing has improved after hemodialysis. Currently pulse ox 97% on room air 2. Acute on chronic combined heart failure: Patient had echo last month and reported as EF 50% with segmental systolic dysfunction; hypokinetic septal and posterior wall. Normal RV size, systolic function. 1-2+ TR with RVSP 50 mmHg consistent with moderate pulmonary hypertension. Initially, blood pressure dropped on nitro ointment. Patient has end-stage kidney failure and diuretics are resistant. On Imdur, aspirin, statin and beta-olivia. Troponins are mildly elevated at 0.078, 0.365, 0.259, 0.241 stable most probably secondary to increased left ventricular volume overload. BNP elevated 3. CKD stage V due to diabetic nephropathy progressive renal failure: His creatinine was 3.5 in February 2018 and about 4.5 in April 2018 but currently 4.87. Left forearm AV fistula not functioning. Discussed with Dr. Granados. The patient was dialyzed for consecutive 2 days and 2 L of fluids removed on each dialysis. Currently oliguric. 4. COPD exacerbation: On IV Solu-Medrol, bronchodilator, BiPAP support incentive spirometry.. MRSA nasal and influenza test are negative. 5. Recent discharge non-STEMI, coronary artery disease status post two-vessel bypass, hypertension: Continue his home medications including aspirin, Plavix, statin and carvedilol. He had a stress test in April 2015 which did not show acute ischemia but large previous infarct in basal inferolateral wall. He follows Dr. Loya. 6. Diabetes mellitus type 2: Hemoglobin A1c 7.1%. On Accu-Chek before meals and at bedtime and cover with NovoLog sliding scale. Blood sugar is elevated. Lantus 10 mg subcu twice daily added Chronic anemia secondary to end-stage renal disease CKD stage V. Hemoglobin stable between 7-8 g percent. Stool for occult blood ordered. Erythropoietin during dialysis. Iron studies shows an anemia of chronic disease with ferritin 309, serum iron 50 and TIBC low 136. B12 pending. Folate normal. Other chronic comorbidities include dyslipidemia, hypertension, anemia of chronic disease: Multiple comorbidities complicates the present care and expect difficult and delay recovery DVT prophylaxis: On heparin 5000 units subcutaneous twice daily and bilateral SCDs. Heparin to be resumed from tonight. Discharge plan: heavy equipment rental manager to work on setting up outpatient dialysis as patient started dialysis first time. Patient will be on dialysis schedule Wednesday and Wednesday. Clinical Impression(s) from Imaging Studies Chest X-Ray 06/01/18 06:15 IMPRESSION: No acute pulmonary findings. Chest X-Ray 06/02/18 10:05 IMPRESSION: The tip of the malleolus catheter is at the junction of the superior vena cava and right atrium. Cardiomegaly and CHF. Microbiology Past 72 Hours 06/05/18 07:00 Stool Stool Occult Blood (TAMAR) - Final Laboratory Results 06/04/18 21:59: POC Glucose 188 H 06/05/18 05:20: Sodium 138, Potassium 3.9, Chloride 98, Carbon Dioxide 30.0, Anion Gap 10, BUN 33 H, Creatinine 2.74 H, Estim Creat Clear Calc 26.70, Est GFR (MDRD) Af Amer 30 L, Est GFR (MDRD) Non-Af 25 L, BUN/Creatinine Ratio 12.0, Glucose 175 H, Calcium 7.3 L 06/05/18 05:20: WBC 8.8, RBC 2.75 L, Hgb 7.5 L, Hct 23.6 L, MCV 85.8, MCH 27.3, MCHC 31.8 L, RDW 16.1 H, RDW Differential 48.5 H, Plt Count 236, MPV 9.9, Immature Gran % (Auto) 2.400 H, Neut % (Auto) 74.1 H, Lymph % (Auto) 13.2 L, [place] % (Auto) 6.1, Eos % (Auto) 4.0, Baso % (Auto) 0.2, Absolute Neuts (auto) 6.5, Absolute Lymphs (auto) 1.16, Total Counted Not Reportable, Diff Path Review January06/05/18 06:43: POC Glucose 164 H 06/05/18 11:51: POC Glucose 290 H Code Visit Inpatient E&M: 79295 Subs Hosp L2
[2018-06-05 16:45] LABS: Bedside Glucose 136 mg/dL (70-110)
[2018-06-05] MEDS: Atorvastatin Calcium 20 MG Tablet PO (22:28)
[2018-06-05] MEDS: Magnesium Hydroxide 30 ML UDC PO (22:42)
[2018-06-05 22:51] LABS: Bedside Glucose 168 mg/dL (70-110)
[2018-06-06] VITALS (7 sets, daily range): BP systolic 110–133; BP diastolic 57–74; PULSE 69–73; RESP 16–20; TEMP 36.6–37.1; O2SAT 93–98
[2018-06-06] MEDS: Insulin Lispro 100 UNIT/ML INSULN.PEN SQ ×2 (06:47→12:02)
[2018-06-06 06:50] LABS: BUN 42 mg/dL (7-18); BUN/Creat Ratio 12.8 RATIO (10-20); Calcium,Total 7.6 mg/dL (8.5-10.1); Chloride 100 mmol/L (98-107); Creatinine, Serum 3.29 mg/dL (0.70-1.30); EST Glomerular Filtration Rate 20 mL/min (>60); Est Glom Filt Rate - Afr Amer 25 mL/min (>60); Estimated Creatinine Clearance 22.23 ml/min; Glucose 181 mg/dL (74-106); Phosphorus 3.4 mg/dL (2.5-4.9); Sodium Level 137 mmol/L (136-145)
[2018-06-06 06:56] LABS: Bedside Glucose 182 mg/dL (70-110)
--- NOTE | 2018-06-06 08:23 | CASEMGMT ---
CANELO CM Note: Hepatitis Lab results faxed to [facility]. Lorenzo JOHNSONN RN ACM
[2018-06-06 10:01] LABS: Vitamin B12 685 pg/mL (211-911)
--- NOTE | 2018-06-06 10:15 | CASEMGMT ---
CANELO PETERSEN Note. P.A. requested harper check on Lantus prescription. CANELO PETERSEN requested efax to pharmacy and harper could be checked. -Call to Julita @ [employer]. hep panel was received, waiting on final approval and chair time. Pt will have dialysis @ [facility] today. -CANELO PETERSEN requested confirmation letter to be faxed when approved. Lorenzo ULLOA RN ACM
--- NOTE | 2018-06-06 10:19 | NURSING ---
Addendum entered by Angely Kincaid 06/06/18 10:58: able to reach [facility] who is in house. he stated he would contact Dr Granados for orders and will likely be up to do treatment around 1400. pt aware. Original Note: this RN has made multiple attempts to call [facility] treatment center to plan for dialysis treatment this morning. [phone]. no answer and no option to leave messages. attempted to call via hotline and they were also unable to transfer call to treatment center.
--- NOTE | 2018-06-06 11:34 | CASEMGMT ---
RN CM Note: called to [facility] pharmacy- script for Lantus has not been escripted, so harper check can be completed. Lorenzo JOHNSONN RN ACM
--- NOTE | 2018-06-06 11:38 | PCM.DC ---
- Discharge Diagnoses Current Active Problems: Current Active and Chronic Problems Acute and chronic respiratory failure with hypoxia (Acute) Acute on chronic combined systolic and diastolic HF (heart failure) (Acute) Chronic kidney disease, stage V (Acute) You will use the following diet at home:: Cardiac - <2 g sodium daily, Renal (restricted protein/sodium) Your food should be the consistency of: Regular Your liquids should be the consistency of: Regular/Thin Discharge Activity: Return to Normal Activity Allergies/Adverse Reactions: Allergies No Known Allergies Allergy (Verified 05/12/18 01:54) Medications to take at Discharge Aspirin 325 mg PO DAILY@0800 08/10/17 Atorvastatin Calcium 20 mg PO QHS 08/10/17 Omeprazole 40 mg PO DAILY 08/30/17 Ergocalciferol [Vitamin D] 50,000 unit PO QWEEK 11/01/17 Glimepiride [Amaryl] 0.5 mg PO DAILY 11/01/17 Albuterol Inhaler [Ventolin Hfa] 1 - 2 puff INHALATION Q4H PRN PRN #1 inhaler 05/14/18 Clopidogrel Bisulfate [Plavix] 75 mg PO DAILY #30 tab 05/14/18 Isosorbide Mononitrate [Isosorbide Mononitrate ER] 30 mg PO DAILY 06/01/18 Umeclidinium Brm/Vilanterol Tr [Anoro Ellipta 62.5-25 Mcg INH] 1 puff IH DAILY 06/01/18 Carvedilol [Coreg (Beta Ro)] 12.5 mg PO BID #60 tab 06/06/18 Folic Acid/Vitamin B Comp W-C [Nephrocaps, Renaphro] 1 cap PO DAILY #30 cap 06/06/18 Insulin Glargine [Lantus SoloStar Pen] 15 units SC BID@1100,2200 #1 pen 06/06/18 The following prescriptions were given: Carvedilol [Coreg (Beta Ro)] 12.5 mg PO BID #60 tab Folic Acid/Vitamin B Comp W-C [Nephrocaps, Renaphro] 1 cap PO DAILY #30 cap Insulin Glargine [Lantus SoloStar Pen] 15 units SC BID@1100,2200 #1 pen Primary Care Physician: Chris Woodward MD [Primary Care Provider] - Please follow up with your Primary Care Physician in: 1 week Test Results: Test results from this visit will be discussed in further detail at your follow-up appointment, if applicable. Please Follow Up With: Raheem Foster MD When: 1-2 weeks Please Follow Up With: Mana Granados DO - Dialysis MWF When: As directed Proposed Discharge Date: 06/06/18
[2018-06-06 12:20] LABS: Bedside Glucose 317 mg/dL (70-110)
--- NOTE | 2018-06-06 12:30 | CASEMGMT ---
Call received from Na @ [employer]. Pt has been approved and has chair time MWF 11:20. confirmation letter received. Explained to pt, questions answered. [facility] [place]. Lorenzo BSN RN ACM
--- NOTE | 2018-06-06 12:50 | CASEMGMT ---
Dr. Granados notified RN CM that dialysis will need to be acute (not ES). Call to [facility] to notify of change, they requested call to main [facility] Service. Call to Na @ [facility] admissions- change in chart was made. No further information needed per [facility] rep. Lorenzo JOHNSONN RN ACM
--- NOTE | 2018-06-06 12:59 | PN.RENAL_ITS ---
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) (Acute) Chronic kidney disease, stage V (Acute) Subjective: He is doing well without complaints of shortness of breath or edema. His urinary output has improved. Creatinine was 2.6 today. Baseline creatinine has been around the 3 range. He is set up for dialysis at [facility]. We will discharge him as acute status since his urinary output has improved since admission. - Physical Exam General: Alert, Oriented x3, Cooperative, No apparent distress Lungs: Clear to auscultation Cardiovascular: Regular rate Abdomen: Bowel Sounds Present, Soft, Non Tender, Non-Distended Extremities: No edema Psych/Mental Status: Normal Affect, Appropriate, Alert and oriented to time, place, person, mood and affect Vital Signs Temp Pulse Resp BP Pulse Ox 98.2 F 69 16 133/74 H 93 06/06/18 07:35 06/06/18 07:35 06/06/18 07:35 06/06/18 07:35 06/06/18 11:00 Oxygen Flow Rate (L/min) 0 Oxygen Delivery Method Room Air Weight: 97.2 kg Body Mass Index (BMI) 33.3 Intake and Output for Last 24 Hours 06/04/18 06/05/18 06/06/18 23:59 23:59 23:59 Intake Total 580 / 580 900 / 900 700 / 700 Output Total 2860 / 2860 1250 / 1250 775 / 775 Balance -2280 / -2280 -350 / -350 -75 / -75 Microbiology Past 72 Hours 06/05/18 07:00 Stool Occult Blood (TAMAR) - Final Stool Laboratory Tests Past 24 Hrs 06/04/18 06/06/18 07:55 06:25 Sodium 137 Potassium 4.0 Chloride 100 Carbon Dioxide 28.0 BUN 42 H Creatinine 3.29 H Estim Creat Clear Calc 22.23 Est GFR (MDRD) Af Amer 25 L Est GFR (MDRD) Non-Af 20 L BUN/Creatinine Ratio 12.8 Glucose 181 H Calcium 7.6 L Phosphorus 3.4 Albumin 2.0 L Vitamin B12 685 POC Glucose 06/06/18 06/06/18 06/05/18 12:01 06:43 22:33 POC Glucose 317 H 182 H 168 H 06/05/18 16:38 POC Glucose 136 H Medical Necessity - Tobacco Use Smoking Status: Former smoker Assessment/Plan All Active Problems Acute and chronic respiratory failure with hypoxia (Acute) Acute on chronic combined systolic and diastolic HF (heart failure) (Acute) Chronic kidney disease, stage V (Acute) Non-ST elevation [place] (NSTEMI) (Resolved) Abnormal EKG (Acute) Lower abdominal pain (Acute) Diastolic CHF, acute (Acute) CHF (congestive heart failure) (Acute) Anasarca (Acute) 1. Acute on CKD stage IV due to diabetic nephropathy. hemodialysis today with right IJ tunneled dialysis catheter. Poor maturation of his left upper arm AV fistula. Follow-up with Dr. Hollins as outpatient. Patient has spot [facility] at 11:30 AM every Wednesday, Wednesday, Wednesday. Will discharge after dialysis today. 3. Diabetes mellitus type 2 primary care management 4. Hypertension stable BP 5. Anemia start erythropoietin therapy and iron on dialysis. 6. Generalized weakness. 7. Secondary hyperparathyroidism due to renal failure. Hold calcitriol check PTH 8. Vitamin D deficiency on supplements.
--- NOTE | 2018-06-06 13:40 | PCM.DC.SUM ---
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) (Acute) Chronic kidney disease, stage V (Acute) Recent NSTEMI Acute COPD exacerbation DMt2 Chronic anemia HTN CAD prior cabg - Secondary Discharge Diagnosis Chronic Problems CKD (chronic kidney disease), stage IV (Chronic) Nephrotic syndrome (Chronic) CKD (chronic kidney disease) (Chronic) DM2 (diabetes mellitus, type 2) (Chronic) Essential (primary) hypertension (Chronic) Hx of CABG (Chronic) Hospital Course and Treatment Operations: None Procedures: Dialysis Summary of Care Provided: Physical exam on day of discharge: General: Resting comfortably NAD Psych: A/Ox3 normal affect HEENT: [place]ARR[place] AT NC Neck: Supple NT CV: RRR no m/t/r/g/h Resp: CTA Abd: [id number] Soft NT no guarding or rigidity Ext: DP2+= no edema Skin: W/D normal turgor Lymph/Heme: No active bleeding or adenopathy Neuro: CN2-12 intact Hospital course: The patient is a 63 year old M with a pmhx of recent NSETEMI, CAD prior CABG, CKDIV, COPD, compined CHF, HTN, DMt2, who presented to the ER with chief complaint of SOB x 4 days, found to be in CHF exacerbation with mildly elevated troponin, severely elevated BNP, CXR with CHF and cardiomegaly EF 50%, moderate pulmonary htn. BUN and creatinine were severely elevated. Pulmonology and nephrology were consulted. He was treated with lasix, aerosols, and steroids. He had a right IJ dialysis cath placed per Dr. Aparicio. He was started on dialysis. He tolerated this well and will likely need to continue this permanently. His breathing issues resolved. He was weaned off O2. He was ambulated in the [facility] without further need for O2. He was started on insulin for uncontrolled diabetes. With the start of dialysis his HTN needs declined and his medications were adjusted. He was discharged home in stable condition. Please follow up with Nephrology, Cardiology (Nitesh), and your PCP. This patient was seen by Taqueria Acuna PA-C under the supervision of Doctor Lor. [] Discharge Diet: Low fat/ Low Cholesterol, 2000 mg Sodium Diet, Renal Diet Discharge Activity: Return to Normal Activity Home Medications: Medications to take at Discharge Aspirin 325 mg PO DAILY@0800 08/10/17 Atorvastatin Calcium 20 mg PO QHS 08/10/17 Omeprazole 40 mg PO DAILY 08/30/17 Ergocalciferol [Vitamin D] 50,000 unit PO QWEEK 11/01/17 Glimepiride [Amaryl] 0.5 mg PO DAILY 11/01/17 Albuterol Inhaler [Ventolin Hfa] 1 - 2 puff INHALATION Q4H PRN PRN #1 inhaler 05/14/18 Clopidogrel Bisulfate [Plavix] 75 mg PO DAILY #30 tab 05/14/18 Isosorbide Mononitrate [Isosorbide Mononitrate ER] 30 mg PO DAILY 06/01/18 Umeclidinium Brm/Vilanterol Tr [Anoro Ellipta 62.5-25 Mcg INH] 1 puff IH DAILY 06/01/18 Carvedilol [Coreg (Beta Ro)] 12.5 mg PO BID #60 tab 06/06/18 Folic Acid/Vitamin B Comp W-C [Nephrocaps, Renaphro] 1 cap PO DAILY #30 cap 06/06/18 Insulin Glargine [Lantus SoloStar Pen] 15 units SC BID@1100,2200 #1 pen 06/06/18 Following Prescrptions Were Given to Patient: Carvedilol [Coreg (Beta Or)] 12.5 mg PO BID #60 tab Folic Acid/Vitamin B Comp W-C [Nephrocaps, Renaphro] 1 cap PO DAILY #30 cap Insulin Glargine [Lantus SoloStar Pen] 15 units SC BID@1100,2200 #1 pen Primary Care Physician: Chris Woodward MD [Primary Care Provider] - Please follow up with your Primary Care Physician in: 1 week Please Follow Up With: Raheem Foster MD When: 1-2 weeks Please Follow Up With: Darwin,Mana, DO - Dialysis MWF When: As directed Disposition: Home Minutes spent on discharge:: 35 Patient Condition:: Stable Medical Necessity - Tobacco Use Smoking Status: Former smoker Meaningful Use Info Meaningful Use Diagnoses (Choose all that apply): CHF - CHF CHANDLER/ARB ordered at discharge?: No Reason CHANDLER/ARB not ordered?: Worsening renal disease Documented LVEF (%): 50 <Darlyn Horowitz - Last Filed: 06/06/18 15:32> Discharge Date and Diagnosis - Primary Discharge Diagnosis Active and Suspected Problems Acute and chronic respiratory failure with hypoxia (Acute) 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 Cardiomegaly and CHF. Electronically Signed: Alli Dias MD at 13:41 EDT Tel [phone], Service support , Laboratory Tests 06/01/18 06/01/18 06/01/18 06:05 06:05 06:05 WBC 9.8 RBC 2.83 L Hgb 7.8 L Hct 24.3 L MCV 85.9 MCH 27.6 MCHC 32.1 RDW 16.4 H RDW Differential 50.8 H Plt Count 149 L MPV 10.5 Immature Gran % (Auto) 0.100 Neut % (Auto) 86.9 H Lymph % (Auto) 5.8 L [place] % (Auto) 4.1 Eos % (Auto) 3.0 Baso % (Auto) 0.1 Absolute Neuts (auto) 8.5 H Absolute Lymphs (auto) 0.57 L Total Counted Not Reportable Differential Comment SCANNED Diff Path Review PT INR APTT Sodium 140 Potassium 4.2 Chloride 106 Carbon Dioxide 19.0 L Anion Gap 15 BUN 75 H Creatinine 4.87 H Estim Creat Clear Calc 15.02 Est GFR (MDRD) Af Amer 16 L Est GFR (MDRD) Non-Af 13 L BUN/Creatinine Ratio 15.4 Glucose 166 H Calcium 8.0 L Phosphorus Magnesium Iron TIBC Iron Saturation Ferritin Troponin I 0.046 H B-Natriuretic Peptide 1356.1 H Albumin Triglycerides Cholesterol LDL Cholesterol VLDL Cholesterol HDL Cholesterol Vitamin B12 Folate TSH PTH Intact Hep Bs Antigen Hep Bs Antibody Hep B Core Total Ab MRSA (PCR) POC Glucose 06/01/18 06/01/18 06/01/18 06:05 06:05 09:30 WBC RBC Hgb Hct MCV MCH MCHC RDW RDW Differential Plt Count MPV Immature Gran % (Auto) Neut % (Auto) Lymph % (Auto) [place] % (Auto) Eos % (Auto) Baso % (Auto) Absolute Neuts (auto) Absolute Lymphs (auto) Total Counted Differential Comment Diff Path Review PT 15.3 H INR 1.2 APTT 37.6 H Sodium Potassium Chloride Carbon Dioxide Anion Gap BUN Creatinine Estim Creat Clear Calc Est GFR (MDRD) Af Amer Est GFR (MDRD) Non-Af BUN/Creatinine Ratio Glucose Calcium Phosphorus Magnesium 1.6 Iron TIBC Iron Saturation Ferritin Troponin I B-Natriuretic Peptide Albumin Triglycerides Cholesterol LDL Cholesterol VLDL Cholesterol HDL Cholesterol Vitamin B12 Folate TSH PTH Intact Hep Bs Antigen Hep Bs Antibody Hep B Core Total Ab MRSA (PCR) Negative POC Glucose 06/01/18 06/01/18 06/01/18 10:15 12:41 15:43 WBC RBC Hgb Hct MCV MCH MCHC RDW RDW Differential Plt Count MPV Immature Gran % (Auto) Neut % (Auto) Lymph % (Auto) [place] % (Auto) Eos % (Auto) Baso % (Auto) Absolute Neuts (auto) Absolute Lymphs (auto) Total Counted Differential Comment Diff Path Review PT INR APTT Sodium Potassium Chloride Carbon Dioxide Anion Gap BUN Creatinine Estim Creat Clear Calc Est GFR (MDRD) Af Amer Est GFR (MDRD) Non-Af BUN/Creatinine Ratio Glucose Calcium Phosphorus Magnesium Iron TIBC Iron Saturation Ferritin Troponin I 0.078 H 0.365 H B-Natriuretic Peptide Albumin Triglycerides Cholesterol LDL Cholesterol VLDL Cholesterol HDL Cholesterol Vitamin B12 Folate TSH PTH Intact Hep Bs Antigen Hep Bs Antibody Hep B Core Total Ab MRSA (PCR) POC Glucose 236 H 06/01/18 06/01/18 06/02/18 17:01 21:17 04:00 WBC 7.2 RBC 2.67 L Hgb 7.3 L Hct 22.7 L MCV 85.0 MCH 27.3 MCHC 32.2 RDW 16.2 H RDW Differential 49.1 H Plt Count 142 L MPV 10.4 Immature Gran % (Auto) Neut % (Auto) Lymph % (Auto) [place] % (Auto) Eos % (Auto) Baso % (Auto) Absolute Neuts (auto) Absolute Lymphs (auto) Total Counted Differential Comment Diff Path Review PT INR APTT Sodium Potassium Chloride Carbon Dioxide Anion Gap BUN Creatinine Estim Creat Clear Calc Est GFR (MDRD) Af Amer Est GFR (MDRD) Non-Af BUN/Creatinine Ratio Glucose Calcium Phosphorus Magnesium Iron TIBC Iron Saturation Ferritin Troponin I B-Natriuretic Peptide Albumin Triglycerides Cholesterol LDL Cholesterol VLDL Cholesterol HDL Cholesterol Vitamin B12 Folate TSH PTH Intact Hep Bs Antigen Hep Bs Antibody Hep B Core Total Ab MRSA (PCR) POC Glucose 210 H 266 H 06/02/18 06/02/18 06/02/18 04:00 07:11 11:06 WBC RBC Hgb Hct MCV MCH MCHC RDW RDW Differential Plt Count MPV Immature Gran % (Auto) Neut % (Auto) Lymph % (Auto) [place] % (Auto) Eos % (Auto) Baso % (Auto) Absolute Neuts (auto) Absolute Lymphs (auto) Total Counted Differential Comment Diff Path Review PT INR APTT Sodium 138 Potassium 4.5 Chloride 104 Carbon Dioxide 20.0 L Anion Gap 14 BUN 85 H Creatinine 5.41 H Estim Creat Clear Calc 13.52 Est GFR (MDRD) Af Amer 14 L Est GFR (MDRD) Non-Af 11 L BUN/Creatinine Ratio 15.7 Glucose 286 H Calcium 7.9 L Phosphorus Magnesium Iron TIBC Iron Saturation Ferritin Troponin I B-Natriuretic Peptide Albumin Triglycerides 131 Cholesterol 102 LDL Cholesterol 49 VLDL Cholesterol 26 HDL Cholesterol 27 L Vitamin B12 Folate TSH 0.50 PTH Intact Hep Bs Antigen Hep Bs Antibody Hep B Core Total Ab MRSA (PCR) POC Glucose 285 H 269 H 06/02/18 06/02/18 06/02/18 12:17 16:15 16:17 WBC RBC Hgb Hct MCV MCH MCHC RDW RDW Differential Plt Count MPV Immature Gran % (Auto) Neut % (Auto) Lymph % (Auto) [place] % (Auto) Eos % (Auto) Baso % (Auto) Absolute Neuts (auto) Absolute Lymphs (auto) Total Counted Differential Comment Diff Path Review PT INR APTT Sodium Potassium Chloride Carbon Dioxide Anion Gap BUN Creatinine Estim Creat Clear Calc Est GFR (MDRD) Af Amer Est GFR (MDRD) Non-Af BUN/Creatinine Ratio Glucose Calcium Phosphorus Magnesium Iron 21 L TIBC Iron Saturation Ferritin 341 Troponin I B-Natriuretic Peptide Albumin Triglycerides Cholesterol LDL Cholesterol VLDL Cholesterol HDL Cholesterol Vitamin B12 Folate TSH PTH Intact Hep Bs Antigen Negative Hep Bs Antibody Non Reactive Hep B Core Total Ab Negative MRSA (PCR) POC Glucose 237 H 06/02/18 06/02/18 06/03/18 21:21 22:00 01:30 WBC RBC Hgb Hct MCV MCH MCHC RDW RDW Differential Plt Count MPV Immature Gran % (Auto) Neut % (Auto) Lymph % (Auto) [place] % (Auto) Eos % (Auto) Baso % (Auto) Absolute Neuts (auto) Absolute Lymphs (auto) Total Counted Differential Comment Diff Path Review PT INR APTT Sodium Potassium Chloride Carbon Dioxide Anion Gap BUN Creatinine Estim Creat Clear Calc Est GFR (MDRD) Af Amer Est GFR (MDRD) Non-Af BUN/Creatinine Ratio Glucose Calcium Phosphorus Magnesium Iron TIBC Iron Saturation Ferritin Troponin I 0.259 H 0.241 H B-Natriuretic Peptide Albumin Triglycerides Cholesterol LDL Cholesterol VLDL Cholesterol HDL Cholesterol Vitamin B12 Folate TSH PTH Intact Hep Bs Antigen Hep Bs Antibody Hep B Core Total Ab MRSA (PCR) POC Glucose 359 H 06/03/18 06/03/18 06/03/18 04:25 04:25 04:25 WBC 11.8 H RBC 2.85 L Hgb 7.8 L Hct 23.9 L MCV 83.9 MCH 27.4 MCHC 32.6 RDW 16.3 H RDW Differential 48.1 H Plt Count 182 MPV 10.5 Immature Gran % (Auto) 0.300 Neut % (Auto) 91.4 H Lymph % (Auto) 4.3 L [place] % (Auto) 3.9 Eos % (Auto) 0.0 Baso % (Auto) 0.1 Absolute Neuts (auto) 10.8 H Absolute Lymphs (auto) 0.51 L Total Counted Not Reportable Differential Comment SCANNED Diff Path Review PT INR APTT Sodium 135 L Potassium 4.3 Chloride 98 Carbon Dioxide 24.0 Anion Gap 13 BUN 59 H Creatinine 4.68 H Estim Creat Clear Calc 15.63 Est GFR (MDRD) Af Amer 16 L Est GFR (MDRD) Non-Af 14 L BUN/Creatinine Ratio 12.6 Glucose 280 H Calcium 8.0 L Phosphorus Magnesium Iron TIBC Iron Saturation Ferritin Troponin I B-Natriuretic Peptide Albumin Triglycerides Cholesterol LDL Cholesterol VLDL Cholesterol HDL Cholesterol Vitamin B12 Folate TSH PTH Intact 240.5 H Hep Bs Antigen Hep Bs Antibody Hep B Core Total Ab MRSA (PCR) POC Glucose 06/03/18 06/03/18 06/03/18 04:25 06:35 12:29 WBC RBC Hgb Hct MCV MCH MCHC RDW RDW Differential Plt Count MPV Immature Gran % (Auto) Neut % (Auto) Lymph % (Auto) [place] % (Auto) Eos % (Auto) Baso % (Auto) Absolute Neuts (auto) Absolute Lymphs (auto) Total Counted Differential Comment Diff Path Review PT INR APTT Sodium Potassium Chloride Carbon Dioxide Anion Gap BUN Creatinine Estim Creat Clear Calc Est GFR (MDRD) Af Amer Est GFR (MDRD) Non-Af BUN/Creatinine Ratio Glucose Calcium Phosphorus Magnesium Iron TIBC Iron Saturation Ferritin Troponin I 0.247 H B-Natriuretic Peptide Albumin Triglycerides Cholesterol LDL Cholesterol VLDL Cholesterol HDL Cholesterol Vitamin B12 Folate TSH PTH Intact Hep Bs Antigen Hep Bs Antibody Hep B Core Total Ab MRSA (PCR) POC Glucose 316 H 223 H 06/03/18 06/03/18 06/04/18 17:04 21:27 06:59 WBC RBC Hgb Hct MCV MCH MCHC RDW RDW Differential Plt Count MPV Immature Gran % (Auto) Neut % (Auto) Lymph % (Auto) [place] % (Auto) Eos % (Auto) Baso % (Auto) Absolute Neuts (auto) Absolute Lymphs (auto) Total Counted Differential Comment Diff Path Review PT INR APTT Sodium Potassium Chloride Carbon Dioxide Anion Gap BUN Creatinine Estim Creat Clear Calc Est GFR (MDRD) Af Amer Est GFR (MDRD) Non-Af BUN/Creatinine Ratio Glucose Calcium Phosphorus Magnesium Iron TIBC Iron Saturation Ferritin Troponin I B-Natriuretic Peptide Albumin Triglycerides Cholesterol LDL Cholesterol VLDL Cholesterol HDL Cholesterol Vitamin B12 Folate TSH PTH Intact Hep Bs Antigen Hep Bs Antibody Hep B Core Total Ab MRSA (PCR) POC Glucose 289 H 305 H 275 H 06/04/18 06/04/18 06/04/18 07:55 07:55 07:55 WBC 10.9 RBC 2.91 L Hgb 7.7 L Hct 24.1 L MCV 82.8 MCH 26.5 L MCHC 32.0 RDW 16.3 H RDW Differential 50.0 H Plt Count 218 MPV 10.0 Immature Gran % (Auto) 0.700 Neut % (Auto) 80.4 H Lymph % (Auto) 10.3 L [place] % (Auto) 8.2 Eos % (Auto) 0.3 Baso % (Auto) 0.1 Absolute Neuts (auto) 8.8 H Absolute Lymphs (auto) 1.13 Total Counted Not Reportable Differential Comment Diff Path Review PT INR APTT Sodium 133 L Potassium 4.0 Chloride 96 L Carbon Dioxide 26.0 Anion Gap 11 BUN 54 H Creatinine 4.07 H Estim Creat Clear Calc 17.97 Est GFR (MDRD) Af Amer 19 L Est GFR (MDRD) Non-Af 16 L BUN/Creatinine Ratio 13.3 Glucose 242 H Calcium 7.6 L Phosphorus Magnesium Iron 50 L TIBC 186 L Iron Saturation 26.9 Ferritin 389 H Troponin I B-Natriuretic Peptide Albumin Triglycerides Cholesterol LDL Cholesterol VLDL Cholesterol HDL Cholesterol Vitamin B12 685 Folate 22.50 TSH PTH Intact Hep Bs Antigen Hep Bs Antibody Hep B Core Total Ab MRSA (PCR) POC Glucose 06/04/18 06/04/18 06/05/18 12:00 21:59 05:20 WBC RBC Hgb Hct MCV MCH MCHC RDW RDW Differential Plt Count MPV Immature Gran % (Auto) Neut % (Auto) Lymph % (Auto) [place] % (Auto) Eos % (Auto) Baso % (Auto) Absolute Neuts (auto) Absolute Lymphs (auto) Total Counted Differential Comment Diff Path Review PT INR APTT Sodium 138 Potassium 3.9 Chloride 98 Carbon Dioxide 30.0 Anion Gap 10 BUN 33 H Creatinine 2.74 H Estim Creat Clear Calc 26.70 Est GFR (MDRD) Af Amer 30 L Est GFR (MDRD) Non-Af 25 L BUN/Creatinine Ratio 12.0 Glucose 175 H Calcium 7.3 L Phosphorus Magnesium Iron TIBC Iron Saturation Ferritin Troponin I B-Natriuretic Peptide Albumin Triglycerides Cholesterol LDL Cholesterol VLDL Cholesterol HDL Cholesterol Vitamin B12 Folate TSH PTH Intact Hep Bs Antigen Hep Bs Antibody Hep B Core Total Ab MRSA (PCR) POC Glucose 283 H 188 H 06/05/18 06/05/1818 05:20 06:43 11:51 WBC 8.8 RBC 2.75 L Hgb 7.5 L Hct 23.6 L MCV 85.8 MCH 27.3 MCHC 31.8 L RDW 16.1 H RDW Differential 48.5 H Plt Count 236 MPV 9.9 Immature Gran % (Auto) 2.400 H Neut % (Auto) 74.1 H Lymph % (Auto) 13.2 L [place] % (Auto) 6.1 Eos % (Auto) 4.0 Baso % (Auto) 0.2 Absolute Neuts (auto) 6.5 Absolute Lymphs (auto) 1.16 Total Counted Not Reportable Differential Comment Diff Path Review Reviewed PT INR APTT Sodium Potassium Chloride Carbon Dioxide Anion Gap BUN Creatinine Estim Creat Clear Calc Est GFR (MDRD) Af Amer Est GFR (MDRD) Non-Af BUN/Creatinine Ratio Glucose Calcium Phosphorus Magnesium Iron TIBC Iron Saturation Ferritin Troponin I B-Natriuretic Peptide Albumin Triglycerides Cholesterol LDL Cholesterol VLDL Cholesterol HDL Cholesterol Vitamin B12 Folate TSH PTH Intact Hep Bs Antigen Hep Bs Antibody Hep B Core Total Ab MRSA (PCR) POC Glucose 164 H 290 H 06/05/18 06/05/18 06/06/18 16:38 22:33 06:25 WBC RBC Hgb Hct MCV MCH MCHC RDW RDW Differential Plt Count MPV Immature Gran % (Auto) Neut % (Auto) Lymph % (Auto) [place] % (Auto) Eos % (Auto) Baso % (Auto) Absolute Neuts (auto) Absolute Lymphs (auto) Total Counted Differential Comment Diff Path Review PT INR APTT Sodium 137 Potassium 4.0 Chloride 100 Carbon Dioxide 28.0 Anion Gap BUN 42 H Creatinine 3.29 H Estim Creat Clear Calc 22.23 Est GFR (MDRD) Af Amer 25 L Est GFR (MDRD) Non-Af 20 L BUN/Creatinine Ratio 12.8 Glucose 181 H Calcium 7.6 L Phosphorus 3.4 Magnesium Iron TIBC Iron Saturation Ferritin Troponin I B-Natriuretic Peptide Albumin 2.0 L Triglycerides Cholesterol LDL Cholesterol VLDL Cholesterol HDL Cholesterol Vitamin B12 Folate TSH PTH Intact Hep Bs Antigen Hep Bs Antibody Hep B Core Total Ab MRSA (PCR) POC Glucose 136 H 168 H 06/06/18 06/06/18 06:43 12:01 WBC RBC Hgb Hct MCV MCH MCHC RDW RDW Differential Plt Count MPV Immature Gran % (Auto) Neut % (Auto) Lymph % (Auto) [place] % (Auto) Eos % (Auto) Baso % (Auto) Absolute Neuts (auto) Absolute Lymphs (auto) Total Counted Differential Comment Diff Path Review PT INR APTT Sodium Potassium Chloride Carbon Dioxide Anion Gap BUN Creatinine Estim Creat Clear Calc Est GFR (MDRD) Af Amer Est GFR (MDRD) Non-Af BUN/Creatinine Ratio Glucose Calcium Phosphorus Magnesium Iron TIBC Iron Saturation Ferritin Troponin I B-Natriuretic Peptide Albumin Triglycerides Cholesterol LDL Cholesterol VLDL Cholesterol HDL Cholesterol Vitamin B12 Folate TSH PTH Intact Hep Bs Antigen Hep Bs Antibody Hep B Core Total Ab MRSA (PCR) POC Glucose 182 H 317 H general surgery- Dr Aparicio nephrology- Dr Granados Summary of Care Provided: Patient seen by Taqueria Acuna PA-C under my supervision The patient is a 63 year old M past medical history as listed above. He was admitted with a complaint of shortness of breath for 4 days prior to admission with associated chronic cough. He had an AV fistula done in his left upper forearm but it was not functional was awaiting angioplasty. He had associated lower extremity edema. He was admitted and managed for acute on chronic hypoxic respiratory failure due to CHF and COPD exacerbation and worsening kidney failure. He was treated with IV Lasix, breathing treatments and steroids. He had a right dialysis catheter placed by general surgeon was started on dialysis after which shortness of breath resolved. Was also put on BiPAP during this admission. He was weaned off of oxygen. 2D echo done showed EF of 50% with segmental systolic dysfunction and hypokinetic septal and posterior niño and RVSP of 50 mmHg sit consistent with moderate pulmonary hypertension. He remained stable and was discharged home on 07/16/2018. He is to follow-up with his primary care doctor and also has an upcoming appointment with pulmonology due to suspicion for sleep apnea and will have a sleep study done then. Patient seen and examined prior to discharge. He complained of brief apneic episodes when sleeping, and said it had been going on for a long time. 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 He denied any fever or chills, cough or shortness of breath, any chest pain, no abdominal pain, any diarrhea vomiting. 12 point review of systems is otherwise negative. Patient ambulated successfully on room air and saturated at 98%. o/e: Vital Signs Height 5 ft 8 in Weight: 214 lb 4.629 oz Weight in Pounds 214.3 lbs Pulse Ox 98 Temperature 97.9 F Pulse Rate 69 Respiratory Rate 18 Blood Pressure [BP] 102/53 Blood Pressure 117/59 Blood Pressure Position [BP] Sitting Blood Pressure Position Semi-Fowlers [] General: Alert, Oriented x3, Cooperative HEENT: Atraumatic, PERRLA, EOMI, Normocephalic Neck: Supple, No JVD, Negative Carotid Bruits Lungs: Clear to auscultation, No rhonchi, No wheeze, No rales, Diminished Cardiovascular: Regular rate, Regular Rhythm, Normal S1, Normal S2, No murmurs Abdomen: Bowel Sounds Present, Soft, Non Tender Extremities: Capillary Refill Less than 3 Seconds, Edema Skin: No rashes, No breakdown Musculoskeletal: No Tenderness to Palpation of Joints or Extremities Neurological: Cranial nerves II-XII grossly intact Psych/Mental Status: Normal Affect, Appropriate Plan as stated above. His follow-up with his primary care doctor, pulmonology and nephrology. Patient has been set up to have dialysis on Wednesdays and Fridays in the community. Weight Bearing Status: Weight bearing as tolerated Call your doctor if you observe: Shortness of breath, Swelling in the ankles Code Visit Inpatient E&M: [id number] Disch Hosp
[2018-06-06 13:53] LABS: Pathologist Review Reviewed
[2018-06-06] MEDS: Carvedilol 12.5 MG Tablet PO (17:38)
[2018-06-06] MEDS: Isosorbide Mononitrate 30 MG Tablet PO (17:38)
[2018-06-06] MEDS: Atorvastatin Calcium 20 MG Tablet PO (17:38)
[2018-06-06] MEDS: Aspirin 325 MG Tablet PO (17:38)
[2018-06-06] MEDS: Clopidogrel Bisulfate 75 MG Tablet PO (17:38)
[2018-06-06] MEDS: Folic Acid/Vitamin B Comp W-C 1 Capsule 1 CAP PO (17:38)
[2018-06-06] MEDS: Pantoprazole Sodium 40 MG Tablet PO (17:38)
--- NOTE | 2018-06-06 17:46 | DIALYSIS ---
Pt tolerated 3hr HD tx well. Net UF EVEN. See flow record for tx data.
--- NOTE | 2018-06-07 15:19 | CASEMGMT ---
CANELO PETERSEN Phone call. DC DATE: 06/06/18 LACE: 13/STRATA 4 Disposition: Home/outpt dialysis set up with Umm/Carla Adkins role of CM to patient. No questions re: kirstie instructions, prescriptions or f/u. Pt has information for first oupt dialysis to start tomorrow. Lorenzo ULLOA RN ACM
== END 2018-06-06 18:05 | disposition home or self-care (01) | DRG 280 ==
LOC: ED 07:32 → ICU 13:16 → MS2 06-03 14:33
PROVIDERS: Hospitalist; Internal Medicine Critical Care Medicine; Internal Medicine Nephrology; Surgery; Admitting Provider Internal Medicine; Emergency Provider Emergency Medicine; Family Provider Internal Medicine; PCP Internal Medicine; Visit Provider Student in an Organized Health Care Education/Training Program
PROC: 0JH63XZ Insertion of Tunneled Vascular Access Device into Chest Subcutaneous Tissue and Fascia, Percutaneous Approach (ICD-10-PCS; principal; 2018-06-02 08:30)
DX: I13.2 Hypertensive heart and chronic kidney disease with heart failure and with stage 5 chronic kidney disease, or end stage renal disease (principal); I21.4 Non-ST elevation (NSTEMI) myocardial infarction; J96.21 Acute and chronic respiratory failure with hypoxia; N18.6 End stage renal disease; I50.43 Acute on chronic combined systolic (congestive) and diastolic (congestive) heart failure; J44.1 Chronic obstructive pulmonary disease with (acute) exacerbation; E11.22 Type 2 diabetes mellitus with diabetic chronic kidney disease; I27.20 Pulmonary hypertension, unspecified; E11.65 Type 2 diabetes mellitus with hyperglycemia; I25.10 Atherosclerotic heart disease of native coronary artery without angina pectoris; Z95.1 Presence of aortocoronary bypass graft; E55.9 Vitamin D deficiency, unspecified; D64.9 Anemia, unspecified; Z87.891 Personal history of nicotine dependence; Z79.4 Long term (current) use of insulin
CPT/HCPCS: 36415; 71045; 76000; 80048; 80061; 80069; 82274; 82607; 82728; 82746; 82962; 83540; 83550; 83735; 83880; 83970; 84443; 84484; 85025; 85027; 85610; 85730; 86704; 86706; 87340; 87641; 87804; 90937; 93005; 94002; 94003; 94640; 94667; 94668; 97116; 97162; 97166; 97530; 99285; J0885; J1756; J7030; A4216; C1750; G0257; J1940; J2405

== ENCOUNTER 2019-04-11 23:01 | Emergency (ER) | payer MEDICARE, MEDICAID, SELFPAY ==
[2019-04-11 23:01] VITALS: BMI 33.6
[2019-04-11 23:02] VITALS: BP 115/82; PULSE 63; RESP 22; TEMP 35.8; O2SAT 98; BMI 34.0
--- NOTE | 2019-04-11 23:32 | ED.VISSUMM ---
- ER Visit Summary Date of Service: 04/11/19 Chief Complaint: Lower abdominal pain History of Present Illness: The patient is a 64 M who presents with lower abdominal pain. It began today. He noted some light blood in his urine yesterday. Today complains of suprapubic pain and pressure. He also was concerned he may be constipated. He took a laxative with small bowel movement. He denies fevers chest pain shortness of breath nausea vomiting. He is on dialysis only produces a small amount of urine. Physical Examination: Afebrile vitals unremarkable Moist mucous membranes Heart regular rate and rhythm Lungs clear Abdomen soft nondistended he has suprapubic and lower abdominal tenderness no guarding no rebound Test Results: Labs notable for white count 12.3, hemoglobin 11.2, BUN 52, creatinine 7.1. Urinalysis shows 50 blood, 5-10 WBCs, [address] the abdomen pelvis shows bilateral kidney stones mild left hydro-nephrosis, no ureterolithiasis Emergency Department Course and Treatment: My initial concern was for hematuria with urinary retention/obstruction. [id number] bedside ultrasound does not show distended bladder. At this point considered other pathologies including urolithiasis and the above work-up was obtained. Patient was treated with morphine and Zofran. On reevaluation he complains of minimal discomfort, his pain is almost completely resolved. I suspect he recently passed a kidney stone. At this point he does not have evidence of obstruction. His pain is well controlled. He was advised on signs and symptoms to monitor for and understands to return for new or worsening symptoms. Patient discharged. All questions answered bedside. Treatment Plan: [] Disposition: Discharge Impression: Urolithiasis This note was generated with [employer] dictation software. It may contain incorrect words, spelling, and punctuation that were not noted in review of the chart prior to signing ED Disposition - Plan for ED Patient: Referrals: Chris Woodward MD [Primary Care Provider] -
[2019-04-11 23:51] LABS: Bacteria 0 SEEN /hpf (None Seen); Mucous, Urine 0 SEEN /hpf (<or=2+)
[2019-04-11] MEDS: Ondansetron 4 MG/2 ML Vial IV (23:51)
[2019-04-11] MEDS: Morphine 4 MG/ML Syringe IV (23:51)
[2019-04-11 23:54] LABS: Absolute Neutrophil Count 9.8 X10^3/uL (2.0-7.7); Basophil# 0.04 X10^3/uL; Basophil% 0.3 % (0-1); Eosinophils% 1.6 % (0-5); Hematocrit 33.9 % (40-54); Hemoglobin 11.2 g/dL (13.0-16.5); Lymphocyte % 9.8 % (19-41); Mean Corpuscular Hgb 28.1 pg (27.0-32.0); Mean Corpuscular Volume 85.2 fL (80-94); Mean Platelet Vol. 9.1 fl (6.2-12.0); Monocyte# 0.95 X10^3/uL; Monocyte% 7.7 % (0-10); NRBC Flagged by Analyzer 0 % (0-5); Neutrophil # 9.81 X10^3/uL (2.7-7.7); Neutrophil % 79.9 % (47-70); Platelet Count 191 K/mm3 (150-450); RBC Distribution Width CV 13.1 % (11.6-14.6); RBC Distribution Width SD 40.4 fl (35.1-43.9); Red Blood Count 3.98 M/mm3 (4.6-6.2); White Blood Count 12.3 K/mm3 (4.4-11.0)
[2019-04-11 23:56] LABS: Color, Urine Yellow (Yellow); Glucose, Dipstick 50 mg/dl (Normal); Ketone-Dipstick 5 mg/dl (Negative); Leukocyte Esterase-Dipstick 25 /ul (Negative); Nitrite-Dipstick Negative (Negative); Occult Blood-Urine 50 /ul (Negative); Protein-Dipstick 500 mg/dl (Negative); Specific Gravity, Urine 1.025 (1.002-1.030); Urine Clarity Clear (Clear); Urine Urobilinogen 1 mg/dl (Normal)
[2019-04-11 23:58] LABS: Urine Bilirubin Dipstick 1 mg/dL (Negative)
--- NOTE | 2019-04-12 | CT_ITS ---
STUDY: CT ABDOMEN AND PELVIS WITHOUT CONTRAST REASON FOR EXAM: Male, 64 years old. Hematuria RADIATION DOSAGE (If Supplied By Facility): CTDIvol = ( 17.00 ) mGy, DLP = ( 904.52 ) mGycm TECHNIQUE: Transaxial images were obtained from the dome of the diaphragm to the symphysis pubis without oral contrast, and without intravenous contrast. Sagittal and coronal images were reconstructed. Individualized dose optimization techniques were used for this CT. COMPARISON: None. FINDINGS: The visualized lung bases are unremarkable. The visualized portions of the heart are within normal limits. Normal liver. Normal gallbladder and extrahepatic biliary system. Normal spleen. Normal pancreas. Normal bilateral adrenal glands. Bilateral kidney stones are noted the largest measures 3 mm. There is mild left-sided hydronephrosis may be due to recently passed stone. No ureter stones are seen. Normal visualized stomach. Normal small intestine. There are multiple colonic diverticula consistent with diverticulosis. There is non-visualization of the appendix. There is diffuse atherosclerotic calcification of the abdominal aorta, without a demonstrated aneurysm. Extensive calcifications are seen at the origin of the superior mesenteric artery suggesting severe stenosis. Normal inferior vena cava. Normal retroperitoneum. Normal urinary bladder. Normal abdominal wall. There are diffuse degenerative changes of the visualized lumbar spine. CT/Abdomen/Pelvis without Cont IMPRESSION: Bilateral kidney stones are noted the largest measures 3 mm. There is mild left-sided hydronephrosis may be due to recently passed stone. No ureter stones are seen. Possible severe stenosis at the origin of the superior mesenteric artery.. Electronically Signed: Alejandra Arevalo, at 0:46 EDT Tel , Service support ,
[2019-04-12 00:09] LABS: Anion Gap 9 (5-15); BUN 52 mg/dL (7-18); BUN/Creat Ratio 7.3 RATIO (10-20); Chloride 98 mmol/L (98-107); EST Glomerular Filtration Rate 8 mL/min (>60); Est Glom Filt Rate - Afr Amer 10 mL/min (>60); Estimated Creatinine Clearance 9.83 ml/min; Glucose 152 mg/dL (74-106); Potassium 3.6 mmol/L (3.5-5.1); Sodium Level 136 mmol/L (136-145)
[2019-04-12 00:11] LABS: Hyaline Cast 5-10 SEEN /lpf (0-5); Red Blood Cells-Urine 0-5 SEEN /hpf (0-5); Squamous Epithelial Cells - UA 0-5 SEEN /hpf (0-5); White Blood Cells 5-10 SEEN /hpf (0-5)
--- NOTE | 2019-04-12 00:56 | ED.DEP ---
ED Disposition - Plan for ED Patient: Instructions: KIDNEY STONE, Passed Referrals: Chris Woodward MD [Primary Care Provider] -
== END 2019-04-12 01:09 | disposition home or self-care (01) ==
LOC: ED 23:42
PROVIDERS: Emergency Provider Emergency Medicine; Family Provider Internal Medicine; PCP Internal Medicine
DX: N13.2 Hydronephrosis with renal and ureteral calculous obstruction (principal); K59.00 Constipation, unspecified; K21.9 Gastro-esophageal reflux disease without esophagitis; E78.00 Pure hypercholesterolemia, unspecified; E11.22 Type 2 diabetes mellitus with diabetic chronic kidney disease; I12.0 Hypertensive chronic kidney disease with stage 5 chronic kidney disease or end stage renal disease; N18.6 End stage renal disease; Z99.2 Dependence on renal dialysis; Z79.02 Long term (current) use of antithrombotics/antiplatelets; Z79.4 Long term (current) use of insulin; Z79.84 Long term (current) use of oral hypoglycemic drugs; Z79.82 Long term (current) use of aspirin; Z79.899 Other long term (current) drug therapy
CPT/HCPCS: 74176; 80048; 81001; 85025; 96374; 96375; 99283; A4216; J2405

== ENCOUNTER 2019-07-17 08:48 | Day surgery (SDC) | payer MEDICARE, MEDICAID, SELFPAY ==
[2019-06-29 08:39] VITALS: BMI 34.4
--- NOTE | 2019-06-29 10:22 | RAD_ITS ---
STUDY: X-RAY CHEST REASON FOR EXAM: Male, 64 years old. Pre-catheterization. Chest pain. TECHNIQUE: PA and lateral views of the chest. COMPARISON: June 02, 2018 FINDINGS: There is no new focal consolidation. Sternal cerclage wires are present from a prior sternotomy. The cardiac silhouette is within normal limits. Normal mediastinum and vince. Normal visualized pulmonary arteries. Normal visualized aortic arch and descending thoracic aorta. There are diffuse degenerative changes of the visualized thoracic spine. Normal visualized ribs, clavicles, and shoulders. There is no demonstrated abnormality of the visualized soft tissue structures of the upper abdomen. RAD/Chest PA and Lateral IMPRESSION: No acute cardiopulmonary process. Electronically Signed: Maggie Lang MD at 17:06 EDT Tel , Service support ,
[2019-06-29 11:33] LABS: Absolute Lymphocyte Count 2.11 X10^3/uL (0.83-4.51); Basophil# 0.05 X10^3/uL; Basophil% 0.5 % (0-1); Eosinophil# 0.28 X10^3/uL; Hematocrit 36.3 % (40-54); Hemoglobin 11.8 g/dL (13.0-16.5); Lymphocyte # 2.11 X10^3/ul (4.0); Lymphocyte % 22.6 % (19-41); Mean Corp Hgb Conc 32.5 g/dL (32-36); Mean Corpuscular Hgb 28.6 pg (27.0-32.0); Mean Corpuscular Volume 87.9 fL (80-94); Mean Platelet Vol. 9.8 fl (6.2-12.0); Monocyte# 0.86 X10^3/uL; Monocyte% 9.2 % (0-10); NRBC Flagged by Analyzer 0 % (0-5); Neutrophil # 5.96 X10^3/uL (2.7-7.7); Neutrophil % 64.1 % (47-70); Platelet Count 216 K/mm3 (150-450); RBC Distribution Width SD 41.6 fl (35.1-43.9); Red Blood Count 4.13 M/mm3 (4.6-6.2); White Blood Count 9.3 K/mm3 (4.4-11.0)
[2019-06-29 11:58] LABS: Anion Gap 12 (5-15); BUN 44 mg/dL (7-18); BUN/Creat Ratio 6.8 RATIO (10-20); Calcium,Total 8.1 mg/dL (8.5-10.1); Chloride 97 mmol/L (98-107); Creatinine, Serum 6.47 mg/dL (0.70-1.30); EST Glomerular Filtration Rate 9 mL/min (>60); Est Glom Filt Rate - Afr Amer 11 mL/min (>60); Glucose 139 mg/dL (74-106); Potassium 4.3 mmol/L (3.5-5.1); Sodium Level 136 mmol/L (136-145)
[2019-07-17] VITALS (22 sets, daily range): BP systolic 116–162; BP diastolic 61–96; PULSE 69–85; RESP 9–26; TEMP 36.2–37.1; O2SAT 97–100; BMI 34.9; BMI 34.4
--- NOTE | 2019-07-17 12:06 | CL.D_ITS ---
Patient Name: KEYANNA NAVARRETE Study Date: 07/17/2019 Performing: Travon Fox MD Ht: 66.92 inches 170 cm : 1955 Wt: 216.78 lbs 98.33 kg Age: 64 Gender: male BSA: 2.09 PROCEDURE(S) PERFORMED [id number]/COR/CABG CLINICAL PROFILE AND INDICATIONS Indications: Suspected CAD Heart Failure: None Stress/Imaging Stress/Image Study Performed: No CAD Presentations: Unstable angina. CONCLUSIONS Artery disease with severe pit river vessel disease as well as a totally occluded left anterior descendi ng artery, high-grade stenosis noted in the right coronary artery, and a saphenous vein graft to the posterior descending artery which is totally occluded. RECOMMENDATIONS Referred for immediate PCI DESCRIPTION OF PROCEDURE The patient arrived to the procedure lab. The risks and benefits of the procedure as well as a full d escription of our services here and current unavailability of surgical backup were fully explained to the patient and/or their significant other prior to the catheterization. The Timeout was completed, verifying the correct patient and procedure. The patient's procedural site was prepped and draped in the usual fashion. Local anesthetic was given subcutaneously to right groin region with Lidocaine 2%. Local anesthetic was given subcutaneously to left groin region with Lidocaine 2%. Using a modified S eldinger technique, arterial access was obtained via the right femoral artery, a 5Fr sheath was inser michael., arterial access was obtained via the left femoral artery, a 5Fr sheath was inserted. Left Fran nary Artery selective angiography was performed in multiple views using a 5 Fr. JL4 catheter. Right C oronary Artery selective angiography was then performed in multiple views using a 5 Fr. 3DRC (Fer) catheter. Left internal mammary artery graft to the LAD selective angiography was per formed in multiple views using a 5 Fr. IM catheter. Saphenous Vein graft to the RPDA selective angiog randy was performed in multiple views using a 5 Fr. AR MOD catheter. CORONARY ANGIOGRAPHY DOMINANCE: Right Dominant LEFT HEART ASSESSMENT Left Ventricular Ejection Fraction: by Echo 50 % Normal LV wall motion Normal Left Ventricular systolic function LEFT MAIN: Mild calcification LEFT ANTERIOR DESCENDING ARTERY: PROX LAD: is occluded CIRCUMFLEX ARTERY: MID CIRC: Mild luminal irregularities less than 30% RIGHT CORONARY ARTERY: MID RCA: 75 % Stenosis GRAFTS: SHEETS graft to the Mid LAD is patent Saphenous Vein graft to the Distal LAD is totally occluded COMPLICATIONS PROCEDURE MEDICATIONS Versed 1 mg IV Versed 1 mg IV Fentanyl 50 mcg IV Oxygen: 2 L/min via nasal cannula Heparin 7000 unit(s) IV 07/17/2019 12:00:21 SUMMARY OF HEMODYNAMIC DATA Time AIR REST ECG 09:24:12 AO 111/73 (91) SA 10:59:53 AO 200/74 (120) 11:20:05 Signed By Travon Fox MD On 07/17/2019 12:05:29 PM Travon Fox MD
--- NOTE | 2019-07-17 13:00 | EKG12_ITS ---
Test Reason : AMEKG Blood Pressure : / mmHG Vent. Rate : 071 BPM Atrial Rate : 071 BPM P-R Int : 156 ms QRS Dur : 088 ms QT Int : 458 ms P-R-T Axes : 041 -17 165 degrees QTc Int : 497 ms Normal sinus rhythm ST & Marked T wave abnormality, consider anterolateral ischemia Prolonged QT Abnormal ECG Confirmed by DELILAH ANAYA, BRITTNI ([id number]), loan expeditor JASVIR CRENSHAW ([id number]) on 07/26/2019 10:16:13 AM Referred By: Travon Fox Confirmed By:BRITTNI MAZARIEGOS MD
--- NOTE | 2019-07-17 13:09 | CL.I_ITS ---
Patient Name: KEYANNA NAVARRETE Study Date: 07/17/2019 Performing: Eden Hartman MD Ht: 66.92 inches 170 cm : 1955 Wt: 216.78 lbs 98.33 kg Age: 64 Gender: male BSA: 2.09 PROCEDURE(S) PERFORMED [id number] W OR WO PTCA, SINGLE CORONARY ARTERY CLINICAL PROFILE AND CO-MORBIDITIES Indications: Suspected CAD Heart Failure: None Stress/Imaging Stress/Image Study Performed: No CAD Presentations: Unstable angina. CONCLUSIONS Successful PCI with BRUCE to proximal and mid RCA RECOMMENDATIONS Follow up with Dr. Dominique RODRIGUEZ Indefinitley Plavix for at least 12 months DESCRIPTION OF PROCEDURE The patient arrived to the procedure lab. The risks and benefits of the procedure as well as a full d escription of our services here and current unavailability of surgical backup were fully explained to the patient and/or their significant other prior to the catheterization. The Timeout was completed, verifying the correct patient and procedure. The patient's procedural site was prepped and draped in the usual fashion. Local anesthetic was given subcutaneously to right groin region with Lidocaine 2%. Local anesthetic was given subcutaneously to left groin region with Lidocaine 2% Using a modified Se de la garza technique,arterial access was obtained via the right femoral artery, a 5Fr sheath was inserte d., arterial access was obtained via the left femoral artery, a 5Fr sheath was inserted. Left Coronar y Artery selective angiography was performed in multiple views using a 5 Fr. JL4 catheter. Right Fran nary Artery selective angiography was then performed in multiple views using a 5 Fr. 3DRC (Fer) catheter. Left internal mammary artery graft to the LAD selective angiography was performe d in multiple views using a 5 Fr. IM catheter. Saphenous Vein graft to the RPDA selective angiography was performed in multiple views using a 5 Fr. AR MOD catheter.The images were reviewed and options d iscussed. A decision was then made to proceed with an Intervention, IVUS or other adjunct procedure. JR 4 Guide catheter was inserted and engaged into the RCA. BMW Guide wire was advanced to the RCA . 2.5x20 Emerge Balloon catheter was inserted. 1.5x15 Emerge Balloon catheter was inserted. 1.5x15 Em erge Balloon catheter was inserted. Balloon catheter was advanced across lesion in the right coronary , mid. PTCA balloon inflated at 12 atms for 15 secs. PTCA balloon inflated at 12 atms for 12 secs. PT CA balloon inflated at 12 atms for 8 secs. Angiogram performed post balloon dilatation. 2.5x20 Emerge Balloon catheter was inserted. Balloon catheter was advanced across lesion in the right coronary, mi d. PTCA balloon inflated at 10 atms for 13 secs. PTCA balloon inflated at 10 atms for 12 secs. 3x33 E lunir Drug Eluting stent was inserted. Drug Eluting stent was advanced across the lesion in the right coronary, mid. Angiogram performed post stent deployment. 3.5x8 Elunir Drug Eluting stent was insert ed. Drug Eluting stent was advanced across the lesion in the right coronary, proximal. Angiogram performed post stent deployment. The R/L arterial sheaths were sutured in place and cappe d INTERVENTION INFORMATION LESION SITE: RCA (Mid) Lesion Complexity: High/C, chronic total occlusion: No, lesion at bifurcation: No, thrombus present: No, lesion length: 30 mm, culprit lesion: Yes, Previously treated lesion: No Pre Stenosis: 80 % Pre intervention YAW flow: 3 PROCEDURE: Drug Eluting Stent with pre dilatation. Post Stenosis: 0 % Post intervention YAW flow: 3 Lesion Devices: Acevedo .014 BMW Neligh Straight 190cm Cardinal 6 Fr JR4 100cm Guide Catheter Darrian Sci EMERGE MR 2.50x20 BALLOON Darrian Sci EMERGE MR 1.50x15 BALLOON [employer] 6 Gu[place]ian GuideLiner Cardinal Elunir BRUCE RX 3.0X33 LESION SITE: RCA (Proximal) Lesion Complexity: Non-High/Non-C, chronic total occlusion: No, lesion at bifurcation: No, thrombus p resent: No, lesion length: 6 mm, culprit lesion: Yes, Previously treated lesion: No Pre Stenosis: 80 % Pre intervention YAW flow: 3 PROCEDURE: Drug Eluting Stent Post Stenosis: 0 % Post intervention YAW flow: 3 Lesion Devices: Acevedo .014 BMW Neligh Straight 190cm Cardinal 6 Fr JR4 100cm Guide Catheter Cardinal Elunir BRUCE RX 3.5x08 COMPLICATIONS No Complications PROCEDURE MEDICATIONS Versed 1 mg IV Versed 1 mg IV Fentanyl 50 mcg IV Fentanyl 25 mcg IV Oxygen: 2 L/min via nasal cannula Heparin 7000 unit(s) IV 07/17/2019 12:00:21 Heparin 1000 unit(s) IV 07/17/2019 12:25:14 SUMMARY OF HEMODYNAMIC DATA Time AIR REST ECG 09:24:12 AO 111/73 (91) SA 10:59:53 AO 200/74 (120) 11:20:05 Signed By Eden Hartman MD On 07/17/2019 13:08:52 Eden Hartman MD
--- NOTE | 2019-07-17 13:22 | CON.PCM_ITS ---
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 He has increased shortness of breath and CP with exertion. He had chest pain off and on past several months. He has a history of CAD s/p CABG. He has been on dialysis for about a year. He underwent heart cath with PCI this morning. He is due for dialysis today. - Allergies Allergies: Allergies No Known Allergies Allergy (Verified 06/29/19 08:41) - Current Medications Current Medications: Current Medications Albuterol/Ipratropium (Duoneb) 3 ml INHALATION Q6HWA.RT BUFFY Amlodipine Besylate (Norvasc) 5 mg PO DAILY [facility] Aspirin (Aspirin) 325 mg PO DAILY@0800 [facility] Atorvastatin Calcium (Lipitor) 20 mg PO QHS [facility]Y Atropine Sulfate () 0.5 mg IV UD PRN PRN Reason: HR <50 bpm Calcium Carbonate (Tums) 500 mg PO BIDCM BUFFY Carvedilol (Coreg) 12.5 mg PO BID [facility] Clopidogrel Bisulfate (Plavix) 75 mg PO DAILY BU[facility] Ergocalciferol (Vitamin D) 50,000 unit PO QWEEK [facility] Furosemide (Lasix) 40 mg PO DAILY [facility] Glimepiride (Amaryl) 1 mg PO DAILY@0800 BUFFY Heparin Sodium (Beef Lung) (Heparin 500 Unit/5 Ml (100/Ml)) 500 unit IV UD PRN PRN Reason: HEPARIN FLUSH Insulin Glargine (Lantus (Bkc)) 20 units SC QHS BUFFY Insulin Glargine (Lantus (Bkc)) 25 units SC BREAKFAST BUFF[facility] Isosorbide Mononitrate (Imdur) 60 mg PO DAILY [facility] Labetalol HCl (Trandate) 5 mg IV X1 PRN PRN Reason: SBP > 160 when pulling sheath Stop: 07/19/19 12:56 Multivit/Ca Carb/B Cmplx/FA/Prenat (Nephrocaps, Renaphro) 1 capsule PO DAILY [facility] Nitroglycerin (Nitrostat) 0.4 mg SUBLINGUAL Q5M PRN PRN Reason: chest pain Pantoprazole Sodium (Protonix) 40 mg PO DAILY [facility] Sodium Chloride () 500 ml IV BOLUS PRN PRN Reason: VASO-VAGAL PROTOCOL - Past Medical History Past Medical History (Chronic Problems): Chronic Problems (Last Reviewed 06/29/19 @ 09:03 by Travon Fox MD) Atherosclerosis of coronary artery of elim ira heart without angina pectoris (Chronic) CABG x 2 SHEETS-LAD, SVG-RPDA 11/09/2014 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) Chronic diastolic (congestive) heart failure (Chronic) Secondary pulmonary arterial hypertension (Chronic) Peripheral vascular occlusive disease (Chronic) Essential (primary) hypertension (Chronic) Hyperlipidemia (Chronic) Carotid artery stenosis (Chronic) Right 40-59%, Left 60-79% per Carotid U/S 02/2017 Chronic kidney disease, stage V (Chronic) - Past Surgical History Surgical History: appendectomy, coronary bypass surgery - 10/2014, - - Right forearm AV fistula creation January 2018 - Social History Smoking Status: Former smoker - Family History Maternal Family History: Family History (Last Reviewed 06/29/19 @ 09:03 by Travon Fox MD) Mother Heart disease Hypertension Father Heart disease Hypertension Diabetes History Items: Heart Disease, Hypertension Paternal Family History: Family History (Last Reviewed 06/29/19 @ 09:03 by Travon Fox MD) Mother Heart disease Hypertension Father Heart disease Hypertension Diabetes History Items: Diabetes, Heart Disease, Hypertension Sibling Family History: Family History (Last Reviewed 06/29/19 @ 09:03 by Travon Fox MD) Mother Heart disease Hypertension Father Heart disease Hypertension Diabetes History Items: Diabetes, Heart Disease, Hypertension Review of Systems Constitutional: Reports: Weakness. Denies: Anorexia, Chills, Fever Cardiovascular: Reports: Chest Pain - at rest and exertion, Heaviness, Light Headedness. Denies: Edema, Syncope Respiratory: Denies: Shortness of Breath Gastrointestinal: Reports: Nausea - with chest pain. Denies: Abdominal Pain, Vomiting - Physical Exam Vitals/I&O's: Weight: 98.203 kg Body Mass Index (BMI) 34.9 General: Alert, Oriented x3, Cooperative, No apparent distress Lungs: Clear to auscultation Cardiovascular: Regular rate, Murmur Abdomen: Bowel Sounds Present, Soft, Non Tender, Non-Distended Extremities: No edema, - - AVF good thrill and bruit left forearm Psych/Mental Status: Normal Affect, Alert and oriented to time, place, person, mood and affect Current Medications Albuterol/Ipratropium (Duoneb) 3 ml INHALATION Q6HWA.RT BUFFY Amlodipine Besylate (Norvasc) 5 mg PO DAILY [facility] Aspirin (Aspirin) 325 mg PO DAILY@0800 BUFFY Atorvastatin Calcium (Lipitor) 20 mg PO QHS [facility]Y Atropine Sulfate () 0.5 mg IV UD PRN PRN Reason: HR <50 bpm Calcium Carbonate (Tums) 500 mg PO BIDCM BUFFY Carvedilol (Coreg) 12.5 mg PO BID [facility]Y Clopidogrel Bisulfate (Plavix) 75 mg PO DAILY [facility] Ergocalciferol (Vitamin D) 50,000 unit PO QWEEK [facility] Furosemide (Lasix) 40 mg PO DAILY [facility] Glimepiride (Amaryl) 1 mg PO DAILY@0800 [facility] Heparin Sodium (Beef Lung) (Heparin 500 Unit/5 Ml (100/Ml)) 500 unit IV UD PRN PRN Reason: HEPARIN FLUSH Insulin Glargine (Lantus (Bkc)) 20 units SC QHS BUFFY Insulin Glargine (Lantus (Bkc)) 25 units SC BREAKFAST [facility] Isosorbide Mononitrate (Imdur) 60 mg PO DAILY [facility] Labetalol HCl (Trandate) 5 mg IV X1 PRN PRN Reason: SBP > 160 when pulling sheath Stop: 07/19/19 12:56 Multivit/Ca Carb/B Cmplx/FA/Prenat (Nephrocaps, Renaphro) 1 capsule PO DAILY [facility] Nitroglycerin (Nitrostat) 0.4 mg SUBLINGUAL Q5M PRN PRN Reason: chest pain Pantoprazole Sodium (Protonix) 40 mg PO DAILY [facility] Sodium Chloride () 500 ml IV BOLUS PRN PRN Reason: VASO-VAGAL PROTOCOL Assessment/Plan All Active Problems (Last Reviewed 06/29/19 @ 09:03 by Travon Fox MD) H/O coronary artery bypass surgery (Resolved 11/09/14) History of non-ST elevation myocardial infarction (NSTEMI) (Resolved 05/12/18) Acute and chronic respiratory failure with hypoxia (Resolved) Acute on chronic combined systolic and diastolic HF (heart failure) (Resolved) Anasarca (Resolved) Diastolic CHF, acute (Resolved) Lower abdominal pain (Resolved) 1. ESRD HD today and MWF follow chronic orders 2. Angina s/p heart cath with PCI cardiology following. Hx CAD s/p CABG 3. HTN stable 4. Anemia hgb stable
[2019-07-17] MEDS: Dextrose 50%-Water 25 GM/50 ML DISP.SYRIN IV ×2 (13:30→19:34)
[2019-07-17 13:56] LABS: Bedside Glucose 53 mg/dL (70-110)
[2019-07-17] MEDS: Ipratropium/Albuterol Sulfate 3 ML AMPUL.NEB INHALATION (13:58)
[2019-07-17 14:00] LABS: Bedside Glucose 105 mg/dL (70-110)
[2019-07-17 14:20] LABS: ACT Activated Clotting Time 208 sec (74-137)
[2019-07-17 14:20] LABS: ACT Activated Clotting Time 219 sec (74-137)
[2019-07-17 15:01] LABS: ACT Activated Clotting Time 191 sec (74-137)
[2019-07-17 17:11] LABS: Bedside Glucose 79 mg/dL (70-110)
[2019-07-17 18:51] LABS: Bedside Glucose 72 mg/dL (70-110)
[2019-07-17 19:26] LABS: Bedside Glucose 70 mg/dL (70-110)
--- NOTE | 2019-07-17 19:37 | DIALYSIS ---
Pt tolerated 3.5hr tx well. Net UF -1400ml, see flow record for tx data.
[2019-07-17 20:00] LABS: ACT Activated Clotting Time 147 sec (74-137)
--- NOTE | 2019-07-17 20:37 | NURSING ---
ACT therapeutic. Attempted to pull sheath per order. Resistance met when trying to withdrawal catheter. Attempted to pull at slightly different angle, resistance met again. Dr. Fox updated, orders received.
[2019-07-17] MEDS: Atorvastatin Calcium 20 MG Tablet PO (22:28)
[2019-07-17] MEDS: Carvedilol 12.5 MG Tablet PO (22:28)
[2019-07-17] MEDS: fentaNYL 100 MCG/2 ML Ampul 50 MCG IV (22:49)
[2019-07-17 23:11] LABS: Bedside Glucose 142 mg/dL (70-110)
[2019-07-18] VITALS (27 sets, daily range): BP systolic 97–190; BP diastolic 41–82; PULSE 63–88; RESP 15–24; TEMP 36.9–37.1; O2SAT 96–100; BMI 34.8
[2019-07-18 04:12] LABS: Hematocrit 31.5 % (40-54); Hemoglobin 10.5 g/dL (13.0-16.5); Mean Corp Hgb Conc 33.3 g/dL (32-36); Mean Corpuscular Hgb 29.3 pg (27.0-32.0); Mean Platelet Vol. 9.4 fl (6.2-12.0); Platelet Count 170 K/mm3 (150-450); RBC Distribution Width SD 41.3 fl (35.1-43.9); Red Blood Count 3.58 M/mm3 (4.6-6.2); White Blood Count 7.3 K/mm3 (4.4-11.0)
[2019-07-18 04:32] LABS: ALB/GLOB Ratio 0.8 RATIO (0.9-2.4); AST(SGOT) 18 U/L (15-37); Alanine Aminotransfer ALT/SGPT 26 U/L (16-61); Albumin, Serum 3.2 g/dL (3.2-5.0); Alkaline Phosphatase 106 U/L (45-117); Anion Gap 9 (5-15); BUN 53 mg/dL (7-18); BUN/Creat Ratio 9.3 RATIO (10-20); Calcium,Total 7.2 mg/dL (8.5-10.1); Chloride 101 mmol/L (98-107); Creatinine, Serum 5.71 mg/dL (0.70-1.30); EST Glomerular Filtration Rate 11 mL/min (>60); Est Glom Filt Rate - Afr Amer 13 mL/min (>60); Estimated Creatinine Clearance 12.22 ml/min; Globulin 3.9 g/dL (2.2-4.2); Glucose 187 mg/dL (74-106); Potassium 4.6 mmol/L (3.5-5.1); Protein, Total 7.1 g/dL (6.4-8.2); Sodium Level 136 mmol/L (136-145)
--- NOTE | 2019-07-18 06:58 | NURSING ---
mishel from laborer/grade check in to pull sheath in left groin
--- NOTE | 2019-07-18 07:00 | NURSING ---
0702 Sheath out, manual pressure applied by CANELO Remy.
--- NOTE | 2019-07-18 07:11 | PN.CARD_ITS ---
Subjectve: Patient seen and evaluated. Appears to be doing well from the cardiac standpoint. Underwent dialysis yesterday falling cardiac catheterization and angioplasty of the right coronary artery. There was some issues pulling the sheath yesterday and therefore it is being pulled this morning. Objective: Vital Signs Temp Pulse Resp BP Pulse Ox 98.6 F 63 16 176/50 H 99 07/18/19 04:00 07/18/19 06:00 07/18/19 06:00 07/18/19 06:00 07/18/19 06:00 Oxygen Delivery Method Room Air Weight: 220 lb 3.869 oz Body Mass Index (BMI) 34.4 Intake and Output for Last 24 Hours 07/16/19 07/17/19 07/18/19 23:59 23:59 23:59 Intake Total 0 / 240 240 / 240 Output Total 1400 / 1625 450 / 450 Balance -1400 / -1385 -210 / -210 General: Awake, Alert, Oriented x 3 HEENT: PERRL, EOMI, Sclera Non Icteric Neck: Supple, Good ROM, No Lymph Node Enlargement Lungs: Clear to auscultation Cardiovascular: Regular Rhythm, Normal S1, Normal S2, No Murmurs, No Rubs, No Gallops Vascular: No Carotid Bruits, Normal Femoral Pulses, Normal Radial Pulses, Normal Dorsalis Pedal Pulse, Normal Posterior Tibial Pulses Abdomen: Bowel Sounds Present, Soft, Non Tender, No HSM, No Organomegaly Extremities: No Cyanosis, No Clubbing, No edema Musculoskeletal: No Erythema Skin: No Rashes Lymphatic: No Lymph Node Enlargement Neurological: No Focal Motor or Sensory Deficit Psych/Mental Status: Appropriate 07/18/19 04:00: WBC 7.3, RBC 3.58 L, Hgb 10.5 L, Hct 31.5 L, MCV 88.0, MCH 29.3, MCHC 33.3, Plt Count 170, MPV 9.4 07/18/19 04:00: Sodium 136, Potassium 4.6, Chloride 101, Carbon Dioxide 26.0, Anion Gap 9, BUN 53 H, Creatinine 5.71 H, Est GFR (MDRD) Af Amer 13 L, Est GFR (MDRD) Non-Af 11 L, BUN/Creatinine Ratio 9.3 L, Glucose 187 H, Calcium 7.2 L, Total Bilirubin 0.40 Rhythm: EKG: ECHO: Stress Test: Cardiac Cath: PCI: CT Surgery: Holter monitor: EPS: PPM: CXR: Chest CT Scan: Medical Necessity - Tobacco Use Smoking Status: Former smoker Assessment/Plan 1 coronary artery disease. * Patient is status post cardiac catheterization, angioplasty and stenting of the mid right coronary artery successfully. No issues noted. Patient has severe peripheral vascular disease. Sheath is being pulled this morning. Patient would undergo recovery for 5 to 6 hours and be subsequently discharged. * Would recommend reducing the isosorbide to 30 mg a day. * He probably cannot participate in cardiac rehabilitation due to his dialysis schedule. . risk factor modification. 2. Hypertension * Since blood pressure appears to be elevated especially his central blood pressure. He is has severe peripheral vascular disease. This will need to be evaluated later. In the meantime he will continue on the same medications. * 3. End-stage renal disease' * Initiate input from sewer pipe offbearer. * * Patient to be discharged for outpatient follow-up today.
--- NOTE | 2019-07-18 07:15 | NURSING ---
pt tolerating groin pressure well, no s/s of complications at this time.
--- NOTE | 2019-07-18 07:41 | PCM.DC.CCA ---
Discharge Diet: Low fat/ Low Cholesterol Discharge Activity: Return to Normal Activity May shower in (days): 1 - No tub baths for 5 days May resume sexual activity in: 1-2 weeks Lifting Restrictions: Do not lift anything greater than 10 pounds for 3 days Call your doctor if your incision/area has: Continuous Slow Oozing, Sudden Increased Bleeding, Increased Pain/ Swelling, Increased Redness, Foul Smelling Discharge, Swelling at the incision site Call your doctor if you observe: Fever of 101 or Higher, Shortness of breath, Chest pain Remove Dressing in (days):: 1 Cleanse incision/area with: Soap & Water Additional Instructions: You will continue with Aspirin and Plavix therapy. You will remain on Plavix therapy for at least one year. If anyone asks you to stop your Plavix please call the [facility] at [phone]. He will be contacted by the [facility] Office for a follow-up in approximately 2-4 weeks. Your isosorbide medication has been reduced to 30 mg by mouth daily. Allergies/Adverse Reactions: Allergies No Known Allergies Allergy (Verified 06/29/19 08:41) Medications to take at Discharge Aspirin 325 mg PO DAILY@0800 08/10/17 Omeprazole 40 mg PO DAILY 08/30/17 Ergocalciferol [Vitamin D] 50,000 unit PO QWEEK 11/01/17 Glimepiride [Amaryl] 1 mg PO DAILY 11/01/17 Albuterol Inhaler [Ventolin Hfa] 1 - 2 puff INHALATION Q4H PRN PRN #1 inhaler 05/14/18 Clopidogrel Bisulfate [Plavix] 75 mg PO DAILY #30 tab 05/14/18 Carvedilol [Coreg (Beta Ro)] 12.5 mg PO BID #60 tab 06/06/18 Folic Acid/Vitamin B Comp W-C [Nephrocaps, Renaphro] 1 cap PO DAILY #30 cap 06/06/18 Insulin Glargine [Lantus SoloStar Pen] 25 unit SQ BREAKFAST 04/11/19 Insulin Glargine [Lantus SoloStar Pen] 20 units SUBCUT QHS 04/12/19 amlodipine 5 mg tablet 5 mg PO DAILY 06/29/19 atorvastatin 20 mg tablet 20 mg PO QHS 06/29/19 calcium carbonate 500 mg calcium (1,250 mg) capsule 500 mg PO BID 06/29/19 furosemide 40 mg tablet 40 mg PO DAILY 06/29/19 glycopyrrolate 9 mcg-formoterol 4.8 mcg HFA aerosol inhaler 2 puff INHALATION BID 06/29/19 nitroglycerin 0.4 mg sublingual tablet 0.4 mg SUBLINGUAL Q5-15M PRN 06/29/19 Isosorbide Mononitrate [Imdur] 30 mg PO DAILY #90 tab 07/18/19 The following prescriptions were given: Isosorbide Mononitrate [Imdur] 30 mg PO DAILY #90 tab Transmission Status: Pending to [id number] Primary Care Physician: Chris Woodward MD [Primary Care Provider] - Test Results: Test results from this visit will be discussed in further detail at your follow-up appointment, if applicable. Please Follow Up With: [facility] When: You will complete contacted by office. Cardiac Rehabilitation Info Cardiac Rehabilitation Program Information: Cardiac Rehabilitation is important for patients like you who are recovering from a heart problem. Cardiac rehabilitation programs are recognized as integral to the continued care of the patient with coronary heart disease. The cardiac rehabilitation program is designed to optimize a patient's physical, psychological, and social functioning. Health child day care center worker work in cardiac rehabilitation programs and assist you with getting the treatments you need to get stronger and healthier - like exercise, healthy eating habits, and medications. Cardiac rehabilitation has been show to help people with heart problems live longer and have better life enjoyment than people who do not go to cardiac rehabilitation. Please contact the Cardiac Rehabilitation Program at [facility] at in two weeks if you have not heard from them.
--- NOTE | 2019-07-18 07:49 | PCM.PN.BLA ---
Progress Note Patient is not discharged on CHANDLER inhibitor or ARB due to end-stage renal disease. STROKE Vital Signs/Narrative: Vital Signs Temp Pulse Resp BP BP Pulse Ox 07/18/19 06:00 63 16 127/69 H 176/50 H 99 07/18/19 05:00 66 15 117/82 H 99 07/18/19 04:00 98.6 F 70 21 H 112/50 L 99
--- NOTE | 2019-07-18 08:28 | CRPHASE1_ITS ---
Patient Communication PHII Cardiac Rehab Discussed with Patient:: Yes Guide to Cardiac Rehab Given to Patient:: Yes Cardiac Rehab Facility Choice List Given to Patient:: Yes Choice Program [facility] CR PHII:: Communication Given to CR, Refer to [facility] Choice Program Other:: Communication Given to CR, With permission faxed order and referral information - Pt may consider [place] Sew[facility] Inspector:: Angela Hartman - DR. FOX PCP:: Chris Woodward Phase II Cardiac Rehab:: Yes Sessions:: 36 sessions - 3 days/wk, 12 weeks Risk Factors/Lifestyle Smoking Status: Former smoker Hx Hypertension: Yes Hx Diabetes Mellitus Type 2: Yes Hx Metabolic Disorders: Yes Hx Dyslipidemia: Yes Hx Obesity: Yes Height: 5 ft 6 in Weight:: 216 lb BMI: 34.8 Stress: Long-standing Family History: Family History (Last Reviewed 06/29/19 @ 09:03 by Travon Fox MD) Mother Heart disease Hypertension Father Heart disease Hypertension Diabetes Phase I Education Given On:: [place], Nutrition, Antiplatelet medication, CHF, Smoking cessation, Diabetes - Type I, Diabetes - Type II Issues Affecting Care:: None Knowledge of Condition:: Yes Medical/Surgical History [place]:: Yes CAD:: Yes Valve Disease/Replacement:: No Pulmonary:: Yes - COPD COPD:: Yes Diabetes Type II:: Yes Hypertension:: Yes Dyslipidemia:: Yes Arrhythmias:: No PAD:: Yes GERD:: Yes Cancer:: No Renal:: Yes - KIDNEY DISEASE Thyroid:: No Depression:: No Anxiety:: No CABG: Yes PTCA:: Yes ICD:: No Pacemaker:: No Discharge/Home/Social Eval Discharge Disposition: Home Cardiac Rehabilitation Info Cardiac Rehabilitation Program Information: Cardiac Rehabilitation is important for patients like you who are recovering from a heart problem. Cardiac rehabilitation programs are recognized as integral to the continued care of the patient with coronary heart disease. The cardiac rehabilitation program is designed to optimize a patient's physical, psychological, and social functioning. Health health care sanitary technician work in cardiac rehabilitation programs and assist you with getting the treatments you need to get stronger and healthier - like exercise, healthy eating habits, and medications. Cardiac rehabilitation has been show to help people with heart problems live longer and have better life enjoyment than people who do not go to cardiac rehabilitation. Please contact the Cardiac Rehabilitation Program at [facility] at in two weeks if you have not heard from them.
--- NOTE | 2019-07-18 08:33 | CRPH1.INSTRU ---
General Education CAD and cardiac anatomy and function:: Not instructed Explanation of diagnoses and procedures:: Not instructed Sign/Symptoms of MO:: Not instructed Antiplatelet therapy: Patient communicates acknowledgment Proper use of NTG-SL: Needs reinforcement Emergency procedures and activation of EMS: Patient communicates acknowledgment Compliance of all prescribed medications: Patient communicates acknowledgment, Needs reinforcement Smoking Patient Nicotine/Smoking Risk Factors Are:: Cigarettes - FORMER SMOKER Nicotine/Smoking Response Code:: Not instructed Dyslipidemia Dyslipidemia Response Code:: Not instructed Overweight/Obesity Patient Overweight/Obesity Risk Factors Are:: BMI Normal [24-29 & > 65 years old], Obesity - > or = 30 Recommendations Include:: Weight loss of 5-10%, Reduced calorie diet, Exercise 5-7 times/week Overweight/Obesity:: Not instructed Hypertension Recommendations Include:: Maintain BP <130/85, BP <130/80 if diabetic, DASH dietary guidelines, Decrease/maintain normal body weight, Moderation of ETOH Hypertension:: Needs reinforcement Heart Disease Patient Heart Disease Risk Factors Are:: Previous cardiac event Heart Disease Response Code:: Needs reinforcement Diabetes Patient Diabetes Risk Factors Are:: Elevated blood sugars Recommendations Include:: Maintain fasting blood sugars 70-110 md/dL, Maintain HgbA1c of 6% or less, Monitor blood sugar as prescribed, Diabetic dietary guidelines, Decrease/maintain body weight Diabetes:: Not instructed Metabolic Syndrome Patient Metabolic Syndrome Risk Factors Are [3 of 5]:: Fasting blood sugar > 100 mg/dL, Waist circumference > 35 [female] or 40 [male], Hypertension Recommendations Include:: Reinforce compliance to risk factor modifications, Patient is diabetic Metabolic Syndrome Response Code:: Needs reinforcement Sedentary Sedentary Response Code:: Not instructed Stress Stress Response Code:: Not instructed
[2019-07-18] MEDS: Aspirin 325 MG Tablet PO (09:07)
[2019-07-18] MEDS: Glimepiride 1 MG Tablet PO (09:07)
[2019-07-18] MEDS: Calcium Carbonate 500 MG Tablet PO (09:07)
[2019-07-18 09:15] LABS: Bedside Glucose 148 mg/dL (70-110)
--- NOTE | 2019-07-18 10:00 | EKG12_ITS ---
Test Reason : POSTCATH Blood Pressure : / mmHG Vent. Rate : 067 BPM Atrial Rate : 067 BPM P-R Int : 162 ms QRS Dur : 100 ms QT Int : 474 ms P-R-T Axes : 060 -41 146 degrees QTc Int : 500 ms Normal sinus rhythm Left axis deviation Left ventricular hypertrophy ST/T Wave Abnormality; Consider LVH Repolarization; Myocardial Ischemia Prolonged QT Cannot exclude precordial lead misplacement Consider repeat EKG Abnormal ECG Confirmed by DELILAH ANAYA, BRITTNI ([id number]), editor farm journal JASVIR CRENSHAW ([id number]) on 07/26/2019 10:17:48 AM Referred By: Travon Fox Confirmed By:BRITTNI MAZARIEGOS MD
[2019-07-18] MEDS: Furosemide 40 MG Tablet PO (11:20)
[2019-07-18] MEDS: Carvedilol 12.5 MG Tablet PO (11:20)
[2019-07-18] MEDS: Clopidogrel Bisulfate 75 MG Tablet PO (11:21)
[2019-07-18] MEDS: Pantoprazole Sodium 40 MG Tablet PO (11:21)
[2019-07-18] MEDS: Folic Acid/Vitamin B Comp W-C 1 Capsule 1 CAP PO (11:21)
--- NOTE | 2019-07-18 13:21 | NURSING ---
Pt up after bedrest to chair. No complaints, groin sites benign. Per Dr Dominique tanner for discharge.
== END 2019-07-18 14:40 | disposition home or self-care (01) ==
LOC: CLSP 08:49 → ICU 11:55
PROVIDERS: Specialist; Family Provider Internal Medicine; PCP Internal Medicine; Referring Provider Internal Medicine Cardiovascular Disease; Visit Provider Internal Medicine Cardiovascular Disease
DX: I25.110 Atherosclerotic heart disease of native coronary artery with unstable angina pectoris (principal); I25.82 Chronic total occlusion of coronary artery; I65.21 Occlusion and stenosis of right carotid artery; I13.2 Hypertensive heart and chronic kidney disease with heart failure and with stage 5 chronic kidney disease, or end stage renal disease; I50.42 Chronic combined systolic (congestive) and diastolic (congestive) heart failure; N04.9 Nephrotic syndrome with unspecified morphologic changes; N18.6 End stage renal disease; E11.22 Type 2 diabetes mellitus with diabetic chronic kidney disease; D63.1 Anemia in chronic kidney disease; Z99.2 Dependence on renal dialysis; E78.5 Hyperlipidemia, unspecified; Z95.1 Presence of aortocoronary bypass graft; I25.2 Old myocardial infarction; I27.21 Secondary pulmonary arterial hypertension; I73.9 Peripheral vascular disease, unspecified; E66.9 Obesity, unspecified; Z68.34 Body mass index [BMI] 34.0-34.9, adult; Z79.4 Long term (current) use of insulin; Z79.82 Long term (current) use of aspirin; Z79.899 Other long term (current) drug therapy; Z87.891 Personal history of nicotine dependence
CPT/HCPCS: 36415; 71046; 80048; 80053; 82962; 85025; 85027; 85347; 90937; 92928; 93005; 93455; 94640; 99152; 99153; J7040; Q9967; C1725; C1769; C1874; C1887; C1894; C9600; G0257

== ENCOUNTER 2020-10-30 10:36 | Emergency (ER) | payer MEDICARE, MEDICAID, SELFPAY ==
[2019-07-18 08:33] VITALS: BMI 34.8
[2020-10-03 12:31] VITALS: BMI 35.2
[2020-10-30 10:37] VITALS: BP 138/92; PULSE 74; RESP 17; TEMP 36.4; O2SAT 98; BMI 33.8
--- NOTE | 2020-10-30 10:49 | ED.VIS.GEN ---
History of Present Illness Chief Complaint: Flank Pain Informant: Patient Narrative: 65-year-old male presents to the emergency department with left flank pain. He tells me the symptoms began on Wednesday and he just had pain in the left flank. Now has progressed wrapping around towards the front. He has a known history of kidney stones but have never required surgery for them. He is a dialysis patient with a history of heart failure. No fevers. He does make urine approximately 3-5 times per day. He notes the urine does appear darker than normal. 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 (7) Peripheral vascular occlusive disease Status: Chronic (8) Secondary pulmonary arterial hypertension Status: Chronic (9) H/O coronary artery bypass surgery Status: Resolved Comment: CABG x 2 SHEETS-LAD, SVG-RPDA 11/09/2014 (10) H/O right coronary artery stent placement Status: Resolved Comment: [id number] RCA w/ 3.5 x 8 mm Elunir Stent and mid RCA w/ 3.0 x 33 mm Elunir Stent 07/17/2019 Past Medical History - Allergies and Home Meds Allergies/Adverse Reactions: Allergies No Known Allergies Allergy (Verified 10/30/20 10:37) Primary Care Physician: Chris Woodward MD [Primary Care Provider] - Surgical History: appendectomy, coronary bypass surgery - 10/2014, - - Right forearm AV fistula creation January 2018 Smoking Status: Former smoker Drugs: None - Family History Maternal Family History: Family History (Last Reviewed 10/03/20 @ 15:[address] Travon Fox MD) Mother Heart disease Hypertension Father Heart disease Hypertension Diabetes Family History: Reports: Heart Disease, Hypertension Paternal Family History: Family History (Last Reviewed 10/03/20 @ 15:[address] Travon Fox MD) Mother Heart disease Hypertension Father Heart disease Hypertension Diabetes Family History: Reports: Diabetes, Heart Disease, Hypertension Sibling Family History: Family History (Last Reviewed 10/03/20 @ 15:[address] Travon Fox MD) Mother Heart disease Hypertension Father Heart disease Hypertension Diabetes Family History: Reports: Diabetes, Heart Disease, Hypertension Review of Systems General: Denies: Chills, Fever, Sweats Eyes: Denies: Visual changes - bilaterally, Diplopia ENT: Denies: Rhinorrhea, Sore throat Cardiovascular: Denies: Chest pain, Palpitations Respiratory: Denies: Dyspnea, Cough, Dyspnea on exertion Gastrointestinal: Reports: Abdominal pain, Nausea. Denies: Vomiting, Diarrhea, Melena, Hematochezia Genitourinary: Denies: Dysuria, Hematuria, Frequency Musculoskeletal: Reports: Back pain. Denies: Extremity Pain Skin: Denies: Rash, Wounds Neurological: Denies: Headache, Weakness, Numbness Physical Exam Vital Signs/Narrative: Vital Signs Temp Pulse Resp BP Pulse Ox 10/30/20 10:37 97.6 F L 74 17 138/92 H 98 Inital Vital Signs reviewed: Yes General: Well nourished, Well developed, No Acute Distress Head: Normocephalic, Atraumatic Eyes: Perrl, EOMI ENT: Moist mucous membranes, No rhinorrhea Neck: Supple, Nontender Cardiovascular: Regular rate, Regular rhythm, No murmurs Respiratory: No distress, CTA bilaterally, Chest nontender Abdomen: Soft, Nontender, Nondistended, Normal bowel sounds Back: Nontender, Normal Inspection Extremities: Nontender, No edema Skin: Normal color, No rash Neurological: Alert, Oriented x3, Cranial nerves II-XII grossly intact, Normal Strength, Normal Sensation Psychological: Normal affect, Normal Mood Diagnostic/Tx/Re-eval Clinical Impression(s) from Imaging Studies Abdomen/Pelvis CT 10/30/20 11:45 IMPRESSION: Fatty infiltration of the liver. No obstructive uropathy is seen. Electronically Signed: Alli Dias MD at 12:16 EST , Service support , Laboratory Last Values WBC 9.9 K/mm3 (4.4-11.0) 10/30/20 11:15 RBC 4.67 M/mm3 (4.6-6.2) 10/30/20 11:15 Hgb 13.4 g/dL (13.0-16.5) 10/30/20 11:15 Hct 41.7 % (40-54) 10/30/20 11:15 MCV 89.3 fL (80-94) 10/30/20 11:15 MCH 28.7 pg (27.0-32.0) 10/30/20 11:15 MCHC 32.1 g/dL (32-36) 10/30/20 11:15 RDW Std Deviation 41.4 fl (35.1-43.9) 10/30/20 11:15 RDW Coeff of Juanita 12.8 % (11.6-14.6) 10/30/20 11:15 Plt Count 227 K/mm3 (150-450) 10/30/20 11:15 MPV 9.3 fl (6.2-12.0) 10/30/20 11:15 Immature Gran % (Auto) 0.700 % (0.0-0.9) 10/30/20 11:15 Neut % (Auto) 74.1 % (47-70) H 10/30/20 11:15 Lymph % (Auto) 14.4 % (19-41) L 10/30/20 11:15 Moffat % (Auto) 8.8 % (0-10) 10/30/20 11:15 Eos % (Auto) 1.5 % (0-5) 10/30/20 11:15 Baso % (Auto) 0.5 % (0-1) 10/30/20 11:15 Absolute Neuts (auto) 7.3 X10^3/uL (2.0-7.7) 10/30/20 11:15 Absolute Lymphs (auto) 1.42 X10^3/uL (0.83-4.51) 10/30/20 11:15 Nucleated RBC % 0 % (0-5) 10/30/20 11:15 Sodium 137 mmol/L (136-145) 10/30/20 11:15 Potassium 4.2 mmol/L (3.5-5.1) 10/30/20 11:15 Chloride 97 mmol/L (98-107) L 10/30/20 11:15 Carbon Dioxide 34.0 mmol/L (21.0-32.0) H 10/30/20 11:15 Anion Gap 6 (5-15) 10/30/20 11:15 BUN 26 mg/dL (7-18) H 10/30/20 11:15 Creatinine 5.03 mg/dL (0.70-1.30) H 10/30/20 11:15 Estim Creat Clear Calc 14.17 ml/min 10/30/20 11:15 Est GFR (MDRD) Af Amer 15 mL/min (>60) L 10/30/20 11:15 Est GFR (MDRD) Non-Af 12 mL/min (>60) L 10/30/20 11:15 BUN/Creatinine Ratio 5.2 RATIO (10-20) L 10/30/20 11:15 Glucose 129 mg/dL (74-106) H 10/30/20 11:15 Calcium 10.2 mg/dL (8.5-10.1) H 10/30/20 11:15 Urine Color Yellow (Yellow) 10/30/20 11:35 Urine Clarity Sl. Cloudy (Clear) 10/30/20 11:35 Urine pH 7.0 (5.0 - 8.0) 10/30/20 11:35 Ur Specific [place] 1.010 (1.002-1.030) 10/30/20 11:35 Urine Protein 500 mg/dl (Negative) H 10/30/20 11:35 Urine Glucose (UA) 1000 mg/dl (Normal) H 10/30/20 11:35 Urine Ketones Negative mg/dl (Negative) 10/30/20 11:35 Urine Occult Blood 50 /ul (Negative) H 10/30/20 11:35 Urine Nitrite Negative (Negative) 10/30/20 11:35 Urine Bilirubin Negative mg/dL (Negative) 10/30/20 11:35 Urine Urobilinogen Normal mg/dl (Normal) 10/30/20 11:35 Ur Leukocyte Esterase 500 /ul (Negative) H 10/30/20 11:35 Urine RBC 0-5 SEEN /hpf (0-5) 10/30/20 11:35 Urine WBC 25-50 SEEN /hpf (0-5) 10/30/20 11:35 Ur Squamous Epith Cells 0-5 SEEN /hpf (0-5) 10/30/20 11:35 Urine Bacteria 1+ /hpf (None Seen) 10/30/20 11:35 Urine Mucus 0 SEEN /hpf (<or=2+) 10/30/20 11:35 - Medical Decision Making IV was established and the patient received pain and nausea medications. Urinalysis 25-50 white cells 1+ bacteria negative nitrates positive leukocyte esterase. White count is normal. Creatinine at 5. (Chronic for patient). CT the pelvis demonstrates nothing acute to explain his pain. No with his history of kidney stones and description of pain it is possible that he could have passed 1. I will write him for small amount of [place] and also place him on Keflex because of the bacteria in the urine. Follow-up with primary care return if worsening or concerns ED Disposition - Plan for ED Patient: Disposition: Home or Assisted Living Diagnosis: Left flank pain, UTI (urinary tract infection) Instructions: ED Flank Pain, Uncertain Cause Prescriptions: Cephalexin [Keflex] 500 mg PO Q6 #28 cap [facility]: [id number] Hydrocodone Bitart/Apap 5-325 [[place] 5MG-325MG] 1 tablet PO Q6H PRN PRN 3 Days #12 tablet PRN Reason: Pain Transmission Status: [id number] Referrals: Chris Woodward MD [Primary Care Provider] - As Needed (if not improving)
[2020-10-30 11:22] LABS: Absolute Lymphocyte Count 1.42 X10^3/uL (0.83-4.51); Absolute Neutrophil Count 7.3 X10^3/uL (2.0-7.7); Basophil# 0.05 X10^3/uL; Basophil% 0.5 % (0-1); Eosinophil# 0.15 X10^3/uL; Eosinophils% 1.5 % (0-5); Hematocrit 41.7 % (40-54); Hemoglobin 13.4 g/dL (13.0-16.5); Lymphocyte # 1.42 X10^3/ul (4.0); Lymphocyte % 14.4 % (19-41); Mean Corp Hgb Conc 32.1 g/dL (32-36); Mean Corpuscular Hgb 28.7 pg (27.0-32.0); Mean Corpuscular Volume 89.3 fL (80-94); Mean Platelet Vol. 9.3 fl (6.2-12.0); Monocyte# 0.87 X10^3/uL; Monocyte% 8.8 % (0-10); NRBC Flagged by Analyzer 0 % (0-5); Neutrophil # 7.32 X10^3/uL (2.7-7.7); Neutrophil % 74.1 % (47-70); Platelet Count 227 K/mm3 (150-450); RBC Distribution Width CV 12.8 % (11.6-14.6); RBC Distribution Width SD 41.4 fl (35.1-43.9); Red Blood Count 4.67 M/mm3 (4.6-6.2); White Blood Count 9.9 K/mm3 (4.4-11.0)
[2020-10-30] MEDS: Ondansetron 4 MG/2 ML Vial IV (11:32)
[2020-10-30] MEDS: Morphine 4 MG/ML Syringe IV (11:32)
[2020-10-30 11:39] LABS: Mucous, Urine 0 SEEN /hpf (<or=2+)
[2020-10-30 11:40] LABS: Color, Urine Yellow (Yellow); Glucose, Dipstick 1000 mg/dl (Normal); Ketone-Dipstick Negative (Negative); Leukocyte Esterase-Dipstick 500 /ul (Negative); Nitrite-Dipstick Negative (Negative); Occult Blood-Urine 50 /ul (Negative); Protein-Dipstick 500 mg/dl (Negative); Urine Bilirubin Dipstick Negative (Negative); Urine Clarity Sl. Cloudy (Clear); Urine Urobilinogen Normal (Normal)
[2020-10-30 11:42] LABS: Anion Gap 6 (5-15); BUN 26 mg/dL (7-18); BUN/Creat Ratio 5.2 RATIO (10-20); Calcium,Total 10.2 mg/dL (8.5-10.1); Chloride 97 mmol/L (98-107); Creatinine, Serum 5.03 mg/dL (0.70-1.30); EST Glomerular Filtration Rate 12 mL/min (>60); Est Glom Filt Rate - Afr Amer 15 mL/min (>60); Estimated Creatinine Clearance 14.17 ml/min; Glucose 129 mg/dL (74-106); Potassium 4.2 mmol/L (3.5-5.1); Sodium Level 137 mmol/L (136-145)
--- NOTE | 2020-10-30 11:45 | CT_ITS ---
STUDY: CT ABDOMEN AND PELVIS WITHOUT CONTRAST REASON FOR EXAM: Male, 65 years old. LEFT FLANK PAIN STARTING WEDNESDAY.. PT HAS HX OF [place],CAD,CHF,HTN,COPD,STOMACH ULCERS RADIATION DOSAGE (If Supplied By Facility): CTDIvol = ( 14.19 ) mGy, DLP = ( 774.05 ) mGycm TECHNIQUE: Transaxial images were obtained from the dome of the diaphragm to the symphysis pubis without oral contrast, and without intravenous contrast. Sagittal and coronal images were reconstructed. Individualized dose optimization techniques were used for this CT. COMPARISON: Comparison is made with prior study dated 04/12/2019. FINDINGS: The visualized lung bases are unremarkable. Prior CABG. Coronary artery calcification. Stable linear scarring at the right lung base. There is decreased attenuation of the liver consistent with steatosis. Normal gallbladder and extrahepatic biliary system. There is a benign calcified granuloma of the spleen. Normal pancreas. Normal bilateral adrenal glands. Normal right kidney. Normal left kidney. There is a small hiatal hernia. Normal small intestine. There are scattered colonic diverticula consistent with diverticulosis. The appendix is visualized and appears normal. There is diffuse atherosclerotic calcification of the abdominal aorta and its major visceral branches, without a demonstrated aneurysm. Normal inferior vena cava. Normal retroperitoneum. Normal urinary bladder. There is a small umbilical hernia containing fat. Small right inguinal hernia containing fat. There are diffuse degenerative changes of the visualized lumbar spine. CT/Abdomen/Pelvis without Cont IMPRESSION: Fatty infiltration of the liver. No obstructive uropathy is seen. Electronically Signed: Alli Dias MD at 12:16 EST , Service support ,
[2020-10-30 11:46] LABS: Bacteria 1+ /hpf (None Seen); Red Blood Cells-Urine 0-5 SEEN /hpf (0-5); Squamous Epithelial Cells - UA 0-5 SEEN /hpf (0-5); White Blood Cells 25-50 SEEN /hpf (0-5)
[2020-10-30 12:37] VITALS: BP 134/72; PULSE 66; RESP 15; O2SAT 98
== END 2020-10-30 12:52 | disposition home or self-care (01) ==
PROVIDERS: Emergency Provider Emergency Medicine; PCP Internal Medicine
DX: N39.0 Urinary tract infection, site not specified (principal); I13.2 Hypertensive heart and chronic kidney disease with heart failure and with stage 5 chronic kidney disease, or end stage renal disease; N18.6 End stage renal disease; I50.32 Chronic diastolic (congestive) heart failure; I25.2 Old myocardial infarction; I25.10 Atherosclerotic heart disease of native coronary artery without angina pectoris; J44.9 Chronic obstructive pulmonary disease, unspecified; I27.21 Secondary pulmonary arterial hypertension; E78.5 Hyperlipidemia, unspecified; Z95.1 Presence of aortocoronary bypass graft; Z95.5 Presence of coronary angioplasty implant and graft; Z87.442 Personal history of urinary calculi; Z79.82 Long term (current) use of aspirin; Z79.02 Long term (current) use of antithrombotics/antiplatelets; Z99.2 Dependence on renal dialysis; Z79.899 Other long term (current) drug therapy; Z87.891 Personal history of nicotine dependence
CPT/HCPCS: 74176; 80048; 81001; 85025; 96374; 96375; 99283; A4216; J2405

== ENCOUNTER 2021-02-16 10:39 | Emergency (ER) | payer MEDICARE, MEDICAID, SELFPAY ==
[2019-07-18 08:33] VITALS: BMI 34.8
[2021-02-16 10:40] VITALS: BP 155/93; PULSE 72; RESP 14; TEMP 36.2; O2SAT 99; BMI 34.6
--- NOTE | 2021-02-16 10:53 | EDS_ITS ---
HPI History of Present Illness Chief Complaint: Lower Extremity Injury Informant: patient and spouse/S.O. Occured/Mechanism Mechanism/Context: Yes blunt trauma Onset/Context/Timing Onset: Days Timing: Continuous Current Severity: Mild Maximum Severity: Mild Narrative Narrative: 65-year-old male on Plavix and aspirin for prior cardiac history. Dropped a piece of farm equipment on his right foot on Wednesday about 6 days ago. And has had pain, swelling and bruising since that time. He has not had any evaluation of it. He denies any other injuries. Prior similar symptoms: No Recent Illness/Hospitalization: No [facility] Medical History (Updated 02/16/21 @ 11:[address] Wilian Young MD) Atherosclerosis of coronary artery of [place] heart without angina pectoris Carotid artery stenosis Chronic diastolic (congestive) heart failure Chronic kidney disease, stage V Chronic respiratory failure DM2 (diabetes mellitus, type 2) ESRD (end stage renal disease) on dialysis Essential (primary) hypertension History of non-ST elevation myocardial infarction (NSTEMI) (05/12/18) Hyperlipidemia Nephrotic syndrome Obesity Old inferolateral myocardial infarction Peripheral vascular occlusive disease Secondary pulmonary arterial hypertension Home Medications omeprazole 40 mg PO DAILY 08/30/17 [History Last Taken 07/17/19] albuterol sulfate 1 - 2 puff INHALATION Q4H PRN PRN #1 inhaler 05/14/18 [Rx Last Taken 06/01/18 04:00] B complex with C 20-folic acid 1 cap PO DAILY #30 cap 06/06/18 [Rx Last Taken Unknown] nitroglycerin 0.4 mg sublingual tablet 0.4 mg SUBLINGUAL Q5-15M PRN #25 tab 08/11/19 [Rx Last Taken Unknown] furosemide 40 mg tablet 40 mg PO .COMPLEX 11/09/19 [History Last Taken Unknown] isosorbide mononitrate 30 mg tablet,extended release 24 hr 30 mg PO BID #180 tab 11/09/19 [Rx Last Taken Unknown] aspirin 81 mg tablet,delayed release 81 mg PO QDAY #90 tab 12/28/19 [Rx Last Taken Unknown] atorvastatin 20 mg tablet 20 mg PO QHS #90 tab 12/28/19 [Rx Last Taken Unknown] calcium acetate 667 mg tablet 1,334 mg PO TID 10/03/20 [History Last Taken Unknown] insulin glargine 100 unit/mL (3 mL) subcutaneous pen 30 unit SC BID ml 10/03/20 [History Last Taken Unknown] carvedilol 12.5 mg tablet 12.5 mg PO BID #180 tab 12/06/20 [Rx Last Taken Unknown] clopidogrel 75 mg tablet 75 mg PO DAILY #90 tab 12/12/20 [Rx Last Taken Unknown] hydrocodone-acetaminophen 1 tab PO Q4H PRN 5 Days #20 tab 02/16/21 [Rx Last Taken Unknown] Allergy/AdvReac Type Severity Reaction Status Date / Time No Known Allergies Allergy Verified 02/16/21 10:40 Family History Mother Heart disease Hypertension Father Heart disease Hypertension Diabetes Surgical History H/O coronary artery bypass surgery (11/09/14) H/O right coronary artery stent placement (07/17/19) History of appendectomy History of left heart catheterization (10/17/14) S/P arteriovenous (AV) fistula creation (01/2018) Social History Smoking Status: Former smoker how long ago did patient quit smokin years ago alcohol intake: never substance use type: does not use caffeine: Yes Type: coffee Number of servings: 2 ROS ROS ED Review of Systems ROS Unobtainable: Denies due to encephalopathy Constitutional Constitutional ED: Denies chills or fever(s) Eyes Eyes: Denies change in vision ENT ENT ED: Denies ear pain or sore throat Cardiovascular Cardiovascular: Denies chest pain Respiratory/Chest Respiratory/Chest: Denies cough or dyspnea Gastrointestinal Gastrointestinal: Denies abdominal pain, diarrhea, nausea or vomiting Genitourinary Genitourinary ED: Denies dysuria or hematuria Musculoskeletal Musculoskeletal: Denies myalgias Integumentary Denies rash Neurologic Neurologic: Denies headache(s) Psychiatric Psychiatric: Denies depression Endocrine Endocrinology: Denies polyuria Hematologic/Lymphatic Hematologic/Lymphatic: Denies easy bruising Allergic/Immunologic Allergic/Immunologic ED: Denies urticaria EXAM Physical Exam Narrative Exam Narrative: Older male no acute distress. Accompanied by his . Vital signs stable afebrile. Exam benign except right foot great toe swollen and bruised. Tender to palpation on the proximal phalanx and the metatarsal phalangeal joint. Proximal foot is nontender neurovascular intact with normal DP pulse. Ankles nontender nonswollen. Otherwise exam unremarkable. Const Vital Signs: 02/16/21 10:40 Temperature 97.2 F L Temperature Source Temporal Pulse Rate 72 Respiratory Rate 14 Blood Pressure 155/93 H Blood Pressure Mean 113 Pulse Ox 99 Oxygen Delivery Method Room Air HEENT normocephalic and atraumatic Eyes PERRL Neck full ROM and supple Thyroid: Negative for tender Chest Wall inspection of chest normal Resp normal respiratory effort and clear to auscultation bilaterally Cardio regular rate, regular rhythm and no murmurs GI non-tender, non-distended and no masses Auscultation: normoactive bowel sounds Palpation: soft; Negative for tender Back/Spine no CVA tenderness Extremity normal to inspection and full ROM Extremity Narrative: Both upper extremities and left lower extremity unremarkable. Right foot has tenderness, swelling and bruising of the right great toe. Skin is intact. DP pulses intact. Foot is neurovascular intact. General Extremety ED: Negative for edema General Extremity: Negative for edema Neuro oriented x3 Sensorium / Orientation: alert, oriented to person, oriented to place and oriented to time Psych mental status grossly normal Skin Rashes: no rashes MDM MDM MDM Narrative Medical decision making narrative: 65 yo male with blunt trauma to his right great toe 5 to 6 days ago. X-ray being obtained. Patient has crutches at home. To be placed in a postop shoe. He will be written for [employer] for pain. He will be referred to Dr. Cantrell of podiatry Radiography Diagnostic Testing: Right foot x-ray 3 views interpreted by myself shows shows a comminuted fracture of the distal end of the proximal phalanx of the right great toe. I went over the x-ray with the patient. Discharge Plan Triage Chief Complaint: Lower Extremity Injury ED Provider: Wilian Young Dx/Rx/DC Orders Clinical Impression: Closed fracture of great toe Instructions: ED Fracture, Toe, Closed Prescriptions: New hydrocodone-acetaminophen 5-325 mg tablet 1 tab PO Q4H PRN (Reason: pain) 5 Days Qty: 20 RF: 0 No Action isosorbide mononitrate 30 mg tablet extended release 24 hr 30 mg PO BID Qty: 180 RF: 3 nitroglycerin 0.4 mg tablet, sublingual 0.4 mg SUBLINGUAL Q5-15M PRN (Reason: chest pain) Qty: 25 RF: 6 aspirin [Adult Aspirin Regimen] 81 mg tablet,delayed release (DR/EC) 81 mg PO QDAY Qty: 90 RF: 3 atorvastatin 20 mg tablet 20 mg PO QHS Qty: 90 RF: 3 calcium acetate 667 mg tablet 1,334 mg PO TID RF: 0 omeprazole 40 MG capsule,delayed release(DR/EC) 40 mg PO DAILY RF: 0 albuterol sulfate 1 INHALER inhaler 1 - 2 puff INHALATION Q4H PRN PRN (Reason: Shortness Of Breath) Qty: 1 RF: 0 B complex with C 20-folic acid 1 CAPSULE capsule 1 cap PO DAILY Qty: 30 RF: 0 furosemide 40 mg tablet 40 mg PO .COMPLEX RF: 0 insulin glargine 100 unit/mL (3 mL) insulin pen 30 unit SC BID RF: 0 carvedilol 12.5 mg tablet 12.5 mg PO BID Qty: 180 RF: 3 clopidogrel 75 mg tablet 75 mg PO DAILY Qty: 90 RF: 3 Primary Care Provider: Chris Woodward Referrals: Shirley Cantrell DPM [STAFF PHYSICIAN] - As soon as possible Chris Woodward MD [Primary Care Provider] - Activity Restrictions/Additional Instructions: Ice and elevate your right foot. [place] for pain as needed. Postop shoe for comfort. Call and follow-up with Dr. Cantrell with podiatry as soon as possible. Disposition Disposition: Home, self care
--- NOTE | 2021-02-16 10:53 | RAD_ITS ---
STUDY: X-RAY - RIGHT FOOT CLINICAL: Male, 65 years old. trauma right great toe TECHNIQUE: 3 view(s) of the foot. COMPARISON: None. FINDINGS: Normal talus, calcaneus, and tarsal bones. Normal visualized subtalar, talonavicular, calcaneocuboid, tarsal and tarsometatarsal articulations. Normal metatarsi. Normal metatarsophalangeal joint of the great toe. Normal tibial and fibular sesamoid bones. Normal interphalangeal joint of the great toe. Acute fracture the fibular aspect of the head of the first proximal phalanx. Normal second through fifth metatarsophalangeal joints. Normal interphalangeal joints and phalanges of the lesser toes. The soft tissue structures are unremarkable. RAD/Foot min 3 Views IMPRESSION: Acute fracture the fibular aspect of the head of the first proximal phalanx. Electronically Signed: Eliel Barker MD at 12:01 EDT Tel , Service support ,
[2021-02-16 11:51] VITALS: BP 164/76; PULSE 69; RESP 16; O2SAT 99
== END 2021-02-16 11:52 | disposition home or self-care (01) ==
PROVIDERS: Emergency Provider Emergency Medicine; PCP Internal Medicine
DX: S92.411A Displaced fracture of proximal phalanx of right great toe, initial encounter for closed fracture (principal); W20.8XXA Other cause of strike by thrown, projected or falling object, initial encounter; Y93.9 Activity, unspecified; Y92.9 Unspecified place or not applicable; Y99.9 Unspecified external cause status; I25.10 Atherosclerotic heart disease of native coronary artery without angina pectoris; I13.2 Hypertensive heart and chronic kidney disease with heart failure and with stage 5 chronic kidney disease, or end stage renal disease; I50.32 Chronic diastolic (congestive) heart failure; E11.22 Type 2 diabetes mellitus with diabetic chronic kidney disease; N18.6 End stage renal disease; I25.2 Old myocardial infarction; I27.21 Secondary pulmonary arterial hypertension; J96.10 Chronic respiratory failure, unspecified whether with hypoxia or hypercapnia; E78.5 Hyperlipidemia, unspecified; E66.9 Obesity, unspecified; Z68.34 Body mass index [BMI] 34.0-34.9, adult; Z79.4 Long term (current) use of insulin; Z79.02 Long term (current) use of antithrombotics/antiplatelets; Z79.82 Long term (current) use of aspirin; Z99.2 Dependence on renal dialysis; Z79.899 Other long term (current) drug therapy; Z87.891 Personal history of nicotine dependence
CPT/HCPCS: 73630; 99283

== ENCOUNTER → 2021-03-11 10:31 | Outpatient (CLI) | payer MEDICARE, MEDICAID, SELFPAY ==
[2019-07-18 08:33] VITALS: BMI 34.8
[2021-02-16 10:40] VITALS: BMI 34.6
[2021-03-11 11:36] LABS: Vitamin D,25 Hydroxy 33.9 ng/mL
== END ==
PROVIDERS: PCP Internal Medicine; Visit Provider Podiatrist
DX: S92.919A Unspecified fracture of unspecified toe(s), initial encounter for closed fracture (principal); E55.9 Vitamin D deficiency, unspecified
CPT/HCPCS: 36415; 82306

== ENCOUNTER → 2021-06-18 05:58 | Outpatient (CLI) | payer MEDICARE, MEDICAID, SELFPAY ==
[2019-07-18 08:33] VITALS: BMI 34.8
--- NOTE | 2021-06-18 06:00 | ECHOD_ITS ---
Reason For Study: Pre Op Procedure This was a 2D Doppler, Color Flow transthoracic echocardiogram. Exam performed in department. Left Ventricle Normal LV size. The estimated ejection fraction is 40 %. Moderate segmental systolic dysfunction (see wall motion). Stage 1 diastolic dysfunction. [place] : Severely Hypokinetic. Mid-Inferior: Hypokinetic. Mid-inferoseptal : Hypokinetic. Mid-Posterior: Hypokinetic. Right Ventricle Normal RV size. Normal systolic function. Atria Normal left atrium. Normal right atrium. Mitral Valve Normal mitral valve. Mild (1+) eccentric mitral valve insufficiency. Tricuspid Valve Normal tricuspid valve. Aortic Valve Trisinus/trileaflet aortic valve. Pulmonic Valve Normal pulmonic valve. Great Vessels Normal aortic root. The pulmonary artery is normal size. Normal inferior vena cava. Pericardium/Pleural No pericardial effusion. MMode/2D Measurements & Calculations LVIDd: 5.7 cm IVSd: 1.1 cm LA dimension: 4.5 cm LVIDs: 4.5 cm LVPWd: 1.0 cm FS: 21.3 % LAV(MOD-bp): 52.1 ml LA A4 area: 19.2 cm2 RA A4 area: 19.8 cm2 LAV(MOD-bp) Indexed: 24.4 ml/m2 LAV(MOD-sp2): 52.7 ml LAV(MOD-sp4): 53.8 ml Time Measurements MV dec time: 0.25 sec Doppler Measurements & Calculations MV E max jose manuel: 130.2 cm/sec Lat Peak E' Jose Manuel: 6.5 cm/sec Med Peak E' Jose Manuel: 3.5 cm/sec MV A max jose manuel: 146.0 cm/sec E/E' lat: 20.0 E/E' med: 37.4 MV E/A: 0.89 MV V2 max: 184.8 cm/sec MV P1/2t max jose manuel: 155.4 cm/sec Ao V2 max: 121.5 cm/sec MV max P.7 mmHg MV P1/2t: 76.0 msec Ao max P.9 mmHg MV V2 mean: 104.5 cm/sec MV dec slope: 599.0 cm/sec2 MV mean P.2 mmHg MVA(P1/2t): 2.9 cm2 MV V2 VTI: 43.9 cm LV V1 max: 91.5 cm/sec PA V2 max: 100.0 cm/sec TR max jose manuel: 317.2 cm/sec LV V1 max P.3 mmHg TR max P.2 mmHg ECHO/Echo Complete Interpretation Summary Normal LV size. The estimated ejection fraction is 40 %. [place] : Severely Hypokinetic. Moderate segmental systolic dysfunction (see wall motion). Stage 1 diastolic dysfunction. Ordering Physician: Chris Woodward M.D. Referring Physician: Rei Goldman Performed By: Sean Basilio RCS
--- NOTE | 2021-06-18 13:39 | STRESSREP ---
Stress Test Report Pharmacologic myocardial perfusion stress test. 66-year-old man with a history of coronary artery disease for preoperative evaluation. Stress protocol: Resting EKG demonstrates normal sinus rhythm with a rate of 78 bpm normal intervals are noted resting blood pressure is 132/78 mmHg. 0.4 mg of regadenoson was infused per usual protocol followed by rapid intravenous saline flush injection continuous EKG monitoring was performed. Patient maintained sinus rhythm throughout the recording. Downsloping ST depression was noted in leads II, III and aVF V5 and V6 at rest and during infusion. The above did not meet the criteria for ischemia. The final blood pressure was 132/78 mmHg. No clinical angina was noted. Myocardial perfusion protocol. 14.2 mCi of technetium 99m sestamibi was injected at rest. 0.4 mg of regadenoson was infused per usual protocol. At peak infusion 44.4 mCi of technetium 99m sestamibi was injected stress images were obtained stress and rest images were reconstructed and compared in the short axis vertical long and horizontal long axis. Gated images were also obtained. Perfusion SPECT analysis: Review of the stress images demonstrate normal uptake of tracer noted in all areas of the myocardium except for the apex. This is present on the stress images. The resting images demonstrate a similar pattern. No areas of reversibility are noted to suggest ischemia. Gated SPECT analysis: The gated ejection fraction is noted to be 34%. Conclusion: Pharmacologic myocardial perfusion stress test with evidence of previous apical infarct. Cardiomyopathy noted.
== END ==
PROVIDERS: PCP Internal Medicine; Referring Provider Nurse Practitioner Family; Visit Provider Nurse Practitioner Family
DX: Z01.818 Encounter for other preprocedural examination (principal); I13.2 Hypertensive heart and chronic kidney disease with heart failure and with stage 5 chronic kidney disease, or end stage renal disease; I50.32 Chronic diastolic (congestive) heart failure; N18.6 End stage renal disease; E78.5 Hyperlipidemia, unspecified; Z95.1 Presence of aortocoronary bypass graft; Z95.5 Presence of coronary angioplasty implant and graft; Z99.2 Dependence on renal dialysis
CPT/HCPCS: 78452; 93017; 93306; A9500; A4216; J2785

== ENCOUNTER 2021-09-07 10:37 | Inpatient (IN) | payer MEDICARE, MEDICAID, SELFPAY ==
[2019-07-18 08:33] VITALS: BMI 34.8
[2021-09-07] VITALS (9 sets, daily range): BP systolic 99–130; BP diastolic 60–85; PULSE 86–102; RESP 12–24; TEMP 36–37; O2SAT 95–99; BMI 33.8; BMI 34.9
--- NOTE | 2021-09-07 11:23 | CT_ITS ---
STUDY: CT ABDOMEN AND PELVIS WITHOUT CONTRAST REASON FOR EXAM: Male, 66 years old. Flank pain RADIATION DOSAGE (If Supplied By Facility): CTDIvol = ( 17.23 ) mGy, DLP = ( 946.89 ) mGycm TECHNIQUE: Transaxial images were obtained from the dome of the diaphragm to the symphysis pubis without oral contrast, and without intravenous contrast. Sagittal and coronal images were reconstructed. Individualized dose optimization techniques were used for this CT. COMPARISON: 10/30/2020. FINDINGS: Mild atelectatic changes in both lower lobes. Normal heart size. History of CABG. Normal liver. Normal gallbladder and extrahepatic biliary system. Normal spleen. Normal pancreas. Normal bilateral adrenal glands. Bilateral renal vascular calcifications. No evidence of hydronephrosis. Normal visualized stomach. Normal caliber small bowel loops. Fecal retention. No evidence of acute diverticulitis. There is non-visualization of the appendix. There is diffuse atherosclerotic calcification of the abdominal aorta, without a demonstrated aneurysm. Normal inferior vena cava. No evidence of retroperitoneal adenopathy. Mild ascites. Drainage catheter extending from the left anterior abdominal wall to the pelvic lesion which may represent peritoneal dialysis catheter. The bladder is not well-distended. Normal abdominal wall. Mild degenerative changes in the spine. CT/Abdomen/Pelvis without Cont IMPRESSION: 1. Free fluid in the abdomen or 2. Drainage catheter could represent peritoneal dialysis catheter. 3. No focal acute inflammatory process. 4. Extensive atherosclerotic vascular calcifications. Electronically Signed: Sae Mccloud, at 12:30 EST Tel , Service support ,
--- NOTE | 2021-09-07 11:23 | EKG12_ITS ---
Test Reason : DIZZINESS Blood Pressure : / mmHG Vent. Rate : 087 BPM Atrial Rate : 087 BPM P-R Int : 144 ms QRS Dur : 092 ms QT Int : 418 ms P-R-T Axes : 061 -17 153 degrees QTc Int : 502 ms Normal sinus rhythm ST & T wave abnormality, consider lateral ischemia Prolonged QT Poor R wave progression Abnormal ECG Confirmed by DELILAH ANAYA, BRITTNI ([id number]), legal editor JASVIR CRENSHAW ([id number]) on 09/10/2021 10:38:34 AM Referred By: DANIKA Confirmed By:BRITTNI MAZARIEGOS MD
--- NOTE | 2021-09-07 11:24 | EDS_ITS ---
HPI History of Present Illness Chief Complaint: Dizziness Detail of Chief Complaint: Dizziness and low blood pressure Informant: patient Narrative Narrative: Patient presents to the emergency department complaint of feeling lightheaded and dizzy this morning. Patient states that he just finished eating breakfast and had been up for a while. Patient was seated when he started feeling lightheaded and had some blurred vision felt like might pass out. checked his blood pressure and it was 85/43. Patient denies recent illness. He has had some blood in his urine its been chronic but worse over the last 2 weeks. Complains of some intermittent pain in his left back. Patient has history of peripheral artery disease. He denies any blood in his stool. He denies chest pain. He denies falls or head injuries. Currently at rest in bed does not feel any symptoms of dizziness. Patient does peritoneal dialysis at home daily. He denies any abdominal pain. Prior similar symptoms: No [facility] Medical History (Updated 09/07/21 @ 13:[address] Cm Barney, DO) Atherosclerosis of coronary artery of [place] heart without angina pectoris Carotid artery stenosis Chronic diastolic (congestive) heart failure Chronic kidney disease, stage V Chronic respiratory failure DM2 (diabetes mellitus, type 2) ESRD (end stage renal disease) on dialysis Essential (primary) hypertension History of non-ST elevation myocardial infarction (NSTEMI) (05/12/18) Hyperlipidemia Nephrotic syndrome Obesity Old inferolateral myocardial infarction Peripheral vascular occlusive disease Secondary pulmonary arterial hypertension Home Medications omeprazole 40 mg PO DAILY 08/30/17 [History Last Taken 07/17/19] albuterol sulfate 1 - 2 puff INHALATION Q4H PRN PRN #1 inhaler 05/14/18 [Rx Last Taken 06/01/18 04:00] B complex with C 20-folic acid 1 cap PO DAILY #30 cap 06/06/18 [Rx Last Taken Unknown] furosemide 40 mg tablet 40 mg PO .COMPLEX 11/09/19 [History Last Taken Unknown] aspirin 81 mg tablet,delayed release 81 mg PO QDAY #90 tab 12/28/19 [Rx Last Taken Unknown] atorvastatin 20 mg tablet 20 mg PO QHS #90 tab 12/28/19 [Rx Last Taken Unknown] calcium acetate 667 mg tablet 1,334 mg PO TID 10/03/20 [History Last Taken Unknown] insulin glargine 100 unit/mL (3 mL) subcutaneous pen 30 unit SC BID ml 10/03/20 [History Last Taken Unknown] carvedilol 12.5 mg tablet 12.5 mg PO BID #180 tab 12/06/20 [Rx Last Taken Unknown] hydrocodone-acetaminophen 1 tab PO Q4H PRN 5 Days #20 tab 02/16/21 [Rx Last Taken Unknown] nitroglycerin 0.4 mg sublingual tablet 0.4 mg SUBLINGUAL Q5-15M PRN #25 tab 02/25/21 [Rx Last Taken Unknown] isosorbide mononitrate 30 mg tablet,extended release 24 hr 30 mg PO BID #180 tab 02/27/21 [Rx Last Taken Unknown] cholecalciferol (vitamin D3) 1,250 mcg (50,000 unit) oral wafer 50,000 unit PO QWEEK wafer 04/02/21 [History Last Taken Unknown] insulin aspart U-100 100 unit/mL (3 mL) subcutaneous pen 5 unit SUBCUT QAC ml 04/02/21 [History Last Taken Unknown] cilostazol 50 mg tablet 50 mg PO BID 07/14/21 [History Last Taken Unknown] dulaglutide [Trulicity] 75 mg SUBCUT QWEEK 09/07/21 [History Last Taken Unknown] Allergy/AdvReac Type Severity Reaction Status Date / Time No Known Allergies Allergy Verified 09/07/21 10:41 Family History Mother Heart disease Hypertension Father Heart disease Hypertension Diabetes Surgical History H/O coronary artery bypass surgery (11/09/14) H/O right coronary artery stent placement (07/17/19) History of appendectomy History of left heart catheterization (10/17/14) S/P arteriovenous (AV) fistula creation (01/2018) Social History Smoking Status: Former smoker how long ago did patient quit smokin years ago alcohol intake: never substance use type: does not use caffeine: Yes Type: coffee Number of servings: 2 ROS ROS ED ROS Narrative Dizziness Constitutional Constitutional ED: Reports systems reviewed and no addt'l complaints, except as documented; Denies body ache(s), change in weight or chills Eyes Eyes: Reports change in vision and other Details: Blurred vision ; Denies acute decrease in peripheral vision, double vision or loss of vision ENT ENT ED: Reports none; Denies ear pain, lip swelling, loss taste/smell, neck pain, otalgia or sore throat Cardiovascular Cardiovascular: Reports none; Denies abdominal pain, chest pain with activity, leg edema, lightheadedness, palpitations, rapid heart rate or syncope Respiratory/Chest Respiratory/Chest: Reports none; Denies change in mental status, dry cough, dyspnea, hemoptysis, shortness of breath at rest or shortness of breath with exertion Gastrointestinal Gastrointestinal: Reports none; Denies abdominal pain, change in stool character, diarrhea, hematemesis, hematochezia, melena, rectal bleeding or vomiting Genitourinary Genitourinary ED: Reports none; Denies abdominal discomfort, anuria, dysuria, genital pain or polyuria Musculoskeletal Musculoskeletal: Reports none; Denies arthralgias, back pain, difficulty walking, extremity pain, muscle weakness or myalgias Integumentary Reports none; Denies abscess or rash Neurologic Neurologic: Reports none; Denies abnormal gait, confusion, focal weakness, frequent falls, headache(s), loss of vision, numbness, paresthesias, radicular pain, vertigo or weakness Psychiatric Psychiatric: Reports systems reviewed and no addt'l complaints, except as documented and none; Denies behavioral changes, confusion, difficulty concentrating, hallucinations, suicidal ideation, tactile hallucinations or visual hallucinations Endocrine Endocrinology: Denies none, cold intolerance, excessive sweating, fatigue or heat intolerance Hematologic/Lymphatic Hematologic/Lymphatic: Reports none; Denies anemia, easy bleeding or easy bruising Allergic/Immunologic Allergic/Immunologic ED: Denies as per HPI, none, lip swelling, mouth swelling, throat swelling, tongue swelling or hives EXAM Physical Exam Const Vital Signs: 09/07/21 10:38 09/07/21 11:21 09/07/21 11:40 Temperature 96.8 F L Temperature Source Temporal Pulse Rate 86 Pulse Rate [Lying] 90 Pulse Rate [Sitting] 87 Pulse Rate [Standing] 90 Respiratory Rate 24 H Respiratory Effort Normal Respiratory Pattern Normal Blood Pressure 121/81 H Blood Pressure [Lying] 105/81 H Blood Pressure [Sitting] 99/60 Blood Pressure [Standing] 116/79 Blood Pressure Mean 94 Blood Pressure Mean [Lying] 89 Blood Pressure Mean [Sitting] 73 Blood Pressure Mean [Standing] 91 Pulse Ox 98 Oxygen Delivery Method Room Air Positive well nourished and well developed General Appearance ED: well developed and NAD HEENT Reports TM's clear and moist mucous membranes normocephalic and atraumatic; Negative for trauma or tenderness Tympanic Membrane ED: Yes TM's clear Eyes PERRL and EOMs intact bilaterally General Eye ED: Negative for pale conjunctiva or scleral icterus Neck no lymphadenopathy, supple and no JVD General: Negative for tenderness Chest Wall inspection of chest normal and palpation of chest normal Chest: Negative for tenderness Resp normal respiratory effort and clear to auscultation bilaterally Effort and Inspection: Negative for respiratory distress or pain with movement Auscultation: Negative for rhonchi, wheezes or diminished lung sounds Cardio regular rate, regular rhythm, S1 normal heart sound, S2 normal heart sound and no murmurs Peripheral Pulses: pulses 2+ throughout GI normal to inspection, nondistended, normoactive bowel sounds, soft to palpation, non-tender, non-distended and no masses Back/Spine no CVA tenderness and no thoracic nor lumbar tenderness Extremity normal to inspection General Extremety ED: Negative for edema General Extremity: Negative for edema Neuro oriented x3, CN's II-XII intact bilaterally, no sensory deficits noted and gait normal Sensorium / Orientation: awake, alert, oriented to person, oriented to place and oriented to time Motor Exam: strength 5/5 throughout and strength abnormal Psych mental status grossly normal Skin no rashes or lesions noted and no wounds MDM MDM MDM Narrative Medical decision making narrative: IV line established on arrival. Patient had urinalysis which was positive for infection and a culture sent. There is no bacteria seen on the urinalysis. Patient was started on Rocephin. Patient also noted to have significant elevation in his creatinine despite doing peritoneal dialysis last evening there is been a large increase from normally running between 4 and 5 to now 13. Patient was given 500 cc fluid bolus. Case will be discussed with hospitalist evaluate patient for admission. Lab Data Attestation: I reviewed the patient's lab results. Labs: Laboratory Results - last 24 hr 09/07/21 09/07/21 09/07/21 11:40 11:40 13:00 WBC 13.2 H RBC 3.66 L Hgb 10.6 L Hct 33.0 L MCV 90.2 MCH 29.0 MCHC 32.1 RDW Std Deviation 43.8 RDW Coeff of [place] 13.4 Plt Count 222 MPV 9.0 Immature Gran % (Auto) 0.600 Neut % (Auto) 81.2 H Lymph % (Auto) 9.0 L [place] % (Auto) 7.2 Eos % (Auto) 1.6 Baso % (Auto) 0.4 Absolute Neuts (auto) 10.8 H Absolute Lymphs (auto) 1.19 Nucleated RBC % 0 Sodium 134 L Potassium 3.9 Chloride 96 L Carbon Dioxide 26.0 Anion Gap 12 BUN 54 H Creatinine 13.50 H* Estim Creat Clear Calc 5.03 Est GFR (MDRD) Af Amer 5 L Est GFR (MDRD) Non-Af 4 L BUN/Creatinine Ratio 4.0 L Glucose 233 H Calcium 7.9 L Troponin I High Sens 85 H Urine Color Red Urine Clarity Cloudy Urine pH 5.0 Ur Specific [place] 1.015 Urine Protein 500 H Urine Glucose (UA) 100 H Urine Ketones 5 H Urine Occult Blood 250 H Urine Nitrite Positive H Urine Bilirubin Negative Urine Urobilinogen Normal Ur Leukocyte Esterase 500 H Urine RBC > 100 SEEN Urine WBC >100 SEEN Ur Squamous Epith Cells 0 SEEN Urine Bacteria 0 SEEN Urine Mucus 0 SEEN Radiography Diagnostic Testing: Clinical Impression(s) from Imaging Studies Abdomen/Pelvis CT 09/07/21 11:23 IMPRESSION: 1. Free fluid in the abdomen or 2. Drainage catheter could represent peritoneal dialysis catheter. 3. No focal acute inflammatory process. 4. Extensive atherosclerotic vascular calcifications. Electronically Signed: Sae Mccloud, at 12:30 EST Tel , Service support , EKG Initial EKG: Attestation: I personally reviewed and interpreted this EKG as follows: Comments: Sinus rhythm with a ventricular rate of [address] changes noted. Discharge Plan Dx/Rx/DC Orders Clinical Impression: Acute UTI, Acute renal failure, Acute hypotension Disposition [facility]
[2021-09-07] MEDS: 0.9% Normal Saline 1,000 ML 150 ML IV (11:48)
[2021-09-07 11:52] LABS: Absolute Lymphocyte Count 1.19 X10^3/uL (0.83-4.51); Absolute Neutrophil Count 10.8 X10^3/uL (2.0-7.7); Basophil# 0.05 X10^3/uL; Basophil% 0.4 % (0-1); Eosinophil# 0.21 X10^3/uL; Eosinophils% 1.6 % (0-5); Hemoglobin 10.6 g/dL (13.0-16.5); Lymphocyte # 1.19 X10^3/ul (0.83-4.51); Mean Corp Hgb Conc 32.1 g/dL (32-36); Mean Corpuscular Volume 90.2 fL (80-94); Monocyte# 0.95 X10^3/uL; Monocyte% 7.2 % (0-10); NRBC Flagged by Analyzer 0 % (0-5); Neutrophil # 10.76 X10^3/uL (2.7-7.7); Neutrophil % 81.2 % (47-70); Platelet Count 222 K/mm3 (150-450); RBC Distribution Width CV 13.4 % (11.6-14.6); RBC Distribution Width SD 43.8 fl (35.1-43.9); Red Blood Count 3.66 M/mm3 (4.6-6.2); White Blood Count 13.2 K/mm3 (4.4-11.0)
[2021-09-07 12:11] LABS: Anion Gap 12 (5-15); BUN 54 mg/dL (7-18); Calcium,Total 7.9 mg/dL (8.5-10.1); Chloride 96 mmol/L (98-107); EST Glomerular Filtration Rate 4 mL/min (>60); Est Glom Filt Rate - Afr Amer 5 mL/min (>60); Estimated Creatinine Clearance 5.03 ml/min; Glucose 233 mg/dL (74-106); Potassium 3.9 mmol/L (3.5-5.1); Sodium Level 134 mmol/L (136-145); Troponin-I HS 85 pg/mL (3.0-78.0)
[2021-09-07 13:06] LABS: Bacteria 0 SEEN /hpf (None Seen); Mucous, Urine 0 SEEN /hpf (<or=2+); Squamous Epithelial Cells - UA 0 SEEN /hpf (0-5)
[2021-09-07 13:13] LABS: Color, Urine Red (Yellow); Glucose, Dipstick 100 mg/dl (Normal); Ketone-Dipstick 5 mg/dl (Negative); Leukocyte Esterase-Dipstick 500 /ul (Negative); Nitrite-Dipstick Positive (Negative); Occult Blood-Urine 250 /ul (Negative); Protein-Dipstick 500 mg/dl (Negative); Specific Gravity, Urine 1.015 (1.002-1.030); Urine Bilirubin Dipstick Negative (Negative); Urine Clarity Cloudy (Clear); Urine Urobilinogen Normal (Normal)
[2021-09-07 13:21] LABS: Red Blood Cells-Urine > 100 SEEN /hpf (0-5); White Blood Cells >100 SEEN /hpf (0-5)
--- NOTE | 2021-09-07 13:57 | NURSING ---
PCU [facility] RENAL FAILURE, HYPOTENSION, UTI
[2021-09-07] MEDS: Ceftriaxone 1 GM/50 ML BAG IV (14:29)
--- NOTE | 2021-09-07 16:45 | HP.PCM.HOS_ITS ---
HPI - General General Date of Admission: 09/07/21 Date of Service: 09/07/21 Chief Complaint: Dizziness, low blood pressure HPI Narrative KEYANNA NAVARRETE, is a 66 M who presents with low blood pressure. Patient has ESRD on peritoneal dialysis. His blood pressure today was 83/43. He complains of dizziness but denied any palpitation. He denied any changes to his medication. He stated he has been compliant with his peritoneal dialysis. Denied any fever or chills or diarrhea. Patient denied any dysuria or frequency or hematuria. He stated that he has been making less urine lately. His vitals in the ED were stable. He was not orthostatic. WBC count is 13.2, Hemoglobin 10.6, Platelet is 222, sodium is 134, potassium 3.9, chloride 96, BUN 54, creatinine 13.5 CT abd/pelvis showed free fluid in the abdomen, peritoneal dialysis catheter, extensive atherosclerotic vascular calcification. [facility] Medical History Atherosclerosis of coronary artery of [place] heart without angina pectoris Carotid artery stenosis Chronic diastolic (congestive) heart failure Chronic kidney disease, stage V Chronic respiratory failure DM2 (diabetes mellitus, type 2) ESRD (end stage renal disease) on dialysis Essential (primary) hypertension History of non-ST elevation myocardial infarction (NSTEMI) (05/12/18) Hyperlipidemia Nephrotic syndrome Obesity Old inferolateral myocardial infarction Peripheral vascular occlusive disease Secondary pulmonary arterial hypertension Home Medications omeprazole 40 mg PO DAILY 08/30/17 [History Last Taken 07/17/19] albuterol sulfate 1 - 2 puff INHALATION Q4H PRN PRN #1 inhaler 05/14/18 [Rx Last Taken 06/01/18 04:00] B complex with C 20-folic acid 1 cap PO DAILY #30 cap 06/06/18 [Rx Last Taken Unknown] furosemide 40 mg tablet 40 mg PO .COMPLEX 11/09/19 [History Last Taken Unknown] aspirin 81 mg tablet,delayed release 81 mg PO QDAY #90 tab 12/28/19 [Rx Last Taken Unknown] atorvastatin 20 mg tablet 20 mg PO QHS #90 tab 12/28/19 [Rx Last Taken Unknown] calcium acetate 667 mg tablet 1,334 mg PO TID 10/03/20 [History Last Taken Unknown] insulin glargine 100 unit/mL (3 mL) subcutaneous pen 30 unit SC BID ml 10/03/20 [History Last Taken Unknown] carvedilol 12.5 mg tablet 12.5 mg PO BID #180 tab 12/06/20 [Rx Last Taken Unknown] hydrocodone-acetaminophen 1 tab PO Q4H PRN 5 Days #20 tab 02/16/21 [Rx Last Taken Unknown] nitroglycerin 0.4 mg sublingual tablet 0.4 mg SUBLINGUAL Q5-15M PRN #25 tab 02/25/21 [Rx Last Taken Unknown] isosorbide mononitrate 30 mg tablet,extended release 24 hr 30 mg PO BID #180 tab 02/27/21 [Rx Last Taken Unknown] cholecalciferol (vitamin D3) 1,250 mcg (50,000 unit) oral wafer 50,000 unit PO QWEEK wafer 04/02/21 [History Last Taken Unknown] insulin aspart U-100 100 unit/mL (3 mL) subcutaneous pen 5 unit SUBCUT QAC ml 04/02/21 [History Last Taken Unknown] cilostazol 50 mg tablet 50 mg PO BID 07/14/21 [History Last Taken Unknown] dulaglutide [Trulicity] 75 mg SUBCUT QWEEK 09/07/21 [History Last Taken Unknown] Allergy/AdvReac Type Severity Reaction Status Date / Time No Known Allergies Allergy Verified 09/07/21 10:41 Family History Mother Heart disease Hypertension Father Heart disease Hypertension Diabetes Surgical History H/O coronary artery bypass surgery (11/09/14) H/O right coronary artery stent placement (07/17/19) History of appendectomy History of left heart catheterization (10/17/14) S/P arteriovenous (AV) fistula creation (01/2018) Social History Smoking Status: Former smoker how long ago did patient quit smokin years ago alcohol intake: never substance use type: does not use caffeine: Yes Type: coffee Number of servings: 2 ROS ROS Narrative Constitutional: Reports: Malaise, Weakness, Fatigue. Denies: Anorexia, Chills, Fever, Night Sweats, Weight Change Eyes: Denies: Blurred vision, Cataracts, Conjunctivae Inflammation, Pain, Redness, Vision Change HEENT: Denies: Difficulty Hearing, Difficulty Swallowing, Head Aches, Hearing Changes, Sinus Congestion, Sinus Drainage Cardiovascular: Denies: Chest Pain, Orthopnea, Palpitations Respiratory: Denies: Cough, Shortness of breath at rest, Sputum production Gastrointestinal: Denies: Abdominal Pain, Nausea, Vomiting Genitourinary: Denies: Dysuria Musculoskeletal: Denies: Joint Pain, Joint stiffness, Joint swelling, Joint Tenderness Skin: Denies: Rash, Wounds Neurological: Denies: Numbness, Tingling, Focal weakness Vital Signs Vital Signs Vital Signs: 09/07/21 10:38 09/07/21 11:21 09/07/21 11:40 Temperature 96.8 F L Temperature Source Temporal Pulse Rate 86 Pulse Rate [Lying] 90 Pulse Rate [Sitting] 87 Pulse Rate [Standing] 90 Respiratory Rate 24 H Respiratory Effort Normal Respiratory Pattern Normal Blood Pressure 121/81 H Blood Pressure [BP] Blood Pressure [Lying] 105/81 H Blood Pressure [Sitting] 99/60 Blood Pressure [Standing] 116/79 Blood Pressure Mean 94 Blood Pressure Mean [BP] Blood Pressure Mean [Lying] 89 Blood Pressure Mean [Sitting] 73 Blood Pressure Mean [Standing] 91 Blood Pressure Source [BP] Blood Pressure Position [BP] Blood Pressure Location [BP] Pulse Ox 98 Oxygen Delivery Method Room Air 09/07/21 14:08 09/07/21 14:09 09/07/21 16:27 Temperature 98.6 F 97.8 F Temperature Source Temporal Oral Pulse Rate 88 86 87 Pulse Rate [Lying] Pulse Rate [Sitting] Pulse Rate [Standing] Respiratory Rate 18 18 12 Respiratory Effort Respiratory Pattern Blood Pressure 126/85 H 126/85 H Blood Pressure [BP] 127/75 H Blood Pressure [Lying] Blood Pressure [Sitting] Blood Pressure [Standing] Blood Pressure Mean 98 98 Blood Pressure Mean [BP] 92 Blood Pressure Mean [Lying] Blood Pressure Mean [Sitting] Blood Pressure Mean [Standing] Blood Pressure Source [BP] Monitor Blood Pressure Position [BP] Semi-Fowlers Blood Pressure Location [BP] Right Arm Pulse Ox 95 95 99 Oxygen Delivery Method Room Air Room Air Room Air Weight Weight: 101.3 kg Body Mass Index (BMI) 34.9 Physical Exam Narrative Physical exam: General: Alert, oriented x3, Cooperative, no apparent distress HEENT: Atraumatic Oral: Moist Mucosa Neck: Supple Lungs: Diminished to auscultation Cardiovascular: HS I+II, regular, no murmurs Abdomen: Bowel Sounds Present, Soft, Non Tender Extremities: No edema Results Lab / Micro Data Result Diagrams: 09/07/21 11:40 09/07/21 11:40 Labs: Laboratory Results - last 24 hr 09/07/21 11:40: WBC 13.2 H, RBC 3.66 L, Hgb 10.6 L, Hct 33.0 L, MCV 90.2, MCH 29.0, MCHC 32.1, RDW Std Deviation 43.8, RDW Coeff of Juanita 13.4, Plt Count 222, MPV 9.0, Immature Gran % (Auto) 0.600, Neut % (Auto) 81.2 H, Lymph % (Auto) 9.0 L, [place] % (Auto) 7.2, Eos % (Auto) 1.6, Baso % (Auto) 0.4, Absolute Neuts (auto) 10.8 H, Absolute Lymphs (auto) 1.19, Nucleated RBC % 0 09/07/21 11:40: Sodium 134 L, Potassium 3.9, Chloride 96 L, Carbon Dioxide 26.0, Anion Gap 12, BUN 54 H, Creatinine 13.50 H*, Estim Creat Clear Calc 5.03, Est GFR (MDRD) Af Amer 5 L, Est GFR (MDRD) Non-Af 4 L, BUN/Creatinine Ratio 4.0 L, Glucose 233 H, Calcium 7.9 L, Troponin I High Sens 85 H 09/07/21 13:00: Urine Color Red, Urine Clarity Cloudy, Urine pH 5.0, Ur Specific [place] 1.015, Urine Protein 500 H, Urine Glucose (UA) 100 H, Urine Ketones 5 H , Urine Occult Blood 250 H, Urine Nitrite Positive H, Urine Bilirubin Negative, Urine Urobilinogen Normal, Ur Leukocyte Esterase 500 H, Urine RBC > 100 SEEN, Urine WBC >100 SEEN, Ur Squamous Epith Cells 0 SEEN, Urine Bacteria 0 SEEN, Urine Mucus 0 SEEN Radiology Impression Abdomen/Pelvis CT 09/07/21 11:23 IMPRESSION: 1. Free fluid in the abdomen or 2. Drainage catheter could represent peritoneal dialysis catheter. 3. No focal acute inflammatory process. 4. Extensive atherosclerotic vascular calcifications. Electronically Signed: Sae Mccloud, at 12:30 EST Tel , Service support , Assessment & Plan Assessment/Plan (1) Hypotension: QUALIFIERS: Hypotension type: unspecified hypotension type Qualified Code(s): I95.9 - Hypotension, unspecified (2) Acute UTI: PLAN: 1. Hypotension, noted at home, unclear etiology Not orthostatic, will monitor 2. Acute UTI, UA is red, cloudy, RBCs present Started on IV ceftriaxone, continue same 3. ESRD on peritoneal dialysis, will consult nephrology for peritoneal dialysis 4. Type II DM, continue home insulin, insulin sliding scale with blood glucose checks 5. Chronic diastolic CHF, not in fluid overload state Will continue to monitor 6. CAD status post stent/pulmonary hypertension Continue aspirin, statin, Pletal I discussed and explained in details the various types of CODE STATUS-full code, DNR CCA, DNR CC. Patient chose to be full code Time spent discussing CODE STATUS 16 minutes Charges/Coding Visit Charges Inpatient E&M: 43282 Init Hosp L3 Procedures Hospitalists Procedures: 63267 Advncd Care Plan 30 Min
[2021-09-07] MEDS: Calcium Acetate 667 MG Capsule 1334 MG PO (17:37)
[2021-09-07 17:45] LABS: Bedside Glucose 78 mg/dL (70-110)
[2021-09-07] MEDS: Cilostazol 50 MG Tablet PO (21:52)
[2021-09-07] MEDS: Carvedilol 12.5 MG Tablet PO (21:52)
[2021-09-07] MEDS: Atorvastatin Calcium 20 MG Tablet PO (21:52)
--- NOTE | 2021-09-07 22:02 | DIALYSIS ---
This RN attempted to program PD cycler with [employer] orders. Received error message x 4. Called support desk. I was told cycler was not functioning properly and it needed sent back to transit man. Patient and his decided to forgo using cycler and they performed a manual exchange with supplies they brought from home. Dr. Granados notified. Discussed with my examination supervisor. Working cycler will be brought by our technical team tomorrow morning.
[2021-09-07 22:55] LABS: Bedside Glucose 156 mg/dL (70-110)
[2021-09-08] VITALS (10 sets, daily range): BP systolic 62–108; BP diastolic 45–81; PULSE 89–99; RESP 16–20; TEMP 36.4–36.7; O2SAT 98–99
[2021-09-08 05:47] LABS: Absolute Lymphocyte Count 1.48 X10^3/uL (0.83-4.51); Absolute Neutrophil Count 7.9 X10^3/uL (2.0-7.7); Basophil# 0.05 X10^3/uL; Basophil% 0.5 % (0-1); Eosinophil# 0.24 X10^3/uL; Eosinophils% 2.2 % (0-5); Hematocrit 31.6 % (40-54); Hemoglobin 10.1 g/dL (13.0-16.5); Lymphocyte # 1.48 X10^3/ul (0.83-4.51); Lymphocyte % 13.8 % (19-41); Mean Corpuscular Hgb 29.1 pg (27.0-32.0); Mean Corpuscular Volume 91.1 fL (80-94); Mean Platelet Vol. 8.9 fl (6.2-12.0); Monocyte# 0.98 X10^3/uL; Monocyte% 9.2 % (0-10); NRBC Flagged by Analyzer 0 % (0-5); Neutrophil # 7.86 X10^3/uL (2.7-7.7); Neutrophil % 73.6 % (47-70); Platelet Count 223 K/mm3 (150-450); RBC Distribution Width CV 13.3 % (11.6-14.6); RBC Distribution Width SD 43.4 fl (35.1-43.9); Red Blood Count 3.47 M/mm3 (4.6-6.2); White Blood Count 10.7 K/mm3 (4.4-11.0)
[2021-09-08] MEDS: Aspirin E.C. 81 MG Tablet PO (08:15)
[2021-09-08] MEDS: Isosorbide Mononitrate 30 MG Tablet PO (08:16)
[2021-09-08] MEDS: Furosemide 40 MG Tablet PO (08:16)
[2021-09-08] MEDS: Calcium Acetate 667 MG Capsule 1334 MG PO ×2 (08:16→11:26)
[2021-09-08] MEDS: Cilostazol 50 MG Tablet PO (08:16)
[2021-09-08] MEDS: Carvedilol 12.5 MG Tablet PO (08:16)
[2021-09-08] MEDS: Ceftriaxone 1 GM/50 ML BAG IV (08:17)
[2021-09-08] MEDS: Pantoprazole Sodium 40 MG Tablet PO (08:17)
[2021-09-08] MEDS: Insulin Lispro 100 UNIT/ML INSULN.PEN SC ×2 (08:23→11:26)
--- NOTE | 2021-09-08 10:28 | PCM.CONS.R ---
Assessment & Plan Assessment/Plan (1) ESRD (end stage renal disease) on dialysis: PLAN: pt on CCPD 2.2L 5 exchanges with last fill 1500cc. Currently on manual exchanges. Pt does not want to be on cycler until tonight. (2) Essential (primary) hypertension: PLAN: hypotension with orthostasis. Will monitor for now (3) Acute UTI: PLAN: on antibx c/s pending (4) Hypotension: QUALIFIERS: Hypotension type: unspecified hypotension type Qualified Code(s): I95.9 - Hypotension, unspecified PLAN: fluids, adjust BP meds as needed. Use 1.5% dextrose solution with PD exchanges (5) H/O coronary artery bypass surgery: HPI Consult Data Date of Consult: 09/08/21 HPI Narrative HPI Narrative: KEYANNA NAVARRETE, is a 66 M who presents to [facility] ED on 09/07/21 for dizziness, hypotension with orthostasis. He has ESRD on CCPD since May 2021, on hemodialysis prior at [place]. His primary household appliance installer is Dr. Yañez from [facility] at PD clinic in [facility]. He has been using 2.5% dextrose with his dialysis. He is on antihypertensive medications at home. Denies chest pain, SOB, cough, no fever or chills. Denies nausea or vomiting. He did have nausea when he was started on Trulicity for diabetes. He admitted for hematuria with flank pain on antibiotics for UTI. He is feeling better today. He did a manual exchange last night and this morning with 800cc total UF. He had CT abdomen on admit that was essentially unremarkable. [facility] Medical History Atherosclerosis of coronary artery of hoh heart without angina pectoris Carotid artery stenosis Chronic diastolic (congestive) heart failure Chronic kidney disease, stage V Chronic respiratory failure DM2 (diabetes mellitus, type 2) ESRD (end stage renal disease) on dialysis Essential (primary) hypertension History of non-ST elevation myocardial infarction (NSTEMI) (05/12/18) Hyperlipidemia Nephrotic syndrome Obesity Old inferolateral myocardial infarction Peripheral vascular occlusive disease Secondary pulmonary arterial hypertension Home Medications omeprazole 40 mg PO DAILY 08/30/17 [History Last Taken 07/17/19] albuterol sulfate 1 - 2 puff INHALATION Q4H PRN PRN #1 inhaler 05/14/18 [Rx Last Taken 06/01/18 04:00] B complex with C 20-folic acid 1 cap PO DAILY #30 cap 06/06/18 [Rx Last Taken Unknown] aspirin 81 mg tablet,delayed release 81 mg PO QDAY #90 tab 12/28/19 [Rx Last Taken Unknown] atorvastatin 20 mg tablet 20 mg PO QHS #90 tab 12/28/19 [Rx Last Taken Unknown] calcium acetate 667 mg tablet 1,334 mg PO TID 10/03/20 [History Last Taken Unknown] insulin glargine 100 unit/mL (3 mL) subcutaneous pen 30 unit SC BID ml 10/03/20 [History Last Taken Unknown] hydrocodone-acetaminophen 1 tab PO Q4H PRN 5 Days #20 tab 02/16/21 [Rx Last Taken Unknown] nitroglycerin 0.4 mg sublingual tablet 0.4 mg SUBLINGUAL Q5-15M PRN #25 tab 02/25/21 [Rx Last Taken Unknown] cholecalciferol (vitamin D3) 1,250 mcg (50,000 unit) oral wafer 50,000 unit PO QWEEK wafer 04/02/21 [History Last Taken Unknown] insulin aspart U-100 100 unit/mL (3 mL) subcutaneous pen 5 unit SUBCUT QAC ml 04/02/21 [History Last Taken Unknown] cilostazol 50 mg tablet 50 mg PO BID 07/14/21 [History Last Taken Unknown] Trulicity 75 mg SUBCUT QWEEK 09/07/21 [History Last Taken Unknown] carvedilol 12.5 mg PO BID #180 tab 09/08/21 [Rx Last Taken Unknown] furosemide 40 mg PO .COMPLEX #0 tab 09/08/21 [Rx Last Taken Unknown] isosorbide mononitrate 30 mg PO BID #180 tab 09/08/21 [Rx Last Taken Unknown] Allergy/AdvReac Type Severity Reaction Status Date / Time No Known Allergies Allergy Verified 09/07/21 10:41 Family History Mother Heart disease Hypertension Father Heart disease Hypertension Diabetes Surgical History H/O coronary artery bypass surgery (11/09/14) H/O right coronary artery stent placement (07/17/19) History of appendectomy History of left heart catheterization (10/17/14) S/P arteriovenous (AV) fistula creation (01/2018) Social History Smoking Status: Former smoker how long ago did patient quit smokin years ago alcohol intake: never substance use type: does not use caffeine: Yes Type: coffee Number of servings: 2 ROS Constitutional Constitutional: Denies chills or fever(s) ENT HEENT: Denies loss taste/smell Cardiovascular Cardiovascular: Denies chest pain Respiratory/Chest Respiratory/Chest: Denies dry cough or dyspnea on exertion Gastrointestinal Gastrointestinal: Denies abdominal pain, diarrhea, nausea or vomiting Genitourinary Genitourinary: Reports flank pain and hematuria Musculoskeletal Musculoskeletal: Denies muscle cramps Integumentary Integumentary: Denies rash Neurologic Neurologic: Reports dizziness and other Details: lightheaded with low BP ; Denies confusion or frequent falls Psychiatric Psychiatric: Denies anxiety or depression Hematologic/Lymphatic Hematologic/Lymphatic: Reports anemia Physical Exam Const alert, oriented x3 and no apparent distress Resp clear to auscultation bilaterally Cardio regular rate GI non-tender GI Narrative: PD fluid intraabdoimal with manual exchange with distension Auscultation: normoactive bowel sounds Palpation: soft Extremity no clubbing, cyanosis or edema Neuro Sensorium / Orientation: awake and alert Lab / Micro Data Result Diagrams: 09/08/21 05:34 09/07/21 11:40 Labs: Laboratory Results - last 24 hr 09/07/21 11:40: WBC 13.2 H, RBC 3.66 L, Hgb 10.6 L, Hct 33.0 L, MCV 90.2, MCH 29.0, MCHC 32.1, RDW Std Deviation 43.8, RDW Coeff of Juanita 13.4, Plt Count 222, MPV 9.0, Immature Gran % (Auto) 0.600, Neut % (Auto) 81.2 H, Lymph % (Auto) 9.0 L, [place] % (Auto) 7.2, Eos % (Auto) 1.6, Baso % (Auto) 0.4, Absolute Neuts (auto) 10.8 H, Absolute Lymphs (auto) 1.19, Nucleated RBC % 0 09/07/21 11:40: Sodium 134 L, Potassium 3.9, Chloride 96 L, Carbon Dioxide 26.0, Anion Gap 12, BUN 54 H, Creatinine 13.50 H*, Estim Creat Clear Calc 5.03, Est GFR (MDRD) Af Amer 5 L, Est GFR (MDRD) Non-Af 4 L, BUN/Creatinine Ratio 4.0 L, Glucose 233 H, Calcium 7.9 L, Troponin I High Sens 85 H 09/07/21 13:00: Urine Color Red, Urine Clarity Cloudy, Urine pH 5.0, Ur Specific [place] 1.015, Urine Protein 500 H, Urine Glucose (UA) 100 H, Urine Ketones 5 H, Urine Occult Blood 250 H, Urine Nitrite Positive H, Urine Bilirubin Negative, Urine Urobilinogen Normal, Ur Leukocyte Esterase 500 H, Urine RBC > 100 SEEN, Urine WBC >100 SEEN, Ur Squamous Epith Cells 0 SEEN, Urine Bacteria 0 SEEN, Urine Mucus 0 SEEN 09/07/21 17:25: POC Glucose 78 09/07/21 22:00: POC Glucose 156 H 09/08/21 05:34: WBC 10.7, RBC 3.47 L, Hgb 10.1 L, Hct 31.6 L, MCV 91.1, MCH 29.1, MCHC 32.0, RDW Std Deviation 43.4, RDW Coeff of Juanita 13.3, Plt Count 223, MPV 8.9, Immature Gran % (Auto) 0.700, Neut % (Auto) 73.6 H, Lymph % (Auto) 13.8 L, [place] % (Auto) 9.2, Eos % (Auto) 2.2, Baso % (Auto) 0.5, Absolute Neuts (auto) 7.9 H, Absolute Lymphs (auto) 1.48, Nucleated RBC % 0 Radiology Impression Abdomen/Pelvis CT 09/07/21 11:23 IMPRESSION: 1. Free fluid in the abdomen or 2. Drainage catheter could represent peritoneal dialysis catheter. 3. No focal acute inflammatory process. 4. Extensive atherosclerotic vascular calcifications. Electronically Signed: Sae Mccloud, at 12:30 EST Tel , Service support ,
--- NOTE | 2021-09-08 11:02 | PCM.DC ---
Discharge Instructions Diet Discharge Diet: 2000 mg Sodium Diet Activity Discharge Activity: May Not Drive Dressing / Incision Call your doctor if you observe: Fever of 101 or Higher, Coldness, Increased Pain, Numbness or Tingling, Change in Color, Inability to urinate, Inability to have a bowel movement, Shortness of breath, Dizziness, Fainting spells, Swelling in the ankles, Chest pain, Prolonged hiccupping, Increased palpitations (irregular heartbeat), Calf discomfort and Uncontrolled pain Follow Up Care Test Results: Test results from this visit will be discussed in further detail at your follow-up appointment, if applicable. Discharge Plan Admission Admit Date/Time: 09/07/21 13:42 Primary Reason for Your Visit: Hypotension. Attending Provider: Leonardo Agudelo Primary Care Provider: Chris Woodward Consulting Providers: Mana Granados Discharge Orders/Prescriptions Prescriptions: Continued aspirin [Adult Aspirin Regimen] 81 mg tablet,delayed release (DR/EC) 81 mg PO QDAY Qty: 90 RF: 3 atorvastatin 20 mg tablet 20 mg PO QHS Qty: 90 RF: 3 calcium acetate 667 mg tablet 1,334 mg PO TID RF: 0 insulin aspart U-100 100 unit/mL (3 mL) insulin pen 5 unit subcut QAC RF: 0 cholecalciferol (vitamin D3) 1,250 mcg (50,000 unit) wafer 50,000 unit PO QWEEK RF: 0 omeprazole 40 MG capsule,delayed release(DR/EC) 40 mg PO DAILY RF: 0 albuterol sulfate 1 INHALER inhaler 1 - 2 puff INHALATION Q4H PRN PRN (Reason: Shortness Of Breath) Qty: 1 RF: 0 B complex with C 20-folic acid 1 CAPSULE capsule 1 cap PO DAILY Qty: 30 RF: 0 insulin glargine 100 unit/mL (3 mL) insulin pen 30 unit SC BID RF: 0 hydrocodone-acetaminophen 5-325 mg tablet 1 tab PO Q4H PRN (Reason: pain) 5 Days Qty: 20 RF: 0 Trulicity 0.75 mg/0.5 mL pen injector 75 mg SUBCUT QWEEK RF: 0 carvedilol 12.5 mg tablet 12.5 mg PO BID Qty: 180 RF: 3 isosorbide mononitrate 30 mg tablet extended release 24 hr 30 mg PO BID Qty: 180 RF: 3 nitroglycerin 0.4 mg tablet, sublingual 0.4 mg SUBLINGUAL Q5-15M PRN (Reason: chest pain) Qty: 25 RF: 6 cilostazol 50 mg tablet 50 mg PO BID RF: 0 Hold Instructions: Blood in urine Changed furosemide 40 mg tablet 40 mg PO .COMPLEX Qty: 0 RF: 0 Referrals / Follow Up: Chris Woodward MD [Primary Care Provider] - Disposition Disposition (needs filled in before D/C Order can be placed): Home, Self Care
--- NOTE | 2021-09-08 11:20 | CASEMGMT ---
CANELO PETERSEN assessment: Face to face with pt for initial transition planning/care coordination assessment. CANELO PETERSEN introduced self and role at [facility], pt voices understanding and consents to assessment. Pt is sitting up on side of bed in no distress on room air. Pt is A/Ox4 and answers all questions appropriately. Care providers, pharmacy, and demographics verified. Presentation: Pt c/o dizziness x2 days and c/o low bp at home Admitting dx: Hypotension, abn labs PCP: Trace Specialists: Soumya, nephro; Dominique, cardio; freda Hollins surgeon Preferred Pharmacy: [facility] Insurance: [facility] A/B, [facility] Prescription Benefit: Yes Living Will/HPOA: Pt states does not have LW/HPOA and declines AD info. LNOK: Ila Laguna, Living Arrangements: Pt lives with in 1 story home with basement and states no concerns at home. Pt is independent with ADL's. Transportation: Pt states drives self and states no transportation concerns. DME/HHC: Pt states only has peritoneal dialysis supplies at home and he does PD every night of the week for 10 hours. Pt states no hx of HHC or SNF. Pt states no concerns with going home at time of discharge. Pt is retired. Pt states does not smoke cigarettes or drink ETOH. Pt voices no further concerns/needs. CM to follow for any further discharge planning/needs. Advised pt to ask for CM if any further questions/concerns/needs arise, voices understanding. Pt Goal: Home Plan: [place] CANELO PETERSEN
--- NOTE | 2021-09-08 11:20 | CASEMGMT ---
CANELO PETERSEN assessment: Face to face with pt for initial transition planning/care coordination assessment. CANELO PETERSEN introduced self and role at [facility], pt voices understanding and consents to assessment. Pt is sitting up on side of bed in no distress on room air. Pt is A/Ox4 and answers all questions appropriately. Care providers, pharmacy, and demographics verified. Presentation: Pt c/o dizziness x2 days and c/o low bp at home Admitting dx: Hypotension, abn labs PCP: Trace Specialists: Soumya, nephro; Dominique, cardio; freda Hollins surgeon; georgette Queen Preferred Pharmacy: [facility] Insurance: [facility] A/B, [facility] Prescription Benefit: Yes Living Will/HPOA: Pt states does not have LW/HPOA and declines AD info. LNOK: Ila Laguna, Living Arrangements: Pt lives with in 1 story home with basement and states no concerns at home. Pt is independent with ADL's. Transportation: Pt states drives self and states no transportation concerns. DME/HHC: Pt states only has peritoneal dialysis supplies at home and he does PD every night of the week for 10 hours. Pt states no hx of HHC or SNF. Pt states no concerns with going home at time of discharge. Pt is retired. Pt states does not smoke cigarettes or drink ETOH. Pt voices no further concerns/needs. CM to follow for any further discharge planning/needs. Advised pt to ask for CM if any further questions/concerns/needs arise, voices understanding. Pt Goal: Home Plan: [place] CANELO PETERSEN
[2021-09-08] MEDS: 0.9% Saline Lock 10 ML Syringe IV (11:26)
[2021-09-08 12:02] LABS: Phosphorus 5.9 mg/dL (2.5-4.9)
[2021-09-08 12:10] LABS: Bedside Glucose 243 mg/dL (70-110)
--- NOTE | 2021-09-08 13:10 | PCM.DC.SUM ---
Providers Date of Admission: 09/07/21 Date of Discharge: 09/08/21 Primary Care Physician: Dr. Chris Woodward MD Consultations 09/07/21 15:58 Consult: Nephrology Routine Consulting Provider: Mana Granadso Reason for Consult: ESRD on PD EMERGENT Consult: No MD Notified: Yes Date Notified: 09/07/21 Time Notified: 16:00 Method of Notification: Text Reason For Visit: HYPOTENSION/ABNORMAL LABS Diagnosis Discharge Diagnosis (1) Hypotension: Status: Acute Code(s): I95.9 - Hypotension, unspecified Qualifiers: Hypotension type: unspecified hypotension type Qualified Code(s): I95.9 - Hypotension, unspecified (2) Acute UTI: Status: Acute Code(s): N39.0 - Urinary tract infection, site not specified Medications at Discharge Home Medications omeprazole 40 mg PO DAILY 08/30/17 albuterol sulfate 1 - 2 puff INHALATION Q4H PRN PRN #1 inhaler 05/14/18 B complex with C 20-folic acid 1 cap PO DAILY #30 cap 06/06/18 aspirin 81 mg tablet,delayed release 81 mg PO QDAY #90 tab 12/28/19 atorvastatin 20 mg tablet 20 mg PO QHS #90 tab 12/28/19 calcium acetate 667 mg tablet 1,334 mg PO TID 10/03/20 insulin glargine 100 unit/mL (3 mL) subcutaneous pen 30 unit SC BID ml 10/03/20 hydrocodone-acetaminophen 1 tab PO Q4H PRN 5 Days #20 tab 02/16/21 nitroglycerin 0.4 mg sublingual tablet 0.4 mg SUBLINGUAL Q5-15M PRN #25 tab 02/25/21 cholecalciferol (vitamin D3) 1,250 mcg (50,000 unit) oral wafer 50,000 unit PO QWEEK wafer 04/02/21 insulin aspart U-100 100 unit/mL (3 mL) subcutaneous pen 5 unit SUBCUT QAC ml 04/02/21 cilostazol 50 mg tablet 50 mg PO BID 07/14/21 Trulicity 75 mg SUBCUT QWEEK 09/07/21 carvedilol 12.5 mg PO BID #180 tab 09/08/21 furosemide 40 mg PO .COMPLEX #0 tab 09/08/21 isosorbide mononitrate 30 mg PO BID #180 tab 09/08/21 Hospital Course Summary of Care Provided Hospital Course: This is a 66-year-old gentleman with history of ESRD on peritoneal dialysis was admitted with low blood pressure, 83/43. Patient had dizziness but denied palpitation. Patient passes urine and did not notice any change, denied dysuria frequency or hematuria. No fever chills or diarrhea. UA was positive for LE and nitrite. RBC WBC more than [address] abdomen was done which showed no focal acute inflammatory process. Peritoneal dialysis catheter. Patient was admitted in PCU. Patient was seen by transmission maintenance supervisor Dr. Granados. Initially patient was empirically started on ceftriaxone but when urine culture shows no growth antibiotic discontinued. Patient other comorbidities which are controlled including chronic diastolic heart failure, coronary artery disease status post stents, pulmonary hypertension. Denies chest pain or shortness of breath. Discharge medication reconciliation done. Discharge follow-up instructions completed. Discharge process discussed with the patient and all questions were answered to patient's satisfaction. Total time spent, exact 35 minutes on discharge meds reconciliation, examination, coordination of care with nurses and ancillary staff, review of imaging and blood test and discussion with the patient on follow-up instructions Physical Exam Narrative Seen and examined. I talked to the patient's present in the bedroom. General: Alert, Oriented x3, Cooperative HEENT: Atraumatic, PERRLA, EOMI, Normocephalic Oral: No Gingival or Mucosal Lesions/ Ulcerations Neck: Supple, No JVD, Negative Carotid Bruits Lungs: Air entry diminished in bilateral lung bases. No crepitation/rhonchi Cardiovascular: Regular rate, Regular Rhythm, Normal S1, Normal S2, No murmurs Abdomen: Bowel Sounds Present, Soft, Non Tender, Non-Distended. Peritoneal dialysis catheter present. : No dysuria or increased frequency urgency. No renal angle tenderness. No suprapubic tenderness. Extremities: No edema, Capillary Refill Less than 3 Seconds Skin: No rashes, No breakdown Musculoskeletal: No Tenderness to Palpation of Joints or Extremities Neurological: Cranial nerves II-XII grossly intact, DTR 2+/4 and Symmetrical, Neuro grossly intact Psych/Mental Status: Normal Affect, Appropriate. Weight / BMI Weight Weight: 224 lb 6.889 oz Body Mass Index (BMI) 34.9 ABG / Lab / Microbiology Data Result Diagrams: 09/08/21 05:34 09/07/21 11:40 Laboratory: Laboratory Results - last 24 hr 09/07/21 13:00: Urine Color Red, Urine Clarity Cloudy, Urine pH 5.0, Ur Specific [place] 1.015, Urine Protein 500 H, Urine Glucose (UA) 100 H, Urine Ketones 5 H, Urine Occult Blood 250 H, Urine Nitrite Positive H, Urine Bilirubin Negative, Urine Urobilinogen Normal, Ur Leukocyte Esterase 500 H, Urine RBC > 100 SEEN, Urine WBC >100 SEEN, Ur Squamous Epith Cells 0 SEEN, Urine Bacteria 0 SEEN, Urine Mucus 0 SEEN 09/07/21 17:25: POC Glucose 78 09/07/21 22:00: POC Glucose 156 H 09/08/21 05:34: WBC 10.7, RBC 3.47 L, Hgb 10.1 L, Hct 31.6 L, MCV 91.1, MCH 29.1, MCHC 32.0, RDW Std Deviation 43.4, RDW Coeff of Juanita 13.3, Plt Count 223, MPV 8.9, Immature Gran % (Auto) 0.700, Neut % (Auto) 73.6 H, Lymph % (Auto) 13.8 L, [place] % (Auto) 9.2, Eos % (Auto) 2.2, Baso % (Auto) 0.5, Absolute Neuts (auto) 7.9 H, Absolute Lymphs (auto) 1.48, Nucleated RBC % 0 09/08/21 05:34: Phosphorus 5.9 H 09/08/21 11:25: POC Glucose 243 H Microbiology: Microbiology 09/07/21 13:00 Urine, Clean Catch Urine Culture - Preliminary Culture exhibits no growth. D/C Instructions Discharge Diet: 2000 mg Sodium Diet Call your doctor if you observe: Fever of 101 or Higher, Coldness, Increased Pain, Numbness or Tingling, Change in Color, Inability to urinate, Inability to have a bowel movement, Shortness of breath, Dizziness, Fainting spells, Swelling in the ankles, Chest pain, Prolonged hiccupping, Increased palpitations (irregular heartbeat), Calf discomfort and Uncontrolled pain Meaningful Use Info Meaningful Use Diagnoses (Choose all that apply): None applicable Discharge Plan Admission Admit Date/Time: 09/07/21 13:42 Primary Reason for Your Visit: Hypotension. Attending Provider: Leonardo Agudelo Primary Care Provider: Chris Woodward Consulting Providers: Mana Granados Discharge Orders/Prescriptions Prescriptions: Continued aspirin [Adult Aspirin Regimen] 81 mg tablet,delayed release (DR/EC) 81 mg PO QDAY Qty: 90 RF: 3 atorvastatin 20 mg tablet 20 mg PO QHS Qty: 90 RF: 3 calcium acetate 667 mg tablet 1,334 mg PO TID RF: 0 insulin aspart U-100 100 unit/mL (3 mL) insulin pen 5 unit subcut QAC RF: 0 cholecalciferol (vitamin D3) 1,250 mcg (50,000 unit) wafer 50,000 unit PO QWEEK RF: 0 omeprazole 40 MG capsule,delayed release(DR/EC) 40 mg PO DAILY RF: 0 albuterol sulfate 1 INHALER inhaler 1 - 2 puff INHALATION Q4H PRN PRN (Reason: Shortness Of Breath) Qty: 1 RF: 0 B complex with C 20-folic acid 1 CAPSULE capsule 1 cap PO DAILY Qty: 30 RF: 0 insulin glargine 100 unit/mL (3 mL) insulin pen 30 unit SC BID RF: 0 hydrocodone-acetaminophen 5-325 mg tablet 1 tab PO Q4H PRN (Reason: pain) 5 Days Qty: 20 RF: 0 Trulicity 0.75 mg/0.5 mL pen injector 75 mg SUBCUT QWEEK RF: 0 carvedilol 12.5 mg tablet 12.5 mg PO BID Qty: 180 RF: 3 isosorbide mononitrate 30 mg tablet extended release 24 hr 30 mg PO BID Qty: 180 RF: 3 nitroglycerin 0.4 mg tablet, sublingual 0.4 mg SUBLINGUAL Q5-15M PRN (Reason: chest pain) Qty: 25 RF: 6 cilostazol 50 mg tablet 50 mg PO BID RF: 0 Hold Instructions: Blood in urine Changed furosemide 40 mg tablet 40 mg PO .COMPLEX Qty: 0 RF: 0 Referrals / Follow Up: Chris Woodward MD [Primary Care Provider] - Disposition Disposition (needs filled in before D/C Order can be placed): Home, Self Care Charges/Coding Visit Charges Inpatient E&M: 55574 Disch Hosp
--- NOTE | 2021-09-08 13:37 | PHA.DC.MR ---
Pharmacy Service has performed discharge medication reconciliation for this patient. The patient's discharge medication list was reviewed for discrepancies and discrepancies were resolved. Home Medications omeprazole 40 mg PO DAILY 08/30/17 albuterol sulfate 1 - 2 puff INHALATION Q4H PRN PRN #1 inhaler 05/14/18 B complex with C 20-folic acid 1 cap PO DAILY #30 cap 06/06/18 aspirin 81 mg tablet,delayed release 81 mg PO QDAY #90 tab 12/28/19 atorvastatin 20 mg tablet 20 mg PO QHS #90 tab 12/28/19 calcium acetate 667 mg tablet 1,334 mg PO TID 10/03/20 insulin glargine 100 unit/mL (3 mL) subcutaneous pen 30 unit SC BID ml 10/03/20 hydrocodone-acetaminophen 1 tab PO Q4H PRN 5 Days #20 tab 02/16/21 nitroglycerin 0.4 mg sublingual tablet 0.4 mg SUBLINGUAL Q5-15M PRN #25 tab 02/25/21 cholecalciferol (vitamin D3) 1,250 mcg (50,000 unit) oral wafer 50,000 unit PO QWEEK wafer 04/02/21 insulin aspart U-100 100 unit/mL (3 mL) subcutaneous pen 5 unit SUBCUT QAC ml 04/02/21 cilostazol 50 mg tablet 50 mg PO BID 07/14/21 Trulicity 75 mg SUBCUT QWEEK 09/07/21 carvedilol 12.5 mg PO BID #180 tab 09/08/21 furosemide 40 mg PO .COMPLEX #0 tab 09/08/21 isosorbide mononitrate 30 mg PO BID #180 tab 09/08/21
[2021-09-08 14:30] LABS: Bedside Glucose 201 mg/dL (70-110)
== END 2021-09-08 15:24 | disposition home or self-care (01) | DRG 314 ==
LOC: ED 13:38 → PCU 15:22
PROVIDERS: Internal Medicine Nephrology; Admitting Provider Internal Medicine; Emergency Provider Emergency Medicine; PCP Internal Medicine; Visit Provider Internal Medicine
DX: I95.9 Hypotension, unspecified (principal); N18.6 End stage renal disease; N39.0 Urinary tract infection, site not specified; I50.32 Chronic diastolic (congestive) heart failure; I13.2 Hypertensive heart and chronic kidney disease with heart failure and with stage 5 chronic kidney disease, or end stage renal disease; N17.9 Acute kidney failure, unspecified; E11.51 Type 2 diabetes mellitus with diabetic peripheral angiopathy without gangrene; E11.22 Type 2 diabetes mellitus with diabetic chronic kidney disease; I25.10 Atherosclerotic heart disease of native coronary artery without angina pectoris; I27.21 Secondary pulmonary arterial hypertension; I25.2 Old myocardial infarction; E78.5 Hyperlipidemia, unspecified; E66.9 Obesity, unspecified; Z68.34 Body mass index [BMI] 34.0-34.9, adult; Z95.1 Presence of aortocoronary bypass graft; Z95.5 Presence of coronary angioplasty implant and graft; Z99.2 Dependence on renal dialysis; Z79.4 Long term (current) use of insulin; Z79.82 Long term (current) use of aspirin; Z79.899 Other long term (current) drug therapy; Z87.891 Personal history of nicotine dependence
CPT/HCPCS: 36415; 74176; 80048; 81001; 82962; 84100; 84484; 85025; 87086; 90947; 93005; 97802; 99285; J7030; J7040; A4216; G0257

== ENCOUNTER → 2022-05-27 | Outpatient (CLI) | payer MEDICARE, MEDICAID, SELFPAY ==
[2019-07-18 08:33] VITALS: BMI 34.8
[2022-05-27 10:33] LABS: ALB/GLOB Ratio 0.5 RATIO (0.9-2.4); AST(SGOT) 7 U/L (15-37); Alanine Aminotransfer ALT/SGPT 19 U/L (16-61); Albumin, Serum 2.8 g/dL (3.2-5.0); Alkaline Phosphatase 114 U/L (45-117); Anion Gap 16 (5-15); BUN 57 mg/dL (7-18); BUN/Creat Ratio 4.7 RATIO (10-20); Chloride 95 mmol/L (98-107); Cholesterol 95 mg/dL (200); EST Glomerular Filtration Rate 4 mL/min (>60); Est Glom Filt Rate - Afr Amer 5 mL/min (>60); Globulin 5.3 g/dL (2.2-4.2); Glucose 162 mg/dL (74-106); High Density Lipoprotein 29 mg/dL; Protein, Total 8.1 g/dL (6.4-8.2); Sodium Level 135 mmol/L (136-145); Thyroid Stim Hormone (TSH) 1.39 uIU/mL (0.358-3.74); Triglycerides 238 mg/dL; Very Low Density Lipoprotein 48 mg/dL (5-40)
[2022-05-27 10:37] LABS: Vitamin D,25 Hydroxy 81.6 ng/mL
== END | disposition home or self-care (01) ==
PROVIDERS: PCP Internal Medicine; Referring Provider Nurse Practitioner Family; Visit Provider Nurse Practitioner Family
DX: N18.6 End stage renal disease (principal); Z99.2 Dependence on renal dialysis; E11.9 Type 2 diabetes mellitus without complications; E78.5 Hyperlipidemia, unspecified
CPT/HCPCS: 36415; 80053; 80061; 82043; 82306; 82570; 84443